=== PATIENT | female | born 1950 | race Caucasian/White ===

== ENCOUNTER 2019-05-21 16:55 | Inpatient (IN) | payer MEDICARE ==
[2019-05-21] MEDS ORDERED: SODIUM CHLORIDE 0.9% 1,000 ML IV STA (17:02)
--- NOTE | 2019-05-21 17:09 | ED ---
Neuro HPI - General Stated Complaint: stroke Time Seen by Provider: 05/21/19 17:02 Source: RN notes reviewed, old records reviewed Limitations: physical limitation - History of Present Illness Is the patient presenting with stroke symptoms?: Yes Last Known Well Date: 05/18/19 -: days(s) (3) Initial Comments: This is a 69-year-old female the ER today. Patient resents today for evaluation of CVA. She does not have significant history of CVA. Patient symptoms nor notice initially on Sunday she started to get better. Patient does have H of A fibrillation at times recently took himself off Eliquis on her own decision making. Patient coming in for facial droop and slurred speech also slurred speech noted by family. Denies arm or leg weakness Location: speech, right face, dysarthria History of same: No Place: home Severity: moderate Quality: weak, numb, constant Improves With: time (The patient mild improvement) Worsens With: none On Anticoagulants: Yes Context: sudden onset Associated Symptoms: denies other symptoms - Related Data Home Medications: Home Medications Medication Instructions Recorded Confirmed ALPRAZolam [Xanax] 0.25 mg PO BID PRN 05/21/19 05/21/19 Diphenox-Atrop 2.5-0.025 mg 1 tab PO Q6H PRN 05/21/19 05/21/19 [Lomotil] Fluticasone/Salmeterol [Advair 1 puff INHALATION RT-BID 05/21/19 05/21/19 500-50 Diskus] Losartan Potassium 50 mg PO DAILY 05/21/19 05/21/19 Montelukast [Singulair] 10 mg PO HS 05/21/19 05/21/19 Potassium Chloride 10 meq PO BID 05/21/19 05/21/19 Torsemide [Demadex] 20 mg PO DAILY 05/21/19 05/21/19 traMADol HCL [Ultram] 100 mg PO TID PRN 05/21/19 05/21/19 Allergies/Adverse Reactions: Allergies Allergy/AdvReac Type Severity Reaction Status Date / Time propoxyphene [From Darvon] Allergy Unknown Verified 05/21/19 17:45 Review of Systems ROS Statement: Those systems with pertinent positive or pertinent negative responses have been documented in the HPI. ROS Other: All systems not noted in ROS Statement are negative. General Exam - General Exam Comments Initial Comments: NIH of 3 General appearance: alert, in no apparent distress Head exam: Present: atraumatic, normocephalic, normal inspection Eye exam: Present: normal appearance, PERRL, EOMI. Absent: scleral icterus, conjunctival injection, periorbital swelling ENT exam: Present: normal exam, mucous membranes moist Neck exam: Present: normal inspection. Absent: tenderness, meningismus, lym phadenopathy Respiratory exam: Present: normal lung sounds bilaterally. Absent: respiratory distress, wheezes, rales, rhonchi, stridor Cardiovascular Exam: Present: regular rate, normal rhythm, normal heart sounds. Absent: systolic murmur, diastolic murmur, rubs, gallop, clicks GI/Abdominal exam: Present: soft, normal bowel sounds. Absent: distended, tenderness, guarding, rebound, rigid Extremities exam: Present: normal inspection, full ROM, normal capillary refill. Absent: tenderness, pedal edema, joint swelling, calf tenderness Back exam: Present: normal inspection Neurological exam: Present: alert, oriented X3, CN II-XII intact Psychiatric exam: Present: normal affect, normal mood Skin exam: Present: warm, dry, intact, normal color. Absent: rash Stroke MDM - Lab Data Result diagrams: 05/21/19 17:45 05/21/19 17:45 - NIH Stroke Scale 1a. Level of Consciousness: (0) alert 1b. LOC Questions: (0) answers correctly 1c. LOC Commands: (0) performs tasks correctly 2. Best Gaze: (0) normal 3. Visual: (0) no visual loss 4. Facial Palsy: (3) complete paralysis (Right side of face) 5a. Motor Arm Left: (0) no drift 5b. Motor Arm Right: (0) no drift 6a. Motor Leg Left: (0) no drift 6b. Motor Leg Right: (0) no drift 7. Limb Ataxia: (0) absent 8. Sensory: (0) normal 9. Best Language: (1) mild/moderate aphasia 10. Dysarthria: (1) mild/moderate dysarthria 11. Extinction/Inattention: (0) no abnormality - Thrombolytic Inclusion/Exclusion Thrombolytic Exclusion Criteria: Symptom Onset > 3 Hours - Medical Decision Making 69 female coming of CVA symptoms. Patient be admitted for neurological evaluation and management - EKG Data -: EKG Interpreted by Me (EKG shows sinus rhythm rate of 86, NM 132, QRS 1:30, QTc 488) Course Vital Signs 05/21/19 05/21/19 05/21/19 17:09 18:30 19:45 Temperature 97.9 F 98.3 F Pulse Rate 87 81 83 Respiratory 18 18 18 Rate Blood Pressure 142/64 127/70 140/42 O2 Sat by Pulse 99 97 100 Oximetry - Reevaluation(s) Reevaluation #1: 05/21/19 17:09 Medical records reviewed Reevaluation #2: 05/21/19 17:09 Is not a TPA candidate secondary to onset of symptoms 3 days Disposition Clinical Impression: CVA (cerebral vascular accident) Disposition: ADMITTED IP TO THIS [facility] Condition: Serious Is patient prescribed a controlled substance at d/c from ED?: No
[2019-05-21] MEDS: ASPIRIN 325 MG TAB PO STA (17:47)
[2019-05-21 17:59] LABS: Basophils % (A) 1 %; Eosinophils # (A) 0.1 k/uL (0-0.7); Eosinophils % (A) 1 %; HCT 33.9 % (34.0-46.0); HGB 10.8 gm/dL (11.4-16.0); Lymphocytes # (A) 0.9 k/uL (1.0-4.8); Lymphocytes % (A) 11 %; MCH 25.7 pg (25.0-35.0); MCHC 31.7 g/dL (31.0-37.0); Monocytes # (A) 0.5 k/uL (0-1.0); Monocytes % (A) 6 %; Neutrophils # (A) 6.2 k/uL (1.3-7.7); Neutrophils % (A) 78 %; Platelet Count 222 k/uL (150-450); RBC 4.18 m/uL (3.80-5.40); RDW 14.5 % (11.5-15.5)
[2019-05-21 18:08] LABS: Albumin 3.7 g/dL (3.5-5.0); Calcium 8.9 mg/dL (8.4-10.2); Potassium 4.4 mmol/L (3.5-5.1); Total Bilirubin 0.8 mg/dL (0.2-1.3); Total Protein 7.9 g/dL (6.3-8.2)
[2019-05-21 18:18] LABS: INR 0.9 (<1.2); Partial Thromboplastin Time 24.3 sec (22.0-30.0); Prothrombin Time 9.9 sec (9.0-12.0)
--- NOTE | 2019-05-21 18:30 | XR ---
EXAMINATION TYPE: XR chest 2V DATE OF EXAM: 05/21/2019 COMPARISON: NONE HISTORY: Weakness. Stroke. TECHNIQUE: Frontal and lateral views of the chest are obtained. FINDINGS: Heart and mediastinum are normal. Lungs are clear of infiltrate. There are chest leads. Co stophrenic angles are clear. There are no hilar masses. Bony thorax is intact. IMPRESSION: Normal chest.
--- NOTE | 2019-05-21 19:48 | CT ---
EXAMINATION TYPE: CT brain wo con for TPA DATE OF EXAM: 05/21/2019 COMPARISON: None HISTORY: Neuro deficits. CT DLP: 1082.4 mGycm Automated exposure control for dose reduction was used. FINDINGS: Ventricles have normal size. There is no mass effect nor midline shift. There is no sign of intracran ial hemorrhage. The calvarium is intact. IMPRESSION: NEGATIVE CT SCAN OF THE BRAIN.
[2019-05-21 20:26] LABS: Glucose,Whole Blood 90 mg/dL (75-99)
[2019-05-22 04:21] VITALS: BMI 59.4
[2019-05-22 06:42] LABS: Cholesterol 126 mg/dL (<200); HDL Cholesterol 30 mg/dL (40-60); LDL Cholesterol,Calculated 80 mg/dL (0-99); Triglycerides 82 mg/dL (<150)
[2019-05-22 08:34] VITALS: BP 139/83; PULSE 75; RESP 12; TEMP 98.5
[2019-05-22] MEDS ORDERED: traMADol 50 MG TAB PO PRN (08:37)
[2019-05-22] MEDS ORDERED: ALPRAZolam 0.25 MG TAB PO PRN (08:41)
[2019-05-22] MEDS ORDERED: ASPIRIN 325 MG TAB PO SCH (09:00)
[2019-05-22] MEDS ORDERED: LOSARTAN 50 MG TAB PO SCH (09:00)
[2019-05-22] MEDS ORDERED: METOPROLOL TARTRATE 25 MG TAB PO SCH (09:30)
[2019-05-22] MEDS ORDERED: APIXABAN 5 MG TAB PO SCH (09:30)
[2019-05-22 09:57] LABS: Appearance,Urine Cloudy (Clear); Bacteria,Urine Moderate /hpf; Bilirubin,Urine Negative (Negative); Blood,Urine Moderate (Negative); Color,Urine Yellow; Glucose,Urine (UA) Negative (Negative); Ketones,Urine Negative (Negative); Leukocyte Esterase,Urine Large (Negative); Mucus,Urine Rare /hpf; Nitrite,Urine Negative (Negative); Protein,Urine Negative (Negative); RBC,Urine 41 /hpf (0-5); Specific Gravity,Urine 1.012 (1.001-1.035); Squamous Epithelial Cell,Urine 5 /hpf (0-4); Urobilinogen,Urine <2.0 mg/dL (<2.0); WBC,Urine 83 /hpf (0-5)
--- NOTE | 2019-05-22 09:59 | CONS ---
CONSULTATION Mrs. Morse is a 69-year-old female who is seen for cardiac evaluation, patient's electronic medical records. Last medications were reviewed. Please refer to the patient's EMR for any further details. Patient came with a complaint that since Sunday she started having some facial droop and slurred speech and some headaches. She initially thought she might be having atrial fibrillation. Patient subsequently came to the emergency room. Initial CT scan was negative and patient is admitted with a diagnosis of CVA. She denies any weakness. She does have a past history of TIA. She has a past history of paroxysmal atrial fibrillation for which patient has been treated for Eliquis. She had been having some bright red bleeding per rectum or vaginal bleeding and she took herself off the Eliquis for last 6 weeks. Patient has a history of hypertension. There is no definite history of myocardial infarction. The patient's physical activities are significantly limited. PAST MEDICAL HISTORY: Includes history of a TIA, a history of paroxysmal atrial fibrillation, cholecystectomy, and orthopedic surgery. PATIENT'S HOME MEDICATIONS: Included Demadex 20 mg daily, potassium chloride, Singulair, losartan 50 mg daily, Lomotil and Xanax. PHYSICAL EXAMINATION: At present reveals a 69-year-old obesely-built female who does not appear to be in any acute distress. Blood pressure is 139/83 mmHg, heart rate is 75 per minute. HEENT: Examination is negative. Neck is supple. There is no increase in jugular venous pressure. Both the carotid pulses are felt, there is no bruit. Chest is symmetrical Heart, the PMI is not felt. First and second heart sounds are heard. Lungs are clinically clear to auscultation and percussion. Abdomen is soft. Liver and spleen are not enlarged. Bowel sounds are heard. Extremities, peripheral pulses are 1+. EKG shows normal sinus rhythm with a Wenckebach type of second-degree AV block. Monitor strips reviewed which shows intermittent short runs of atrial tachycardia. Initial CT scan is normal. FINAL IMPRESSION: This patient is admitted with a history suggestive of a CVA. Initial CT scan is normal. Further evaluation with MRI is suggested. In view of the patient's known history of atrial fibrillation in the past as well as history of a TIA, I highly strongly recommend to resume the patient on Eliquis to prevent any major disabling stroke. I discussed this with the patient's daughter as well as patient. If she has any problem with rectal bleeding, a GI evaluation is suggested. Echo and Doppler study will be done. We will resume the patient's losartan and we will put the patient on Lopressor 25 mg b.i.d. MMLIZY / SUZETTEN: [id number] /
--- NOTE | 2019-05-22 10:00 | US ---
EXAMINATION TYPE: US carotid duplex BILAT DATE OF EXAM: 05/22/2019 COMPARISON: NONE CLINICAL HISTORY: stroke symptoms. Facial drooping and numbness, slurred speech, exam done portable. EXAM MEASUREMENTS: RIGHT: Peak Systolic Velocity (PSV) cm/sec ----- Right CCA: 66.6 ----- Right ICA: 56.9 ----- Right ECA: 74.5 ICA/CCA ratio: 0.9 RIGHT: End Diastole cm/sec ----- Right CCA: 17.1 ----- Right ICA: 14.2 ----- Right ECA: 2.4 LEFT: Peak Systolic Velocity (PSV) cm/sec ----- Left CCA: 90.7 ----- Left ICA: 87.4 ----- Left ECA: 112.4 ICA/CCA ratio: 1.0 LEFT: End Diastole cm/sec ----- Left CCA: 20.9 ----- Left ICA: 34.9 ----- Left ECA: 11.4 VERTEBRALS (direction of flow): Right Vertebral: Antegrade Left Vertebral: Antegrade Rhythm: Arrhythmia Difficult and limited study due to obese patient, heavy breathing and torturous vessels No elevated velocities, no significant stenosis. IMPRESSION: 1. Mild degree of grayscale atheromatous plaquing with no sonographically evident hemodynamically sig nificant stenosis within either visualized carotid arterial system. 2. Incidentally noted cardiac arrhythmia. Correlate with EKG. Criteria for Assigning % of Stenosis / Diameter reduction (Estimation based on the indirect measurements of the internal carotid artery velocities (ICA PSV). 1. Normal (no stenosis)=ICA PSV < 125 cm/s: ratio < 2.0: ICA EDV<40 cm/s. 2. Less than 50% stenosis=ICA PSV < 125 cm/s: ratio < 2.0: ICA EDV<40 cm/s. 3. 50 to 69% stenosis=ICA PSV of 125 to 230 cm/s: ration 2.0 ? 4.0: ICA EDV 40-100 cm/s. 4. Greater than 70% stenosis to near occlusion= ICA PSV > 230 cm/s: ratio > 4.0: ICA EDV > 100 cm/s. 5. Near occlusion= ICA PSV velocities may be low or undetectable: variable ratio and ICA EDV. 6. Total occlusion=unable to detect flow.
--- NOTE | 2019-05-22 10:45 | ECHOF ---
Referral Reason:stroke symptoms MEASUREMENTS -------- HEIGHT: 157.5 cm WEIGHT: 146.1 kg BP: 139/83 IVSd: 1.7 cm (0.6 - 1.1) LVIDd: 3.8 cm (3.9 - 5.3) LVPWd: 1.4 cm (0.6 - 1.1) IVSs: 1.6 cm LVIDs: 2.2 cm LVPWs: 1.6 cm Ao Diam: 3.4 cm (2.0 - 3.7) AV Cusp: 1.8 cm (1.5 - 2.6) LA Diam: 3.6 cm (2.7 - 3.8) MV EXCURSION: 13.666 mm (> 18.000) MV EF SLOPE: 57 mm/s (70 - 150) EPSS: 0.3 cm MV E Leon: 1.23 m/s MV DecT: 278 ms MV A Leon: 0.92 m/s MV E/A Ratio: 1.33 RAP: 5.00 mmHg RVSP: 10.99 mmHg FINDINGS -------- Atrial fibrillation. This was a technically difficult study with suboptimal views. The left ventricular size is normal. There is moderate concentric left ventricular hypertrophy. O verall left ventricular systolic function is low-normal with, an EF between 50 - 55 %. The RV was not well visualized. The left atrial size is normal. The right atrial size is normal. Lumason used The aortic valve is trileaflet and appears structurally normal. The mitral valve is normal. There is trace mitral regurgitation. Trace tricuspid regurgitation present. Right ventricular systolic pressure is normal at < 35 mmHg. The pulmonic valve was not well visualized. The aortic root size is normal. IVC Not well visulized. There is no pericardial effusion. CONCLUSIONS -------- 1. Atrial fibrillation. 2. This was a technically difficult study with suboptimal views. 3. The left ventricular size is normal. 4. There is moderate concentric left ventricular hypertrophy. 5. Overall left ventricular systolic function is low-normal with, an EF between 50 - 55 %. 6. The RV was not well visualized. 7. The left atrial size is normal. 8. The right atrial size is normal. 9. Lumason used 10. The aortic valve is trileaflet and appears structurally normal. 11. The mitral valve is normal. 12. There is trace mitral regurgitation. 13. Trace tricuspid regurgitation present. 14. Right ventricular systolic pressure is normal at < 35 mmHg. 15. The pulmonic valve was not well visualized. 16. The aortic root size is normal. 17. IVC Not well visulized. 18. There is no pericardial effusion. [place] TECHNICIAN: Lluvia Braun RDCS
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
--- NOTE | 2019-05-22 14:33 | P.CNPUL ---
History of Present Illness Consult date: 05/22/19 Chief complaint: Right facial weakness History of present illness: [id number] female patient with known history of atrial fibrillation who has quit taking her Eliquis approximately a month ago due to concerns of GI bleeding/hematuria. We are not sure if the patient had urinary bleeding or vaginal bleeding or GI bleeding. The patient herself is not sure. She decided to discontinue the anticoagulation. The patient has hypertension. The patient has history of bronchial asthma. The daughter found the patient having some right facial weakness. This has been going on for the past 5 days. The patient's right face, angle of the mouth is drooped and the patient also has difficulty raising her eyebrow at the Center she is having some issues with lacrimation in her taste. No weakness in the right upper extremity. No weakness in the lower extremity. No difficulties with speech. No headaches. No neck stiffness. No fever. No chills. No head trauma. Her CAT scan of the brain at time of admission was within normal limits. She has had chronic hearing difficulties and is very chronic problem. No nausea. No vomiting. No abdominal pain. No skin rashes. No reported history of any other complaints. No falls. On today's evaluation, the hemoglobin is stable. I see a transvaginal ultrasound that was done on this patient back in 2014 and it was normal limits and this was done for vaginal bleeding. The patient bronchial asthma and she is maintained on a combination of Advair and finger no patient basis. His chronic anxiety on Xanax. Review of Systems Constitutional: Denies chills, Denies fever Eyes: right irritation (An increased lacrimation from the right eye), denies as per HPI, denies blurred vision, denies bulging eye, denies decreased vision, denies diplopia, denies discharge, denies dry eye, denies itching, denies pain, denies photophobia, denies loss of peripheral vision, denies loss of vision, denies tunnel vision/blind spots Ears: bilateral: decreased hearing, deny: ear discharge, earache, tinnitus Ears, nose, mouth and throat: Reports as per HPI Breasts: absent: as per HPI, change in shape, gynecomastia, masses, nipple discharge, pain, skin changes, swelling Cardiovascular: Denies chest pain, Denies shortness of breath Respiratory: Reports as per HPI Gastrointestinal: Reports as per HPI Genitourinary: Reports as per HPI Menstruation: Reports as per HPI Musculoskeletal: Reports as per HPI Musculoskeletal: absent: ankle pain, ankle stiffness, ankle swelling, as per HPI, elbow pain, elbow stiffness, elbow swelling, foot pain, foot stiffness, foot swelling, hand pain, hand stiffness, hand swelling, hip pain, hip stiffness, hip swelling, knee pain, knee stiffness, knee swelling, shoulder pain, shoulder stiffness, shoulder swelling, wrist pain, wrist stiffness, wrist swelling Integumentary: Denies pruritus, Denies rash Neurological: Reports as per HPI (Facial weakness of the right) Psychiatric: Reports as per HPI Endocrine: Reports as per HPI Hematologic/Lymphatic: Reports as per HPI Allergic/Immunologic: Reports as per HPI Past Medical History Past Medical History: Atrial Fibrillation, Asthma, CVA/TIA, Hypertension History of Any Multi-Drug Resistant Organisms: None Reported Past Surgical History: Cholecystectomy, Orthopedic Surgery Past Psychological History: No Psychological Hx Reported Smoking Status: Never smoker Past Alcohol Use History: None Reported Past Drug Use History: None Reported - Past Family History Father Additional Family Medical History / Comment(s): Heart disease in the family including parents although the type is not clear Medications and Allergies Home Medications Medication Instructions Recorded Confirmed Type ALPRAZolam [Xanax] 0.25 mg PO BID PRN 05/21/19 05/21/19 History Diphenox-Atrop 2.5-0.025 mg 1 tab PO Q6H PRN 05/21/19 05/21/19 History [Lomotil] Fluticasone/Salmeterol [Advair 1 puff INHALATION RT-BID 05/21/19 05/21/19 History 500-50 Diskus] Losartan Potassium 50 mg PO DAILY 05/21/19 05/21/19 History Montelukast [Singulair] 10 mg PO HS 05/21/19 05/21/19 History Potassium Chloride 10 meq PO BID 05/21/19 05/21/19 History Torsemide [Demadex] 20 mg PO DAILY 05/21/19 05/21/19 History traMADol HCL [Ultram] 100 mg PO TID PRN 05/21/19 05/21/19 History Apixaban [Eliquis] 5 mg PO BID #60 tab 05/22/19 Rx Metoprolol Tartrate [Lopressor] 12.5 mg PO BID #60 tab 05/22/19 Rx predniSONE 10 mg PO DAILY 10 Days #45 tab 05/22/19 Rx Allergies Allergy/AdvReac Type Severity Reaction Status Date / Time propoxyphene [From Darvon] Allergy Unknown Verified 05/21/19 17:45 Physical Exam Vitals: Vital Signs Temp Pulse Resp BP Pulse Ox 05/22/19 08:00 98.5 F 75 12 139/83 05/22/19 07:00 96 16 142/70 05/22/19 06:00 81 15 136/58 05/22/19 05:00 76 15 136/65 05/22/19 04:00 98.3 F 75 14 144/71 98 05/22/19 03:00 85 12 97/84 05/22/19 02:00 106 H 18 122/67 99 05/22/19 01:00 72 18 116/56 98 05/22/19 00:00 98.3 F 78 14 149/80 98 05/21/19 23:00 74 14 144/78 05/21/19 22:00 99 18 133/64 05/21/19 21:00 78 16 147/60 98 05/21/19 20:13 98.5 F 74 16 130/84 99 05/21/19 19:45 98.3 F 83 18 140/42 100 05/21/19 18:30 81 18 127/70 97 05/21/19 17:09 97.9 F 87 18 142/64 99 Intake and Output 05/21/19 05/22/19 05/22/19 22:59 06:59 14:59 Output Total 300 Balance -300 Output: Urine 300 Other: # Voids 1 0 # Bowel Movements 1 Weight 147.418 kg 146.4 kg Gen. appearance the patient is calm, likely distress. She is away 3. She is fluent in her speech. No dysarthria. There is obvious right facial weakness was noted on physical examination. Head exam was generally normal. There was no scleral icterus or corneal arcus. Mucous membranes were moist. There is a obvious right facial weakness on the right Neck was supple and without jugular venous distension, thyromegaly, or carotid bruits. Carotids were easily palpable bilaterally. There was no adenopathy. Lungs were clear to auscultation and percussion, and with normal diaphragmatic excursion. No wheezes or rales were noted. Cardiac exam revealed the PMI to be normally situated and sized. The rhythm was regular and no extrasystoles were noted during several minutes of auscultation. The first and second heart sounds were normal and physiologic splitting of the second heart sound was noted. There were no murmurs, rubs, clicks, or gallops. Her rhythm is occasionally irregular consistent with atrial fibrillation. Upon 1 achieving and examining her, she was sinus alternating with atrial fibrillation. Abdominal exam revealed normal bowel sounds. The abdomen was soft, non-tender, and without masses, organomegaly, or appreciable enlargement of the abdominal aorta. Examination of the extremities revealed easily palpable radial, femoral and pedal pulses. There was no cyanosis, clubbing or edema. she has chronic edema lower extremities with +1 pitting Examination of the skin revealed no evidence of significant rashes, suspicious appearing nevi or other concerning lesions. Neurologically the patient awake and alert. No motor weakness in the right side. No motor weakness on the left side. Normal sensory bilaterally. Normal swallow. Positive gag. He was equal and reactive to light. No problems with extraocular muscle activity. No nystagmus. She has difficulty in raising her eyebrows and fully closing her eyes. She also difficulties with right facial weakness. No drooling. Tongue in the midline. No atrophy. The patient has diminished hearing bilaterally more so on the right. Reflexes symmetric in all 4 extremities. No Babinski. No clonus. Please refer to the neurologic evaluation that was done by the neurologist for more details. Results - Laboratory Findings CBC and BMP: 05/21/19 17:45 05/21/19 17:45 PT/INR, D-dimer PT 9.9 sec (9.0-12.0) 05/21/19 17:45 INR 0.9 (<1.2) 05/21/19 17:45 Abnormal lab findings: Abnormal Labs 05/21/19 05/21/19 05/22/19 17:45 17:45 05:17 Hgb 10.8 L Hct 33.9 L Lymphocytes # 0.9 L BUN 21 H Creatinine 1.48 H Glucose 101 H Alkaline Phosphatase 135 H HDL Cholesterol 30 L Urine Appearance Urine Blood Ur Leukocyte Esterase Urine RBC Urine WBC Ur Squamous Epith Cells Urine Bacteria Urine Mucus 09/05/19 09:15 Hgb Hct Lymphocytes # BUN Creatinine Glucose Alkaline Phosphatase HDL Cholesterol Urine Appearance Cloudy H Urine Blood Moderate H Ur Leukocyte Esterase Large H Urine RBC 41 H Urine WBC 83 H Ur Squamous Epith Cells 5 H Urine Bacteria Moderate H Urine Mucus Rare H Assessment and Plan Plan: 1 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 Doubt acute CVA. The CAT scan of the brain is negative. Awaiting a neurologic evaluation. 2 chronic atrial fibrillation currently on no anticoagulation. Rate is controlled 3 chronic kidney disease, stage II to 3 4 chronic bronchial asthma currently inactive in stable 5 hypertension 6 history of diverticulosis 7 obesity with a BMI 59 8 impaired hearing 9 chronic degenerative arthritis/pain Plan Awaiting an evaluation. If Vanegas's palsy is confirmed, the patient would benefit from steroids. Restart Eliquis as the patient has CHADsVasc score of at least 5 however going closely to monitor this patient for many bleeding with evidence vaginal lower GI bleeding. Monitor hemoglobin. Resume outpatient medications. Obtain echocardiogram. Obtain carotid Doppler. We'll continue to follow.
[2019-05-22] MEDS ORDERED: SYMBICORT 160-4.5 MCG INHALER INHALATION SCH (20:00)
[2019-05-22] MEDS ORDERED: MONTELUKAST 10 MG TAB PO SCH (21:00)
[2019-05-23] MEDS ORDERED: ASPIRIN 81 MG PO SCH (09:00)
--- NOTE | 2019-05-24 22:04 | P.HPIM ---
History of Present Illness H&P Date: 05/22/19 Chief Complaint: Facial weakness History of presenting complaint: This is a pleasant 69-year-old patient of Dr. Sin. Chronic stable medical conditions include hypertension, asthma, atrial fibrillation. Patient's most been eliquis and follows with Dr. Hinojosa. Patient's had some vaginal bleeding and she decided to hold off eliquis last few weeks. Patient presented with some right facial weakness. Going on for about for 5 days. No change in vision. No headache. No focal weakness. No fever no chills. Presented to the ER. Computed tomography scan of the brain was unremarkable. Admitted for further neurological workup. Review of systems: GEN.: None EYES: None HEENT: Facial asymmetry NECK: None RESPIRATORY: None CARDIOVASCULAR: None GASTROINTESTINAL: None GENITOURINARY: None MUSCULOSKELETAL: Occasional pain in the joints LYMPHATICS: None HEMATOLOGICAL: None PSYCHIATRY: None NEUROLOGICAL: As above Social history: Does not smoke or drink alcohol. Family history: Heart disease Physical examination: VITAL SIGNS: 97.9, 87, 18, 142/64, 99% room air GENERAL: BMI 59 sitting over the bed comfortable. EYES: Pupils equal. Conjunctiva normal. HEENT: External appearance of nose and ears normal, oral cavity grossly normal. NECK: JVD not raised; masses not palpable. HEART: First and second heart sounds are normal; no edema. LUNGS: Respiratory rate normal; clear to auscultation. ABDOMEN: Soft, nontender, liver spleen not palpable, no masses palpable. PSYCH: Alert and oriented x3; mood and affect normal. NEUROLOGICAL: [Weakness of the muscles on the right side of the face. Mouth is put to the left patient is unable to close eyelids against pressure. No other focal signs. 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 Neurology was consulted to rule out other causes. -Morbid obesity BMI 59 -Paroxysmal atrial fibrillation, patient stopped taking eliquis -) Right bundle branch block -Intermittent asthma -Essential hypertension Plan: Neurology was consulted. Prognosis aspirin. Home medications reviewed. 2-D echo and a carotid Doppler was ordered. Patient was told to resume her eliquis. Cardiology was consulted. Past Medical History Past Medical History: Atrial Fibrillation, Asthma, CVA/TIA, Hypertension History of Any Multi-Drug Resistant Organisms: None Reported Past Surgical History: Cholecystectomy, Orthopedic Surgery Past Psychological History: No Psychological Hx Reported Smoking Status: Never smoker Past Alcohol Use History: None Reported Past Drug Use History: None Reported - Past Family History Father Additional Family Medical History / Comment(s): Heart disease in the family including parents although the type is not clear Medications and Allergies Home Medications Medication Instructions Recorded Confirmed Type ALPRAZolam [Xanax] 0.25 mg PO BID PRN 05/21/19 05/21/19 History Diphenox-Atrop 2.5-0.025 mg 1 tab PO Q6H PRN 05/21/19 05/21/19 History [Lomotil] Fluticasone/Salmeterol [Advair 1 puff INHALATION RT-BID 05/21/19 05/21/19 History 500-50 Diskus] Losartan Potassium 50 mg PO DAILY 05/21/19 05/21/19 History Montelukast [Singulair] 10 mg PO HS 05/21/19 05/21/19 History Potassium Chloride 10 meq PO BID 05/21/19 05/21/19 History Torsemide [Demadex] 20 mg PO DAILY 05/21/19 05/21/19 History traMADol HCL [Ultram] 100 mg PO TID PRN 05/21/19 05/21/19 History Apixaban [Eliquis] 5 mg PO BID #60 tab 05/22/19 Rx Metoprolol Tartrate [Lopressor] 12.5 mg PO BID #60 tab 05/22/19 Rx predniSONE 10 mg PO DAILY 10 Days #45 tab 05/22/19 Rx Allergies Allergy/AdvReac Type Severity Reaction Status Date / Time propoxyphene [From Darvon] Allergy Unknown Verified 05/21/19 17:45 Physical Exam Vitals: Vital Signs Temp Pulse Resp BP Pulse Ox 05/22/19 08:00 98.5 F 75 12 139/83 05/22/19 07:00 96 16 142/70 05/22/19 06:00 81 15 136/58 05/22/19 05:00 76 15 136/65 05/22/19 04:00 98.3 F 75 14 144/71 98 05/22/19 03:00 85 12 97/84 05/22/19 02:00 106 H 18 122/67 99 05/22/19 01:00 72 18 116/56 98 05/22/19 00:00 98.3 F 78 14 149/80 98 05/21/19 23:00 74 14 144/78 05/21/19 22:00 99 18 133/64 05/21/19 21:00 78 16 147/60 98 05/21/19 20:13 98.5 F 74 16 130/84 99 05/21/19 19:45 98.3 F 83 18 140/42 100 05/21/19 18:30 81 18 127/70 97 05/21/19 17:09 97.9 F 87 18 142/64 99 Intake and Output 05/21/19 05/22/19 05/22/19 22:59 06:59 14:59 Other: # Voids 1 0 Weight 147.418 kg 146.4 kg Results CBC & Chem 7: 05/21/19 17:45 05/21/19 17:45 Labs: Abnormal Lab Results - Last 24 Hours (Table) 05/21/19 05/21/19 05/22/19 Range/Units 17:45 17:45 05:17 Hgb 10.8 L (11.4-16.0) gm/dL Hct 33.9 L (34.0-46.0) % Lymphocytes # 0.9 L (1.0-4.8) k/uL BUN 21 H (7-17) mg/dL Creatinine 1.48 H (0.52-1.04) mg/dL Glucose 101 H (74-99) mg/dL Alkaline Phosphatase 135 H (38-126) U/L HDL Cholesterol 30 L (40-60) mg/dL Urine Appearance (Clear) Urine Blood (Negative) Ur Leukocyte Esterase (Negative) Urine RBC (0-5) /hpf Urine WBC (0-5) /hpf Ur Squamous Epith Cells (0-4) /hpf Urine Bacteria (None) /hpf Urine Mucus (None) /hpf 05/22/19 Range/Units 09:15 Hgb (11.4-16.0) gm/dL Hct (34.0-46.0) % Lymphocytes # (1.0-4.8) k/uL BUN (7-17) mg/dL Creatinine (0.52-1.04) mg/dL Glucose (74-99) mg/dL Alkaline Phosphatase (38-126) U/L HDL Cholesterol (40-60) mg/dL Urine Appearance Cloudy H (Clear) Urine Blood Moderate H (Negative) Ur Leukocyte Esterase Large H (Negative) Urine RBC 41 H (0-5) /hpf Urine WBC 83 H (0-5) /hpf Ur Squamous Epith Cells 5 H (0-4) /hpf Urine Bacteria Moderate H (None) /hpf Urine Mucus Rare H (None) /hpf Thrombosis Risk Factor Assmnt - Choose All That Apply Any of the Below Risk Factors Present?: Yes Each Factor Represents 1 point: Obesity (BMI >25), Swollen legs (current) Other Risk Factors: Yes Each Risk Factor Represents 2 Points: Age 61-74 years Thrombosis Risk Factor Assessment Total Risk Factor Score: 4 Thrombosis Risk Factor Assessment Level: Moderate Risk
--- NOTE | 2019-05-24 22:09 | P.DS ---
Providers Date of admission: 05/21/19 17:02 Expected date of discharge: 05/22/19 Attending physician: Jamshid Cabrera Consults: 05/21/19 17:03 Consult Physician Routine Consulting Provider: Erum Taylor Consult Reason/Comments: cva Do you want consulting provider notified?: Yes Primary care physician: Ivan [facility] Course: Hospital course: This is a pleasant 69-year-old patient of Dr. Sin. Chronic stable medical conditions include hypertension, asthma, atrial fibrillation. Patient's most been eliquis and follows with Dr. Hinojosa. Patient's had some vaginal bleeding and she decided to hold off eliquis last few weeks. Patient presented with some right facial weakness. Going on for about for 5 days. No change in vision. No headache. No focal weakness. No fever no chills. Presented to the ER. Computed tomography scan of the brain was unremarkable. Admitted for further neurological workup. Patient TESTING including computed tomography scan of the brain, carotid Doppler, 2-D echo were all negative.. Patient felt of Vanegas's palsy. Symptoms only been present for 5 days. Patient was reinforced to resume her eliquis. Repeat was consulted. Consultation: Dr. VC Wyatt from cardiology Dr. Taylor from neurology Dr. Godfrey from template checker Physical examination: VITAL SIGNS: 97.9, 87, 18, 142/64, 99% room air GENERAL: BMI 59 sitting over the bed comfortable. EYES: Pupils equal. Conjunctiva normal. HEENT: External appearance of nose and ears normal, oral cavity grossly normal. NECK: JVD not raised; masses not palpable. HEART: First and second heart sounds are normal; no edema. LUNGS: Respiratory rate normal; clear to auscultation. ABDOMEN: Soft, nontender, liver spleen not palpable, no masses palpable. PSYCH: Alert and oriented x3; mood and affect normal. NEUROLOGICAL: [Weakness of the muscles on the right side of the face. Mouth is put to the left patient is unable to close eyelids against pressure. No other focal signs. 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 Neurology was consulted to rule out other causes. -Morbid obesity BMI 59 -Paroxysmal atrial fibrillation, patient stopped taking eliquis - Right bundle branch block -Intermittent asthma -Essential hypertension Disposition: Home Patient Condition at Discharge: Stable Plan - Discharge Summary Discharge Rx Participant: No New Discharge Prescriptions: New Apixaban [Eliquis] 5 mg PO BID #60 tab Metoprolol Tartrate [Lopressor] 12.5 mg PO BID #60 tab predniSONE 10 mg PO DAILY 10 Days #45 tab Continue traMADol HCL [Ultram] 100 mg PO TID PRN PRN Reason: Pain Torsemide [Demadex] 20 mg PO DAILY Potassium Chloride 10 meq PO BID Montelukast [Singulair] 10 mg PO HS Losartan Potassium 50 mg PO DAILY Fluticasone/Salmeterol [Advair 500-50 Diskus] 1 puff INHALATION RT-BID Diphenox-Atrop 2.5-0.025 mg [Lomotil] 1 tab PO Q6H PRN PRN Reason: Diarrhea ALPRAZolam [Xanax] 0.25 mg PO BID PRN PRN Reason: Anxiety Discharge Medication List ALPRAZolam [Xanax] 0.25 mg PO BID PRN 05/21/19 [History] Diphenox-Atrop 2.5-0.025 mg [Lomotil] 1 tab PO Q6H PRN 05/21/19 [History] Fluticasone/Salmeterol [Advair 500-50 Diskus] 1 puff INHALATION RT-BID 05/21/19 [History] Losartan Potassium 50 mg PO DAILY 05/21/19 [History] Montelukast [Singulair] 10 mg PO HS 05/21/19 [History] Potassium Chloride 10 meq PO BID 05/21/19 [History] Torsemide [Demadex] 20 mg PO DAILY 05/21/19 [History] traMADol HCL [Ultram] 100 mg PO TID PRN 05/21/19 [History] Apixaban [Eliquis] 5 mg PO BID #60 tab 05/22/19 [Rx] Metoprolol Tartrate [Lopressor] 12.5 mg PO BID #60 tab 05/22/19 [Rx] predniSONE 10 mg PO DAILY 10 Days #45 tab 05/22/19 [Rx] Follow up Appointment(s)/Referral(s): Isa Hinojosa MD [STAFF PHYSICIAN] - 1 Week (05/30/19 3:[address] ) Ivan Sin MD [Primary Care Provider] - 1-2 days (05/23/19 0930) Senia Smith MD [STAFF PHYSICIAN] - 1 Week (05/26/19 1115) Patient Instructions/Handouts: Vanegas Palsy (DC) Discharge Disposition: HOME SELF-CARE
== END 2019-05-22 14:38 | disposition home or self-care (01) | DRG 74 ==
LOC: EC 16:55 → 2SICU 17:02
PROVIDERS: ADMIT Hospitalist; ATTEND Hospitalist
DX: G51.0 Bell's palsy (principal); Z68.43 Body mass index [BMI] 50.0-59.9, adult; E66.01 Morbid (severe) obesity due to excess calories; I48.0 Paroxysmal atrial fibrillation; I45.10 Unspecified right bundle-branch block; I48.2 Chronic atrial fibrillation; I44.1 Atrioventricular block, second degree; I12.9 Hypertensive chronic kidney disease with stage 1 through stage 4 chronic kidney disease, or unspecified chronic kidney disease; N18.2 Chronic kidney disease, stage 2 (mild); J45.20 Mild intermittent asthma, uncomplicated; K57.90 Diverticulosis of intestine, part unspecified, without perforation or abscess without bleeding; F41.9 Anxiety disorder, unspecified; H91.90 Unspecified hearing loss, unspecified ear; M19.90 Unspecified osteoarthritis, unspecified site; Z79.51 Long term (current) use of inhaled steroids; Z79.899 Other long term (current) drug therapy; Z88.5 Allergy status to narcotic agent; Z86.73 Personal history of transient ischemic attack (TIA), and cerebral infarction without residual deficits; Z90.49 Acquired absence of other specified parts of digestive tract; Z82.49 Family history of ischemic heart disease and other diseases of the circulatory system
CPT/HCPCS: 36415; 70450; 71046; 80053; 80061; 81001; 82550; 84484; 85025; 85610; 85730; 93005; 93306; 93880; 96360; 96361; 99285

== ENCOUNTER 2019-06-12 16:17 | Emergency (ER) | payer MEDICARE ==
[2019-06-12] MEDS ORDERED: METOCLOPRAMIDE 5 MG/ML 2 ML VIAL IVP STA (16:58)
[2019-06-12] MEDS ORDERED: SODIUM CHLORIDE 0.9% 1,000 ML IV STA (16:58)
[2019-06-12] MEDS ORDERED: MORPHINE SULFATE 4 MG/ML SYRINGE IV STA (16:58)
[2019-06-12] MEDS ORDERED: PANTOPRAZOLE 40 MG/10 ML VIAL IVP STA (16:58)
[2019-06-12] MEDS ORDERED: diphenhydrAMINE 50 MG/ML 1 ML VIAL IVP STA (16:59)
--- NOTE | 2019-06-12 17:09 | ED ---
Abdominal Pain HPI - General Stated Complaint: colitis flare Time Seen by Provider: 06/12/19 16:47 Source: RN notes reviewed, old records reviewed Limitations: no limitations - History of Present Illness Initial Comments: This is a 69-year-old female the ER for evaluation is patient does say for evaluation of bowel pain persists or abdominal pain with nausea vomiting. No fevers. She does have diarrhea has persistent diarrhea. History of colitis and diverticulitis. Patient feels like she has worsening of both she is here surgeon about a week ago she was started on Sunday medications and he has had no improvement. Denies any fevers. No significant recent gallbladder has been removed Complaint: abdominal pain, other (Diarrhea) -: week(s) Location: diffuse, periumbilical, LLQ Radiation: none Migration to: no migration Severity: moderate Severity scale (1-10): 5 Quality: cramping, stabbing, aching Consistency: constant Improves With: nothing Worsens With: nothing Context: other (History of same) Associated Symptoms: nausea, vomiting, diarrhea, anorexia - Related Data Home Medications Medication Instructions Recorded Confirmed ALPRAZolam [Xanax] 0.25 mg PO BID PRN 05/21/19 06/12/19 Diphenox-Atrop 2.5-0.025 mg 1 tab PO Q6H PRN 05/21/19 06/12/19 [Lomotil] Fluticasone/Salmeterol [Advair 1 puff INHALATION RT-BID 05/21/19 06/12/19 500-50 Diskus] Losartan Potassium 50 mg PO DAILY 05/21/19 06/12/19 Montelukast [Singulair] 10 mg PO HS 05/21/19 06/12/19 Potassium Chloride 10 meq PO DAILY 05/21/19 06/12/19 Torsemide [Demadex] 20 mg PO DAILY 05/21/19 06/12/19 traMADol HCL [Ultram] 100 mg PO TID PRN 05/21/19 06/12/19 Metoprolol Tartrate [Lopressor] 50 mg PO BID 06/12/19 06/12/19 Previous Rx's Medication Instructions Recorded Apixaban [Eliquis] 5 mg PO BID #60 tab 05/22/19 Allergies Allergy/AdvReac Type Severity Reaction Status Date / Time propoxyphene [From Darvon] Allergy Unknown Verified 06/12/19 17:28 Review of Systems ROS Statement: Those systems with pertinent positive or pertinent negative responses have been documented in the HPI. ROS Other: All systems not noted in ROS Statement are negative. Past Medical History Past Medical History: Atrial Fibrillation, Asthma, CVA/TIA, Hypertension History of Any Multi-Drug Resistant Organisms: None Reported Past Surgical History: Cholecystectomy, Orthopedic Surgery Past Psychological History: No Psychological Hx Reported Smoking Status: Never smoker Past Alcohol Use History: None Reported Past Drug Use History: None Reported - Past Family History Father Additional Family Medical History / Comment(s): Heart disease in the family including parents although the type is not clear General Exam General appearance: alert, in no apparent distress, obese Head exam: Present: atraumatic, normocephalic, normal inspection Eye exam: Present: normal appearance, EOMI. Absent: scleral icterus, conjunctival injection, periorbital swelling ENT exam: Present: normal exam, mucous membranes moist Neck exam: Present: normal inspection. Absent: tenderness, meningismus, lymphadenopathy Respiratory exam: Present: normal lung sounds bilaterally. Absent: respiratory distress, wheezes, rales, rhonchi, stridor Cardiovascular Exam: Present: regular rate, normal rhythm, normal heart sounds. Absent: systolic murmur, diastolic murmur, rubs, gallop, clicks GI/Abdominal exam: Present: soft, distended, tenderness, normal bowel sounds. Absent: guarding, rebound, rigid Extremities exam: Present: normal inspection, full ROM, normal capillary refill. Absent: tenderness, pedal edema, joint swelling, calf tenderness Back exam: Present: normal inspection Neurological exam: Present: alert, oriented X3, CN II-XII intact Psychiatric exam: Present: normal affect, normal mood Skin exam: Present: warm, dry, intact, normal color. Absent: rash Course Vital Signs 06/12/19 06/12/19 06/12/19 17:32 17:35 18:00 Temperature 98.6 F Pulse Rate 69 Respiratory 18 Rate Blood Pressure 131/75 131/75 137/74 O2 Sat by Pulse 98 99 Oximetry - Reevaluation(s) Reevaluation #1: 06/12/19 17:09 Medical record is reviewed Reevaluation #2: 06/12/19 20:15 Patient symptoms pain improved Medical Decision Making - Medical Decision Making 69 female the ER for evaluation of bowel pain. History of colitis computed tomography scan is negative labwork is normal patient can be discharged home - Lab Data Result diagrams: 06/12/19 18:25 06/12/19 18:25 Lab Results 06/12/19 06/12/19 06/12/19 Range/Units 18:25 18:25 18:25 WBC 5.1 (3.8-10.6) k/uL RBC 4.42 (3.80-5.40) m/uL Hgb 11.2 L (11.4-16.0) gm/dL Hct 35.3 (34.0-46.0) % MCV 79.9 L (80.0-100.0) fL MCH 25.4 (25.0-35.0) pg MCHC 31.8 (31.0-37.0) g/dL RDW 14.2 (11.5-15.5) % Plt Count 225 (150-450) k/uL Neutrophils % 73 % Lymphocytes % 14 % Monocytes % 8 % Eosinophils % 1 % Basophils % 1 % Neutrophils # 3.7 (1.3-7.7) k/uL Lymphocytes # 0.7 L (1.0-4.8) k/uL Monocytes # 0.4 (0-1.0) k/uL Eosinophils # 0.1 (0-0.7) k/uL Basophils # 0.0 (0-0.2) k/uL Hypochromasia Slight Sodium 134 L (137-145) mmol/L Potassium 4.1 (3.5-5.1) mmol/L Chloride 98 (98-107) mmol/L Carbon Dioxide 23 (22-30) mmol/L Anion Gap 13 mmol/L BUN 16 (7-17) mg/dL Creatinine 1.31 H (0.52-1.04) mg/dL Est GFR (CKD-EPI)AfAm 47 (>60 ml/min/1.73 sqM) Est GFR (CKD-EPI)NonAf 41 (>60 ml/min/1.73 sqM) Glucose 104 H (74-99) mg/dL Plasma Lactic Acid Dieudonne 2.0 (0.7-2.0) mmol/L Calcium 8.5 (8.4-10.2) mg/dL Total Bilirubin 1.3 (0.2-1.3) mg/dL AST 23 (14-36) U/L ALT 19 (9-52) U/L Alkaline Phosphatase 148 H (38-126) U/L Creatine Kinase 35 (30-135) U/L Total Protein 6.9 (6.3-8.2) g/dL Albumin 3.2 L (3.5-5.0) g/dL Amylase 34 (30-110) U/L Lipase 25 (23-300) U/L Urine Color Urine Appearance (Clear) Urine pH (5.0-8.0) Ur Specific [place] (1.001-1.035) Urine Protein (Negative) Urine Glucose (UA) (Negative) Urine Ketones (Negative) Urine Blood (Negative) Urine Nitrite (Negative) Urine Bilirubin (Negative) Urine Urobilinogen (<2.0) mg/dL Ur Leukocyte Esterase (Negative) Urine RBC (0-5) /hpf Urine WBC (0-5) /hpf Urine WBC Clumps (None) /hpf Ur Squamous Epith Cells (0-4) /hpf Urine Bacteria (None) /hpf Hyaline Casts (0-2) /lpf Urine Mucus (None) /hpf 06/12/19 Range/Units 18:25 WBC (3.8-10.6) k/uL RBC (3.80-5.40) m/uL Hgb (11.4-16.0) gm/dL Hct (34.0-46.0) % MCV (80.0-100.0) fL MCH (25.0-35.0) pg MCHC (31.0-37.0) g/dL RDW (11.5-15.5) % Plt Count (150-450) k/uL Neutrophils % % Lymphocytes % % Monocytes % % Eosinophils % % Basophils % % Neutrophils # (1.3-7.7) k/uL Lymphocytes # (1.0-4.8) k/uL Monocytes # (0-1.0) k/uL Eosinophils # (0-0.7) k/uL Basophils # (0-0.2) k/uL Hypochromasia Sodium (137-145) mmol/L Potassium (3.5-5.1) mmol/L Chloride (98-107) mmol/L Carbon Dioxide (22-30) mmol/L Anion Gap mmol/L BUN (7-17) mg/dL Creatinine (0.52-1.04) mg/dL Est GFR (CKD-EPI)AfAm (>60 ml/min/1.73 sqM) Est GFR (CKD-EPI)NonAf (>60 ml/min/1.73 sqM) Glucose (74-99) mg/dL Plasma Lactic Acid Dieudonne (0.7-2.0) mmol/L Calcium (8.4-10.2) mg/dL Total Bilirubin (0.2-1.3) mg/dL AST (14-36) U/L ALT (9-52) U/L Alkaline Phosphatase (38-126) U/L Creatine Kinase (30-135) U/L Total Protein (6.3-8.2) g/dL Albumin (3.5-5.0) g/dL Amylase (30-110) U/L Lipase (23-300) U/L Urine Color Dark Brown Urine Appearance Turbid H (Clear) Urine pH 5.5 (5.0-8.0) Ur Specific [place] 1.023 (1.001-1.035) Urine Protein 2+ H (Negative) Urine Glucose (UA) Negative (Negative) Urine Ketones 1+ H (Negative) Urine Blood Moderate H (Negative) Urine Nitrite Negative (Negative) Urine Bilirubin 1+ H (Negative) Urine Urobilinogen 12.0 (<2.0) mg/dL Ur Leukocyte Esterase Large H (Negative) Urine RBC 162 H (0-5) /hpf Urine WBC >182 H (0-5) /hpf Urine WBC Clumps Many H (None) /hpf Ur Squamous Epith Cells 3 (0-4) /hpf Urine Bacteria Many H (None) /hpf Hyaline Casts 27 H (0-2) /lpf Urine Mucus Few H (None) /hpf - Radiology Data Radiology results: report reviewed (CT scan of the abdomen pelvis is negative for acute disease), image reviewed Disposition Clinical Impression: Abdominal pain Disposition: HOME SELF-CARE Condition: Good Instructions (If sedation given, give patient instructions): Abdominal Pain (ED) Is patient prescribed a controlled substance at d/c from ED?: No Referrals: Ivan Sin MD [Primary Care Provider] - 1-2 days
[2019-06-12 17:36] VITALS: PULSE 103; RESP 18; TEMP 98.6
[2019-06-12 18:38] LABS: Basophils % (A) 1 %; Eosinophils # (A) 0.1 k/uL (0-0.7); Eosinophils % (A) 1 %; HCT 35.3 % (34.0-46.0); HGB 11.2 gm/dL (11.4-16.0); Hypochromasia Slight; Lymphocytes # (A) 0.7 k/uL (1.0-4.8); Lymphocytes % (A) 14 %; MCH 25.4 pg (25.0-35.0); MCHC 31.8 g/dL (31.0-37.0); MCV 79.9 fL (80.0-100.0); Monocytes # (A) 0.4 k/uL (0-1.0); Monocytes % (A) 8 %; Neutrophils # (A) 3.7 k/uL (1.3-7.7); Neutrophils % (A) 73 %; Platelet Count 225 k/uL (150-450); RBC 4.42 m/uL (3.80-5.40); RDW 14.2 % (11.5-15.5); WBC 5.1 k/uL (3.8-10.6)
[2019-06-12 18:45] LABS: Bacteria,Urine Many /hpf; Hyaline Casts,Urine 27 /lpf (0-2); RBC,Urine 162 /hpf (0-5); Squamous Epithelial Cell,Urine 3 /hpf (0-4)
[2019-06-12 18:48] LABS: Albumin 3.2 g/dL (3.5-5.0); Calcium 8.5 mg/dL (8.4-10.2); Potassium 4.1 mmol/L (3.5-5.1); Total Bilirubin 1.3 mg/dL (0.2-1.3); Total Protein 6.9 g/dL (6.3-8.2)
[2019-06-12 18:56] LABS: Appearance,Urine Turbid (Clear); Bilirubin,Urine 1+ (Negative); Blood,Urine Moderate (Negative); Color,Urine Dark Brown; Glucose,Urine (UA) Negative (Negative); Ketones,Urine 1+ (Negative); Leukocyte Esterase,Urine Large (Negative); Mucus,Urine Few /hpf; Nitrite,Urine Negative (Negative); PH, Urine 5.5 (5.0-8.0); Protein,Urine 2+ (Negative); Specific Gravity,Urine 1.023 (1.001-1.035)
--- NOTE | 2019-06-12 19:36 | CT ---
EXAMINATION TYPE: CT abdomen pelvis w con DATE OF EXAM: 06/12/2019 COMPARISON: None HISTORY: Generalized abdominal pain and diarrhea. CT DLP: 2907 mGycm Automated exposure control for dose reduction was used. TECHNIQUE: Helical acquisition of images was performed from the lung bases through the pelvis. CONTRAST: Performed without Oral Contrast and with IV Contrast, patient injected with 80 mL of Isovue 300. FINDINGS: Lung bases are clear of consolidation. There is no pleural effusion. Heart size is normal. There is n o pericardial effusion. Liver spleen stomach pancreas appear normal. Bile ducts are not dilated. Gallbladder is absent. There is no adrenal mass. Kidneys have normal size and contour. There is no hydronephrosis. There is no retroperitoneal adenopathy. Ureters are not dilated. Bladder distends smoothly. There is no inguin al hernia. Uterus is anteverted. There is no free fluid in the pelvis. There is extensive fat stranding around the proximal sigmoid colon with wall thickening. There are mu ltiple sigmoid diverticula. There is no ascites. There is no free air. There is no sign of a bowel obstruction. Appendix is not s een. There is no sign of thickened appendix. Lumbar vertebra have normal alignment. There is some narrowing at L2-3 disc with vacuum disc phenomen on. There is no compression fracture. Bony pelvis is intact. IMPRESSION: THERE IS SIGMOID DIVERTICULOSIS WITH EVIDENCE OF PROXIMAL SIGMOID DIVERTICULITIS. NO DRAINABLE FLUID COLLECTION.
[2019-06-12] MEDS ORDERED: cefTRIAXone IN SWFI 1,000 MG/10 ML SYRINGE IVP STA (19:44)
[2019-06-12 19:48] VITALS: BP 137/74
== END 2019-06-12 20:55 | disposition home or self-care (01) ==
LOC: EC 16:17
DX: R10.84 Generalized abdominal pain (principal); R14.0 Abdominal distension (gaseous); R11.2 Nausea with vomiting, unspecified; R19.7 Diarrhea, unspecified; R63.0 Anorexia; J45.909 Unspecified asthma, uncomplicated; I10 Essential (primary) hypertension; Z88.5 Allergy status to narcotic agent; Z79.51 Long term (current) use of inhaled steroids; Z79.899 Other long term (current) drug therapy; Z86.73 Personal history of transient ischemic attack (TIA), and cerebral infarction without residual deficits; Z87.19 Personal history of other diseases of the digestive system; Z90.49 Acquired absence of other specified parts of digestive tract
CPT/HCPCS: 36415; 80053; 82150; 82550; 83605; 83690; 85025; 81001; 87086; 74177; 99284; 96374; 96375 ×4; 96361; J2270; J1200; J2765; J0696; C9113; Q9967

== ENCOUNTER 2019-10-24 10:48 | Observation (INO) | payer MEDICARE ==
--- NOTE | 2019-10-24 11:29 | ED ---
Fall HPI - General Chief Complaint: Fall Stated Complaint: Fall Time Seen by Provider: 10/24/19 11:03 Source: patient, RN notes reviewed, old records reviewed Mode of arrival: EMS - History of Present Illness Initial Comments: Patient is a 69-year-old female with history of atrial fibrillation, asthma, CVA TIA and hypertension. She presents today for complaints of lower extremity edema, and worsening weakness. Patient reports that she was walking with her walker and her legs gave out on her today. She reports that she fell onto her buttocks on a pile of blankets. Denied any head injury. She reports that she was on the ground for 30 minutes and could not get up. Patient reports that she's been dealing with upper respiratory congestion, minor cough and rhinorrhea. She also complains of a sore throat. She does use an Advair inhaler. Patient reports that she was concerned that she was getting dehydrated so she did not take her Lasix for the past 3 days. - Related Data Home Medications Medication Instructions Recorded Confirmed Montelukast [Singulair] 10 mg PO HS 05/21/19 10/24/19 Potassium Chloride 10 meq PO DAILY 05/21/19 10/24/19 Torsemide [Demadex] 20 mg PO MOTH 05/21/19 10/24/19 traMADol HCL [Ultram] 100 mg PO TID 05/21/19 10/24/19 Metoprolol Tartrate [Lopressor] 50 mg PO BID-W/MEALS 06/12/19 10/24/19 Acetaminophen [Tylenol 8 Hour] 650 mg PO Q6H PRN 10/24/19 10/24/19 Ferrous Sulfate [Feosol] 325 mg PO W/SUPPER 10/24/19 10/24/19 Fluticasone Propion/Salmeterol 1 puff INHALATION RT-DAILY@1800 10/24/19 10/24/19 [Wixela 500-50 Inhub] Lactobacillus Acidophilus 1 tab PO BID-W/MEALS 10/24/19 10/24/19 [Acidophilus] Miconazole Powder 1 applic TOPICAL BID-W/MEALS 10/24/19 10/24/19 Omeprazole [PriLOSEC] 20 mg PO BID-W/MEALS 10/24/19 10/24/19 Previous Rx's Medication Instructions Recorded Apixaban [Eliquis] 5 mg PO BID #60 tab 05/22/19 Allergies Allergy/AdvReac Type Severity Reaction Status Date / Time propoxyphene [From Darvon] Allergy Unknown Verified 10/24/19 14:50 Review of Systems ROS Statement: Those systems with pertinent positive or pertinent negative responses have been documented in the HPI. ROS Other: All systems not noted in ROS Statement are negative. Past Medical History Past Medical History: Atrial Fibrillation, Asthma, CVA/TIA, Hypertension Additional Past Medical History / Comment(s): diverticulitis, cellulitis History of Any Multi-Drug Resistant Organisms: None Reported Past Surgical History: Cholecystectomy, Orthopedic Surgery Past Psychological History: No Psychological Hx Reported Smoking Status: Never smoker Past Alcohol Use History: None Reported Past Drug Use History: None Reported - Past Family History Father Additional Family Medical History / Comment(s): Heart disease in the family including parents although the type is not clear General Exam - General Exam Comments Initial Comments: 69-year-old female. Alert and oriented. No distress. Limitations: no limitations General appearance: alert, in no apparent distress Head exam: Present: atraumatic, normocephalic, normal inspection Eye exam: Present: normal appearance, PERRL, EOMI. Absent: scleral icterus, co njunctival injection, periorbital swelling ENT exam: Present: normal exam, mucous membranes moist. Absent: normal oropharynx (White film over the throat consistent with thrush.) Neck exam: Present: normal inspection. Absent: tenderness, meningismus, lymphadenopathy Respiratory exam: Present: normal lung sounds bilaterally. Absent: respiratory distress, wheezes, rales, rhonchi, stridor Cardiovascular Exam: Present: regular rate, normal rhythm, normal heart sounds. Absent: systolic murmur, diastolic murmur, rubs, gallop, clicks GI/Abdominal exam: Present: soft, normal bowel sounds. Absent: distended, tenderness, guarding, rebound, rigid Extremities exam: Present: normal inspection, full ROM, normal capillary refill, pedal edema (Patient has 4+ bilateral significant bilateral pedal edema. The left leg is weeping.). Absent: tenderness, joint swelling, calf tenderness Back exam: Present: normal inspection Neurological exam: Present: alert, oriented X3 Psychiatric exam: Present: normal affect, normal mood Course Vital Signs 10/24/19 10/24/19 10/24/19 10:49 13:18 13:23 Temperature 98.2 F Pulse Rate 90 82 76 Respiratory 20 20 18 Rate Blood Pressure 102/59 90/58 107/43 O2 Sat by Pulse 100 100 98 Oximetry Medical Decision Making - Medical Decision Making 69-year-old female presents today for lower extremity edema, weakness and fall today. Patient reports that she was in letting her legs gave out on her. She does have 4+ peripheral edema bilaterally. She denies any significant worsening pain in her lower extremity. She does have a bruise over her left tib-fib. X- ray that shows no fracture. [facility] laboratory was reviewed. She does have elevated BNP. She hasn't been taking her Lasix because she was concerned she is dehydrated. Her creatinine is increased at baseline at this time. Patient was given maintenance fluids at this time, we'll also is given for dose of Lasix. I discussed the course of the patient's family. Discussed for concern for weakness, CHF and fall would like to admit the Patient for further evaluation. Discussed the Patient might have to have a consult with nephrology due to declining renal function. - Lab Data Result diagrams: 10/24/19 11:40 10/24/19 11:40 Lab Results 10/24/19 10/24/19 10/24/19 Range/Units 11:40 11:40 11:40 WBC 5.3 (3.8-10.6) k/uL RBC 4.28 (3.80-5.40) m/uL Hgb 11.2 L (11.4-16.0) gm/dL Hct 37.4 (34.0-46.0) % MCV 87.3 (80.0-100.0) fL MCH 26.2 (25.0-35.0) pg MCHC 30.0 L (31.0-37.0) g/dL RDW 16.7 H (11.5-15.5) % Plt Count 158 (150-450) k/uL Neutrophils % 75 % Lymphocytes % 17 % Monocytes % 5 % Eosinophils % 0 % Basophils % 0 % Neutrophils # 3.9 (1.3-7.7) k/uL Lymphocytes # 0.9 L (1.0-4.8) k/uL Monocytes # 0.3 (0-1.0) k/uL Eosinophils # 0.0 (0-0.7) k/uL Basophils # 0.0 (0-0.2) k/uL Hypochromasia Slight Anisocytosis Slight PT (9.0-12.0) sec INR (<1.2) APTT (22.0-30.0) sec Sodium (137-145) mmol/L Potassium (3.5-5.1) mmol/L Chloride (98-107) mmol/L Carbon Dioxide (22-30) mmol/L Anion Gap mmol/L BUN (7-17) mg/dL Creatinine (0.52-1.04) mg/dL Est GFR (CKD-EPI)AfAm (>60 ml/min/1.73 sqM) Est GFR (CKD-EPI)NonAf (>60 ml/min/1.73 sqM) Glucose (74-99) mg/dL Plasma Lactic Acid Dieudonne 1.8 (0.7-2.0) mmol/L Calcium (8.4-10.2) mg/dL Magnesium (1.6-2.3) mg/dL Total Bilirubin (0.2-1.3) mg/dL AST (14-36) U/L ALT (4-34) U/L Alkaline Phosphatase (38-126) U/L Troponin I (0.000-0.034) ng/mL NT-Pro-B Natriuret Pep 5210 pg/mL Total Protein (6.3-8.2) g/dL Albumin (3.5-5.0) g/dL 10/24/19 10/24/19 10/24/19 Range/Units 11:40 11:40 11:40 WBC (3.8-10.6) k/uL RBC (3.80-5.40) m/uL Hgb (11.4-16.0) gm/dL Hct (34.0-46.0) % MCV (80.0-100.0) fL MCH (25.0-35.0) pg MCHC (31.0-37.0) g/dL RDW (11.5-15.5) % Plt Count (150-450) k/uL Neutrophils % % Lymphocytes % % Monocytes % % Eosinophils % % Basophils % % Neutrophils # (1.3-7.7) k/uL Lymphocytes # (1.0-4.8) k/uL Monocytes # (0-1.0) k/uL Eosinophils # (0-0.7) k/uL Basophils # (0-0.2) k/uL Hypochromasia Anisocytosis PT 11.7 (9.0-12.0) sec INR 1.1 (<1.2) APTT 27.5 (22.0-30.0) sec Sodium 133 L (137-145) mmol/L Potassium 4.5 (3.5-5.1) mmol/L Chloride 102 (98-107) mmol/L Carbon Dioxide 24 (22-30) mmol/L Anion Gap 7 mmol/L BUN 37 H (7-17) mg/dL Creatinine 2.25 H (0.52-1.04) mg/dL Est GFR (CKD-EPI)AfAm 25 (>60 ml/min/1.73 sqM) Est GFR (CKD-EPI)NonAf 21 (>60 ml/min/1.73 sqM) Glucose 90 (74-99) mg/dL Plasma Lactic Acid Dieudonne (0.7-2.0) mmol/L Calcium 7.6 L (8.4-10.2) mg/dL Magnesium 1.9 (1.6-2.3) mg/dL Total Bilirubin 0.7 (0.2-1.3) mg/dL AST 34 (14-36) U/L ALT 18 (4-34) U/L Alkaline Phosphatase 422 H (38-126) U/L Troponin I <0.012 (0.000-0.034) ng/mL NT-Pro-B Natriuret Pep pg/mL Total Protein 6.5 (6.3-8.2) g/dL Albumin 2.4 L (3.5-5.0) g/dL 10/24/19 11:55 EKG shows sinus rhythm with premature atrial compresses. Right bundle branch block. Abnormal EKG. Ventricular rate of 96 bpm. Normal intervals 174 ms. QRS duration is 126 no seconds. QT QTc is 422/533 ms. - Radiology Data Radiology results: report reviewed She was admitted for any acute cardiac process. Tib-fib x-rays for acute abnormality. Disposition Clinical Impression: CHF (congestive heart failure), Weakness, Fall, IVETH (acute kidney injury) Disposition: ADMITTED IP TO THIS HOSP Condition: Stable Is patient prescribed a controlled substance at d/c from ED?: No Referrals: Ivan Sin MD [Primary Care Provider] - 1-2 days Time of Disposition: 15:04
[2019-10-24 12:45] LABS: Anisocytosis Slight; Basophils % (A) 0 %; Eosinophils % (A) 0 %; HCT 37.4 % (34.0-46.0); HGB 11.2 gm/dL (11.4-16.0); Hypochromasia Slight; Lymphocytes # (A) 0.9 k/uL (1.0-4.8); Lymphocytes % (A) 17 %; MCH 26.2 pg (25.0-35.0); MCV 87.3 fL (80.0-100.0); Mean Platelet Volume 7.2; Monocytes # (A) 0.3 k/uL (0-1.0); Monocytes % (A) 5 %; Neutrophils # (A) 3.9 k/uL (1.3-7.7); Neutrophils % (A) 75 %; Platelet Count 158 k/uL (150-450); RBC 4.28 m/uL (3.80-5.40); RDW 16.7 % (11.5-15.5); WBC 5.3 k/uL (3.8-10.6)
--- NOTE | 2019-10-24 12:45 | XR ---
EXAMINATION TYPE: XR chest 2V DATE OF EXAM: 10/24/2019 COMPARISON: 05/21/2019 INDICATION: Chest pain short of breath, fall TECHNIQUE: Frontal and lateral views of the chest are obtained. FINDINGS: The heart size is normal. The pulmonary vasculature is normal. The lungs are clear. No pneumothorax is evident. No displaced fractures are evident. IMPRESSION: 1. No acute pulmonary process.
--- NOTE | 2019-10-24 12:47 | XR ---
EXAMINATION TYPE: XR tibia fibula LT DATE OF EXAM: 10/24/2019 COMPARISON: None HISTORY: Fall, pain TECHNIQUE: 2 view tibia and fibula FINDINGS: No acute fractures or dislocations are evident. Ankle joint space appears preserved. Knee j oint space has mild degenerative changes. Some diffuse soft tissue swelling appears to be present. Fo llow-up exams can be performed 7-10 days from acute trauma for continued pain. IMPRESSION: 1. No acute osseous abnormality
[2019-10-24 13:07] LABS: INR 1.1 (<1.2); Partial Thromboplastin Time 27.5 sec (22.0-30.0); Prothrombin Time 11.7 sec (9.0-12.0)
[2019-10-24] MEDS: SODIUM CHLORIDE 0.9% 1,000 ML IV SCH (13:13)
[2019-10-24 13:43] LABS: Albumin 2.4 g/dL (3.5-5.0); Calcium 7.6 mg/dL (8.4-10.2); Magnesium 1.9 mg/dL (1.6-2.3); Potassium 4.5 mmol/L (3.5-5.1); Total Bilirubin 0.7 mg/dL (0.2-1.3); Total Protein 6.5 g/dL (6.3-8.2)
[2019-10-24 15:17] LABS: Appearance,Urine Cloudy (Clear); Bilirubin,Urine Negative (Negative); Blood,Urine Negative (Negative); Color,Urine Dark Yellow; Glucose,Urine (UA) Negative (Negative); Hyaline Casts,Urine 105 /lpf (0-2); Hyphae Yeast, Urine Rare /hpf; Ketones,Urine Trace (Negative); Leukocyte Esterase,Urine Negative (Negative); Mucus,Urine Moderate /hpf; Nitrite,Urine Negative (Negative); PH, Urine 5.5 (5.0-8.0); Protein,Urine 1+ (Negative); RBC,Urine 9 /hpf (0-5); Squamous Epithelial Cell,Urine 3 /hpf (0-4); WBC,Urine 1 /hpf (0-5)
[2019-10-24] MEDS: traMADol 50 MG TAB PO SCH ×2 (16:57→23:12)
[2019-10-24] MEDS: FUROSEMIDE 10 MG/ML 4 ML VIAL IV SCH ×2 (18:11→23:14)
[2019-10-24] MEDS: NITROGLYCERIN OINT 1 INCH/GM PACKET TOPICAL SCH ×2 (23:12→23:18)
[2019-10-25] MEDS ORDERED: ACETAMINOPHEN TAB 325 MG TAB PO PRN (08:50)
[2019-10-25] MEDS ORDERED: DICYCLOMINE 10 MG CAP PO PRN (08:50)
[2019-10-25] MEDS ORDERED: NYSTATIN 100,000 UNIT/GM POWD 15 GM TOPICAL PRN (09:00)
[2019-10-25] MEDS: ASPIRIN 325 MG TAB PO SCH ×2 (10:25→10:46)
[2019-10-25] MEDS: traMADol 50 MG TAB PO SCH ×3 (10:25→22:41)
[2019-10-25] MEDS: SODIUM CHLORIDE 0.9% 1,000 ML IV SCH (10:25)
[2019-10-25] MEDS: FUROSEMIDE 10 MG/ML 4 ML VIAL IV SCH (10:25)
[2019-10-25] MEDS: METOPROLOL TARTRATE 50 MG TAB PO SCH ×2 (10:25→17:34)
[2019-10-25] MEDS: APIXABAN 5 MG TAB PO SCH ×2 (10:26→22:42)
[2019-10-25] MEDS: NITROGLYCERIN OINT 1 INCH/GM PACKET TOPICAL SCH ×3 (10:47→17:34)
[2019-10-25] MEDS ORDERED: ALBUTEROL NEBULIZED 2.5 MG/3 ML INHALATION PRN (13:23)
--- NOTE | 2019-10-25 14:26 | XR ---
EXAMINATION TYPE: XR chest 2V DATE OF EXAM: 10/25/2019 HISTORY: shortness of breath. REFERENCE: Previous study dated 10/24/2019. FINDINGS: The lungs are clear. Pleural spaces are clear. Heart size is upper limits of normal. IMPRESSION: NO ACTIVE INTRATHORACIC DISEASE.
[2019-10-25] MEDS: POTASSIUM CHLORIDE ER 10 MEQ TAB.ER.PRT PO SCH (14:43)
[2019-10-25 15:35] VITALS: BMI 53.9
[2019-10-25] MEDS ORDERED: FERROUS SULFATE 325 MG TAB PO SCH (17:30)
[2019-10-25] MEDS: LACTOBACILLUS ACIDOPH & BULGAR 1 EACH PACKET PO SCH (17:34)
[2019-10-25] MEDS: PANTOPRAZOLE 40 MG TABLET PO SCH (17:34)
[2019-10-25] MEDS: SYMBICORT 160-4.5 MCG INHALER INHALATION SCH (18:13)
--- NOTE | 2019-10-25 21:03 | P.HPIM ---
History of Present Illness H&P Date: 10/25/19 Chief Complaint: Weak in the legs History of presenting complaint: This is a very pleasant [address] Sin. Chronic stable medical conditions include paroxysmal atrial fibrillation, asthma, hypertension, kidney dysfunction. Patient normally uses a walker to get about. Patient's chronic swelling of the lower extremities. Noticed that she's becoming tired. Some chills with cold decreased appetite for a week. Subsequently felt weak in the legs and simply went down. Did not pass out no palpitation no headaches. Patient's daughter and family the bedside. As a burst on the right leg. Some redness above the right ankle. Some breakdown of skin behind the left knee. Also been complaining of intermittent heartburn with more predominant heartburn recently. Also notices that sometimes she "trouble swallowing recently. Food Getting a bit stuck. Review of systems: GEN.: Tired EYES: None HEENT: None NECK: None RESPIRATORY: Some baseline shortness of breath CARDIOVASCULAR: None GASTROINTESTINAL: None GENITOURINARY: None MUSCULOSKELETAL: Joint pains LYMPHATICS: None HEMATOLOGICAL: None PSYCHIATRY: None NEUROLOGICAL: None Past medical history to include: Atrial fibrillation, asthma, hypertension, diverticulitis Social history: Does not smoke or drink alcohol. Lives alone. Uses a walker. Physical examination: VITAL SIGNS: 98.2-90-20-102/59-100% on room air GENERAL: BMI 54, sitting on bed awake. EYES: Pupils equal. Conjunctiva normal. HEENT: External appearance of nose and ears normal, oral cavity grossly normal. NECK: JVD not raised; masses not palpable. HEART: First and second heart sounds are normal; some edema. LUNGS: Respiratory rate increased; clear to auscultation. ABDOMEN: Soft, nontender, liver spleen not palpable, no masses palpable. PSYCH: Alert and oriented x3; mood and affect normal. NEUROLOGICAL: Cranial nerves grossly intact; no facial asymmetry, power and sensation grossly intact. LYMPHATICS: Possible lymphedema of the lower extremity INVESTIGATIONS, reviewed in the clinical context: White count 5.3 hemoglobin 11.2 platelets 158 potassium 4.5 bun 37 creatinine 2.25 EKG tracing personally reviewed by me-normal sinus rhythm, right bundle branch block Chest x-ray film personally reviewed by me-slight underpenetration no obvious venous prominence Assessment: -Bilateral lower extremity weakness likely from bilateral lymphedema with progressive swelling of the legs. -Doubt congestive heart failure -Acute cellulitis of the right lower extremity -Chronic gait dysfunction uses a walker -Morbid obesity BMI 54 -Right bundle-branch block -Essential hypertension -Uncontrolled GERD -New onset dysphagia to solids Plan: I do not believe patient's congestive heart failure was DC'd IV Lasix. Patie nt's urine appearing rather constipated. We will use Silvadene cream for the lower extremity with Kerlix and Aleks wrap. We'll also put the patient on IV Ancef. PTOT be consulted. Patientstarted on Tums and Protonix. We'll consult GI with admitted to EGD. Care was discussed at length with the patient daughter the bedside questions answered. We'll also have case hardener look into discharge planning. Past Medical History Past Medical History: Atrial Fibrillation, Asthma, CVA/TIA, Hypertension Additional Past Medical History / Comment(s): diverticulitis, cellulitis History of Any Multi-Drug Resistant Organisms: None Reported Past Surgical History: Cholecystectomy, Orthopedic Surgery Past Psychological History: No Psychological Hx Reported Smoking Status: Never smoker Past Alcohol Use History: None Reported Past Drug Use History: None Reported - Past Family History Father Additional Family Medical History / Comment(s): Heart disease in the family including parents although the type is not clear Medications and Allergies Home Medications Medication Instructions Recorded Confirmed Type Montelukast [Singulair] 10 mg PO HS 05/21/19 10/24/19 History Potassium Chloride 10 meq PO DAILY 05/21/19 10/24/19 History Torsemide [Demadex] 20 mg PO MOTH 05/21/19 10/24/19 History traMADol HCL [Ultram] 100 mg PO TID 05/21/19 10/24/19 History Apixaban [Eliquis] 5 mg PO BID #60 tab 05/22/19 10/24/19 Rx Metoprolol Tartrate [Lopressor] 50 mg PO BID-W/MEALS 06/12/19 10/24/19 History Acetaminophen [Tylenol 8 Hour] 650 mg PO Q6H PRN 10/24/19 10/24/19 History Dicyclomine [Bentyl] 10 mg PO BID PRN 10/24/19 10/24/19 History Ferrous Sulfate [Feosol] 325 mg PO W/SUPPER 10/24/19 10/24/19 History Fluticasone Propion/Salmeterol 1 puff INHALATION RT-DAILY@1800 10/24/19 10/24/19 History [Wixela 500-50 Inhub] Lactobacillus Acidophilus 1 tab PO BID-W/MEALS 10/24/19 10/24/19 History [Acidophilus] Miconazole Powder 1 applic TOPICAL BID-W/MEALS 10/24/19 10/24/19 History Omeprazole [PriLOSEC] 20 mg PO BID-W/MEALS 10/24/19 10/24/19 History Allergies Allergy/AdvReac Type Severity Reaction Status Date / Time propoxyphene [From Darvon] Allergy Unknown Verified 10/24/19 14:50 Physical Exam Vitals: Vital Signs Temp Pulse Pulse Resp BP Pulse Ox 10/25/19 15:00 98.6 F 102 H 12 103/65 97 10/25/19 13:42 100 10/25/19 13:34 94 10/25/19 10:28 109 H 103/55 10/25/19 08:00 109 H 12 10/25/19 07:00 97.3 F L 99 12 99/62 100 10/25/19 00:53 98.4 F 92 12 93/60 100 10/24/19 22:41 98.0 F Intake and Output 10/25/19 10/25/19 10/25/19 06:59 14:59 22:59 Intake Total 235 80 Output Total 100 100 Balance 235 -20 -100 Intake: Intake, IV Titration 80 Amount Sodium Chloride 0.9% 1, 80 000 ml @ 50 mls/hr IV . Q20H [facility] [place] Rx#:[id number] Oral 235 Output: Urine 100 100 Other: # Voids 1 # Bowel Movements 1 Weight 133.81 kg Results CBC & Chem 7: 10/24/19 11:40 10/24/19 11:40 Labs: Microbiology - Last 24 Hours (Table) 10/24/19 11:40 Blood Culture - Preliminary Blood No Growth after 24 hours 10/24/19 11:54 Throat Culture - Preliminary Throat Thrombosis Risk Factor Assmnt - Choose All That Apply Any of the Below Risk Factors Present?: Yes Each Factor Represents 1 point: Heart failure (<1month), Swollen legs (current) Other Risk Factors: Yes Each Risk Factor Represents 2 Points: Age 61-74 years Other congenital or acquired thrombophilia - If yes, enter type in comment: No Thrombosis Risk Factor Assessment Total Risk Factor Score: 4 Thrombosis Risk Factor Assessment Level: Moderate Risk
[2019-10-25] MEDS: MONTELUKAST 10 MG TAB PO SCH (22:42)
[2019-10-26 08:21] LABS: Calcium 7.4 mg/dL (8.4-10.2); Potassium 4.1 mmol/L (3.5-5.1)
[2019-10-26] MEDS: traMADol 50 MG TAB PO SCH ×3 (09:29→21:23)
[2019-10-26] MEDS: LACTOBACILLUS ACIDOPH & BULGAR 1 EACH PACKET PO SCH ×2 (09:29→15:55)
[2019-10-26] MEDS: APIXABAN 5 MG TAB PO SCH ×2 (09:29→21:23)
[2019-10-26] MEDS: METOPROLOL TARTRATE 50 MG TAB PO SCH ×2 (09:30→15:57)
[2019-10-26] MEDS: PANTOPRAZOLE 40 MG TABLET PO SCH ×2 (09:30→15:57)
[2019-10-26] MEDS: POTASSIUM CHLORIDE ER 10 MEQ TAB.ER.PRT PO SCH (09:31)
--- NOTE | 2019-10-26 11:54 | CONS ---
CONSULTATION DATE OF DICTATION: 10/26/2019 REQUESTING PHYSICIAN: Dr. Ivan Sin. REASON FOR CONSULTATION: Dysphagia and heartburn. HISTORY OF PRESENT ILLNESS: The patient is a 69-year-old pleasant white female who was admitted to the hospital yesterday when she presented with fatigue, lower extremity weakness, not feeling well, some dysphagia and poor appetite for the last 1 week duration. The patient was admitted to the hospital for acute diverticulitis in August of 2019, was treated with antibiotics and discharged home. Two weeks later, she was readmitted to the hospital because of lower extremity swelling and cellulitis, once again treated with antibiotics and sent home. For the last 1 week, she has not been feeling well, she had decreased appetite. She felt congested. She had some nausea. Appetite has been poor. She had severe heartburn. She does have a longstanding history of gastroesophageal reflux disease, has been on Prilosec 20 mg daily. However, about 2 weeks ago, she lost her medication and she thinks the bottle tipped off the table and she could not find it and did not take any Prilosec. Since then she has been having more heartburn, throat discomfort and difficulty swallowing. She was admitted to the hospital yesterday and was started on Protonix 40 mg with each meal and she feels much better. Today, she was able to eat her diet. In fact, solid diet, tolerating well with very minimal heartburn. She denies abdominal pain. No nausea, vomiting. PAST MEDICAL HISTORY: Significant for atrial fibrillation, on Eliquis, history of hypertension, morbid obesity, asthma, degenerative joint disease, CVA in the past, recent episode of diverticulitis and cellulitis requiring hospitalization. PAST SURGICAL HISTORY: Cholecystectomy. MEDICATIONS: At home include: Prilosec, Miconazole, probiotics, iron sulfate, Tylenol, Lopressor, Ultram, Demadex, Singulair and Eliquis. ALLERGIES: DARVON. SOCIAL HISTORY: No smoking. No alcohol use. FAMILY HISTORY: Father had diabetes mellitus. Mother has hypertension. REVIEW OF SYSTEMS: CARDIOPULMONARY: No chest pain, shortness of breath. no dysuria or hematuria. MUSCULOSKELETAL unremarkable. SKIN unremarkable other than cellulitis of the lower extremities. ENDOCRINE unremarkable. PSYCHIATRIC unremarkable. NEUROLOGY unremarkable. GI as mentioned above. Recent episode of acute diverticulitis in August of 2019. CONSTITUTIONAL: No recent weight loss. No fever, chills, night sweats. HEMATOLOGY unremarkable. PSYCHIATRIC unremarkable. PHYSICAL EXAMINATION: She appears comfortable. No apparent distress. Vital signs are stable. Blood pressure is 195/54, pulse 83, temperature 98.2. HEENT examination unremarkable. Conjunctivae pink. Sclerae anicteric. Oral cavity no lesions. NECK: No JVD or lymph node enlargement. CHEST: Clear to auscultation. HEART: Regular rate and rhythm. ABDOMEN: Soft. Bowel sounds are positive. No organomegaly. EXTREMITIES: No pedal edema. SKIN: No rashes. NEUROLOGIC: Alert and oriented x3. No focal deficits. LABS: Done at the time of admission to the hospital showed WBC 5.3, hemoglobin 11.2, platelets normal. Basic metabolic panel is within normal limits. BUN is 37, creatinine 2.25. IMPRESSION: 1. Longstanding history of gastroesophageal reflux disease with intermittent heartburn and dysphagia for the last 1 week duration. The patient was maintained on omeprazole 20 mg daily for several years, but she has not taken the medication for 2 weeks and since then has noted worsening symptoms. Since being in the hospital, she was started on Protonix 40 mg twice daily. Her heartburn has significantly improved and dysphagia also has improved. In fact, she was able to eat her solid meal today without any problems. 2. Atrial fibrillation, on Eliquis. 3. Lower extremity weakness. 4. Recent episode of diverticulitis treated with antibiotics in August 2019, doing well. RECOMMENDATIONS: 1. Continue with Protonix 40 mg twice daily. 2. Continue with regular diet. 3. No plans for any endoscopic intervention or other studies as the symptoms are significantly improved. 4. The patient has an appointment to see me in the office on November 16 when we will follow her closely during hospital stay. Thank you for this consultation. MMODL / IJN: [id number] /
[2019-10-26] MEDS: SYMBICORT 160-4.5 MCG INHALER INHALATION SCH (20:37)
[2019-10-26] MEDS: MONTELUKAST 10 MG TAB PO SCH (21:24)
--- NOTE | 2019-10-26 21:52 | P.PN ---
Progress Note - Text Progress Note Date: 10/26/19 Chief Complaint: Weak in the legs History of presenting complaint: This is a very pleasant [address] Sin. Chronic stable medical conditions include paroxysmal atrial fibrillation, asthma, hypertension, kidney dysfunction. Patient normally uses a walker to get about. Patient's chronic swelling of the lower extremities. Noticed that she's becoming tired. Some chills with cold decreased appetite for a week. Subsequently felt weak in the legs and simply went down. Did not pass out no palpitation no headaches. Patient's daughter and family the bedside. As a burst on the right leg. Some redness above the right ankle. Some breakdown of skin behind the left knee. Also been complaining of intermittent heartburn with more predominant heartburn recently. Also notices that sometimes she "trouble swallowing recently. Food Getting a bit stuck. Admitted with-bilateral lower extremity weakness from bilateral lymphedema with worsening. Also worsening of GERD leading to some dysphagia. Also lower extremity cellulitis. Patient is treated with Silvadene topical cream with Kerlix and Aleks wrap. Started back on PPIs to which she is doing better. Today-. Cheerful. No trouble swallowing after starting on the PPI in terms. Feeling better. Review of systems: Was done for constitutional, cardiovascular, GI, pulmonary. relevant finding as above Active Medications Acetaminophen (Tylenol Tab) 650 mg PO Q6H PRN PRN Reason: MILD Pain Albuterol Sulfate (Ventolin Nebulized) 2.5 mg INHALATION RT-Q4H PRN PRN Reason: Shortness Of Breath Last Admin: 10/25/19 13:30 Dose: 2.5 mg Documented by: Apixaban (Eliquis) 5 mg PO BID [facility] Last Admin: 10/26/19 21:23 Dose: 5 mg Documented by: Budesonide/Formoterol Fumarate (Symbicort 160-4.5 Mcg Inhaler) 2 puff INHALATION RT-DAILY@1800 [facility] Last Admin: 10/26/19 20:37 Dose: 2 puff Documented by: Dicyclomine HCl (Bentyl) 10 mg PO BID PRN PRN Reason: IBS Cefazolin Sodium 1,000 mg/ (Sodium Chloride) 50 mls @ 100 mls/hr IVPB Q8HR [facility] Last Admin: 10/26/19 15:57 Dose: 100 mls/hr Documented by: Lactobacillus Acidoph/Bulgaricus (Lactinex) 1 each PO BID-W/MEALS [facility] Last Admin: 10/26/19 15:55 Dose: Not Given Documented by: Metoprolol Tartrate (Lopressor) 50 mg PO BID-W/MEALS [facility] Last Admin: 10/26/19 15:57 Dose: 50 mg Documented by: Montelukast Sodium (Singulair) 10 mg PO HS [facility] Last Admin: 10/26/19 21:24 Dose: 10 mg Documented by: Nystatin (Mycostatin Powder) 1 applic TOPICAL BID-W/MEALS PRN PRN Reason: IRRITATION Pantoprazole Sodium (Protonix) 40 mg PO BID-W/MEALS [facility] Last Admin: 10/26/19 15:57 Dose: 40 mg Documented by: Potassium Chloride (K-Dur 10) 10 meq PO DAILY [facility] Last Admin: 10/26/19 09:31 Dose: 10 meq Documented by: Silver Sulfadiazine (Silvadene Cream) 1 applic TOPICAL BID [facility] Last Admin: 10/26/19 21:24 Dose: 1 applic Documented by: Tramadol HCl (Ultram) 100 mg PO TID [facility] Last Admin: 10/26/19 21:23 Dose: 100 mg Documented by: Physical examination: VITAL SIGNS: 98.2-97-12-116/73-100% on room air GENERAL: BMI 54, laying in bed awake EYES: Pupils equal. Conjunctiva normal. HEENT: External appearance of nose and ears normal, oral cavity grossly normal. NECK: JVD not raised; masses not palpable. HEART: First and second heart sounds are normal; some edema. LUNGS: Respiratory rate increased; clear to auscultation. ABDOMEN: Soft, nontender, liver spleen not palpable, no masses palpable. PSYCH: Alert and oriented x3; mood and affect normal. LYMPHATICS: Possible lymphedema of the lower extremity Dermatological: Redness especially of the right lower extremity above the ankle, behind the left knee INVESTIGATIONS, reviewed in the clinical context: Potassium 4.1 bun 44 creatinine 2.43 Previous testing White count 5.3 hemoglobin 11.2 platelets 158 potassium 4.5 bun 37 creatinine 2. 25 EKG tracing personally reviewed by me-normal sinus rhythm, right bundle branch block Chest x-ray film personally reviewed by me-slight underpenetration no obvious venous prominence Assessment: -Bilateral lower extremity weakness likely from bilateral lymphedema with progressive swelling of the legs. -Doubt congestive heart failure -Acute cellulitis of the right lower extremity, and behind the left knee -Chronic gait dysfunction uses a walker -Morbid obesity BMI 54 -Right bundle-branch block -Essential hypertension -Uncontrolled GERD, responding to PPI -New onset dysphagia to solids Plan: Care was discussed with the patient. Overall feeling better. Await decision from discharge planning regarding disposition
[2019-10-27 07:21] LABS: Calcium 7.1 mg/dL (8.4-10.2); Potassium 3.9 mmol/L (3.5-5.1)
[2019-10-27] MEDS: LACTOBACILLUS ACIDOPH & BULGAR 1 EACH PACKET PO SCH ×2 (09:24→16:03)
[2019-10-27] MEDS: APIXABAN 5 MG TAB PO SCH ×2 (09:25→21:23)
[2019-10-27] MEDS: PANTOPRAZOLE 40 MG TABLET PO SCH (09:25)
[2019-10-27] MEDS: POTASSIUM CHLORIDE ER 10 MEQ TAB.ER.PRT PO SCH (09:25)
[2019-10-27] MEDS: traMADol 50 MG TAB PO SCH ×3 (09:25→21:23)
[2019-10-27] MEDS: METOPROLOL TARTRATE 50 MG TAB PO SCH ×2 (09:25→17:28)
--- NOTE | 2019-10-27 15:53 | CDI ---
Documentation Clarification Form Date: 10/27/2019 03:28:43 PM From: Chloe Vogel RN, CCDS Admit Date: 10/24/2019 03:17:00 PM Patient Name: Amy Morse Visit Number: [id number] Discharge Date: ATTENTION: The Clinical Documentation Specialists (CDI) and [facility] Coding Staff appreciate your assistance in clarifying documentation. Please respond to the clarification below the line at the bottom and electronically sign. The CDI & [facility] Coding staff will review the response and follow-up if needed. Please note: Queries are made part of the Legal Health Record. If you have any questions, please contact the author of this message via ITS. Dr. Jamshid Cabrera On 10/24/19 ER assessment has documented acute kidney injury. In your H&P on 10/25 chronic stable medical conditions include kidney dysfunction, and further clarification is needed. History/Risk Factors: Hypertension, Chronic kidney dysfunction, Patients baseline BUN/CR/GFR: not noted Clinical Indicators: 69 year-old female who complains of decreased appetite, weakness in the legs on presentation to ER on 10/24/19. 10/24 @ 08:00 BUN 37, Creatinine 2.25 GFR 21 10/24 @ 12:00 UA: Cloudy, Urine protein 1+, Hyaline Casts 105 10/26 @ 07:59 BUN 44, Creatinine 2.43 GFR 19 10/27 @ 07:59 BUN 38 Creatinine 2.06 GFR 24 Treatment: Monitor BUN/CR/GFR, Monitor I/O In order to capture the severity of condition, please clarify if the condition signifies: Acute renal failure, Please specify etiology (if known): Cortical Necrosis Medullary Necrosis Tubular Necrosis Acute kidney injury Acute on chronic renal failure CKD Stage 2 GFR 60-89 CKD Stage 3 GFR 30-59 CKD Stage 4 GFR 15-29 Chronic renal failure/Chronic Kidney disease (CKD) please stage (if known): CKD Stage 2 GFR 60-89 CKD Stage 3 GFR 30-59 CKD Stage 4 GFR 15-29 Other, please specify Unable to determine (Last Revision: December 2017) See my discharge summary-no change in documentation MTDD
--- NOTE | 2019-10-27 18:02 | P.PN ---
Progress Note - Text Progress Note Date: 10/27/19 Chief Complaint: Weak in the legs History of presenting complaint: This is a very pleasant [address] Sin. Chronic stable medical conditions include paroxysmal atrial fibrillation, asthma, hypertension, kidney dysfunction. Patient normally uses a walker to get about. Patient's chronic swelling of the lower extremities. Noticed that she's becoming tired. Some chills with cold decreased appetite for a week. Subsequently felt weak in the legs and simply went down. Did not pass out no palpitation no headaches. Patient's daughter and family the bedside. As a burst on the right leg. Some redness above the right ankle. Some breakdown of skin behind the left knee. Also been complaining of intermittent heartburn with more predominant heartburn recently. Also notices that sometimes she "trouble swallowing recently. Food Getting a bit stuck. Admitted with-bilateral lower extremity weakness from bilateral lymphedema with worsening. Also worsening of GERD leading to some dysphagia. Also lower extremity cellulitis. Patient is treated with Silvadene topical cream with Kerlix and Aleks wrap. Started back on PPIs to which she is doing better. Today-. Feels a bit better. Did work with therapy. Swallowing is okay. Review of systems: Was done for constitutional, cardiovascular, GI, pulmonary. relevant finding as above Active Medications Acetaminophen (Tylenol Tab) 650 mg PO Q6H PRN PRN Reason: MILD Pain Albuterol Sulfate (Ventolin Nebulized) 2.5 mg INHALATION RT-Q4H PRN PRN Reason: Shortness Of Breath Last Admin: 10/25/19 13:30 Dose: 2.5 mg Documented by: Apixaban (Eliquis) 5 mg PO BID [facility] Last Admin: 10/27/19 09:25 Dose: 5 mg Documented by: Budesonide/Formoterol Fumarate (Symbicort 160-4.5 Mcg Inhaler) 2 puff INHALATION RT-DAILY@1800 [facility] Last Admin: 10/26/19 20:37 Dose: 2 puff Documented by: Dicyclomine HCl (Bentyl) 10 mg PO BID PRN PRN Reason: IBS Cefazolin Sodium 1,000 mg/ (Sodium Chloride) 50 mls @ 100 mls/hr IVPB Q8HR [facility] Last Admin: 10/27/19 17:28 Dose: 100 mls/hr Documented by: Lactobacillus Acidoph/Bulgaricus (Lactinex) 1 each PO BID-W/MEALS [facility] Last Admin: 10/27/19 16:03 Dose: Not Given Documented by: Metoprolol Tartrate (Lopressor) 50 mg PO BID-W/MEALS [facility] Last Admin: 10/27/19 17:28 Dose: 50 mg Documented by: Montelukast Sodium (Singulair) 10 mg PO HS [facility] Last Admin: 10/26/19 21:24 Dose: 10 mg Documented by: Nystatin (Mycostatin Powder) 1 applic TOPICAL BID-W/MEALS PRN PRN Reason: IRRITATION Pantoprazole Sodium (Protonix) 40 mg PO AC-BRKFST [facility] Potassium Chloride (K-Dur 10) 10 meq PO DAILY [facility] Last Admin: 10/27/19 09:25 Dose: 10 meq Documented by: Silver Sulfadiazine (Silvadene Cream) 1 applic TOPICAL BID [facility] Last Admin: 10/27/19 09:27 Dose: 1 applic Documented by: Tramadol HCl (Ultram) 100 mg PO TID [facility] Last Admin: 10/27/19 17:27 Dose: 100 mg Documented by: Physical examination: VITAL SIGNS: 97-23-76-126/71-97% room air GENERAL: Sitting on bed, awake EYES: Pupils equal. Conjunctiva normal. HEENT: External appearance of nose and ears normal, oral cavity grossly normal. NECK: JVD not raised; masses not palpable. HEART: First and second heart sounds are normal; some edema. LUNGS: Respiratory rate increased; clear to auscultation. ABDOMEN: Soft, nontender, liver spleen not palpable, no masses palpable. PSYCH: Alert and oriented x3; mood and affect normal. LYMPHATICS: Possible lymphedema of the lower extremity Dermatological: Redness especially of the right lower extremity above the ankle, behind the left knee INVESTIGATIONS, reviewed in the clinical context: Potassium 3.9 bun 38 creatinine 2.06 Previous testing White count 5.3 hemoglobin 11.2 platelets 158 potassium 4.5 bun 37 creatinine 2.25 EKG tracing personally reviewed by me-normal sinus rhythm, right bundle branch block Chest x-ray film personally reviewed by me-slight underpenetration no obvious venous prominence Assessment: -Bilateral lower extremity weakness likely from bilateral lymphedema with progressive swelling of the legs. -Doubt congestive heart failure -Acute cellulitis of the right lower extremity, and behind the left knee -Chronic gait dysfunction uses a walker -Morbid obesity BMI 54 -Right bundle-branch block -Essential hypertension -Uncontrolled GERD, responding to PPI -New onset dysphagia to solids, improved with PPI. Plan: Feeling better. Continue current medication treatment plan. Discussed with the patient. Possibly need inpatient rehab.
--- NOTE | 2019-10-27 19:12 | ECHOF ---
Referral Reason:Assess LV function MEASUREMENTS -------- HEIGHT: 157.5 cm WEIGHT: 133.8 kg BP: 95/65 RVIDd: 2.9 cm (< 3.3) IVSd: 1.4 cm (0.6 - 1.1) LVIDd: 3.6 cm (3.9 - 5.3) LVPWd: 1.4 cm (0.6 - 1.1) IVSs: 1.7 cm LVIDs: 2.7 cm LVPWs: 1.6 cm LA Diam: 4.0 cm (2.7 - 3.8) LAESV Index (A-L): 18.65 ml/m Ao Diam: 3.2 cm (2.0 - 3.7) AV Cusp: 1.8 cm (1.5 - 2.6) MV EXCURSION: 16.144 mm (> 18.000) MV EF SLOPE: 47 mm/s (70 - 150) EPSS: 0.1 cm MV E Leon: 0.93 m/s MV DecT: 313 ms MV A Leon: 0.85 m/s MV E/A Ratio: 1.10 RAP: 5.00 mmHg RVSP: 27.90 mmHg FINDINGS -------- Sinus rhythm. This was a technically difficult study with suboptimal views. The left ventricular size is normal. There is moderate concentric left ventricular hypertrophy. O verall left ventricular systolic function is normal with, an EF between 60 - 65 %. The right ventricle is normal in size. Normal LA size by volume 22+/-6 ml/m2. The right atrium is normal in size. 5.0mg of Lumason was utilized for enhancement of images Interatrial and interventricular septum intact. The aortic valve is trileaflet and appears structurally normal. The mitral valve leaflets are mildly thickened. Moderate mitral annular calcification present. Th ere is trace mitral regurgitation. Mild tricuspid regurgitation present. Right ventricular systolic pressure is normal at < 35 mmHg. The pulmonic valve was not well visualized. The aortic root size is normal. IVC Not well visulized. There is no pericardial effusion. CONCLUSIONS -------- 1. Sinus rhythm. 2. This was a technically difficult study with suboptimal views. 3. The left ventricular size is normal. 4. There is moderate concentric left ventricular hypertrophy. 5. Overall left ventricular systolic function is normal with, an EF between 60 - 65 %. 6. The right ventricle is normal in size. 7. Normal LA size by volume 22+/-6 ml/m2. 8. The right atrium is normal in size. 9. 5.0mg of Lumason was utilized for enhancement of images 10. Interatrial and interventricular septum intact. 11. The aortic valve is trileaflet and appears structurally normal. 12. The mitral valve leaflets are mildly thickened. 13. Moderate mitral annular calcification present. 14. There is trace mitral regurgitation. 15. Mild tricuspid regurgitation present. 16. Right ventricular systolic pressure is normal at < 35 mmHg. 17. The pulmonic valve was not well visualized. 18. The aortic root size is normal. 19. IVC Not well visulized. 20. There is no pericardial effusion. OPTOMETRIC TECHNOLOGIST: SUSAN Hernandez
[2019-10-27] MEDS: SYMBICORT 160-4.5 MCG INHALER INHALATION SCH (19:19)
[2019-10-27] MEDS: MONTELUKAST 10 MG TAB PO SCH (21:23)
[2019-10-28] MEDS ORDERED: PANTOPRAZOLE 40 MG TABLET PO SCH (07:30)
[2019-10-28] MEDS: LACTOBACILLUS ACIDOPH & BULGAR 1 EACH PACKET PO SCH (07:52)
[2019-10-28] MEDS: SYMBICORT 160-4.5 MCG INHALER INHALATION SCH (07:52)
[2019-10-28] MEDS: traMADol 50 MG TAB PO SCH (10:36)
[2019-10-28] MEDS: POTASSIUM CHLORIDE ER 10 MEQ TAB.ER.PRT PO SCH (10:36)
[2019-10-28] MEDS: METOPROLOL TARTRATE 50 MG TAB PO SCH (10:37)
[2019-10-28] MEDS: APIXABAN 5 MG TAB PO SCH (10:37)
[2019-10-28 12:09] VITALS: PULSE 99; RESP 17
[2019-10-28 12:11] VITALS: BP 98/62; TEMP 97.9
--- NOTE | 2019-10-28 12:33 | P.DS ---
Providers Date of admission: 10/24/19 15:17 Expected date of discharge: 10/28/19 Attending physician: Jamshid Cabrera Consults: 10/27/19 18:01 Consult Physician Routine Consulting Provider: Sabiha Singleton Consult Reason/Comments: Lower extremity cellulitis Do you want consulting provider notified?: Yes Primary care physician: Ivan Merrick [facility] Course: Chief Complaint: Weak in the legs Hospital course: This is a very pleasant [address] Sin. Chronic stable medical conditions include paroxysmal atrial fibrillation, asthma, hypertension, kidney dysfunction. Patient normally uses a walker to get about. Patient's chronic swelling of the lower extremities. Noticed that she's becoming tired. Some chills with cold decreased appetite for a week. Subsequently felt weak in the legs and simply went down. Did not pass out no palpitation no headaches. Patient's daughter and family the bedside. Some redness above the right ankle, and a blister. Some breakdown of skin behind the left knee. Also been complaining of intermittent heartburn with more predominant heartburn recently. Also notices that sometimes she "trouble swallowing recently. Food Getting a bit stuck. Admitted with-bilateral lower extremity weakness from bilateral lymphedema with worsening. Also worsening of GERD leading to some dysphagia. Also lower extremity cellulitis. Patient is treated with Silvadene topical cream with Kerlix and Aleks wrap. Also given IV Ancef. Started back on PPIs to which she is doing better. Seen by Dr. Enid Smith. Often intervention. No trouble swallowing anymore. Dose of beta praveen was cut back because of blood pressures running on the lower side. Today-. Feels a bit better. Did work with therapy. Swallowing is okay. Lopressor dose cut in half today. Discussed with patient. Seen by ID today Discussion and discharge planning more than 35 minutes Consultation: Dr. Enid Smith from GI Dr. singleton from ID Physical examination: VITAL SIGNS: 97.9-99-17-98/62-95% room air GENERAL: Laying in bed, comfortable EYES: Pupils equal. Conjunctiva normal. HEENT: External appearance of nose and ears normal, oral cavity grossly normal. NECK: JVD not raised; masses not palpable. HEART: First and second heart sounds are normal; some edema. LUNGS: Respiratory rate increased; clear to auscultation. ABDOMEN: Soft, nontender, liver spleen not palpable, no masses palpable. PSYCH: Alert and oriented x3; mood and affect normal. LYMPHATICS: lymphedema of the bilateral lower extremity Dermatological: Redness especially of the right lower extremity above the ankle, and behind the left knee INVESTIGATIONS, reviewed in the clinical context: Potassium 3.9 bun 38 creatinine 2.06 Previous testing White count 5.3 hemoglobin 11.2 platelets 158 potassium 4.5 bun 37 creatinine 2.25 EKG tracing personally reviewed by me-normal sinus rhythm, right bundle branch block Chest x-ray film personally reviewed by me-slight underpenetration no obvious venous prominence Assessment: -Bilateral lower extremity weakness likely from bilateral lymphedema with progressive swelling of the legs. -Chronic kidney disease stage IV from nephrosclerosis -Acute kidney injury, prerenal from IV diuresis -Doubt congestive heart failure -Acute cellulitis of the right lower extremity, and behind the left knee -Chronic gait dysfunction uses a walker -Morbid obesity BMI 54 -Right bundle-branch block -Essential hypertension -Uncontrolled GERD, responding to PPI -New onset dysphagia to solids, improved with PPI. Disposition: [facility] Patient Condition at Discharge: Stable Plan - Discharge Summary Discharge Rx Participant: Yes New Discharge Prescriptions: No Action RX: traMADol HCL [Ultram] 100 mg PO TID RX: Torsemide [Demadex] 20 mg PO MOTH RX: Potassium Chloride 10 meq PO DAILY RX: Montelukast [Singulair] 10 mg PO HS RX: Apixaban [Eliquis] 5 mg PO BID #60 tab Metoprolol Tartrate [Lopressor] 50 mg PO BID-W/MEALS Acetaminophen [Tylenol 8 Hour] 650 mg PO Q6H PRN PRN Reason: Pain Omeprazole [PriLOSEC] 20 mg PO BID-W/MEALS Lactobacillus Acidophilus [Acidophilus] 1 tab PO BID-W/MEALS Fluticasone Propion/Salmeterol [Wixela 500-50 Inhub] 1 puff INHALATION RT- DAILY@1800 Ferrous Sulfate [Feosol] 325 mg PO W/SUPPER Miconazole Powder 1 applic TOPICAL BID-W/MEALS Dicyclomine [Bentyl] 10 mg PO BID PRN PRN Reason: IBS Discharge Medication List RX: Montelukast [Singulair] 10 mg PO HS 05/21/19 [History] RX: Potassium Chloride 10 meq PO DAILY 05/21/19 [History] RX: Torsemide [Demadex] 20 mg PO MOTH 05/21/19 [History] RX: traMADol HCL [Ultram] 100 mg PO TID 05/21/19 [History] RX: Apixaban [Eliquis] 5 mg PO BID #60 tab 05/22/19 [Rx] Metoprolol Tartrate [Lopressor] 50 mg PO BID-W/MEALS 06/12/19 [History] Acetaminophen [Tylenol 8 Hour] 650 mg PO Q6H PRN 10/24/19 [History] Dicyclomine [Bentyl] 10 mg PO BID PRN 10/24/19 [History] Ferrous Sulfate [Feosol] 325 mg PO W/SUPPER 10/24/19 [History] Fluticasone Propion/Salmeterol [Wixela 500-50 Inhub] 1 puff INHALATION RT- DAILY@1800 10/24/19 [History] Lactobacillus Acidophilus [Acidophilus] 1 tab PO BID-W/MEALS 10/24/19 [History] Miconazole Powder 1 applic TOPICAL BID-W/MEALS 10/24/19 [History] Omeprazole [PriLOSEC] 20 mg PO BID-W/MEALS 10/24/19 [History] Follow up Appointment(s)/Referral(s): Ivan Sin MD [Primary Care Provider] - 1-2 days
[2019-10-28] MEDS ORDERED: METOPROLOL TARTRATE 25 MG TAB PO SCH (21:00)
--- NOTE | 2019-10-30 13:43 | CDI ---
Documentation Clarification Form Date: 10/30/19 From: Yolette Lacy Phone: If you have a question about this query, please contact Mona Owens, Product Development Worker at [phone] between 8am and 5pm. Admit Date: 10/24/19 Discharge Date: 10/28/19 Patient Name: Amy Morse Visit Number: [id number] ATTENTION: The Clinical Documentation Specialists (CDI) and [facility] Coding Staff appreciate your assistance in clarifying documentation. Please respond to the clarification below the line at the bottom and electronically sign. The CDI & [facility] Coding staff will review the response and follow-up if needed. Please note: Queries are made part of the Legal Health Record. If you have any questions, please contact the author of this message via ITS. Dear Dr. Jamshid Cabrera, CHF is documented in the ED Note.Per H&P & DS documented "doubt CHF" History/Risk Factors: HTN w CKD IV, IVETH, PAF, morbid obesity w BMI 54.0, cellulitis of RLE Clinical Indicators: lymphedema, VS/Pulse OX: P-90, R-20, PT=168/59, o2 sAT-100 BNP: 5210 Echocardiogram Results: Left ventricular systolic function w EF between 60-65% Chest X Ray: Heart size is upper limits of normal. Treatment: IV Lasix 40mg IV [id number] 10/25, on DC Demadex 20 mg PO MOTH In your professional opinion, can you please clarify the acuity and type of stable chronic CHF if known? Systolic Heart Failure Diastolic Heart Failure Systolic & Diastolic Heart Failure Unable to Determine Other, please specify No congestive heart failure MTDD
== END 2019-10-28 17:02 ==
LOC: EC 10:48 → 4SSUR 15:17 → UNDOADMIN 15:17 → INTOOBSV 15:17 → 4SSUR 16:51 → UNDODISIN 10-28 17:02
PROVIDERS: ADMIT Hospitalist; ATTEND Hospitalist
DX: I89.0 Lymphedema, not elsewhere classified (principal); L03.115 Cellulitis of right lower limb; N17.9 Acute kidney failure, unspecified; N18.4 Chronic kidney disease, stage 4 (severe); Z68.43 Body mass index [BMI] 50.0-59.9, adult; I12.9 Hypertensive chronic kidney disease with stage 1 through stage 4 chronic kidney disease, or unspecified chronic kidney disease; I48.0 Paroxysmal atrial fibrillation; E86.0 Dehydration; I45.10 Unspecified right bundle-branch block; E66.01 Morbid (severe) obesity due to excess calories; J45.909 Unspecified asthma, uncomplicated; R26.9 Unspecified abnormalities of gait and mobility; K21.9 Gastro-esophageal reflux disease without esophagitis; R13.10 Dysphagia, unspecified; M19.90 Unspecified osteoarthritis, unspecified site; Z79.01 Long term (current) use of anticoagulants; Z79.51 Long term (current) use of inhaled steroids; Z79.891 Long term (current) use of opiate analgesic; Z79.899 Other long term (current) drug therapy; Z71.3 Dietary counseling and surveillance; Z86.73 Personal history of transient ischemic attack (TIA), and cerebral infarction without residual deficits; Z90.49 Acquired absence of other specified parts of digestive tract; Z87.19 Personal history of other diseases of the digestive system; Z88.5 Allergy status to narcotic agent; W19.XXXA Unspecified fall, initial encounter; Z82.49 Family history of ischemic heart disease and other diseases of the circulatory system; Z83.3 Family history of diabetes mellitus
CPT/HCPCS: 96376 ×2; 96365; 96366 ×2; 96375; 99285; 36415; 94640 ×6; 94760; 93005; 97116; 97530; 97162; 97166; 83880; 80053; 80048 ×2; 83605; 83735; 84484; 85025; 85610; 85730; 81001; 87040; 87070; 73590; 71046 ×2; G0378 ×5; C8929; J1940 ×2; J0690 ×4; Q9950; 93306; 96374

== ENCOUNTER 2019-11-05 18:02 | Inpatient (IN) | payer MEDICARE ==
--- NOTE | 2019-11-05 18:48 | ED ---
Abdominal Pain HPI - General Chief Complaint: Abdominal Pain Stated Complaint: abd pain Time Seen by Provider: 11/05/19 18:30 Source: RN/MD, RN notes reviewed, old records reviewed Mode of arrival: EMS Limitations: no limitations - History of Present Illness Initial Comments: This is a 69-year-old female DF for evaluation patient is a for evaluation. T hey've left lower quadrant and suprapubic abdominal pain history of some mild vaginal bleeding. Patient sent to the ER for evaluation patient is a mildly poor story history obtained from EMS as well as patient's chart, outpatient lab values. Patient does admit to pain currently no fevers no nausea vomiting or diarrhea Complaint: abdominal pain -: days(s) (4) Location: LLQ, epigastric Radiation: suprapubic, L flank Migration to: LLQ Severity: moderate Severity scale (1-10): 7 Quality: sharp, dull Improves With: nothing Worsens With: nothing Associated Symptoms: nausea, diarrhea - Related Data Home Medications Medication Instructions Recorded Confirmed Montelukast [Singulair] 10 mg PO HS 05/21/19 10/24/19 Potassium Chloride 10 meq PO DAILY 05/21/19 10/24/19 Torsemide [Demadex] 20 mg PO MOTH 05/21/19 10/24/19 Acetaminophen [Tylenol 8 Hour] 650 mg PO Q6H PRN 10/24/19 10/24/19 Dicyclomine [Bentyl] 10 mg PO BID PRN 10/24/19 10/24/19 Ferrous Sulfate [Iron (65 MG 325 mg PO W/SUPPER 10/24/19 10/24/19 Elemental)] Fluticasone Propion/Salmeterol 1 puff INHALATION RT-DAILY@1800 10/24/19 10/24/19 [Wixela 500-50 Inhub] Lactobacillus Acidophilus 1 tab PO BID-W/MEALS 10/24/19 10/24/19 [Acidophilus] Miconazole Powder 1 applic TOPICAL BID-W/MEALS 10/24/19 10/24/19 Omeprazole [PriLOSEC] 20 mg PO BID-W/MEALS 10/24/19 10/24/19 Previous Rx's Medication Instructions Recorded Apixaban [Eliquis] 5 mg PO BID #60 tab 05/22/19 Cephalexin [Keflex] 500 mg PO Q12HR #14 cap 10/28/19 Metoprolol Tartrate [Lopressor] 12.5 mg PO TID #60 dose 10/28/19 traMADol HCL [Ultram] 100 mg PO TID #9 tab 10/28/19 Allergies Allergy/AdvReac Type Severity Reaction Status Date / Time propoxyphene [From Darvon] Allergy Unknown Verified 10/24/19 14:50 Review of Systems ROS Statement: Those systems with pertinent positive or pertinent negative responses have been documented in the HPI. ROS Other: All systems not noted in ROS Statement are negative. Past Medical History Past Medical History: Atrial Fibrillation, Asthma, CVA/TIA, Hypertension Additional Past Medical History / Comment(s): diverticulitis, cellulitis History of Any Multi-Drug Resistant Organisms: None Reported Past Surgical History: Cholecystectomy, Orthopedic Surgery Past Psychological History: No Psychological Hx Reported Smoking Status: Never smoker Past Alcohol Use History: None Reported Past Drug Use History: None Reported - Past Family History Father Additional Family Medical History / Comment(s): Heart disease in the family including parents although the type is not clear General Exam Limitations: no limitations General appearance: alert, in no apparent distress, obese Head exam: Present: atraumatic, normocephalic, normal inspection Eye exam: Present: normal appearance, PERRL, EOMI. Absent: scleral icterus, conjunctival injection, periorbital swelling ENT exam: Present: normal exam, mucous membranes moist Neck exam: Present: normal inspection. Absent: tenderness, meningismus, lymphadenopathy Respiratory exam: Present: normal lung sounds bilaterally. Absent: respiratory distress, wheezes, rales, rhonchi, stridor Cardiovascular Exam: Present: regular rate, normal rhythm, normal heart sounds. Absent: systolic murmur, diastolic murmur, rubs, gallop, clicks GI/Abdominal exam: Present: soft, normal bowel sounds. Absent: distended, tenderness, guarding, rebound, rigid Extremities exam: Present: normal inspection, full ROM, normal capillary refill. Absent: tenderness, pedal edema, joint swelling, calf tenderness Back exam: Present: normal inspection Neurological exam: Present: alert, oriented X3, CN II-XII intact Psychiatric exam: Present: normal affect, normal mood Skin exam: Present: warm, dry, intact, normal color. Absent: rash Course Vital Signs 11/05/19 11/05/19 18:04 19:35 Temperature 97.8 F Pulse Rate 91 90 Respiratory 18 18 Rate Blood Pressure 115/65 112/68 O2 Sat by Pulse 98 94 L Oximetry - Reevaluation(s) Reevaluation #1: 11/05/19 18:49 Medical records reviewed Reevaluation #2: 11/05/19 21:07 The patient's pain is much improved here in the ER - Consultations Consultation #1: Spoke with Dr. Cabrera was agreeable for admission Medical Decision Making - Medical Decision Making 69 female presents today for evaluation patient closely for evaluation regards to abdominal pain CT positive for diverticulitis. Patient be admitted for antibiotics and by mouth and resuscitation, monitoring of hemoglobin lab values - Lab Data Result diagrams: 11/05/19 19:39 11/05/19 19:39 Lab Results 11/05/19 11/05/19 11/05/19 Range/Units 19:39 19:39 19:39 WBC 4.5 (3.8-10.6) k/uL RBC 3.66 L (3.80-5.40) m/uL Hgb 9.8 L (11.4-16.0) gm/dL Hct 31.0 L (34.0-46.0) % MCV 84.8 (80.0-100.0) fL MCH 26.9 (25.0-35.0) pg MCHC 31.7 (31.0-37.0) g/dL RDW 16.6 H (11.5-15.5) % Plt Count 126 L (150-450) k/uL Neutrophils % 66 % Lymphocytes % 23 % Monocytes % 7 % Eosinophils % 1 % Basophils % 0 % Neutrophils # 2.9 (1.3-7.7) k/uL Lymphocytes # 1.0 (1.0-4.8) k/uL Monocytes # 0.3 (0-1.0) k/uL Eosinophils # 0.1 (0-0.7) k/uL Basophils # 0.0 (0-0.2) k/uL Anisocytosis Slight Sodium 130 L (137-145) mmol/L Potassium 4.6 (3.5-5.1) mmol/L Chloride 105 (98-107) mmol/L Carbon Dioxide 20 L (22-30) mmol/L Anion Gap 5 mmol/L BUN 42 H (7-17) mg/dL Creatinine 1.30 H (0.52-1.04) mg/dL Est GFR (CKD-EPI)AfAm 48 (>60 ml/min/1.73 sqM) Est GFR (CKD-EPI)NonAf 42 (>60 ml/min/1.73 sqM) Glucose 82 (74-99) mg/dL Plasma Lactic Acid Dieudonne 1.4 (0.7-2.0) mmol/L Calcium 7.1 L (8.4-10.2) mg/dL Total Bilirubin 0.8 (0.2-1.3) mg/dL AST 39 H (14-36) U/L ALT 21 (4-34) U/L Alkaline Phosphatase 622 H (38-126) U/L Total Protein 5.7 L (6.3-8.2) g/dL Albumin 1.8 L (3.5-5.0) g/dL Amylase <30 L (30-110) U/L Lipase 19 L (23-300) U/L - Radiology Data Radiology results: report reviewed (CT of the abdomen and pelvis positive for diverticulitis), image reviewed Disposition Clinical Impression: Abdominal pain, Diverticulitis, Anemia Disposition: ADMITTED IP TO THIS [facility] Condition: Good Is patient prescribed a controlled substance at d/c from ED?: No Referrals: Ivan Sin MD [Primary Care Provider] - 1-2 days
[2019-11-05] MEDS ORDERED: ONDANSETRON 4 MG/2 ML VIAL IVP STA (18:49)
[2019-11-05] MEDS ORDERED: SODIUM CHLORIDE 0.9% 1,000 ML IV STA (18:49)
[2019-11-05] MEDS ORDERED: MORPHINE SULFATE 4 MG/ML SYRINGE IV STA (18:49)
[2019-11-05 19:58] LABS: ALT 21 U/L (4-34); AST 39 U/L (14-36); African American GFR (CKD) 48 (>60 ml/min/1.73 sqM); Albumin 1.8 g/dL (3.5-5.0); Alkaline Phosphatase 622 U/L (38-126); Amylase <30 U/L (30-110); Anion Gap 5 mmol/L; Blood Urea Nitrogen 42 mg/dL (7-17); Calcium 7.1 mg/dL (8.4-10.2); Carbon Dioxide 20 mmol/L (22-30); Chloride 105 mmol/L (98-107); Glucose 82 mg/dL (74-99); Non-African American GFR(CKD) 42 (>60 ml/min/1.73 sqM); Potassium 4.6 mmol/L (3.5-5.1); Sodium 130 mmol/L (137-145); Total Bilirubin 0.8 mg/dL (0.2-1.3); Total Protein 5.7 g/dL (6.3-8.2)
[2019-11-05 20:19] LABS: Anisocytosis Slight; Basophils % (A) 0 %; Eosinophils # (A) 0.1 k/uL (0-0.7); Eosinophils % (A) 1 %; HGB 9.8 gm/dL (11.4-16.0); Lymphocytes % (A) 23 %; MCH 26.9 pg (25.0-35.0); MCHC 31.7 g/dL (31.0-37.0); MCV 84.8 fL (80.0-100.0); Mean Platelet Volume 7.3; Monocytes # (A) 0.3 k/uL (0-1.0); Monocytes % (A) 7 %; Neutrophils # (A) 2.9 k/uL (1.3-7.7); Neutrophils % (A) 66 %; Platelet Count 126 k/uL (150-450); RBC 3.66 m/uL (3.80-5.40); RDW 16.6 % (11.5-15.5); WBC 4.5 k/uL (3.8-10.6)
--- NOTE | 2019-11-05 20:45 | CT ---
EXAMINATION TYPE: CT abdomen pelvis w con DATE OF EXAM: 11/05/2019 COMPARISON: 06/12/2019 HISTORY: Abdominal pain CT DLP: mGycm Automated exposure control for dose reduction was used. CONTRAST: Multiple axial sections were obtained from the diaphragm to the floor the pelvis with intravenous con trast Isovue 80 mL. Lung bases are clear of consolidation. There is no pleural effusion. There is minimal atelectasis pos terior lung bases. There is fatty infiltration of the liver. Stomach is intact. Heart size is normal. There is no pericardial effusion. There is small calcified splenic granulomata. Pancreas appears nor mal. The bile ducts are not dilated. Gallbladder is absent. There is no adrenal mass. Kidneys show satisfactory contrast opacification. There is no hydronephrosi s. Ureters are not dilated. There is no retroperitoneal adenopathy. Bladder distends smoothly. There is no inguinal hernia. Uterus is anteverted. There is no free fluid in the pelvis. There is subcutane ous edema around the lateral abdomen. There is fat stranding and wall thickening involving the proximal sigmoid colon. There are a few sigm oid diverticula. There is no evidence of free air. There is no bowel obstruction. There is no ascites . Appendix is not seen. There is no sign of thickened appendix. Lumbar vertebra have fairly normal al ignment. Bony pelvis is intact. There is some deformity of the femoral necks that is more on the righ t side and consistent with old hip dysplasia. IMPRESSION: Inflammatory changes around the proximal sigmoid colon consistent with colitis or diverticulitis that appears slightly worse than old CT scan. No free air. No bowel obstruction. Fatty infiltration of the liver.
[2019-11-05] MEDS ORDERED: MORPHINE SULFATE 4 MG/ML SYRINGE IVP PRN (21:06)
[2019-11-05] MEDS ORDERED: AMPICILLIN-SULBACTAM 3 GM in SODIUM CHLORIDE 0.9% 100 ML IVPB STA (21:06)
[2019-11-05] MEDS ORDERED: SODIUM CHLORIDE 0.9% 1,000 ML IV ONE (21:06)
[2019-11-06] MEDS: AMPICILLIN-SULBACTAM 3 GM in SODIUM CHLORIDE 0.9% 100 ML IVPB SCH ×3 (09:41→22:03)
[2019-11-06] MEDS: PANTOPRAZOLE 40 MG/10 ML VIAL IVP SCH (09:41)
[2019-11-06] MEDS ORDERED: BISACODYL 10 MG SUPP RECTAL PRN (10:07)
[2019-11-06] MEDS ORDERED: NON FORMULARY DRUG (Lactose-Reduced Food [Ensure Plus] 120 ML) PO SCH (12:00)
[2019-11-06] MEDS: HYDROPHILIC CREAM 180 GM TUBE TOPICAL SCH ×2 (12:52→19:55)
[2019-11-06] MEDS: ENOXAPARIN 40 MG/0.4 ML SYRINGE SQ SCH (12:52)
[2019-11-06] MEDS: traMADol 50 MG TAB PO SCH ×2 (14:53→22:04)
[2019-11-06] MEDS: METOPROLOL TARTRATE 12.5 MG TAB PO SCH ×2 (14:54→22:04)
--- NOTE | 2019-11-06 15:12 | P.HPIM ---
History of Present Illness H&P Date: 11/06/19 Chief Complaint: Abdominal pain History of presenting complaint: This is a very pleasant [address] Sin. Chronic stable medical conditions include paroxysmal atrial fibrillation, asthma, hypertension, GERD, chronic kidney disease stage IV, bilateral lower extremity lymphedema. Patient normally uses a walker to get about. Currently at [facility] for rehab. Patient's had abdominal pain on and off for quite some time. On this occasion yesterday the pain became much worse cramping some nausea vomiting. Denies any fever and chills. Had to 3 loose stools yesterday. No blood. Computed tomography scan in the ER did show diverticulitis. Patient is made nothing by mouth. Daughter the bedside. At the [facility] patient was walking at least 20/30 status with a walker. Review of systems: GEN.: Tired EYES: None HEENT: None NECK: None RESPIRATORY: baseline shortness of breath CARDIOVASCULAR: None GASTROINTESTINAL: None GENITOURINARY: None MUSCULOSKELETAL: Joint pains LYMPHATICS: Lower extremity chronic swelling HEMATOLOGICAL: None PSYCHIATRY: None NEUROLOGICAL: None Past medical history to include: Atrial fibrillation, asthma, hypertension, diverticulitis, GERD, chronic kidney disease stage IV, bilateral lower extremity lymphedema Social history: Does not smoke or drink alcohol. At [facility] for rehab Uses a walker. Physical examination: VITAL SIGNS: 97.8, 91, 18, 150/65, 98% on room air GENERAL: BMI 51, laying in bed, tired EYES: Pupils equal. Conjunctiva normal. HEENT: External appearance of nose and ears normal, oral cavity dry mucous membrane. NECK: JVD not raised; masses not palpable. HEART: First and second heart sounds are normal; some edema. LUNGS: Respiratory rate increased; clear to auscultation. ABDOMEN: Soft, lower abdominal tenderness, no guarding rigidity, liver spleen not palpable, no masses palpable. PSYCH: Alert and oriented x3; mood and affect normal. NEUROLOGICAL: Cranial nerves grossly intact; no facial asymmetry, power and sensation grossly intact. LYMPHATICS: lymphedema of the lower extremity INVESTIGATIONS, reviewed in the clinical context: White count 4.5 hemoglobin 9.8 platelets 126 Computed tomography scan of the abdomen-possible colitis versus diverticulitis in the sigmoid area Assessment: -Acute sigmoid diverticulitis -Bilateral lower extremity lymphedema -Acute cellulitis of the right lower extremity -Chronic gait dysfunction uses a walker -Morbid obesity BMI 51 -Right bundle-branch block -Essential hypertension -GERD Plan: Patient started and IV Zosyn. Clear liquid diet. Home medications are reviewed. Care was discussed with the patient daughter the bedside. Questions were answered. Lovenox for DVT prophylaxis. Past Medical History Past Medical History: Atrial Fibrillation, Asthma, CVA/TIA, Hypertension Additional Past Medical History / Comment(s): diverticulitis, cellulitis History of Any Multi-Drug Resistant Organisms: None Reported Past Surgical History: Cholecystectomy, Orthopedic Surgery Past Psychological History: No Psychological Hx Reported Smoking Status: Never smoker Past Alcohol Use History: None Reported Past Drug Use History: None Reported - Past Family History Father Additional Family Medical History / Comment(s): Heart disease in the family including parents although the type is not clear Medications and Allergies Home Medications Medication Instructions Recorded Confirmed Type Montelukast [Singulair] 10 mg PO HS@2100 05/21/19 11/05/19 History Potassium Chloride 10 meq PO DAILY@0800 05/21/19 11/05/19 History Torsemide [Demadex] 20 mg PO MOTH@0800 05/21/19 11/05/19 History Acetaminophen [Tylenol 8 Hour] 650 mg PO Q6H PRN 10/24/19 11/05/19 History Dicyclomine [Bentyl] 10 mg PO BID PRN 10/24/19 11/05/19 History Ferrous Sulfate [Iron (65 MG 325 mg PO DAILY@1700 10/24/19 11/05/19 History Elemental)] Fluticasone Propion/Salmeterol 1 puff INHALATION RT-DAILY@169910/24/19 11/05/19 History [Wixela 500-50 Inhub] Lactobacillus Acidophilus 1 tab PO BID@0800,1700 10/24/19 11/05/19 History [Acidophilus] Omeprazole [PriLOSEC] 20 mg PO BID@0800,1700 10/24/19 11/05/19 History Bisacodyl [Dulcolax] 10 mg RECTAL DAILY PRN 11/05/19 11/05/19 History Heparin Sodium,Porcine [Heparin 5,000 unit SQ Q12H 11/05/19 11/05/19 History Sodium] Hydrophilic Cream [Triad Cream] 1 applic TOPICAL BID 11/05/19 11/05/19 History Lactose-Reduced Food [Ensure Plus] 120 ml PO BID@0800,1200 11/05/19 11/05/19 H istory Liquical 30 ml PO DAILY@1700 11/05/19 11/05/19 History Magnesium Hydroxide [Milk of 7,200 mg PO DAILY PRN 11/05/19 11/05/19 History Magnesia Concentrate] Metoprolol Tartrate [Lopressor] 12.5 mg PO TID@0600,1400,2200 11/05/19 11/05/19 History Miconazole Nitrate [Desenex] 1 applic TOPICAL BID 11/05/19 11/05/19 History Na Phos,M-B/Na Phos,Di-Ba [Fleet 133 ml RECTAL ONCE PRN 11/05/19 11/05/19 History Adult] traMADol HCL [Ultram] 100 mg PO TID@0600,1400,2200 11/05/19 11/05/19 History Allergies Allergy/AdvReac Type Severity Reaction Status Date / Time propoxyphene [From Darvon] Allergy Unknown Verified 11/05/19 21:24 Physical Exam Vitals: Vital Signs Temp Pulse Pulse Resp BP BP Pulse Ox 11/06/19 07:37 18 11/06/19 07:00 97.3 F L 93 18 96/50 95 11/06/19 02:57 97.3 F L 83 18 96/53 100 11/06/19 00:30 81 18 103/57 100 11/05/19 23:00 18 11/05/19 22:30 103 H 20 109/62 100 11/05/19 19:35 90 18 112/68 94 L 11/05/19 18:04 97.8 F 91 18 115/65 98 Intake and Output 11/05/19 11/06/19 11/06/19 22:59 06:59 14:59 Other: Weight 126.552 kg Results CBC & Chem 7: 11/05/19 19:39 11/05/19 19:39 Labs: Abnormal Lab Results - Last 24 Hours (Table) 11/05/19 11/05/19 Range/Units 19:39 19:39 RBC 3.66 L (3.80-5.40) m/uL Hgb 9.8 L (11.4-16.0) gm/dL Hct 31.0 L (34.0-46.0) % RDW 16.6 H (11.5-15.5) % Plt Count 126 L (150-450) k/uL Sodium 130 L (137-145) mmol/L Carbon Dioxide 20 L (22-30) mmol/L BUN 42 H (7-17) mg/dL Creatinine 1.30 H (0.52-1.04) mg/dL Calcium 7.1 L (8.4-10.2) mg/dL AST 39 H (14-36) U/L Alkaline Phosphatase 622 H (38-126) U/L Total Protein 5.7 L (6.3-8.2) g/dL Albumin 1.8 L (3.5-5.0) g/dL Amylase <30 L (30-110) U/L Lipase 19 L (23-300) U/L
[2019-11-06] MEDS ORDERED: PANTOPRAZOLE 40 MG TABLET PO SCH (17:00)
[2019-11-06] MEDS ORDERED: NON FORMULARY DRUG (Liquical 30 ML) PO SCH (17:00)
[2019-11-06] MEDS: FERROUS SULFATE 325 MG TAB PO SCH (19:32)
[2019-11-06] MEDS: SYMBICORT 160-4.5 MCG INHALER INHALATION SCH (19:44)
[2019-11-06] MEDS: ACETAMINOPHEN TAB 325 MG TAB PO PRN (19:54)
[2019-11-06] MEDS: MONTELUKAST 10 MG TAB PO SCH (19:55)
[2019-11-06] MEDS: NYSTATIN 100,000 UNIT/GM POWD 15 GM TOPICAL SCH (23:06)
[2019-11-07] MEDS: AMPICILLIN-SULBACTAM 3 GM in SODIUM CHLORIDE 0.9% 100 ML IVPB SCH ×3 (05:27→21:17)
[2019-11-07] MEDS: METOPROLOL TARTRATE 12.5 MG TAB PO SCH ×3 (05:27→21:15)
[2019-11-07] MEDS: traMADol 50 MG TAB PO SCH ×3 (05:27→21:16)
[2019-11-07] MEDS: SYMBICORT 160-4.5 MCG INHALER INHALATION SCH ×2 (09:04→16:13)
[2019-11-07] MEDS: POTASSIUM CHLORIDE ER 10 MEQ TAB.ER.PRT PO SCH (11:08)
[2019-11-07] MEDS: ACETAMINOPHEN TAB 325 MG TAB PO PRN (11:08)
[2019-11-07] MEDS: PANTOPRAZOLE 40 MG/10 ML VIAL IVP SCH (11:08)
[2019-11-07] MEDS: HYDROPHILIC CREAM 180 GM TUBE TOPICAL SCH ×2 (11:09→21:17)
[2019-11-07] MEDS: ENOXAPARIN 40 MG/0.4 ML SYRINGE SQ SCH (11:09)
[2019-11-07] MEDS: NYSTATIN 100,000 UNIT/GM POWD 15 GM TOPICAL SCH ×2 (11:09→21:17)
--- NOTE | 2019-11-07 12:26 | P.PN ---
Progress Note - Text Progress Note Date: 11/07/19 Chief Complaint: Abdominal pain History of presenting complaint: This is a very pleasant [address] Sin. Chronic stable medical conditions include paroxysmal atrial fibrillation, asthma, hypertension, GERD, chronic kidney disease stage IV, bilateral lower extremity lymphedema. Patient normally uses a walker to get about. Currently at [facility] for rehab. Patient's had abdominal pain on and off for quite some time. On this occasion yesterday the pain became much worse cramping some nausea vomiting. Denies any fever and chills. Had to 3 loose stools yesterday. No blood. Computed tomography scan in the ER did show diverticulitis. Patient is made nothing by mouth. Daughter the bedside. At the [facility] patient was walking at least-20-30 steps with a walker. Admitted with acute sigmoid diverticulitis. Also patient noted to have some vaginal blood clots. Today-less abdominal pain. Did tolerate her clear liquid diet. Had some vaginal blood clots. Overall feeling better. Review of systems: Was done for constitutional, cardiovascular, GI, pulmonary. relevant finding as above Active Medications Acetaminophen (Tylenol Tab) 650 mg PO Q6H PRN PRN Reason: Mild Pain Last Admin: 11/07/19 11:08 Dose: 650 mg Documented by: Bisacodyl (Dulcolax) 10 mg RECTAL DAILY PRN PRN Reason: Constipation Budesonide/Formoterol Fumarate (Symbicort 160-4.5 Mcg Inhaler) 2 puff INHALATION RT-BID [facility] Last Admin: 11/07/19 09:04 Dose: 2 puff Documented by: Dicyclomine HCl (Bentyl) 10 mg PO BID PRN PRN Reason: IBS Enoxaparin Sodium (Lovenox) 40 mg SQ DAILY [facility] Last Admin: 11/07/19 11:09 Dose: 40 mg Documented by: Ferrous Sulfate (Feosol) 325 mg PO DAILY@1700 [facility] Last Admin: 11/06/19 19:32 Dose: 325 mg Documented by: Ampicillin Sodium/Sulbactam (Sodium 3 gm/ Sodium Chloride) 100 mls @ 200 mls/hr IVPB Q8H [facility] Last Admin: 11/07/19 05:27 Dose: 200 mls/hr Documented by: Metoprolol Tartrate (Lopressor) 12.5 mg PO TID@0600,1400,2200 [facility] Last Admin: 11/07/19 05:27 Dose: 12.5 mg Documented by: Montelukast Sodium (Singulair) 10 mg PO HS@2100 [facility] Last Admin: 11/06/19 19:55 Dose: 10 mg Documented by: Multi-Ingred Cream/Lotion/Oil/Oint (Triad Cream) 1 applic TOPICAL BID [facility] Last Admin: 11/07/19 11:09 Dose: 1 applic Documented by: Nystatin (Mycostatin Powder) 1 applic TOPICAL BID [facility] Last Admin: 11/07/19 11:09 Dose: 1 applic Documented by: Pantoprazole Sodium (Protonix) 40 mg IVP DAILY [facility] Last Admin: 11/07/19 11:08 Dose: 40 mg Documented by: Potassium Chloride (K-Dur 10) 10 meq PO DAILY@0800 [facility] Last Admin: 11/07/19 11:08 Dose: 10 meq Documented by: Torsemide (Demadex) 20 mg PO MOTH@0800 [facility] Tramadol HCl (Ultram) 100 mg PO TID@0600,1400,2200 [facility] Last Admin: 11/07/19 05:27 Dose: 100 mg Documented by: Physical examination: VITAL SIGNS: 97.6, 82, 16, 107/54, 96% room air GENERAL: Propped up in bed, awake EYES: Pupils equal. Conjunctiva normal. HEENT: External appearance of nose and ears normal, oral cavity dry mucous membrane. NECK: JVD not raised; masses not palpable. HEART: First and second heart sounds are normal; some edema. LUNGS: Respiratory rate increased; clear to auscultation. ABDOMEN: Soft, decreased abdominal tenderness, no guarding rigidity, liver spleen not palpable, no masses palpable. PSYCH: Alert and oriented x3; mood and affect normal. NEUROLOGICAL: Cranial nerves grossly intact; no facial asymmetry, power and sensation grossly intact. LYMPHATICS: lymphedema of the lower extremity INVESTIGATIONS, reviewed in the clinical context: C. diff-negative Previous testing White count 4.5 hemoglobin 9.8 platelets 126 Computed tomography scan of the abdomen-possible colitis versus diverticulitis in the sigmoid area Assessment: -Acute sigmoid diverticulitis -Intermittent vaginal blood clots -Bilateral lower extremity lymphedema -Acute cellulitis of the right lower extremity -Chronic gait dysfunction uses a walker -Morbid obesity BMI 51 -Right bundle-branch block -Essential hypertension -GERD Plan: Continue with IV Zosyn. That will be advanced to full liquids. Did get a PADDED PRODUCTS INSPECTOR TRIMMER opinion based on menstrual blood clots. Care was discussed with the patient.
--- NOTE | 2019-11-07 12:47 | P.OBCN ---
History of Present Illness Consult date: 11/07/19 Requesting physician: Jamshid Cabrera Reason for consult: other (Postmenopausal bleeding.) Chief complaint: Abdominal pain and incidental vaginal bleeding History of present illness: This patient is a pleasant 69-year-old 3 para 3 female who is admitted yesterday for evaluation of abdominal pain and known diverticulitis. Patient apparently is living at a [facility] and began having worsening cramping with nausea and vomiting. Patient was transferred to [facility] for further evaluation. I am being consult dictated for evaluation of some vaginal spotting. I did review this patient's office records and it indicates that she is a patient of Dr. Kim and saw her in May 2015 for similar complaints, postmenopausal bleeding. Patient at that time had thickening of her endometrium that was abnormal to 1.[address] Kim scheduled her for hysteroscopy D&C but the office mess ages indicate the patient was going to [place] and the bleeding had subsided and therefore this was not rescheduled. In questioning the patient, she states that she does have some vaginal bleeding in her diapers from time to time. It is never excessive. She is not had any further evaluation since 2014. Patient has multiple medical problems that includes but not limited to diverticulitis, coron roger artery disease, hypertension, and morbid obesity. Review of Systems Genitourinary: Reports as per HPI, Reports abnormal vaginal bleeding Menstruation: Reports as per HPI, Reports postmenopausal Past Medical History Past Medical History: Atrial Fibrillation, Asthma, CVA/TIA, Hypertension Additional Past Medical History / Comment(s): diverticulitis, cellulitis History of Any Multi-Drug Resistant Organisms: None Reported Past Surgical History: Cholecystectomy, Orthopedic Surgery Past Anesthesia/Blood Transfusion Reactions: No Reported Reaction Past Psychological History: No Psychological Hx Reported Smoking Status: Never smoker Past Alcohol Use History: None Reported Past Drug Use History: None Reported - Past Family History Father Additional Family Medical History / Comment(s): Heart disease in the family including parents although the type is not clear Medications and Allergies Home Medications Medication Instructions Recorded Confirmed Type Montelukast [Singulair] 10 mg PO HS@2100 05/21/19 11/05/19 History Potassium Chloride 10 meq PO DAILY@0800 05/21/19 11/05/19 History Torsemide [Demadex] 20 mg PO MOTH@0805/21/19 11/05/19 History Acetaminophen [Tylenol 8 Hour] 650 mg PO Q6H PRN 10/24/19 11/05/19 History Dicyclomine [Bentyl] 10 mg PO BID PRN 10/24/19 11/05/19 History Ferrous Sulfate [Iron (65 MG 325 mg PO DAILY@17010/24/19 11/05/19 History Elemental)] Fluticasone Propion/Salmeterol 1 puff INHALATION RT-DAILY@169910/24/19 11/05/19 History [Wixela 500-50 Inhub] Lactobacillus Acidophilus 1 tab PO BID@0800,1700 10/24/19 11/05/19 History [Acidophilus] Omeprazole [PriLOSEC] 20 mg PO BID@0800,1700 10/24/19 11/05/19 History Bisacodyl [Dulcolax] 10 mg RECTAL DAILY PRN 11/05/19 11/05/19 History Heparin Sodium,Porcine [Heparin 5,000 unit SQ Q12H 11/05/19 11/05/19 History Sodium] Hydrophilic Cream [Triad Cream] 1 applic TOPICAL BID 11/05/19 11/05/19 History Lactose-Reduced Food [Ensure Plus] 120 ml PO BID@0800,1200 11/05/19 11/05/19 History Liquical 30 ml PO DAILY@169911/05/19 11/05/19 History Magnesium Hydroxide [Milk of 7,200 mg PO DAILY PRN 11/05/19 11/05/19 History Magnesia Concentrate] Metoprolol Tartrate [Lopressor] 12.5 mg PO TID@0600,1400,219911/05/19 11/05/19 History Miconazole Nitrate [Desenex] 1 applic TOPICAL BID 11/05/19 11/05/19 History Na Phos,M-B/Na Phos,Di-Ba [Fleet 133 ml RECTAL ONCE PRN 11/05/19 11/05/19 History Adult] traMADol HCL [Ultram] 100 mg PO TID@0600,1400,2200 11/05/19 11/05/19 History Allergies Allergy/AdvReac Type Severity Reaction Status Date / Time propoxyphene [From Darvon] Allergy Unknown Verified 11/05/19 21:24 Exam Vital Signs Temp Pulse Resp BP Pulse Ox 02/21/20 11:45 97.6 F 82 16 107/54 96 11/07/19 04:42 97.7 F 78 18 133/62 94 L 11/06/19 23:40 16 11/06/19 21:12 97.9 F 95 16 124/73 95 11/06/19 15:41 97.5 F L 86 17 116/74 99 Intake and Output 11/06/19 11/07/19 11/07/19 22:59 06:59 14:59 Intake Total 980 500 350 Balance 980 500 350 Intake: Intake, IV Titration 500 260 Amount Ampicillin-Sulbactam 3 gm 100 100 In Sodium Chloride 0.9% 100 ml @ 200 mls/hr IVPB Q8H [facility] Rx#:[id number] Sodium Chloride 0.9% 1, 400 160 000 ml @ 100 mls/hr IV . Q10H ONE Rx#:[id number] Oral 480 240 350 Other: Voiding Method Diaper Diaper Diaper # Voids 1 1 # Bowel Movements 1 1 Results Ultrasound in 2014 showed abnormal endometrial thickening to 1.2 cm. Result Diagrams: 11/05/19 19:39 11/05/19 19:39 Microbiology - Last 24 Hours (Table) 11/05/19 21:45 Blood Culture - Preliminary Blood No Growth after 24 hours Assessment and Plan Assessment: pleasant 69-year-old 3 para 3 female with history of postmenopausal bleeding and history of abnormal endometrial thickening on ultrasound. Patient's bleeding is not significant enough to warrant inter vention at this time but most definitely needs further evaluation to rule out hyperplasia and/or carcinoma. I discussed with the patient and recommended that she get a repeat ultrasound was she's here in the hospital and will also schedule her to follow up with Dr. Kim in 1-2 weeks to reschedule her D&C. At this time there is no acute SCADA TECHNICIAN condition requiring intervention other than the above. Thank you very much for this consultation. (1) Postmenopausal bleeding Current Visit: Yes Status: Acute Code(s): N95.0 - POSTMENOPAUSAL BLEEDING SNOMED Code(s): 70066213
--- NOTE | 2019-11-07 16:29 | US ---
EXAMINATION TYPE: US pelvis complete transvag DATE OF EXAM: 11/07/2019 COMPARISON: US 05/19/2015, CT 11/05/2019 CLINICAL HISTORY: Postmenopausal bleeding.. Difficult exam due to patient body habitus. Patient unabl e to fill and hold bladder. TECHNIQUE: . Transabdominal sonographic images of the pelvis were acquired. Transvaginal sonographi c images were medically necessary to better assess the following anatomy: Transvaginal ultrasound att empted at bedside. Patient unable to move her legs or lift her hips off the bed. Unable to visualized uterus or ovaries transvaginally Date of LMP: Age 45 EXAM MEASUREMENTS: Uterus: 8.7 x 4.1 x 5.8 cm Endometrial Stripe: 1.1 cm Right Ovary: Not visualized Left Ovary: 1.8 x 1.3 x 1.7 cm 1. Uterus: Anteverted Heterogeneous 2. Endometrium: Thickened for postmenopausal 3. Right Ovary: Not visualized 4. Left Ovary: wnl as visualized 5. Bilateral Adnexa: wnl 6. Posterior cul-de-sac: wnl IMPRESSION: 1. Thickened endometrial canal at 1.1 cm postmenopausal. 2. Remaining portions of the pelvic ultrasound or unremarkable.
[2019-11-07] MEDS: FERROUS SULFATE 325 MG TAB PO SCH (17:36)
[2019-11-07] MEDS: MONTELUKAST 10 MG TAB PO SCH (21:15)
[2019-11-08] MEDS: traMADol 50 MG TAB PO SCH ×3 (05:32→21:36)
[2019-11-08] MEDS: METOPROLOL TARTRATE 12.5 MG TAB PO SCH ×3 (05:32→21:36)
[2019-11-08] MEDS: AMPICILLIN-SULBACTAM 3 GM in SODIUM CHLORIDE 0.9% 100 ML IVPB SCH (05:33)
[2019-11-08] MEDS: HYDROPHILIC CREAM 180 GM TUBE TOPICAL SCH ×2 (05:34→20:44)
[2019-11-08] MEDS: SYMBICORT 160-4.5 MCG INHALER INHALATION SCH ×2 (07:37→19:57)
[2019-11-08] MEDS: PANTOPRAZOLE 40 MG/10 ML VIAL IVP SCH (09:15)
[2019-11-08] MEDS: POTASSIUM CHLORIDE ER 10 MEQ TAB.ER.PRT PO SCH (09:15)
[2019-11-08] MEDS: ENOXAPARIN 40 MG/0.4 ML SYRINGE SQ SCH (09:15)
[2019-11-08] MEDS: DICYCLOMINE 10 MG CAP PO PRN (09:15)
[2019-11-08] MEDS: NYSTATIN 100,000 UNIT/GM POWD 15 GM TOPICAL SCH ×2 (09:16→20:44)
[2019-11-08 11:29] LABS: Anisocytosis Slight; HCT 30.7 % (34.0-46.0); HGB 9.4 gm/dL (11.4-16.0); Hypochromasia Moderate; MCH 27.1 pg (25.0-35.0); MCHC 30.6 g/dL (31.0-37.0); MCV 88.5 fL (80.0-100.0); Mean Platelet Volume 7.3; Platelet Count 150 k/uL (150-450); RBC 3.47 m/uL (3.80-5.40); RDW 16.3 % (11.5-15.5); WBC 4.5 k/uL (3.8-10.6)
--- NOTE | 2019-11-08 11:53 | P.PN ---
Progress Note - Text Progress Note Date: 11/08/19 Chief Complaint: Abdominal pain History of presenting complaint: This is a very pleasant [address] Sin. Chronic stable medical conditions include paroxysmal atrial fibrillation, asthma, hypertension, GERD, chronic kidney disease stage IV, bilateral lower extremity lymphedema. Patient normally uses a walker to get about. Currently at [facility] for rehab. Patient's had abdominal pain on and off for quite some time. On this occasion yesterday the pain became much worse cramping some nausea vomiting. Denies any fever and chills. Had to 3 loose stools yesterday. No blood. Computed tomography scan in the ER did show diverticulitis. Patient is made nothing by mouth. Daughter the bedside. At the [facility] patient was walking at least-20-30 steps with a walker. Admitted with acute sigmoid diverticulitis. Also patient noted to have some vaginal blood clots. Started on IV Unasyn. Seen by Dr. Binh Abbasi from OBG. For outpatient follow-up. Many need outpatient D&C Today-intermittent lower abdominal cramping still present. Occasional mushy stool. No nausea vomiting. On full liquid diet. Review of systems: Was done for constitutional, cardiovascular, GI, pulmonary. relevant finding as above Active Medications Acetaminophen (Tylenol Tab) 650 mg PO Q6H PRN PRN Reason: Mild Pain Last Admin: 11/07/19 11:08 Dose: 650 mg Documented by: Bisacodyl (Dulcolax) 10 mg RECTAL DAILY PRN PRN Reason: Constipation Budesonide/Formoterol Fumarate (Symbicort 160-4.5 Mcg Inhaler) 2 puff INHALATION RT-BID [facility] Last Admin: 11/08/19 07:37 Dose: 2 puff Documented by: Dicyclomine HCl (Bentyl) 10 mg PO BID PRN PRN Reason: IBS Last Admin: 11/08/19 09:15 Dose: 10 mg Documented by: Enoxaparin Sodium (Lovenox) 40 mg SQ DAILY [facility] Last Admin: 11/08/19 09:15 Dose: 40 mg Documented by: Ferrous Sulfate (Feosol) 325 mg PO DAILY@1700 [facility] Last Admin: 11/07/19 17:36 Dose: 325 mg Documented by: Piperacillin Sod/Tazobactam (Sod 3.375 gm/ Sodium Chloride) 100 mls @ 25 mls/hr IVPB Q8H [facility] Metoprolol Tartrate (Lopressor) 12.5 mg PO TID@0600,1400,2200 [facility] Last Admin: 11/08/19 05:32 Dose: 12.5 mg Documented by: Metronidazole (Flagyl) 500 mg PO QID [facility] Montelukast Sodium (Singulair) 10 mg PO HS@2100 [facility] Last Admin: 11/07/19 21:15 Dose: 10 mg Documented by: Multi-Ingred Cream/Lotion/Oil/Oint (Triad Cream) 1 applic TOPICAL BID [facility] Last Admin: 11/08/19 05:34 Dose: 1 applic Documented by: Nystatin (Mycostatin Powder) 1 applic TOPICAL BID [facility] Last Admin: 11/08/19 09:16 Dose: 1 applic Documented by: Potassium Chloride (K-Dur 10) 10 meq PO DAILY@0800 [facility] Last Admin: 11/08/19 09:15 Dose: 10 meq Documented by: Torsemide (Demadex) 20 mg PO MOTH@0800 [facility] Tramadol HCl (Ultram) 100 mg PO TID@0600,1400,2200 [facility] Last Admin: 11/08/19 05:32 Dose: 100 mg Documented by: Physical examination: VITAL SIGNS: 98, 94, 16, 99/53, GENERAL: Laying in bed, awake EYES: Pupils equal. Conjunctiva normal. HEENT: External appearance of nose and ears normal, oral cavity dry mucous membrane. NECK: JVD not raised; masses not palpable. HEART: First and second heart sounds are normal; some edema. LUNGS: Respiratory rate increased; clear to auscultation. ABDOMEN: Soft, some lower abdominal tenderness, no guarding rigidity, liver spleen not palpable, no masses palpable. PSYCH: Alert and oriented x3; mood and affect normal. LYMPHATICS: lymphedema of the lower extremity INVESTIGATIONS, reviewed in the clinical context: White count 4.5 hemoglobin 9.4 potassium 4 creatinine 1.21 Previous testing White count 4.5 hemoglobin 9.8 platelets 126 Computed tomography scan of the abdomen-possible colitis versus diverticulitis in the sigmoid area C. diff-negative Assessment: -Acute sigmoid diverticulitis-slow to respond -Intermittent vaginal blood clots-with endometrial prominence will need outpatient D&C -Bilateral lower extremity lymphedema -Chronic gait dysfunction uses a walker -Morbid obesity BMI 51 -Right bundle-branch block -Essential hypertension -GERD Plan: Patient was on IV Unasyn. Switched to IV Zosyn. I'll set Flagyl. Also given a GI opinion. Keep the patient on a full liquid diet. Discussed the patient.
[2019-11-08] MEDS: PIPERACILLIN-TAZOBACTAM 3.375 GM in SODIUM CHLORIDE 0.9% 100 ML IVPB SCH ×2 (12:42→20:43)
[2019-11-08] MEDS: metroNIDAZOLE 500 MG TAB PO SCH ×3 (12:43→21:36)
[2019-11-08] MEDS: FERROUS SULFATE 325 MG TAB PO SCH (17:34)
[2019-11-08] MEDS: MONTELUKAST 10 MG TAB PO SCH (21:36)
[2019-11-09] MEDS: PIPERACILLIN-TAZOBACTAM 3.375 GM in SODIUM CHLORIDE 0.9% 100 ML IVPB SCH ×3 (03:58→20:34)
[2019-11-09] MEDS: METOPROLOL TARTRATE 12.5 MG TAB PO SCH ×3 (05:57→20:32)
[2019-11-09] MEDS: traMADol 50 MG TAB PO SCH ×3 (05:57→20:32)
[2019-11-09] MEDS: SYMBICORT 160-4.5 MCG INHALER INHALATION SCH ×2 (07:26→21:13)
[2019-11-09] MEDS: ENOXAPARIN 40 MG/0.4 ML SYRINGE SQ SCH (08:13)
[2019-11-09] MEDS: POTASSIUM CHLORIDE ER 10 MEQ TAB.ER.PRT PO SCH (08:13)
[2019-11-09] MEDS: metroNIDAZOLE 500 MG TAB PO SCH ×4 (08:13→20:32)
[2019-11-09] MEDS: DICYCLOMINE 10 MG CAP PO PRN (08:13)
[2019-11-09] MEDS: NYSTATIN 100,000 UNIT/GM POWD 15 GM TOPICAL SCH ×2 (08:13→20:33)
[2019-11-09] MEDS: HYDROPHILIC CREAM 180 GM TUBE TOPICAL SCH ×2 (08:13→20:33)
--- NOTE | 2019-11-09 12:42 | CONS ---
CONSULTATION DATE OF DICTATION: 11/09/2019 REQUESTING PHYSICIAN: Dr. Cabrera. REASON FOR CONSULTATION: Sigmoid diverticulitis. HISTORY OF PRESENT ILLNESS: The patient is a 69-year-old, pleasant, white female with history of atrial fibrillation, hypertension, hyperlipidemia, chronic kidney disease, and severe lower extremity lymphedema who was admitted to the hospital because of abdominal pain for the last three to four days' duration associated with some nausea and vomiting. She came to the emergency room and had a CT of the abdomen and pelvis done that showed thickening of the sigmoid colon consistent with acute sigmoid diverticulitis versus colitis. She was started on antibiotics with Unasyn and patient stated that she was feeling much better yesterday. However, last night she started having more abdominal pain and this morning she had pain in the right upper quadrant area. She denies any fever, chills, or night sweats. The pain has been progressively getting worse. She has been having about two to three soft bowel movements daily. No blood in the stool. She also had some vaginal bleeding, for which SPACER TYPE BAR [employer] SEGMENT has been consulted. PAST MEDICAL HISTORY: Significant for hypertension, hyperlipidemia, atrial fibrillation, chronic kidney disease, bilateral lower extremity edema. PAST SURGICAL HISTORY: Cholecystectomy. MEDICATIONS PRIOR TO ADMISSION: Singulair, potassium chloride, Demadex, Tylenol, Bentyl, iron sulfate, acidophilus, miconazole powder, Prilosec. ALLERGIES: DARVON. SOCIAL HISTORY: No smoking or alcohol use. FAMILY HISTORY: Father had coronary artery disease. REVIEW OF SYSTEMS: CARDIOPULMONARY: She denies any chest pain or shortness of breath. GENITOURINARY: No dysuria or hematuria, other than vaginal bleeding. NEUROLOGY: Unremarkable. PSYCHIATRIC unremarkable. ENT/VISION: Unremarkable. MUSCULOSKELETAL: Wheelchair bound. Pres[facility] to [facility]. CONSTITUTIONAL: No weight loss. PHYSICAL EXAMINATION: She appears comfortable. No apparent distress. VITAL SIGNS: Stable. Blood pressure is 98/55, pulse rate 89, temperature 97.4. HEENT: Unremarkable. Conjunctivae pink. Sclerae anicteric. Oral cavity no lesions. NECK: No JVD or lymph node enlargement. CHEST: Clear to auscultation. ABDOMEN: Soft. It was obese. Bowel sounds were positive. There was mild tenderness in the right upper quadrant area as well as minimal tenderness in the left lower quadrant area. The rest of the abdomen was very soft, was nontender. No rebound or rigidity. EXTREMITIES: Severe lymphedema bilaterally. NEUROLOGIC: Alert and oriented x3. No focal deficits. LABS: At the time of admission to the hospital, WBC was 4.5, hemoglobin 9.8, platelets 126. Today WBC 4.5, hemoglobin 9.4, and platelets 150,000. Basic metabolic panel showed sodium of 134, BUN and creatinine at 25 and 1.21 respectively. C difficile is negative. IMPRESSION: 1. This is a lady who presents to the hospital with acute onset of lower abdominal pain for the last three to [address] duration [address] scan showed changes consistent with sigmoid diverticulitis versus colitis. Presently on Unasyn, day number 3, and clinically it appears that her symptoms are gradually improving. 2. New onset right upper quadrant abdominal pain. 3. Severe lower extremity lymphedema. 4. Vaginal bleeding, being evaluated by SP[employer]ER [employer] BAR [employer] SEGMENT. RECOMMENDATIONS: 1. Continue with Unasyn. 2. Advance diet as tolerated. 3. If her symptoms continue to get worse, repeat CT scan can be considered. 4. Low fiber diet. 5. We will follow with you closely during her hospital stay. Thank you for this consultation. MMODL / IJN: [id number] /
--- NOTE | 2019-11-09 15:49 | P.PN ---
Progress Note - Text Progress Note Date: 11/09/19 Chief Complaint: Abdominal pain History of presenting complaint: This is a very pleasant [address] Sin. Chronic stable medical conditions include paroxysmal atrial fibrillation, asthma, hypertension, GERD, chronic kidney disease stage IV, bilateral lower extremity lymphedema. Patient normally uses a walker to get about. Currently at [facility] for rehab. Patient's had abdominal pain on and off for quite some time. On this occasion yesterday the pain became much worse cramping some nausea vomiting. Denies any fever and chills. Had to 3 loose stools yesterday. No blood. Computed tomography scan in the ER did show diverticulitis. Patient is made nothing by mouth. Daughter the bedside. At the [facility] patient was walking at least-20-30 steps with a walker. Admitted with acute sigmoid diverticulitis. Also patient noted to have some vaginal blood clots. Seen by Dr. Binh Abbasi-to be followed as an outpatient. Patient's started on IV antibiotics Today-abdominal pain gets worse today. Slight nausea. No fever no chills Review of systems: Was done for constitutional, cardiovascular, GI, pulmonary. relevant finding as above Active Medications Acetaminophen (Tylenol Tab) 650 mg PO Q6H PRN PRN Reason: Mild Pain Last Admin: 11/07/19 11:08 Dose: 650 mg Documented by: Bisacodyl (Dulcolax) 10 mg RECTAL DAILY PRN PRN Reason: Constipation Budesonide/Formoterol Fumarate (Symbicort 160-4.5 Mcg Inhaler) 2 puff INHA LATION RT-BID [facility] Last Admin: 11/09/19 07:26 Dose: 2 puff Documented by: Dicyclomine HCl (Bentyl) 10 mg PO BID PRN PRN Reason: IBS Last Admin: 11/09/19 08:13 Dose: 10 mg Documented by: Enoxaparin Sodium (Lovenox) 40 mg SQ DAILY [facility] Last Admin: 11/09/19 08:13 Dose: 40 mg Documented by: Ferrous Sulfate (Feosol) 325 mg PO DAILY@1700 [facility] Last Admin: 11/08/19 17:34 Dose: 325 mg Documented by: Piperacillin Sod/Tazobactam (Sod 3.375 gm/ Sodium Chloride) 100 mls @ 25 mls/hr IVPB Q8H [facility] Last Admin: 11/09/19 12:02 Dose: 25 mls/hr Documented by: Metoprolol Tartrate (Lopressor) 12.5 mg PO TID@0600,1400,2200 [facility] Last Admin: 11/09/19 14:10 Dose: 12.5 mg Documented by: Metronidazole (Flagyl) 500 mg PO QID [facility] Last Admin: 11/09/19 12:02 Dose: 500 mg Documented by: Montelukast Sodium (Singulair) 10 mg PO HS@2100 [facility] Last Admin: 11/08/19 21:36 Dose: 10 mg Documented by: Multi-Ingred Cream/Lotion/Oil/Oint (Triad Cream) 1 applic TOPICAL BID [facility] Last Admin: 11/09/19 08:13 Dose: 1 applic Documented by: Nystatin (Mycostatin Powder) 1 applic TOPICAL BID [facility] Last Admin: 11/09/19 08:13 Dose: 1 applic Documented by: Potassium Chloride (K-Dur 10) 10 meq PO DAILY@0800 [facility] Last Admin: 11/09/19 08:13 Dose: 10 meq Documented by: Torsemide (Demadex) 20 mg PO MOTH@0800 [facility] Tramadol HCl (Ultram) 100 mg PO TID@0600,1400,2200 [facility] Last Admin: 11/09/19 14:11 Dose: 100 mg Documented by: Physical examination: VITAL SIGNS: 97.8, 116, 16, [id number], 98% on room air GENERAL: Laying in bed, uncomfortable EYES: Pupils equal. Conjunctiva normal. HEENT: External appearance of nose and ears normal, oral cavity dry mucous membrane. NECK: JVD not raised; masses not palpable. HEART: First and second heart sounds are normal; some edema. LUNGS: Respiratory rate increased; clear to auscultation. ABDOMEN: Soft, increased abdominal tenderness, no guarding rigidity, liver spleen not palpable, no masses palpable. PSYCH: Alert and oriented x3; mood and affect anxious LYMPHATICS: lymphedema of the lower extremity INVESTIGATIONS, reviewed in the clinical context: C. diff-negative Previous testing White count 4.5 hemoglobin 9.8 platelets 126 Computed tomography scan of the abdomen-possible colitis versus diverticulitis in the sigmoid area Assessment: -Acute sigmoid diverticulitis, worse today -Intermittent vaginal blood clots-endometrial prominence. outpatient D&C -Bilateral lower extremity lymphedema -Acute cellulitis of the right lower extremity -Chronic gait dysfunction uses a walker -Morbid obesity BMI 51 -Right bundle-branch block -Essential hypertension -GERD Plan: Patient was switched to IV Zosyn and Flagyl yesterday. We'll get a surgical consultation. Scale back to her diet to clear liquid. Patient may need a repeat computed tomography scan. There is no fever no elevation of white count. Repeat labs today.
[2019-11-09] MEDS: ACETAMINOPHEN TAB 325 MG TAB PO PRN (16:18)
[2019-11-09] MEDS: FERROUS SULFATE 325 MG TAB PO SCH (16:18)
[2019-11-09 16:31] LABS: Anisocytosis Slight; HCT 39.1 % (34.0-46.0); HGB 11.4 gm/dL (11.4-16.0); Hypochromasia Marked; MCH 26.5 pg (25.0-35.0); MCHC 29.2 g/dL (31.0-37.0); MCV 90.6 fL (80.0-100.0); Mean Platelet Volume 7.5; Platelet Count 159 k/uL (150-450); RBC 4.31 m/uL (3.80-5.40); RDW 16.7 % (11.5-15.5); WBC 9.2 k/uL (3.8-10.6)
[2019-11-09 16:35] LABS: Calcium 7.4 mg/dL (8.4-10.2); Potassium 4.9 mmol/L (3.5-5.1)
[2019-11-09] MEDS: HYDROmorphone 0.5 MG/0.5 ML SYRINGE IVP PRN (20:31)
[2019-11-09] MEDS: MONTELUKAST 10 MG TAB PO SCH (20:33)
[2019-11-09] MEDS ORDERED: DEXTROSE 10 % IN WATER 250 ML IV ONE (23:37)
[2019-11-09 23:38] LABS: Glucose,Whole Blood 45 mg/dL (75-99)
[2019-11-09 23:46] LABS: Glucose,Whole Blood 111 mg/dL (75-99)
[2019-11-10 00:32] LABS: Glucose,Whole Blood 79 mg/dL (75-99)
--- NOTE | 2019-11-10 00:49 | CT ---
EXAMINATION TYPE: CT abdomen pelvis wo con DATE OF EXAM: 11/10/2019 COMPARISON: November 05, 2019 HISTORY: Patient presents with abdominal pain. CT DLP: 2329.1 mGycm Automated exposure control for dose reduction was used. Multiple axial sections were obtained from the diaphragm to the floor the pelvis without contrast. Th ere are bilateral pleural effusions. There is bilateral basilar atelectasis. There are calcified sple juan r granulomata. Stomach is intact. There is extensive portal venous air in the liver. The bile ducts are not dilated. There is no evidence of pancreatic mass. There is some fatty infiltration of the li debbi. There is no adrenal mass. Kidneys show no hydronephrosis. Kidneys have normal size. There is some wall thickening and fat stranding around the proximal sigmoid colon. There is no evidence of pneumoperitoneum. There is no sign of a bowel obstruction. There is subcutaneous edema around the abdomen. Uterus is anteverted. Bladder is almost empty. There is no inguinal hernia. There is no free fluid in the pelvis. Lumbar spine is intact. There is no comp ression fracture. IMPRESSION: Portal venous extensive air. Pleural effusions and basilar pulmonary infiltrates and atelectasis. Dilated stomach suggestive of gastroparesis. mild inflammatory changes around the sigmoid colon suggestive of colitis or mild diverticulitis. This exam was discussed with the patient's nurse on the floor Jeronimo at 1:00 AM.
[2019-11-10 01:07] LABS: Anisocytosis Slight; HCT 30.5 % (34.0-46.0); Hypochromasia Marked; MCH 26.9 pg (25.0-35.0); MCHC 29.9 g/dL (31.0-37.0); MCV 89.9 fL (80.0-100.0); Mean Platelet Volume 8.3; RDW 16.1 % (11.5-15.5); WBC 5.7 k/uL (3.8-10.6)
[2019-11-10 01:09] LABS: HGB 9.1 gm/dL (11.4-16.0)
[2019-11-10 01:12] LABS: Albumin 1.4 g/dL (3.5-5.0); Calcium 6.7 mg/dL (8.4-10.2); Potassium 4.2 mmol/L (3.5-5.1); Total Bilirubin 1.2 mg/dL (0.2-1.3); Total Protein 4.9 g/dL (6.3-8.2)
[2019-11-10 01:27] LABS: Band Neutrophils % 51 %; Lymphocytes # (M) 0.29 k/uL (1.0-4.8); Metamyelocytes # (M) 0.23 k/uL (0); Metamyelocytes % 4 %; Neutrophils % (M) 40 %; Nucleated Red Blood Cells 0 /100 WBC (0-0); Total Cells Counted 200
[2019-11-10 01:28] LABS: Anisocytosis (M) Present; Platelet Count 69 k/uL (150-450); Toxic Granulation Present; Toxic Vacuolation Present
[2019-11-10] MEDS ORDERED: SODIUM CHLORIDE 0.9% 1,000 ML IV ONE ×6 (01:28→10:24)
[2019-11-10] MEDS ORDERED: NALOXONE 0.4 MG/ML 1 ML VIAL IV PRN (01:33)
[2019-11-10 02:08] LABS: Appearance,Urine Turbid (Clear); Bacteria,Urine Occasional /hpf; Bilirubin,Urine Negative (Negative); Blood,Urine Moderate (Negative); Budding Yeast,Urine Occasional /hpf; Color,Urine Yellow; Glucose,Urine (UA) Negative (Negative); Hyaline Casts,Urine 4 /lpf (0-2); Hyphae Yeast, Urine Rare /hpf; Ketones,Urine Trace (Negative); Leukocyte Esterase,Urine Large (Negative); Mucus,Urine Rare /hpf; Nitrite,Urine Negative (Negative); PH, Urine 5.5 (5.0-8.0); Protein,Urine 1+ (Negative); RBC,Urine 20 /hpf (0-5); Specific Gravity,Urine 1.031 (1.001-1.035); Squamous Epithelial Cell,Urine 5 /hpf (0-4); Urobilinogen,Urine <2.0 mg/dL (<2.0); WBC,Urine 64 /hpf (0-5)
[2019-11-10] MEDS: SODIUM CHLORIDE 0.9% 1,000 ML IV SCH ×2 (02:56→12:10)
--- NOTE | 2019-11-10 03:17 | P.GSCN ---
History of Present Illness Consult date: 11/10/19 Reason for Consult: Diverticulitis History of present illness: 69-year-old female hospitalized several days ago with left lower quadrant abdomi nal pain. Patient with history of diverticulitis involving the proximal sigmoid colon dating back to May. Patient was hospitalized at [facility] in August and nonoperative management of the patient's diverticulitis took place at that time. Patient is currently in [facility] [place]. She is there supposedly because of a recent fall and for rehabilitation purposes. When she presented to the hospital on 11/05 the patient was having suprapubic abdominal pain and some vaginal bleeding. Patient apparently was supposed to have a D&C but this was not performed given her other medical issues. CAT scan was performed and 11/05 showing diverticulitis again involving the proximal sigmoid colon slightly worse when compared to the study from May. Patient had been gradually improving on IV antibiotics. GI was consulted as well because of the report suggested possible colitis versus diverticulitis. Yesterday the patient's pain became more severe. At one point she did describe pain right upper quadrant. Repeat CAT scan was performed just after midnight. Routine consult to myself was placed yesterday afternoon. I was contacted around 1:30 with the CAT scan findings of extensive portal venous gas with persistent diverticulitis. Patient around that time was noted to become more tachycardic and had developed hypotension. She was transferred to the ICU for further evaluation. Repeat labs show significant bandemia now where previously she had a normal white blood cell count and no bands, bands currently 51%. Patient's platelets dropped to 69. Patient's lactic acid elevated at over 7. CO2 12. Patient despite that is alert and able to communicate quite well in the ICU at this time. Clinical scenario reviewed in detail with her and also with her daughter Gill by phone. Patient is currently received 3 L saline with persistent systolic blood pressure in the 60s now. Review of Systems The patient denies any acute changes in vision or hearing, no dysphagia or odynophagia, no chest pain or shortness of breath, no dysuria or hematuria, no headache, no runny nose, no rectal bleeding or melena, no unexplained weight loss Past Medical History Past Medical History: Atrial Fibrillation, Asthma, CVA/TIA, Hypertension Additional Past Medical History / Comment(s): diverticulitis, cellulitis History of Any Multi-Drug Resistant Organisms: None Reported Past Surgical History: Cholecystectomy, Orthopedic Surgery Past Anesthesia/Blood Transfusion Reactions: No Reported Reaction Past Psychological History: No Psychological Hx Reported Smoking Status: Never smoker Past Alcohol Use History: None Reported Past Drug Use History: None Reported - Past Family History Father Additional Family Medical History / Comment(s): Heart disease in the family including parents although the type is not clear Medications and Allergies Home Medications Medication Instructions Recorded Confirmed Type Montelukast [Singulair] 10 mg PO HS@2100 05/21/19 11/05/19 History Potassium Chloride 10 meq PO DAILY@0800 05/21/19 11/05/19 History Torsemide [Demadex] 20 mg PO MOTH@0800 05/21/19 11/05/19 History Acetaminophen [Tylenol 8 Hour] 650 mg PO Q6H PRN 10/24/19 11/05/19 History Dicyclomine [Bentyl] 10 mg PO BID PRN 10/24/19 11/05/19 History Ferrous Sulfate [Iron (65 MG 325 mg PO DAILY@169910/24/19 11/05/19 History Elemental)] Fluticasone Propion/Salmeterol 1 puff INHALATION RT-DAILY@169910/24/19 11/05/19 History [Wixela 500-50 Inhub] Lactobacillus Acidophilus 1 tab PO BID@0800,1700 10/24/19 11/05/19 History [Acidophilus] Omeprazole [PriLOSEC] 20 mg PO BID@0800,1700 10/24/19 11/05/19 History Bisacodyl [Dulcolax] 10 mg RECTAL DAILY PRN 11/05/19 11/05/19 History Heparin Sodium,Porcine [Heparin 5,000 unit SQ Q12H 11/05/19 11/05/19 History Sodium] Hydrophilic Cream [Triad Cream] 1 applic TOPICAL BID 11/05/19 11/05/19 History Lactose-Reduced Food [Ensure Plus] 120 ml PO BID@0800,1200 11/05/19 11/05/19 History Liquical 30 ml PO DAILY@1700 11/05/19 11/05/19 History Magnesium Hydroxide [Milk of 7,200 mg PO DAILY PRN 11/05/19 11/05/19 History Magnesia Concentrate] Metoprolol Tartrate [Lopressor] 12.5 mg PO TID@0600,1400,2200 11/05/19 11/05/19 History Miconazole Nitrate [Desenex] 1 applic TOPICAL BID 11/05/19 11/05/19 History Na Phos,M-B/Na Phos,Di-Ba [Fleet 133 ml RECTAL ONCE PRN 11/05/19 11/05/19 History Adult] traMADol HCL [Ultram] 100 mg PO TID@0600,1400,2200 11/05/19 11/05/19 History Allergies Allergy/AdvReac Type Severity Reaction Status Date / Time propoxyphene [From Darvon] Allergy Unknown Verified 11/05/19 21:24 Surgical - Exam Vital Signs Temp Pulse Resp BP Pulse Ox 97.8 F 91 18 115/65 98 11/05/19 18:04 11/05/19 18:04 11/05/19 18:04 11/05/19 18:04 11/05/19 18:04 Physical exam: General: Elderly obese white female mildly tachypneic, slightly pale HEENT: Normocephalic, sclerae nonicteric Abdomen: Mild distention, mild diffuse tenderness increased left lower quadrant where it is mild to moderate, no rebound or guarding, obese Extremities: Mild edema Neuro: Alert and oriented Results - Labs 11/10/19 00:36 11/10/19 00:36 Abnormal Lab Results - Last 24 Hours (Table) 11/09/19 11/09/19 11/09/19 Range/Units 16:08 16:08 23:35 RBC (3.80-5.40) m/uL Hgb (11.4-16.0) gm/dL Hct (34.0-46.0) % MCHC 29.2 L (31.0-37.0) g/dL RDW 16.7 H (11.5-15.5) % Plt Count (150-450) k/uL Lymphocytes # (Manual) (1.0-4.8) k/uL Metamyelocytes # (Man) (0) k/uL Sodium 134 L (137-145) mmol/L Chloride 108 H (98-107) mmol/L Carbon Dioxide 16 L (22-30) mmol/L BUN 23 H (7-17) mg/dL Creatinine 1.38 H (0.52-1.04) mg/dL Glucose (74-99) mg/dL POC Glucose (mg/dL) 45 L (75-99) mg/dL Plasma Lactic Acid Dieudonne (0.7-2.0) mmol/L Calcium 7.4 L (8.4-10.2) mg/dL AST (14-36) U/L ALT (4-34) U/L Alkaline Phosphatase (38-126) U/L Total Protein (6.3-8.2) g/dL Albumin (3.5-5.0) g/dL Urine Appearance (Clear) Urine Protein (Negative) Urine Ketones (Negative) Urine Blood (Negative) Ur Leukocyte Esterase (Negative) Urine RBC (0-5) /hpf Urine WBC (0-5) /hpf Urine WBC Clumps (None) /hpf Ur Squamous Epith Cells (0-4) /hpf Urine Bacteria (None) /hpf Hyaline Casts (0-2) /lpf Urine Mucus (None) /hpf Urine Yeast (Budding) (None) /hpf 11/09/19 11/10/19 11/10/19 Range/Units 23:44 00:36 00:36 RBC 3.40 L (3.80-5.40) m/uL Hgb 9.1 L D (11.4-16.0) gm/dL Hct 30.5 L (34.0-46.0) % MCHC 29.9 L (31.0-37.0) g/dL RDW 16.1 H (11.5-15.5) % Plt Count 69 L D (150-450) k/uL Lymphocytes # (Manual) 0.29 L (1.0-4.8) k/uL Metamyelocytes # (Man) 0.23 H (0) k/uL Sodium 133 L (137-145) mmol/L Chloride 108 H (98-107) mmol/L Carbon Dioxide 12 L (22-30) mmol/L BUN 23 H (7-17) mg/dL Creatinine 1.81 H (0.52-1.04) mg/dL Glucose 62 L (74-99) mg/dL POC Glucose (mg/dL) 111 H (75-99) mg/dL Plasma Lactic Acid Dieudonne (0.7-2.0) mmol/L Calcium 6.7 L (8.4-10.2) mg/dL AST 99 H (14-36) U/L ALT 40 H (4-34) U/L Alkaline Phosphatase 659 H (38-126) U/L Total Protein 4.9 L (6.3-8.2) g/dL Albumin 1.4 L (3.5-5.0) g/dL Urine Appearance (Clear) Urine Protein (Negative) Urine Ketones (Negative) Urine Blood (Negative) Ur Leukocyte Esterase (Negative) Urine RBC (0-5) /hpf Urine WBC (0-5) /hpf Urine WBC Clumps (None) /hpf Ur Squamous Epith Cells (0-4) /hpf Urine Bacteria (None) /hpf Hyaline Casts (0-2) /lpf Urine Mucus (None) /hpf Urine Yeast (Budding) (None) /hpf 11/10/19 11/10/19 Range/Units 00:36 01:45 RBC (3.80-5.40) m/uL Hgb (11.4-16.0) gm/dL Hct (34.0-46.0) % MCHC (31.0-37.0) g/dL RDW (11.5-15.5) % Plt Count (150-450) k/uL Lymphocytes # (Manual) (1.0-4.8) k/uL Metamyelocytes # (Man) (0) k/uL Sodium (137-145) mmol/L Chloride (98-107) mmol/L Carbon Dioxide (22-30) mmol/L BUN (7-17) mg/dL Creatinine (0.52-1.04) mg/dL Glucose (74-99) mg/dL POC Glucose (mg/dL) (75-99) mg/dL Plasma Lactic Acid Dieudonne 7.3 H* (0.7-2.0) mmol/L Calcium (8.4-10.2) mg/dL AST (14-36) U/L ALT (4-34) U/L Alkaline Phosphatase (38-126) U/L Total Protein (6.3-8.2) g/dL Albumin (3.5-5.0) g/dL Urine Appearance Turbid H (Clear) Urine Protein 1+ H (Negative) Urine Ketones Trace H (Negative) Urine Blood Moderate H (Negative) Ur Leukocyte Esterase Large H (Negative) Urine RBC 20 H (0-5) /hpf Urine WBC 64 H (0-5) /hpf Urine WBC Clumps Many H (None) /hpf Ur Squamous Epith Cells 5 H (0-4) /hpf Urine Bacteria Occasional H (None) /hpf Hyaline Casts 4 H (0-2) /lpf Urine Mucus Rare H (None) /hpf Urine Yeast (Budding) Occasional H (None) /hpf Microbiology - Last 24 Hours (Table) 11/05/19 21:45 Blood Culture - Preliminary Blood No Growth after 96 hours Diabetes panel 11/09/19 11/10/19 Range/Units 16:08 00:36 Sodium 134 L 133 L (137-145) mmol/L Potassium 4.9 4.2 (3.5-5.1) mmol/L Chloride 108 H 108 H (98-107) mmol/L Carbon Dioxide 16 L 12 L (22-30) mmol/L BUN 23 H 23 H (7-17) mg/dL Creatinine 1.38 H 1.81 H (0.52-1.04) mg/dL Glucose 87 62 L (74-99) mg/dL Calcium 7.4 L 6.7 L (8.4-10.2) mg/dL AST 99 H (14-36) U/L ALT 40 H (4-34) U/L Alkaline Phosphatase 659 H (38-126) U/L Total Protein 4.9 L (6.3-8.2) g/dL Albumin 1.4 L (3.5-5.0) g/dL Calcium panel 11/09/19 11/10/19 Range/Units 16:08 00:36 Calcium 7.4 L 6.7 L (8.4-10.2) mg/dL Albumin 1.4 L (3.5-5.0) g/dL Pituitary panel 11/09/19 11/10/19 Range/Units 16:08 00:36 Sodium 134 L 133 L (137-145) mmol/L Potassium 4.9 4.2 (3.5-5.1) mmol/L Chloride 108 H 108 H (98-107) mmol/L Carbon Dioxide 16 L 12 L (22-30) mmol/L BUN 23 H 23 H (7-17) mg/dL Creatinine 1.38 H 1.81 H (0.52-1.04) mg/dL Glucose 87 62 L (74-99) mg/dL Calcium 7.4 L 6.7 L (8.4-10.2) mg/dL Adrenal panel 11/09/19 11/10/19 Range/Units 16:08 00:36 Sodium 134 L 133 L (137-145) mmol/L Potassium 4.9 4.2 (3.5-5.1) mmol/L Chloride 108 H 108 H (98-107) mmol/L Carbon Dioxide 16 L 12 L (22-30) mmol/L BUN 23 H 23 H (7-17) mg/dL Creatinine 1.38 H 1.81 H (0.52-1.04) mg/dL Glucose 87 62 L (74-99) mg/dL Calcium 7.4 L 6.7 L (8.4-10.2) mg/dL Total Bilirubin 1.2 (0.2-1.3) mg/dL AST 99 H (14-36) U/L ALT 40 H (4-34) U/L Alkaline Phosphatase 659 H (38-126) U/L Total Protein 4.9 L (6.3-8.2) g/dL Albumin 1.4 L (3.5-5.0) g/dL Assessment and Plan (1) Diverticulitis Narrative/Plan: 69-year-old female with diverticulitis progressing to sepsis with portal venous gas despite antibiotic therapy. Clinical scenario discussed in detail with the patient and her daughter Gill by phone. Her 2 daughters are both on their way in to the hospital currently. Patient currently is stating that she is not interested in surgical intervention and instead prefers aggressive medical care. Patient is notified that with or without surgery morbidity is quite high but likely higher in a nonoperative setting. Currently we are waiting for the 2 daughters to show up so that we can have a meeting. Current Visit: Yes Status: Acute Code(s): K57.92 - DVTRCLI OF INTEST, PART UNSP, W/O PERF OR ABSCESS W/O BLEED SNOMED Code(s): 049331777
[2019-11-10 03:18] LABS: INR 1.6 (<1.2); Partial Thromboplastin Time 37.8 sec (22.0-30.0); Prothrombin Time 15.7 sec (9.0-12.0)
[2019-11-10] MEDS ORDERED: DEXTROSE 10 % IN WATER 250 ML IV ONE (03:26)
[2019-11-10 03:33] LABS: Glucose,Whole Blood 43 mg/dL (75-99)
[2019-11-10] MEDS: NOREPINEPHRINE 4 MG in SODIUM CHLORIDE 0.9% 250 ML IV SCH ×2 (03:33→10:00)
--- NOTE | 2019-11-10 03:47 | P.PN ---
Progress Note - Text Patient's 2 daughters presents at the bedside. They had an opportunity to speak before my arrival. When I came to discuss the case with them they had already decided that they wanted to proceed with surgery. Risks of surgery were noted to include but not limited to bleeding, infection, ostomy ischemia, wounds, dehiscence, evisceration, progressive sepsis, KS, renal failure, pulmonary failure, intraoperative or postoperative . The patient and her daughters understand and wish to proceed.
[2019-11-10] MEDS: PIPERACILLIN-TAZOBACTAM 3.375 GM in SODIUM CHLORIDE 0.9% 100 ML IVPB SCH ×3 (03:56→20:37)
[2019-11-10 04:03] LABS: Anisocytosis Slight; Basophils % (A) 0 %; Eosinophils % (A) 0 %; HCT 30.1 % (34.0-46.0); Hypochromasia Moderate; Lymphocytes # (A) 0.4 k/uL (1.0-4.8); Lymphocytes % (A) 3 %; MCH 26.8 pg (25.0-35.0); MCV 89.4 fL (80.0-100.0); Mean Platelet Volume 7.8; Monocytes # (A) 0.3 k/uL (0-1.0); Monocytes % (A) 3 %; Neutrophils # (A) 10.1 k/uL (1.3-7.7); Neutrophils % (A) 93 %; RBC 3.37 m/uL (3.80-5.40); RDW 16.7 % (11.5-15.5); WBC 10.8 k/uL (3.8-10.6)
[2019-11-10 04:05] LABS: Glucose,Whole Blood 113 mg/dL (75-99)
[2019-11-10 04:07] LABS: Platelet Count 92 k/uL (150-450)
[2019-11-10 04:09] LABS: Magnesium 1.4 mg/dL (1.6-2.3); Potassium 4.1 mmol/L (3.5-5.1)
[2019-11-10] MEDS ORDERED: PROPOFOL 10 MG/ML 20 ML VIAL IV ONE (05:10)
[2019-11-10] MEDS ORDERED: MIDAZOLAM 2 MG/2 ML VIAL ONE (05:10)
[2019-11-10] MEDS ORDERED: SUCCINYLCHOLINE CHLORIDE 100 MG/5 ML SYR IV ONE (05:10)
[2019-11-10] MEDS ORDERED: PHENYLEPHRINE-0.9% NACL SYG 1 MG/10 ML SYRINGE ONE (05:10)
[2019-11-10] MEDS ORDERED: OXYMETAZOLINE 0.05% NASL SPRAY 1 SPRAY BOTTLE ONE (05:10)
[2019-11-10] MEDS ORDERED: fentaNYL (PF) 50 MCG/ML 2 ML AMP ONE (05:10)
[2019-11-10] MEDS ORDERED: ROCURONIUM BROMIDE 10 MG/ML 5 ML VIAL IV ONE (05:10)
[2019-11-10] MEDS ORDERED: LACTATED RINGERS 1,000 ML IV ONE ×2 (06:00→07:00)
[2019-11-10] MEDS: traMADol 50 MG TAB PO SCH ×3 (07:02→22:17)
[2019-11-10] MEDS: METOPROLOL TARTRATE 12.5 MG TAB PO SCH ×2 (07:03→14:29)
[2019-11-10] MEDS: SYMBICORT 160-4.5 MCG INHALER INHALATION SCH ×2 (07:15→20:04)
[2019-11-10 08:06] LABS: Glucose,Whole Blood 82 mg/dL (75-99)
--- NOTE | 2019-11-10 08:11 | P.OP ---
Date of Procedure: 11/10/19 Procedure(s) Performed: PREOPERATIVE DIAGNOSIS: Diverticulitis POSTOPERATIVE DIAGNOSIS: Same PROCEDURE: Left colectomy with mobilization splenic flexure, partial omentectomy, and the colostomy SURGEON: Lety EBL: 100 mL ANESTHESIA: General COMPLICATIONS: None OPERATIVE PROCEDURE: Patient place in the operative table in the supine position. The patient was placed under general anesthesia. Preoperative IJ catheter placed by anesthesia. Preoperative A-line also placed. Lynch catheter was already in place. The abdomen was prepped and draped in usual sterile fashion. A vertical incision was made extending from the supraumbilical location to the suprapubic location. The fascia was divided as well. The Bookwalter retractor was utilized. The patient's sigmoid colon was markedly thickened without gross perforation. Mobilization took place incising the adhesions to the lateral abdominal wall and pelvic sidewall. As I was retracting medially we did identify a perforation of the colon with a small amount of stool there. This was likely a contained perforation in that area. The bowel was divided distal to that using a green load 75 stapler. The bowel was then further mobilized medially including full mobilization of the splenic flexure. The mesentery of the left colon was divided using LigaSure and 0 silk ties. This dissection of the mesentery took place to the mid to distal transverse colon the bowel was divided at that location using a linear 75 blue load stapler. Further mobilization of the colon took place so that we could reach to this patient's thick abdominal wall. A circular incision was made in the right upper to mid abdomen and the skin was excised there. Dissection through the subcutaneous fat and fascia took place using electrocautery. The transverse colon was able to be brought up through this ostomy site. Later the ostomy was fully matured by excising the distal 2-3 inches of the colon that were present through the ostomy and the mesentery. The bowel was sutured to the surrounding skin using inverted 3-0 Vicryl sutures. Prior to doing so however the abdomen was irrigated with saline. No bleeding was seen. No further purulence was seen. A large portion of the omentum was excised it was appearing ischemic. The midline fascia was then closed using a total of 4 double-stranded #1 PDS sutures. 2 horizontally fashioned #5 Ethibond retention sutures were placed and these were tied down over red rubber catheters. The midline wound was left open. This was packed with Kerlix roll moistened with saline. Sterile dressings and a colostomy appliance were applied. DISPOSITION: Critical to the ICU
[2019-11-10 08:30] LABS: ABG Base Excess -19.1 mmol/L; ABG HCO3 12 mmol/L (21-25); ABG Oxygen Saturation 95.9 % (94-97); ABG PCO2 45 mmHg (35-45); ABG PO2 124 mmHg (83-108); ABG TCO2 13 mmol/L (19-24)
[2019-11-10] MEDS ORDERED: SODIUM BICARB 8.4% 50 ML SYR (1 MEQ/ML) IV STA ×3 (08:36→14:11)
[2019-11-10] MEDS: EPINEPHrine 4 MG in DEXTROSE 5% IN WATER 250 ML IV SCH ×2 (08:38)
--- NOTE | 2019-11-10 08:41 | XR ---
EXAMINATION TYPE: XR chest 1V portable DATE OF EXAM: 11/10/2019 COMPARISON: 10/25/2019 HISTORY: Endotracheal tube placement. TECHNIQUE: Single frontal view of the chest is obtained. FINDINGS: Endotracheal tube terminates approximately 3.7 cm from the kitty, appropriately placed. E nteric tube coils within the expected region of the gastric body and terminates off the end of the fi eld-of-view, also appropriate. Right-sided internal jugular central venous catheter has its distal ti p at the cavoatrial junction, additionally appropriately placed. Scattered areas of linear atelectasi s are seen. No acute osseous pathology. IMPRESSION: Appropriately placed lines and tubes.
[2019-11-10] MEDS: PANTOPRAZOLE 40 MG/10 ML VIAL IV SCH (08:50)
[2019-11-10] MEDS: DEXTROSE 5% IN WATER 1,000 ML with SODIUM BICARB (1 MEQ/ML) 150 ML IV SCH ×2 (08:55→22:20)
[2019-11-10 09:02] LABS: Glucose,Whole Blood 70 mg/dL (75-99)
[2019-11-10] MEDS: POTASSIUM CHLORIDE ER 10 MEQ TAB.ER.PRT PO SCH (09:29)
[2019-11-10 09:54] LABS: Glucose,Whole Blood 74 mg/dL (75-99)
[2019-11-10] MEDS: ENOXAPARIN 40 MG/0.4 ML SYRINGE SQ SCH (09:58)
[2019-11-10] MEDS: PROPOFOL 1,000 MG in EMPTY BAG 1 BAG IV SCH ×2 (10:00→20:33)
[2019-11-10 10:11] LABS: ABG Base Excess -15.9 mmol/L; ABG HCO3 13 mmol/L (21-25); ABG Oxygen Saturation 95.7 % (94-97); ABG PCO2 40 mmHg (35-45); ABG PO2 104 mmHg (83-108); ABG TCO2 15 mmol/L (19-24)
[2019-11-10 10:15] LABS: ABG PH 7.13 (7.35-7.45)
--- NOTE | 2019-11-10 10:19 | CDI ---
Documentation Clarification Form Date: 11/10/2019 10:08:37 AM From: Michelle Blair CCS, CCDS Admit Date: 11/05/2019 09:06:00 PM Patient Name: Amy Morse Visit Number: [id number] Discharge Date: ATTENTION: The Clinical Documentation Specialists (CDI) and [facility] Coding Staff appreciate your assistance in clarifying documentation. Please respond to the clarification below the line at the bottom and electronically sign. The CDI & [facility] Coding staff will review the response and follow-up if needed. Please note: Queries are made part of the Legal Health Record. If you have any questions, please contact the author of this message via ITS. Dr. Jamshid Cabrera: A diagnosis of anemia lacks specificity to accurately reflect your patients severity of condition and clarification is needed. Anemia is documented in the ED note on 11/05 with no further specificity. CARD CLEANER was consulted on 11/07 regarding postmenopausal bleeding: bleeding not significant & no intervention required at this time. Patient had surgery 11/10 for diverticulitis of the sigmoid colon with perforation resulting in colostomy. Received 1 unit PRBCs on 11/10. History/Risk Factors: Paroxysmal atrial fibrillation, CVA, Asthma, Hypertension, Diverticulitis. Previous cholecystectomy. Clinical indicators: Patient presented from a halfway with LLQ abdominal pain, suprapubic abdominal pain & mild vaginal bleeding. Hemoglobin: 11/05: 9.8*, 11/08: 9.48, 11/09 (11/4), 11/10: 9.1*, 11/10 repeat 9.0*. Hematocrit: 11/05 Hct 31.0, 11/08: 30.7*, 11/09: (39.1), 11/10: 30.5*, repeat 11/10: 30.1*. Treatment: H/H. IV fluid bolus 1,000 mls @ 999 11/05, IV Ampicillin, IV Morphine, IV fluid rate 1,000 mls @ 100/hr. 11/10: 1 unit PRBCs, IV fluid boluses x3 1000 mls @ 999 mls/hr. In order to capture the severity of condition, please clarify the type of anemia and etiology if known: Acute blood loss anemia Acute on chronic blood loss anemia Anemia of chronic kidney disease Anemia of other chronic disease Unable to determine Other, please specify (Last Revision: June 2017) Unable to determine MTDD
[2019-11-10] MEDS: metroNIDAZOLE-NS PMX 500 MG in SALINE 1 100ML.BAG IVPB SCH ×3 (10:29→23:50)
[2019-11-10] MEDS ORDERED: Magnesium Replacement Protocol 1 EACH MISC MISCELLANE PRN (10:40)
[2019-11-10 11:00] LABS: Glucose,Whole Blood 78 mg/dL (75-99)
[2019-11-10] MEDS: NYSTATIN 100,000 UNIT/GM POWD 15 GM TOPICAL SCH ×2 (11:20→22:20)
[2019-11-10] MEDS: HYDROPHILIC CREAM 180 GM TUBE TOPICAL SCH ×2 (11:20→22:20)
[2019-11-10] MEDS: MAGNESIUM SULFATE-D5W PMX 1 GM in DEXTROSE/WATER 1 100ML.BAG IVPB SCH ×2 (11:27→12:32)
--- NOTE | 2019-11-10 11:29 | P.CNPUL ---
History of Present Illness Consult date: 11/10/19 Reason for consult: other (Abdominal sepsis and septic shock secondary to diverticulitis and bowel perforation) Chief complaint: Abdominal pain History of present illness: This is a 69-year-old female with history of multiple medical problems including asthma, paroxysmal atrial fibrillation, hypertension, chronic kidney disease stage IV, chronic lymphedema, patient was admitted on 11/05/2019, patient was brought in from [facility] and she was in rehab facility. And she was complaining of a chronic lower abdominal pain for quite some time. Patient has been seen previously in our infusion at least 3 times and she was also seen at [facility] 2 times recently for lower abdominal pain, and she was diagnosed as having diverticulitis, and the decision was to treat the patient conservatively and medically. Patient had a CT of the abdomen and pelvis upon evaluation in the ER on the , and she was found to have sigmoid diverticulitis. Admitted, started on antibiotics, however her pain increased, and the patient was showing more clinical signs of sepsis. Patient was seen by many consultants including g astroenterology, gynecology, and she was seen by Dr. leblanc on 11/10, and he felt that her diverticulitis is progressing to sepsis with portal vein gas despite antibiotic therapy. Patient underwent exploratory laparotomy early this morning, patient ended up with left colectomy with mobilization of splenic flexure partial omentectomy and colostomy. Patient was found to have significantly thickened sigmoid colon, there was evidence of perforation of the colon with a small amount of stool. It was felt that the patient may have had a perforation at that area. Patient was eventually sent back to the intensive care unit, on mechanical ventilation early this morning around 8 AM. And her ventilator settings are assist control rate of 16 tidal volume of 500 FiO2 of 100% and PEEP of 5. Patient was noted to be quite acidotic, lactic acid was elevated, she was on norepinephrine at 0.05 mcg/kg/m, she was also placed on bicarb after few amps of sodium bicarb were given, patient was also placed on propofol. And more fluid boluses were given in the ICU. CVP was noted to be around 10. Family was at bedside, and I discussed her condition with the family at bedside. Repeat ABG showed a pO2 of 104 pCO2 of 40 pH of 7.13, more sodium bicarb was given. Patient is also on antibiotics in the form of Flagyl and Zosyn Review of Systems ROS unobtainable: due to endotracheal tube Past Medical History Past Medical History: Atrial Fibrillation, Asthma, CVA/TIA, Hypertension Additional Past Medical History / Comment(s): diverticulitis, cellulitis History of Any Multi-Drug Resistant Organisms: None Reported Past Surgical History: Cholecystectomy, Orthopedic Surgery Past Anesthesia/Blood Transfusion Reactions: No Reported Reaction Past Psychological History: No Psychological Hx Reported Smoking Status: Never smoker Past Alcohol Use History: None Reported Past Drug Use History: None Reported - Past Family History Father Additional Family Medical History / Comment(s): Heart disease in the family including parents although the type is not clear Medications and Allergies Home Medications Medication Instructions Recorded Confirmed Type Montelukast [Singulair] 10 mg PO HS@2100 05/21/19 11/05/19 History Potassium Chloride 10 meq PO DAILY@0800 05/21/19 11/05/19 History Torsemide [Demadex] 20 mg PO MOTH@0800 05/21/19 11/05/19 History Acetaminophen [Tylenol 8 Hour] 650 mg PO Q6H PRN 10/24/19 11/05/19 History Dicyclomine [Bentyl] 10 mg PO BID PRN 10/24/19 11/05/19 History Ferrous Sulfate [Iron (65 MG 325 mg PO DAILY@169910/24/19 11/05/19 History Elemental)] Fluticasone Propion/Salmeterol 1 puff INHALATION RT-DAILY@169910/24/19 11/05/19 History [Wixela 500-50 Inhub] Lactobacillus Acidophilus 1 tab PO BID@0800,1700 10/24/19 11/05/19 History [Acidophilus] Omeprazole [PriLOSEC] 20 mg PO BID@0800,1700 10/24/19 11/05/19 History Bisacodyl [Dulcolax] 10 mg RECTAL DAILY PRN 11/05/19 11/05/19 History Heparin Sodium,Porcine [Heparin 5,000 unit SQ Q12H 11/05/19 11/05/19 History Sodium] Hydrophilic Cream [Triad Cream] 1 applic TOPICAL BID 11/05/19 11/05/19 History Lactose-Reduced Food [Ensure Plus] 120 ml PO BID@0800,1200 11/05/19 11/05/19 History Liquical 30 ml PO DAILY@1700 11/05/19 11/05/19 History Magnesium Hydroxide [Milk of 7,200 mg PO DAILY PRN 11/05/19 11/05/19 History Magnesia Concentrate] Metoprolol Tartrate [Lopressor] 12.5 mg PO TID@0600,1400,2200 11/05/19 11/05/19 History Miconazole Nitrate [Desenex] 1 applic TOPICAL BID 11/05/19 11/05/19 History Na Phos,M-B/Na Phos,Di-Ba [Fleet 133 ml RECTAL ONCE PRN 11/05/19 11/05/19 Hist ory Adult] traMADol HCL [Ultram] 100 mg PO TID@0600,1400,2200 11/05/19 11/05/19 History Allergies Allergy/AdvReac Type Severity Reaction Status Date / Time propoxyphene [From Darvon] Allergy Unknown Verified 11/05/19 21:24 Physical Exam Vitals: Vital Signs Temp Pulse Pulse Resp BP BP Pulse Ox 11/10/19 10:30 120 H 16 97 11/10/19 10:00 118 H 17 99 11/10/19 09:30 130 H 16 98 11/10/19 09:15 126 H 18 97/38 97 11/10/19 09:00 125 H 16 99/43 11/10/19 08:45 125 H 16 133/62 99 11/10/19 08:30 98.3 F 120 H 12 96 11/10/19 08:15 131 H 12 147/66 96 11/10/19 05:15 114 H 23 58/43 11/10/19 05:00 117 H 26 H 110/72 11/10/19 04:45 123 H 25 H 85/62 97 11/10/19 04:30 115 H 19 117/97 95 11/10/19 04:15 106 H 25 H 126/54 98 11/10/19 04:00 100.2 F H 110 H 124 H 25 H 139/55 98 11/10/19 03:45 111 H 20 80/39 99 11/10/19 03:30 103 H 14 80/39 99 11/10/19 03:15 128 H 31 H 84/40 98 11/10/19 03:00 104 H 27 H 68/30 94 L 11/10/19 02:45 107 H 25 H 82/40 97 11/10/19 02:30 114 H 22 94/69 99 11/10/19 02:15 24 87/43 86 L 11/10/19 02:07 124 H 22 11/10/19 02:00 115 H 22 75/47 100 11/10/19 01:45 113 H 20 75/47 98 11/10/19 01:30 98.4 F 120 H 21 95/33 98 11/10/19 01:15 125 H 24 92/39 98 11/10/19 01:00 122 H 26 H 67/50 96 11/10/19 00:45 122 H 33 H 11/10/19 00:30 124 H 29 H 11/09/19 23:44 124 H 22 82/48 97 11/09/19 23:35 101.1 F H 125 H 22 74/45 96 11/09/19 21:00 98.9 F 81 22 104/66 97 11/09/19 19:10 125 H 11/09/19 13:40 97.8 F 116 H 16 119/75 98 Intake and Output 11/09/19 11/10/19 11/10/19 22:59 06:59 14:59 Intake Total 5369.908 2798.905 Output Total 1 55 135 Balance -1 5314.908 2663.905 Intake: IV 2900 2500 Dextrose 5% in Water 1, 300 000 ml @ 100 mls/hr IV . [id number] AVINASH with Sodium Bicarb (1 Meq/ml) 150 ml Rx#:[id number] Sodium Chloride 0.9% 1, 1200 2000 000 ml @ 999 mls/hr IV . Q1H1M ONE Rx#:[id number] Intake, IV Titration 2157.908 298.905 Amount Norepinephrine 4 mg In 157.908 98.905 Sodium Chloride 0.9% 250 ml @ 0.05 MCG/KG/MIN 24. 108 mls/hr IV .[id number] AVINASH Rx#:[id number] Sodium Chloride 0.9% 1, 100 000 ml @ 0 mls/hr IV .STK -MED ONE Rx#:[id number] Sodium Chloride 0.9% 1, 2000 000 ml @ 100 mls/hr IV . Q10H AVINASH Rx#:[id number] metroNIDAZOLE-NS PMX 500 100 mg In Saline 1 100ml.bag @ 100 mls/hr IVPB Q8HR [facility] Rx#:[id number] Blood Product 312 Ffp 24 Cpd Unit 312 [id number] Output: Urine 53 35 Stool 1 2 Estimated Blood Loss 100 Other: Voiding Method Diaper Indwelling Catheter Incontinent # Voids 1 # Bowel Movements 1 ABP, PAP, CO, CI - Last 8 Hours Arterial Blood Pressure 116/46 Arterial Blood Pressure 102/43 Arterial Blood Pressure 115/43 Arterial Blood Pressure 112/41 Arterial Blood Pressure 105/40 Arterial Blood Pressure 117/45 Arterial Blood Pressure 173/53 Arterial Blood Pressure 204/65 Physical Exam: Revealed a 69-year-old female on mechanical ventilation. Head: Atraumatic, normocephalic. HEENT:[Neck is supple.] [No neck masses.] [No thyromegaly.] [No JVD.] PERRLA, EOMI, no icterus, endotracheal tube and orogastric tube are intact. Chest: [Diminished breath sound bilaterally symmetrical expansion, minimal fine crackles at the bases no rhonchi and no wheezes. Cardiac Exam: [Tachycardic, Normal S1 and S2, no S3 gallop, 2/6 systolic murmur thought the precordium. Abdomen: [Postsurgical, soft, nontender, colostomy is intact. Extremities: [No clubbing, 2+ bipedal lymphedema noted., no cyanosis.] Neurological Exam: Sedated, cannot be assessed. On propofol. Psychiatric: Could not be assessed. Lymphatics: No lymphadenopathy. Results - Laboratory Findings CBC and BMP: 11/10/19 03:44 11/10/19 03:44 ABG ABG pH 7.13 (7.35-7.45) L* 11/10/19 10:07 ABG pCO2 40 mmHg (35-45) 11/10/19 10:07 ABG pO2 104 mmHg (83-108) 11/10/19 10:07 ABG O2 Saturation 95.7 % (94-97) 11/10/19 10:07 PT/INR, D-dimer PT 15.7 sec (9.0-12.0) H 11/10/19 02:07 INR 1.6 (<1.2) H 11/10/19 02:07 Abnormal lab findings: Abnormal Labs 11/05/19 11/05/19 11/08/19 19:39 19:39 10:44 WBC RBC 3.66 L 3.47 L Hgb 9.8 L 9.4 L Hct 31.0 L 30.7 L MCHC 30.6 L RDW 16.6 H 16.3 H Plt Count 126 L Neutrophils # Lymphocytes # Lymphocytes # (Manual) Metamyelocytes # (Man) PT INR APTT ABG pH ABG pO2 ABG HCO3 ABG Total CO2 ABG Lactic Acid Sodium 130 L Chloride Carbon Dioxide 20 L BUN 42 H Creatinine 1.30 H Glucose POC Glucose (mg/dL) Plasma Lactic Acid Dieudonne Calcium 7.1 L Magnesium AST 39 H ALT Alkaline Phosphatase 622 H Total Protein 5.7 L Albumin 1.8 L Amylase <30 L Lipase 19 L Urine Appearance Urine Protein Urine Ketones Urine Blood Ur Leukocyte Esterase Urine RBC Urine WBC Urine WBC Clumps Ur Squamous Epith Cells Urine Bacteria Hyaline Casts Urine Mucus Urine Yeast (Budding) 11/08/19 11/09/19 11/09/19 10:44 16:08 16:08 WBC RBC Hgb Hct MCHC 29.2 L RDW 16.7 H Plt Count Neutrophils # Lymphocytes # Lymphocytes # (Manual) Metamyelocytes # (Man) PT INR APTT ABG pH ABG pO2 ABG HCO3 ABG Total CO2 ABG Lactic Acid Sodium 134 L 134 L Chloride 109 H 108 H Carbon Dioxide 17 L 16 L BUN 25 H 23 H Creatinine 1.21 H 1.38 H Glucose POC Glucose (mg/dL) Plasma Lactic Acid Dieudonne Calcium 7.0 L 7.4 L Magnesium AST ALT Alkaline Phosphatase Total Protein Albumin Amylase Lipase Urine Appearance Urine Protein Urine Ketones Urine Blood Ur Leukocyte Esterase Urine RBC Urine WBC Urine WBC Clumps Ur Squamous Epith Cells Urine Bacteria Hyaline Casts Urine Mucus Urine Yeast (Budding) 11/09/19 11/09/19 11/10/19 23:35 23:44 00:36 WBC RBC 3.40 L Hgb 9.1 L D Hct 30.5 L MCHC 29.9 L RDW 16.1 H Plt Count 69 L D Neutrophils # Lymphocytes # Lymphocytes # (Manual) 0.29 L Metamyelocytes # (Man) 0.23 H PT INR APTT ABG pH ABG pO2 ABG HCO3 ABG Total CO2 ABG Lactic Acid Sodium Chloride Carbon Dioxide BUN Creatinine Glucose POC Glucose (mg/dL) 45 L 111 H Plasma Lactic Acid Dieudonne Calcium Magnesium AST ALT Alkaline Phosphatase Total Protein Albumin Amylase Lipase Urine Appearance Urine Protein Urine Ketones Urine Blood Ur Leukocyte Esterase Urine RBC Urine WBC Urine WBC Clumps Ur Squamous Epith Cells Urine Bacteria Hyaline Casts Urine Mucus Urine Yeast (Budding) 11/10/19 11/10/19 11/10/19 00:36 00:36 01:45 WBC RBC Hgb Hct MCHC RDW Plt Count Neutrophils # Lymphocytes # Lymphocytes # (Manual) Metamyelocytes # (Man) PT INR APTT ABG pH ABG pO2 ABG HCO3 ABG Total CO2 ABG Lactic Acid Sodium 133 L Chloride 108 H Carbon Dioxide 12 L BUN 23 H Creatinine 1.81 H Glucose 62 L POC Glucose (mg/dL) Plasma Lactic Acid Dieudonne 7.3 H* Calcium 6.7 L Magnesium AST 99 H ALT 40 H Alkaline Phosphatase 659 H Total Protein 4.9 L Albumin 1.4 L Amylase Lipase Urine Appearance Turbid H Urine Protein 1+ H Urine Ketones Trace H Urine Blood Moderate H Ur Leukocyte Esterase Large H Urine RBC 20 H Urine WBC 64 H Urine WBC Clumps Many H Ur Squamous Epith Cells 5 H Urine Bacteria Occasional H Hyaline Casts 4 H Urine Mucus Rare H Urine Yeast (Budding) Occasional H 11/10/19 11/10/19 11/10/19 02:07 03:26 03:44 WBC 10.8 H RBC 3.37 L Hgb 9.0 L Hct 30.1 L MCHC 30.0 L RDW 16.7 H Plt Count 92 L Neutrophils # 10.1 H Lymphocytes # 0.4 L Lymphocytes # (Manual) Metamyelocytes # (Man) PT 15.7 H INR 1.6 H APTT 37.8 H ABG pH ABG pO2 ABG HCO3 ABG Total CO2 ABG Lactic Acid Sodium Chloride Carbon Dioxide BUN Creatinine Glucose POC Glucose (mg/dL) 43 L Plasma Lactic Acid Dieudonne Calcium Magnesium AST ALT Alkaline Phosphatase Total Protein Albumin Amylase Lipase Urine Appearance Urine Protein Urine Ketones Urine Blood Ur Leukocyte Esterase Urine RBC Urine WBC Urine WBC Clumps Ur Squamous Epith Cells Urine Bacteria Hyaline Casts Urine Mucus Urine Yeast (Budding) 11/10/19 11/10/19 11/10/19 03:44 03:51 04:03 WBC RBC Hgb Hct MCHC RDW Plt Count Neutrophils # Lymphocytes # Lymphocytes # (Manual) Metamyelocytes # (Man) PT INR APTT ABG pH ABG pO2 ABG HCO3 ABG Total CO2 ABG Lactic Acid Sodium 132 L Chloride 110 H Carbon Dioxide 13 L BUN 21 H Creatinine 1.72 H Glucose 117 H POC Glucose (mg/dL) 113 H Plasma Lactic Acid Dieudonne 6.9 H* Calcium 6.0 L* Magnesium 1.4 L AST ALT Alkaline Phosphatase Total Protein Albumin Amylase Lipase Urine Appearance Urine Protein Urine Ketones Urine Blood Ur Leukocyte Esterase Urine RBC Urine WBC Urine WBC Clumps Ur Squamous Epith Cells Urine Bacteria Hyaline Casts Urine Mucus Urine Yeast (Budding) 11/10/19 11/10/19 11/10/19 08:20 08:59 09:43 WBC RBC Hgb Hct MCHC RDW Plt Count Neutrophils # Lymphocytes # Lymphocytes # (Manual) Metamyelocytes # (Man) PT INR APTT ABG pH 7.02 L* ABG pO2 124 H ABG HCO3 12 L ABG Total CO2 13 L ABG Lactic Acid Sodium Chloride Carbon Dioxide BUN Creatinine Glucose POC Glucose (mg/dL) 70 L 74 L Plasma Lactic Acid Dieudonne Calcium Magnesium AST ALT Alkaline Phosphatase Total Protein Albumin Amylase Lipase Urine Appearance Urine Protein Urine Ketones Urine Blood Ur Leukocyte Esterase Urine RBC Urine WBC Urine WBC Clumps Ur Squamous Epith Cells Urine Bacteria Hyaline Casts Urine Mucus Urine Yeast (Budding) 11/10/19 11/10/19 09:45 10:07 WBC RBC Hgb Hct MCHC RDW Plt Count Neutrophils # Lymphocytes # Lymphocytes # (Manual) Metamyelocytes # (Man) PT INR APTT ABG pH 7.13 L* ABG pO2 ABG HCO3 13 L ABG Total CO2 15 L ABG Lactic Acid 7.3 H* Sodium Chloride Carbon Dioxide BUN Creatinine Glucose POC Glucose (mg/dL) Plasma Lactic Acid Dieudonne Calcium Magnesium AST ALT Alkaline Phosphatase Total Protein Albumin Amylase Lipase Urine Appearance Urine Protein Urine Ketones Urine Blood Ur Leukocyte Esterase Urine RBC Urine WBC Urine WBC Clumps Ur Squamous Epith Cells Urine Bacteria Hyaline Casts Urine Mucus Urine Yeast (Budding) - Diagnostic Findings Chest x-ray: image reviewed (Chest x-ray was reviewed no evidence of significant pulmonary disease, minimal atelectasis is noted, endotracheal tube and other lines are intact.) Additional studies: CT of the abdomen and pelvis was reviewed, and as noted in my HPI Assessment and Plan Assessment: Impression: Acute abdominal sepsis secondary to bowel perforation secondary to diverticulitis. Status post left colectomy, partial omentectomy and colostomy. Postoperative day #0. Septic shock from abdominal sepsis. Chronic sigmoid diverticulitis, multiple previous evaluations and the decision was to treat medically. Benign essential hypertension Paroxysmal atrial fibrillation Questionable history of asthma, severity of which is not clear. Chronic kidney disease stage IV Chronic lower extremities lymphedema. Recommendation: Continue ventilatory support Continue hemodynamic support, presently on norepinephrine. Continue GI and DVT prophylaxis. Address nutritional support, possibly TPN in the next 24 hours. Continue antibiotics, and infectious disease consultation was initiated. Continue IV fluids, and monitor closely lactic acid as well as electrolytes and renal profile. Continue bronchodilators. Discussed her condition with her daughters at bedside, patient is obviously critically ill, and prognosis is guarded. Critical care time is 45 minutes. Time with Patient: Greater than 30
[2019-11-10 13:04] LABS: Glucose,Whole Blood 103 mg/dL (75-99)
[2019-11-10] MEDS: NOREPINEPHRINE 32 MG in SODIUM CHLORIDE 0.9% 218 ML IV SCH ×3 (13:50→22:24)
[2019-11-10 14:01] LABS: ABG Base Excess -14.5 mmol/L; ABG HCO3 14 mmol/L (21-25); ABG Oxygen Saturation 92.4 % (94-97); ABG PCO2 40 mmHg (35-45); ABG PO2 76 mmHg (83-108); ABG TCO2 15 mmol/L (19-24)
[2019-11-10 14:06] LABS: ABG PH 7.16 (7.35-7.45)
[2019-11-10] MEDS: SODIUM CHLORIDE 0.9% 50 ML with VASOPRESSIN 20 UNIT IVPB SCH ×4 (14:45→22:32)
[2019-11-10] MEDS: IPRATROPIUM-ALBUTEROL 3 ML NEB INHALATION SCH ×3 (15:25→23:52)
[2019-11-10 16:47] LABS: Glucose,Whole Blood 120 mg/dL (75-99)
[2019-11-10] MEDS: FERROUS SULFATE 325 MG TAB PO SCH (17:09)
--- NOTE | 2019-11-10 17:21 | P.PN ---
Progress Note - Text Progress Note Date: 11/10/19 Chief Complaint: Abdominal pain History of presenting complaint: This is a very pleasant [address] Sin. Chronic stable medical conditions include paroxysmal atrial fibrillation, asthma, hypertension, GERD, chronic kidney disease stage IV, bilateral lower extremity lymphedema. Patient normally uses a walker to get about. Currently at [facility] for rehab. Patient's had abdominal pain on and off for quite some time. On this occasion yesterday the pain became much worse cramping some nausea vomiting. Denies any fever and chills. Had to 3 loose stools yesterday. No blood. Computed tomography scan in the ER did show diverticulitis. Patient is made nothing by mouth. Daughter the bedside. At the [facility] patient was walking at least-20-30 steps with a walker. Admitted with acute sigmoid diverticulitis. Also patient noted to have some vaginal blood clots. Seen by Dr. Binh Abbasi-to be followed as an outpatient. Patient's started on IV antibiotics Today-yesterday evening patient is having still more abdominal pain. Dropped her blood pressure later in the night. I did order a computed tomography scan of the abdomen and moved the patient is ICU. Patient seen by Dr. Monae. Taken to the operating room. Found to have a contained bowel perforation. Conjunctiva ICU. Intubated. On IV levo fed, IV to prevent. Drips include D5W and bicarbonate. Intubated. FiO2 70% and PEEP of 5. Review of systems: Not done-patient intubated Active Medications Acetaminophen (Tylenol Tab) 650 mg PO Q6H PRN PRN Reason: Mild Pain Last Admin: 11/09/19 16:18 Dose: 650 mg Documented by: Albuterol/Ipratropium (Duoneb 0.5 Mg-3 Mg/3 Ml Soln) 3 ml INHALATION RT-Q4H [facility] Last Admin: 11/10/19 15:25 Dose: 3 ml Documented by: Bisacodyl (Dulcolax) 10 mg RECTAL DAILY PRN PRN Reason: Constipation Budesonide/Formoterol Fumarate (Symbicort 160-4.5 Mcg Inhaler) 2 puff INHALATION RT-BID [facility] Last Admin: 11/10/19 07:15 Dose: Not Given Documented by: Chlorhexidine Gluconate (Peridex) 15 ml MUCOUS MEM BID AVINASH Dicyclomine HCl (Bentyl) 10 mg PO BID PRN PRN Reason: IBS Last Admin: 11/09/19 08:13 Dose: 10 mg Documented by: Enoxaparin Sodium (Lovenox) 30 mg SQ DAILY [facility] Ferrous Sulfate (Feosol) 325 mg PO DAILY@1700 AVINASH Last Admin: 11/10/19 17:09 Dose: Not Given Documented by: Hydromorphone HCl (Dilaudid) 0.5 mg IVP Q4HR PRN PRN Reason: Pain Scale 6 to 10 Last Admin: 11/09/19 20:31 Dose: 0.5 mg Documented by: Piperacillin Sod/Tazobactam (Sod 3.375 gm/ Sodium Chloride) 100 mls @ 25 mls/hr IVPB Q8H [facility] Last Admin: 11/10/19 12:32 Dose: 25 mls/hr Documented by: Norepinephrine Bitartrate 4 mg (/ Sodium Chloride) 254 mls @ 24.108 mls/hr IV .[id number] [facility]; Protocol Last Titration: 11/10/19 12:16 Dose: 0.18 mcg/kg/min, 86.789 mls/hr Documented by: Epinephrine HCl 4 mg/ Dextrose (/Water) 250 mls @ 4.746 mls/hr IV .Q24H [facility]; Protocol Last Admin: 11/10/19 08:38 Dose: Not Given Documented by: Sodium Bicarbonate 150 ml/ (Dextrose/Water) 1,150 mls @ 100 mls/hr IV .[id number] [facility] Last Admin: 11/10/19 08:55 Dose: 100 mls/hr Documented by: Metronidazole 500 mg/ IV (Solution) 100 mls @ 100 mls/hr IVPB Q8HR [facility] Last Admin: 11/10/19 16:41 Dose: 100 mls/hr Documented by: Propofol 1,000 mg/ IV Solution 100 mls @ 0 mls/hr IV .Q0M [facility]; Protocol Last Titration: 11/10/19 11:10 Dose: 20 mcg/kg/min, 15.186 mls/hr Documented by: Norepinephrine Bitartrate 32 (mg/ Sodium Chloride) 250 mls @ 2.966 mls/hr IV .Q24H [facility]; Protocol Last Titration: 11/10/19 15:34 Dose: 0.19 mcg/kg/min, 11.271 mls/hr Documented by: Vasopressin 20 unit/ Sodium (Chloride) 51 mls @ 4.59 mls/hr IVPB .Q11H7M [facility] Last Admin: 11/10/19 14:45 Dose: 4.59 mls/hr Documented by: Miscellaneous Information (Magnesium Per Protocol) 1 each MISCELLANE DAILY PRN; Protocol PRN Reason: Per Protocol Montelukast Sodium (Singulair) 10 mg PO HS@2100 [facility] Last Admin: 11/09/19 20:33 Dose: 10 mg Documented by: Multi-Ingred Cream/Lotion/Oil/Oint (Triad Cream) 1 applic TOPICAL BID [facility] Last Admin: 11/10/19 11:20 Dose: 1 applic Documented by: Naloxone HCl (Narcan) 0.2 mg IV Q2M PRN PRN Reason: Opioid Reversal Nystatin (Mycostatin Powder) 1 applic TOPICAL BID [facility] Last Admin: 11/10/19 11:20 Dose: 1 applic Documented by: Pantoprazole Sodium (Protonix) 40 mg IV DAILY [facility] Last Admin: 11/10/19 08:50 Dose: 40 mg Documented by: Potassium Chloride (K-Dur 10) 10 meq PO DAILY@0800 [facility] Last Admin: 11/10/19 09:29 Dose: Not Given Documented by: Tramadol HCl (Ultram) 100 mg PO TID@0600,1400,2200 [facility] Last Admin: 11/10/19 14:29 Dose: Not Given Documented by: Physical examination: VITAL SIGNS: 97.8, 118, 21, 103/42, 97% on the ventilator GENERAL: Laying in bed, intubated EYES: Pupils equal. Conjunctiva normal. HEENT: External appearance of nose and ears normal, oral cavity dry mucous membrane. Endotracheal tube in place NECK: JVD not raised; masses not palpable. HEART: First and second heart sounds are normal; some edema. LUNGS: Respiratory rate increased; clear to auscultation. ABDOMEN: Soft, dressing over the incision site, no guarding rigidity, liver spleen not palpable, no masses palpable. Colostomy. PSYCH: Sedated LYMPHATICS: lymphedema of the lower extremity INVESTIGATIONS, reviewed in the clinical context: Computed tomography scan abdomen-mild inflammatory changes around the sigmoid colon Previous testing White count 4.5 hemoglobin 9.8 platelets 126 Computed tomography scan of the abdomen-possible colitis versus diverticulitis in the sigmoid area C. diff-negative Assessment: -Acute bowel perforation of the large colon. Leading to left colectomy, partial omentectomy and a colostomy -Acute sigmoid diverticulitis, -Acute hypoxic respiratory failure requiring ventilator support. Intubated -Septic shock requiring pressor support, slow to respond -Intermittent vaginal blood clots-endometrial prominence. outpatient D&C -Bilateral lower extremity lymphedema -Acute cellulitis of the right lower extremity -Chronic gait dysfunction uses a walker -Morbid obesity BMI 51 -Right bundle-branch block -Essential hypertension -GERD Plan: Patient currently on IV levo fed, IV to prevent, IV Zosyn, IV Flagyl. Intubated. Spoke to patient's daughter and son in the waiting room. Follow with general surgery and analytics consultant.
[2019-11-10 19:57] LABS: ABG Base Excess -13.7 mmol/L; ABG HCO3 13 mmol/L (21-25); ABG Oxygen Saturation 95.6 % (94-97); ABG PCO2 29 mmHg (35-45); ABG PH 7.27 (7.35-7.45); ABG PO2 86 mmHg (83-108); ABG TCO2 14 mmol/L (19-24)
[2019-11-10 19:59] LABS: Allen Test Performed? no
[2019-11-10] MEDS: MONTELUKAST 10 MG TAB PO SCH (22:17)
[2019-11-10] MEDS: CHLORHEXIDINE GLUCONATE 15 ML CUP MUCOUS MEM SCH (22:20)
[2019-11-10] MEDS: HYDROmorphone 0.5 MG/0.5 ML SYRINGE IVP PRN (23:51)
[2019-11-11] MEDS: NOREPINEPHRINE 32 MG in SODIUM CHLORIDE 0.9% 218 ML IV SCH ×3 (00:09→07:45)
--- NOTE | 2019-11-11 00:17 | P.CONS ---
History of Present Illness - Reason for Consult Consult date: 11/10/19 Perforated diverticulitis and antibiotic recommendation Requesting physician: Dominick Chang - Chief Complaint Left-sided abdominal pain x days - History of Present Illness Patient is a 69-year-old female with a past medical history significant for recurrent diverticulitis the patient has for a couple of months she was recently treated at [facility] in August 2019 for sigmoid diverticulitis that was treated medically, ration and was undergoing rehabilita tion at [facility] and she was sent to the ER at [facility] on 11/05/2019 for evaluation of generalized weakness patient also complaining of abdominal pain and she did have a CT of abdominal pelvis initially we did shows evidence of sigmoid diverticulitis patient has been treated with IV antibiotics last night the patient did have significant worsening of her abdominal pain the patient also becoming tachycardic and hypertensive repeat CAT scan did shows evidence of portal vein air and worsening diverticulitis patient was emergently taken to the OR by surgery and the patient is status post sigmoid colectomy and diverting colostomy patient has been admitted to the ICU currently intubated on the vent and all of this information has been obtained from review of the chart and talking to the family, infectious disease had been consulted for further management of antibiotic Review of Systems Positive points has been mentioned in HPI complete review could not be obtained because of his underlying mental status Past Medical History Past Medical History: Atrial Fibrillation, Asthma, CVA/TIA, Hypertension Additional Past Medical History / Comment(s): diverticulitis, cellulitis History of Any Multi-Drug Resistant Organisms: None Reported Past Surgical History: Cholecystectomy, Orthopedic Surgery Past Anesthesia/Blood Transfusion Reactions: No Reported Reaction Past Psychological History: No Psychological Hx Reported Smoking Status: Never smoker Past Alcohol Use History: None Reported Past Drug Use History: None Reported - Past Family History Father Additional Family Medical History / Comment(s): Heart disease in the family including parents although the type is not clear Medications and Allergies Home Medications Medication Instructions Recorded Confirmed Type Montelukast [Singulair] 10 mg PO HS@2100 05/21/19 11/05/19 History Potassium Chloride 10 meq PO DAILY@0800 05/21/19 11/05/19 History Torsemide [Demadex] 20 mg PO MOTH@0805/21/19 11/05/19 History Acetaminophen [Tylenol 8 Hour] 650 mg PO Q6H PRN 10/24/19 11/05/19 History Dicyclomine [Bentyl] 10 mg PO BID PRN 10/24/19 11/05/19 History Ferrous Sulfate [Iron (65 MG 325 mg PO DAILY@169910/24/19 11/05/19 History Elemental)] Fluticasone Propion/Salmeterol 1 puff INHALATION RT-DAILY@169910/24/19 11/05/19 History [Wixela 500-50 Inhub] Lactobacillus Acidophilus 1 tab PO BID@0800,0 10/24/19 11/05/19 History [Acidophilus] Omeprazole [PriLOSEC] 20 mg PO BID@0800,0 10/24/19 11/05/19 History Bisacodyl [Dulcolax] 10 mg RECTAL DAILY PRN 11/05/19 11/05/19 History Heparin Sodium,Porcine [Heparin 5,000 unit SQ Q12H 11/05/19 11/05/19 History Sodium] Hydrophilic Cream [Triad Cream] 1 applic TOPICAL BID 11/05/19 11/05/19 History Lactose-Reduced Food [Ensure Plus] 120 ml PO BID@0800,1200 11/05/19 11/05/19 History Liquical 30 ml PO DAILY@169911/05/19 11/05/19 History Magnesium Hydroxide [Milk of 7,200 mg PO DAILY PRN 11/05/19 11/05/19 History Magnesia Concentrate] Metoprolol Tartrate [Lopressor] 12.5 mg PO TID@0600,1400,0 11/05/19 11/05/19 History Miconazole Nitrate [Desenex] 1 applic TOPICAL BID 11/05/19 11/05/19 History Na Phos,M-B/Na Phos,Di-Ba [Fleet 133 ml RECTAL ONCE PRN 11/05/19 11/05/19 History Adult] traMADol HCL [Ultram] 100 mg PO TID@0600,1400,2200 11/05/19 11/05/19 History Allergies Allergy/AdvReac Type Severity Reaction Status Date / Time propoxyphene [From Darvon] Allergy Unknown Verified 11/05/19 21:24 Physical Exam Vitals: Vital Signs Temp Pulse Pulse Resp BP BP Pulse Ox 11/10/19 12:00 97.8 F 118 H 21 97 11/10/19 11:30 117 H 18 98 11/10/19 11:00 116 H 16 98 11/10/19 10:30 120 H 16 97 11/10/19 10:00 118 H 17 99 11/10/19 09:30 130 H 16 98 11/10/19 09:15 126 H 18 97/38 97 11/10/19 09:00 125 H 16 99/43 11/10/19 08:45 125 H 16 133/62 99 11/10/19 08:30 98.3 F 120 H 12 96 11/10/19 08:15 131 H 12 147/66 96 11/10/19 05:15 114 H 23 58/43 11/10/19 05:00 117 H 26 H 110/72 11/10/19 04:45 123 H 25 H 85/62 97 11/10/19 04:30 115 H 19 117/97 95 11/10/19 04:15 106 H 25 H 126/54 98 11/10/19 04:00 100.2 F H 110 H 124 H 25 H 139/55 98 11/10/19 03:45 111 H 20 80/39 99 11/10/19 03:30 103 H 14 80/39 99 11/10/19 03:15 128 H 31 H 84/40 98 11/10/19 03:00 104 H 27 H 68/30 94 L 11/10/19 02:45 107 H 25 H 82/40 97 11/10/19 02:30 114 H 22 94/69 99 11/10/19 02:15 24 87/43 86 L 11/10/19 02:07 124 H 22 11/10/19 02:00 115 H 22 75/47 100 11/10/19 01:45 113 H 20 75/47 98 11/10/19 01:30 98.4 F 120 H 21 95/33 98 11/10/19 01:15 125 H 24 92/39 98 11/10/19 01:00 122 H 26 H 67/50 96 11/10/19 00:45 122 H 33 H 11/10/19 00:30 124 H 29 H 11/09/19 23:44 124 H 22 82/48 97 11/09/19 23:35 101.1 F H 125 H 22 74/45 96 11/09/19 21:00 98.9 F 81 22 104/66 97 11/09/19 19:10 125 H 11/09/19 13:40 97.8 F 116 H 16 119/75 98 Intake and Output 11/09/19 11/10/19 11/10/19 22:59 06:59 14:59 Intake Total 5369.908 3112.232 Output Total 1 55 140 Balance -1 5314.908 2972.232 Intake: IV 2900 2600 Dextrose 5% in Water 1, 400 000 ml @ 100 mls/hr IV . [id number] AVINASH with Sodium Bicarb (1 Meq/ml) 150 ml Rx#:[id number] Sodium Chloride 0.9% 1, 1200 2000 000 ml @ 999 mls/hr IV . Q1H1M ONE Rx#:[id number] Intake, IV Titration 2157.908 512.232 Amount Magnesium Sulfate-D5w Pmx 100 1 gm In Dextrose/Water 1 100ml.bag @ 100 mls/hr IVPB Q1H [facility] Rx#: [id number] Norepinephrine 4 mg In 157.908 203.373 Sodium Chloride 0.9% 250 ml @ 0.05 MCG/KG/MIN 24. 108 mls/hr IV .S42H19M [facility] Rx#:[id number] Propofol 1,000 mg In 8.859 Empty Bag 1 bag @ Titrate IV .Q0M [facility] Rx#: [id number] Sodium Chloride 0.9% 1, 100 000 ml @ 0 mls/hr IV .STK -MED ONE Rx#:[id number] Sodium Chloride 0.9% 1, 2000 000 ml @ 100 mls/hr IV . Q10H [facility] Rx#:[id number] metroNIDAZOLE-NS PMX 500 100 mg In Saline 1 100ml.bag @ 100 mls/hr IVPB Q8HR [facility] Rx#:[id number] Blood Product 312 Ffp 24 Cpd Unit 312 [id number] Output: Urine 53 40 Stool 1 2 Estimated Blood Loss 100 Other: Voiding Method Diaper Indwelling Catheter Incontinent # Voids 1 # Bowel Movements 1 ABP, PAP, CO, CI - Last 8 Hours Arterial Blood Pressure 103/42 Arterial Blood Pressure 106/44 Arterial Blood Pressure 114/46 Arterial Blood Pressure 116/46 Arterial Blood Pressure 102/43 Arterial Blood Pressure 115/43 Arterial Blood Pressure 112/41 Arterial Blood Pressure 105/40 Arterial Blood Pressure 117/45 Arterial Blood Pressure 173/53 Arterial Blood Pressure 204/65 GENERAL DESCRIPTION: Elderly female intubated on the vent No tachypnea or accessory muscle of respiration use. HEENT: Shows Pallor , no scleral icterus. Patient is orally intubated and examination of oral cavity NECK: Trachea central, no thyromegaly. LUNGS: Unlabored breathing. Clear to auscultation anteriorly. No wheeze or crackle. HEART: S1, S2, regular rate and rhythm. No loud murmur ABDOMEN: Soft, no tenderness , guarding or rigidity, no organomegaly EXTREMITIES: No edema of feet. SKIN: No rash, no masses palpable. NEUROLOGICAL: The patient is sedated on vent Results CBC & Chem 7: 11/10/19 03:44 11/10/19 03:44 Labs: Abnormal Lab Results - Last 24 Hours (Table) 11/09/19 11/09/19 11/09/19 Range/Units 16:08 16:08 23:35 WBC (3.8-10.6) k/uL RBC (3.80-5.40) m/uL Hgb (11.4-16.0) gm/dL Hct (34.0-46.0) % MCHC 29.2 L (31.0-37.0) g/dL RDW 16.7 H (11.5-15.5) % Plt Count (150-450) k/uL Neutrophils # (1.3-7.7) k/uL Lymphocytes # (1.0-4.8) k/uL Lymphocytes # (Manual) (1.0-4.8) k/uL Metamyelocytes # (Man) (0) k/uL PT (9.0-12.0) sec INR (<1.2) APTT (22.0-30.0) sec ABG pH (7.35-7.45) ABG pO2 (83-108) mmHg ABG HCO3 (21-25) mmol/L ABG Total CO2 (19-24) mmol/L ABG Lactic Acid (0.5-1.6) mmol/L Sodium 134 L (137-145) mmol/L Chloride 108 H (98-107) mmol/L Carbon Dioxide 16 L (22-30) mmol/L BUN 23 H (7-17) mg/dL Creatinine 1.38 H (0.52-1.04) mg/dL Glucose (74-99) mg/dL POC Glucose (mg/dL) 45 L (75-99) mg/dL Plasma Lactic Acid Dieudonne (0.7-2.0) mmol/L Calcium 7.4 L (8.4-10.2) mg/dL Magnesium (1.6-2.3) mg/dL AST (14-36) U/L ALT (4-34) U/L Alkaline Phosphatase (38-126) U/L Total Protein (6.3-8.2) g/dL Albumin (3.5-5.0) g/dL Urine Appearance (Clear) Urine Protein (Negative) Urine Ketones (Negative) Urine Blood (Negative) Ur Leukocyte Esterase (Negative) Urine RBC (0-5) /hpf Urine WBC (0-5) /hpf Urine WBC Clumps (None) /hpf Ur Squamous Epith Cells (0-4) /hpf Urine Bacteria (None) /hpf Hyaline Casts (0-2) /lpf Urine Mucus (None) /hpf Urine Yeast (Budding) (None) /hpf 11/09/19 11/10/19 11/10/19 Range/Units 23:44 00:36 00:36 WBC (3.8-10.6) k/uL RBC 3.40 L (3.80-5.40) m/uL Hgb 9.1 L D (11.4-16.0) gm/dL Hct 30.5 L (34.0-46.0) % MCHC 29.9 L (31.0-37.0) g/dL RDW 16.1 H (11.5-15.5) % Plt Count 69 L D (150-450) k/uL Neutrophils # (1.3-7.7) k/uL Lymphocytes # (1.0-4.8) k/uL Lymphocytes # (Manual) 0.29 L (1.0-4.8) k/uL Metamyelocytes # (Man) 0.23 H (0) k/uL PT (9.0-12.0) sec INR (<1.2) APTT (22.0-30.0) sec ABG pH (7.35-7.45) ABG pO2 (83-108) mmHg ABG HCO3 (21-25) mmol/L ABG Total CO2 (19-24) mmol/L ABG Lactic Acid (0.5-1.6) mmol/L Sodium 133 L (137-145) mmol/L Chloride 108 H (98-107) mmol/L Carbon Dioxide 12 L (22-30) mmol/L BUN 23 H (7-17) mg/dL Creatinine 1.81 H (0.52-1.04) mg/dL Glucose 62 L (74-99) mg/dL POC Glucose (mg/dL) 111 H (75-99) mg/dL Plasma Lactic Acid Dieudonne (0.7-2.0) mmol/L Calcium 6.7 L (8.4-10.2) mg/dL Magnesium (1.6-2.3) mg/dL AST 99 H (14-36) U/L ALT 40 H (4-34) U/L Alkaline Phosphatase 659 H (38-126) U/L Total Protein 4.9 L (6.3-8.2) g/dL Albumin 1.4 L (3.5-5.0) g/dL Urine Appearance (Clear) Urine Protein (Negative) Urine Ketones (Negative) Urine Blood (Negative) Ur Leukocyte Esterase (Negative) Urine RBC (0-5) /hpf Urine WBC (0-5) /hpf Urine WBC Clumps (None) /hpf Ur Squamous Epith Cells (0-4) /hpf Urine Bacteria (None) /hpf Hyaline Casts (0-2) /lpf Urine Mucus (None) /hpf Urine Yeast (Budding) (None) /hpf 11/10/19 11/10/19 11/10/19 Range/Units 00:36 01:45 02:07 WBC (3.8-10.6) k/uL RBC (3.80-5.40) m/uL Hgb (11.4-16.0) gm/dL Hct (34.0-46.0) % MCHC (31.0-37.0) g/dL RDW (11.5-15.5) % Plt Count (150-450) k/uL Neutrophils # (1.3-7.7) k/uL Lymphocytes # (1.0-4.8) k/uL Lymphocytes # (Manual) (1.0-4.8) k/uL Metamyelocytes # (Man) (0) k/uL PT 15.7 H (9.0-12.0) sec INR 1.6 H (<1.2) APTT 37.8 H (22.0-30.0) sec ABG pH (7.35-7.45) ABG pO2 (83-108) mmHg ABG HCO3 (21-25) mmol/L ABG Total CO2 (19-24) mmol/L ABG Lactic Acid (0.5-1.6) mmol/L Sodium (137-145) mmol/L Chloride (98-107) mmol/L Carbon Dioxide (22-30) mmol/L BUN (7-17) mg/dL Creatinine (0.52-1.04) mg/dL Glucose (74-99) mg/dL POC Glucose (mg/dL) (75-99) mg/dL Plasma Lactic Acid Dieudonne 7.3 H* (0.7-2.0) mmol/L Calcium (8.4-10.2) mg/dL Magnesium (1.6-2.3) mg/dL AST (14-36) U/L ALT (4-34) U/L Alkaline Phosphatase (38-126) U/L Total Protein (6.3-8.2) g/dL Albumin (3.5-5.0) g/dL Urine Appearance Turbid H (Clear) Urine Protein 1+ H (Negative) Urine Ketones Trace H (Negative) Urine Blood Moderate H (Negative) Ur Leukocyte Esterase Large H (Negative) Urine RBC 20 H (0-5) /hpf Urine WBC 64 H (0-5) /hpf Urine WBC Clumps Many H (None) /hpf Ur Squamous Epith Cells 5 H (0-4) /hpf Urine Bacteria Occasional H (None) /hpf Hyaline Casts 4 H (0-2) /lpf Urine Mucus Rare H (None) /hpf Urine Yeast (Budding) Occasional H (None) /hpf 11/10/19 11/10/19 11/10/19 Range/Units 03:26 03:44 03:44 WBC 10.8 H (3.8-10.6) k/uL RBC 3.37 L (3.80-5.40) m/uL Hgb 9.0 L (11.4-16.0) gm/dL Hct 30.1 L (34.0-46.0) % MCHC 30.0 L (31.0-37.0) g/dL RDW 16.7 H (11.5-15.5) % Plt Count 92 L (150-450) k/uL Neutrophils # 10.1 H (1.3-7.7) k/uL Lymphocytes # 0.4 L (1.0-4.8) k/uL Lymphocytes # (Manual) (1.0-4.8) k/uL Metamyelocytes # (Man) (0) k/uL PT (9.0-12.0) sec INR (<1.2) APTT (22.0-30.0) sec ABG pH (7.35-7.45) ABG pO2 (83-108) mmHg ABG HCO3 (21-25) mmol/L ABG Total CO2 (19-24) mmol/L ABG Lactic Acid (0.5-1.6) mmol/L Sodium 132 L (137-145) mmol/L Chloride 110 H (98-107) mmol/L Carbon Dioxide 13 L (22-30) mmol/L BUN 21 H (7-17) mg/dL Creatinine 1.72 H (0.52-1.04) mg/dL Glucose 117 H (74-99) mg/dL POC Glucose (mg/dL) 43 L (75-99) mg/dL Plasma Lactic Acid Dieudonne (0.7-2.0) mmol/L Calcium 6.0 L* (8.4-10.2) mg/dL Magnesium 1.4 L (1.6-2.3) mg/dL AST (14-36) U/L ALT (4-34) U/L Alkaline Phosphatase (38-126) U/L Total Protein (6.3-8.2) g/dL Albumin (3.5-5.0) g/dL Urine Appearance (Clear) Urine Protein (Negative) Urine Ketones (Negative) Urine Blood (Negative) Ur Leukocyte Esterase (Negative) Urine RBC (0-5) /hpf Urine WBC (0-5) /hpf Urine WBC Clumps (None) /hpf Ur Squamous Epith Cells (0-4) /hpf Urine Bacteria (None) /hpf Hyaline Casts (0-2) /lpf Urine Mucus (None) /hpf Urine Yeast (Budding) (None) /hpf 11/10/19 11/10/19 11/10/19 Range/Units 03:51 04:03 08:20 WBC (3.8-10.6) k/uL RBC (3.80-5.40) m/uL Hgb (11.4-16.0) gm/dL Hct (34.0-46.0) % MCHC (31.0-37.0) g/dL RDW (11.5-15.5) % Plt Count (150-450) k/uL Neutrophils # (1.3-7.7) k/uL Lymphocytes # (1.0-4.8) k/uL Lymphocytes # (Manual) (1.0-4.8) k/uL Metamyelocytes # (Man) (0) k/uL PT (9.0-12.0) sec INR (<1.2) APTT (22.0-30.0) sec ABG pH 7.02 L* (7.35-7.45) ABG pO2 124 H (83-108) mmHg ABG HCO3 12 L (21-25) mmol/L ABG Total CO2 13 L (19-24) mmol/L ABG Lactic Acid (0.5-1.6) mmol/L Sodium (137-145) mmol/L Chloride (98-107) mmol/L Carbon Dioxide (22-30) mmol/L BUN (7-17) mg/dL Creatinine (0.52-1.04) mg/dL Glucose (74-99) mg/dL POC Glucose (mg/dL) 113 H (75-99) mg/dL Plasma Lactic Acid Dieudonne 6.9 H* (0.7-2.0) mmol/L Calcium (8.4-10.2) mg/dL Magnesium (1.6-2.3) mg/dL AST (14-36) U/L ALT (4-34) U/L Alkaline Phosphatase (38-126) U/L Total Protein (6.3-8.2) g/dL Albumin (3.5-5.0) g/dL Urine Appearance (Clear) Urine Protein (Negative) Urine Ketones (Negative) Urine Blood (Negative) Ur Leukocyte Esterase (Negative) Urine RBC (0-5) /hpf Urine WBC (0-5) /hpf Urine WBC Clumps (None) /hpf Ur Squamous Epith Cells (0-4) /hpf Urine Bacteria (None) /hpf Hyaline Casts (0-2) /lpf Urine Mucus (None) /hpf Urine Yeast (Budding) (None) /hpf 11/10/19 11/10/19 11/10/19 Range/Units 08:59 09:43 09:45 WBC (3.8-10.6) k/uL RBC (3.80-5.40) m/uL Hgb (11.4-16.0) gm/dL Hct (34.0-46.0) % MCHC (31.0-37.0) g/dL RDW (11.5-15.5) % Plt Count (150-450) k/uL Neutrophils # (1.3-7.7) k/uL Lymphocytes # (1.0-4.8) k/uL Lymphocytes # (Manual) (1.0-4.8) k/uL Metamyelocytes # (Man) (0) k/uL PT (9.0-12.0) sec INR (<1.2) APTT (22.0-30.0) sec ABG pH (7.35-7.45) ABG pO2 (83-108) mmHg ABG HCO3 (21-25) mmol/L ABG Total CO2 (19-24) mmol/L ABG Lactic Acid 7.3 H* (0.5-1.6) mmol/L Sodium (137-145) mmol/L Chloride (98-107) mmol/L Carbon Dioxide (22-30) mmol/L BUN (7-17) mg/dL Creatinine (0.52-1.04) mg/dL Glucose (74-99) mg/dL POC Glucose (mg/dL) 70 L 74 L (75-99) mg/dL Plasma Lactic Acid Dieudonne (0.7-2.0) mmol/L Calcium (8.4-10.2) mg/dL Magnesium (1.6-2.3) mg/dL AST (14-36) U/L ALT (4-34) U/L Alkaline Phosphatase (38-126) U/L Total Protein (6.3-8.2) g/dL Albumin (3.5-5.0) g/dL Urine Appearance (Clear) Urine Protein (Negative) Urine Ketones (Negative) Urine Blood (Negative) Ur Leukocyte Esterase (Negative) Urine RBC (0-5) /hpf Urine WBC (0-5) /hpf Urine WBC Clumps (None) /hpf Ur Squamous Epith Cells (0-4) /hpf Urine Bacteria (None) /hpf Hyaline Casts (0-2) /lpf Urine Mucus (None) /hpf Urine Yeast (Budding) (None) /hpf 11/10/19 Range/Units 10:07 WBC (3.8-10.6) k/uL RBC (3.80-5.40) m/uL Hgb (11.4-16.0) gm/dL Hct (34.0-46.0) % MCHC (31.0-37.0) g/dL RDW (11.5-15.5) % Plt Count (150-450) k/uL Neutrophils # (1.3-7.7) k/uL Lymphocytes # (1.0-4.8) k/uL Lymphocytes # (Manual) (1.0-4.8) k/uL Metamyelocytes # (Man) (0) k/uL PT (9.0-12.0) sec INR (<1.2) APTT (22.0-30.0) sec ABG pH 7.13 L* (7.35-7.45) ABG pO2 (83-108) mmHg ABG HCO3 13 L (21-25) mmol/L ABG Total CO2 15 L (19-24) mmol/L ABG Lactic Acid (0.5-1.6) mmol/L Sodium (137-145) mmol/L Chloride (98-107) mmol/L Carbon Dioxide (22-30) mmol/L BUN (7-17) mg/dL Creatinine (0.52-1.04) mg/dL Glucose (74-99) mg/dL POC Glucose (mg/dL) (75-99) mg/dL Plasma Lactic Acid Dieudonne (0.7-2.0) mmol/L Calcium (8.4-10.2) mg/dL Magnesium (1.6-2.3) mg/dL AST (14-36) U/L ALT (4-34) U/L Alkaline Phosphatase (38-126) U/L Total Protein (6.3-8.2) g/dL Albumin (3.5-5.0) g/dL Urine Appearance (Clear) Urine Protein (Negative) Urine Ketones (Negative) Urine Blood (Negative) Ur Leukocyte Esterase (Negative) Urine RBC (0-5) /hpf Urine WBC (0-5) /hpf Urine WBC Clumps (None) /hpf Ur Squamous Epith Cells (0-4) /hpf Urine Bacteria (None) /hpf Hyaline Casts (0-2) /lpf Urine Mucus (None) /hpf Urine Yeast (Budding) (None) /hpf Microbiology - Last 24 Hours (Table) 11/10/19 01:45 Urine Culture - Preliminary Urine,Voided 11/05/19 21:45 Blood Culture - Preliminary Blood No Growth after 96 hours Assessment and Plan Assessment: 1-patient with secondary peritonitis from perforated sigmoid diverticulitis that has failed medical therapy will need to cover for the enteric gram-negative both aerobic and anaerobes to be likely responsible for this episodes of secondary peritonitis (1) Perforation of sigmoid colon due to diverticulitis Current Visit: Yes Status: Acute Code(s): K57.20 - DVTRCLI OF LG INT W PERFORATION AND ABSCESS W/O BLEEDING SNOMED Code(s): 8536238524798168 Plan: 1-Zosyn 3.375 g every 8 hours 2-gentle IV fluid We will follow on clinical condition and cultures to further adjust medication if needed Thank you for this consultation will follow this patient with you Time with Patient: Greater than 30
[2019-11-11] MEDS: PROPOFOL 1,000 MG in EMPTY BAG 1 BAG IV SCH ×4 (01:27→22:27)
[2019-11-11] MEDS: IPRATROPIUM-ALBUTEROL 3 ML NEB INHALATION SCH ×6 (03:45→23:13)
[2019-11-11] MEDS: HYDROmorphone 0.5 MG/0.5 ML SYRINGE IVP PRN ×2 (04:29→22:35)
[2019-11-11] MEDS: PIPERACILLIN-TAZOBACTAM 3.375 GM in SODIUM CHLORIDE 0.9% 100 ML IVPB SCH ×2 (04:29→22:24)
[2019-11-11 04:37] LABS: Anisocytosis Slight; Basophils % (A) 0 %; Eosinophils # (A) 0.1 k/uL (0-0.7); Eosinophils % (A) 0 %; HCT 29.2 % (34.0-46.0); HGB 9.2 gm/dL (11.4-16.0); Hypochromasia Marked; Lymphocytes # (A) 0.9 k/uL (1.0-4.8); Lymphocytes % (A) 5 %; MCH 28.3 pg (25.0-35.0); MCHC 31.6 g/dL (31.0-37.0); MCV 89.7 fL (80.0-100.0); Mean Platelet Volume 8.2; Monocytes # (A) 0.4 k/uL (0-1.0); Monocytes % (A) 2 %; Neutrophils # (A) 15.8 k/uL (1.3-7.7); Neutrophils % (A) 91 %; Platelet Count 114 k/uL (150-450); RBC 3.25 m/uL (3.80-5.40); RDW 17.4 % (11.5-15.5); WBC 17.4 k/uL (3.8-10.6)
[2019-11-11 04:50] LABS: Magnesium 1.8 mg/dL (1.6-2.3); Potassium 4.3 mmol/L (3.5-5.1)
[2019-11-11 05:04] LABS: Calcium 5.9 mg/dL (8.4-10.2)
[2019-11-11] MEDS ORDERED: CALCIUM GLUCONATE 1 GM in SODIUM CHLORIDE 0.9% 100 ML IVPB ONE (05:26)
[2019-11-11] MEDS ORDERED: DILTIAZEM 125 MG in SODIUM CHLORIDE 0.9% 100 ML IV SCH (05:30)
[2019-11-11] MEDS: traMADol 50 MG TAB PO SCH ×3 (06:09→22:38)
[2019-11-11] MEDS ORDERED: DEXTROSE 5% IN WATER 100 ML with AMIODARONE 150 MG IV ONE (06:30)
[2019-11-11] MEDS: MAGNESIUM SULFATE-D5W PMX 1 GM in DEXTROSE/WATER 1 100ML.BAG IVPB SCH ×2 (06:30→07:37)
[2019-11-11] MEDS ORDERED: AMIODARONE 360 MG in DEXTROSE 5% IN WATER 200 ML IV ONE ×2 (06:45)
--- NOTE | 2019-11-11 06:46 | P.CRDCN ---
History of Present Illness Consult date: 11/11/19 Chief complaint: Abdominal discomfort History of present illness: This is a pleasant 69-year-old female patient with a past medical history signi ficant for paroxysmal atrial fibrillation on oral anticoagulation at home, chronic kidney disease, chronic bilateral lower extremities edema/lymphedema, as well as multiple comorbid conditions, who was a resident at [facility], was brought to the hospital for further evaluation off symptoms of nausea and vomiting and abdominal discomfort for the last few days. The symptoms got worse lately and because of that the patient was brought to the emergency room. She underwent a computed tomography scan in the ER and that revealed diverticulitis. Subsequently the patient underwent exploratory laparotomy and she underwent partial colectomy and colostomy and her incision is open at this point. Currently the patient is septic and she is hemodynamically unstable and requiring two vasopressors. Her lactic acid was elevated. We involved in the care of the patient for further evaluation of atrial fibrillation with RVR. The patient is known to have paroxysmal atrial fibrillation but she was maintaining normal sinus mechanism when she presented to the emergency room. During her hospital stay in the ICU, she has been in and out atrial fibrillation. Currently she is in A. fib/flutter with RVR. Subsequently she was started on Cardizem drip last night. Currently the patient is intubated and she is on mechanical ventilation. I am going to DC the Cardizem and drip and start the patient on amiodarone as well as abdomen, giving her low blood pressure. Continue holding any oral or IV anticoagulation at this point. I am going also to obtain an echocardiogram was Doppler to assess her left ventricular systolic function and also the intracardiac valves. We'll continue following up with the patient. Past Medical History Past Medical History: Atrial Fibrillation, Asthma, CVA/TIA, Hypertension Additional Past Medical History / Comment(s): diverticulitis, cellulitis History of Any Multi-Drug Resistant Organisms: None Reported Past Surgical History: Cholecystectomy, Orthopedic Surgery Past Anesthesia/Blood Transfusion Reactions: No Reported Reaction Past Psychological History: No Psychological Hx Reported Smoking Status: Never smoker Past Alcohol Use History: None Reported Past Drug Use History: None Reported - Past Family History Father Additional Family Medical History / Comment(s): Heart disease in the family including parents although the type is not clear Medications and Allergies Home Medications Medication Instructions Recorded Confirmed Type Montelukast [Singulair] 10 mg PO HS@2100 05/21/19 11/05/19 History Potassium Chloride 10 meq PO DAILY@0800 05/21/19 11/05/19 History Torsemide [Demadex] 20 mg PO MOTH@0800 05/21/19 11/05/19 History Acetaminophen [Tylenol 8 Hour] 650 mg PO Q6H PRN 10/24/19 11/05/19 History Dicyclomine [Bentyl] 10 mg PO BID PRN 10/24/19 11/05/19 History Ferrous Sulfate [Iron (65 MG 325 mg PO DAILY@169910/24/19 11/05/19 History Elemental)] Fluticasone Propion/Salmeterol 1 puff INHALATION RT-DAILY@169910/24/19 11/05/19 History [Wixela 500-50 Inhub] Lactobacillus Acidophilus 1 tab PO BID@0800,1700 10/24/19 11/05/19 History [Acidophilus] Omeprazole [PriLOSEC] 20 mg PO BID@0800,1700 10/24/19 11/05/19 History Bisacodyl [Dulcolax] 10 mg RECTAL DAILY PRN 11/05/19 11/05/19 History Heparin Sodium,Porcine [Heparin 5,000 unit SQ Q12H 11/05/19 11/05/19 History Sodium] Hydrophilic Cream [Triad Cream] 1 applic TOPICAL BID 11/05/19 11/05/19 History Lactose-Reduced Food [Ensure Plus] 120 ml PO BID@0800,1200 11/05/19 11/05/19 History Liquical 30 ml PO DAILY@17011/05/19 11/05/19 History Magnesium Hydroxide [Milk of 7,200 mg PO DAILY PRN 11/05/19 11/05/19 History Magnesia Concentrate] Metoprolol Tartrate [Lopressor] 12.5 mg PO TID@0600,1400,0 11/05/19 11/05/19 History Miconazole Nitrate [Desenex] 1 applic TOPICAL BID 11/05/19 11/05/19 History Na Phos,M-B/Na Phos,Di-Ba [Fleet 133 ml RECTAL ONCE PRN 11/05/19 11/05/19 History Adult] traMADol HCL [Ultram] 100 mg PO TID@0600,1400,0 11/05/19 11/05/19 History Allergies Allergy/AdvReac Type Severity Reaction Status Date / Time propoxyphene [From Darvon] Allergy Unknown Verified 11/05/19 21:24 Physical Exam Vitals: Vital Signs Temp Pulse Resp BP Pulse Ox 11/11/19 05:00 134 H 22 97 11/11/19 04:30 129 H 24 96 11/11/19 04:13 141 H 11/11/19 04:00 98.6 F 137 H 21 98 11/11/19 03:48 134 H 11/11/19 03:30 133 H 23 97 11/11/19 03:00 123 H 23 97 11/11/19 02:30 117 H 23 97 11/11/19 02:00 123 H 24 97 11/11/19 01:30 135 H 24 97 11/11/19 01:00 121 H 23 98 11/11/19 00:30 118 H 25 H 98 11/11/19 00:18 140 H 25 H 99 11/11/19 00:11 138 H 11/11/19 00:00 98.4 F 137 H 22 98 11/10/19 23:57 138 H 11/10/19 23:30 140 H 17 100 11/10/19 23:00 141 H 18 98 11/10/19 22:30 135 H 17 95 11/10/19 22:00 134 H 24 97 11/10/19 21:30 128 H 36 H 98 11/10/19 21:00 118 H 23 100 11/10/19 20:30 130 H 20 99 11/10/19 20:04 129 H 11/10/19 20:00 98.8 F 118 H 33 H 94 L 11/10/19 19:30 112 H 23 97 11/10/19 19:00 109 H 23 97 11/10/19 18:30 115 H 22 99 11/10/19 18:00 93 21 99 11/10/19 17:30 100 24 100 11/10/19 17:00 98.6 F 112 H 22 95/44 98 11/10/19 16:30 95 22 108/50 11/10/19 16:00 99 23 112/48 99 11/10/19 15:40 108 H 11/10/19 15:30 105 H 23 99 11/10/19 15:25 106 H 11/10/19 15:00 121 H 20 96 11/10/19 14:30 105 H 18 97 11/10/19 14:00 114 H 16 96 11/10/19 13:30 112 H 20 96 11/10/19 13:00 112 H 16 97 11/10/19 12:30 115 H 16 97 11/10/19 12:00 97.8 F 118 H 22 97 11/10/19 11:30 117 H 18 98 11/10/19 11:00 116 H 16 98 11/10/19 10:30 120 H 16 97 11/10/19 10:00 118 H 17 99 11/10/19 09:30 130 H 16 98 11/10/19 09:15 126 H 18 97/38 97 11/10/19 09:00 125 H 16 99/43 11/10/19 08:45 125 H 16 133/62 99 11/10/19 08:30 98.3 F 120 H 12 96 11/10/19 08:15 131 H 21 147/66 96 Intake and Output 11/10/19 11/10/19 11/11/19 14:59 22:59 06:59 Intake Total 3483.894 0001.250 1274.735 Output Total 145 15 Balance 3338.894 7323.903 0701.735 Intake: IV 2850 868 942 Dextrose 5% in Water 1, 600 800 700 000 ml @ 100 mls/hr IV . [id number] [facility] with Sodium Bicarb (1 Meq/ml) 150 ml Rx#:[id number] Piperacillin-Tazobactam 3 50 50 100 .375 gm In Sodium Chloride 0.9% 100 ml @ 25 mls/hr IVPB Q8H [facility] Rx#: [id number] Sodium Chloride 0.9% 1, 18 42 000 ml @ 0 mls/hr IV .STK -MED ONE Rx#:[id number] Sodium Chloride 0.9% 1, 2000 000 ml @ 999 mls/hr IV . Q1H1M ONE Rx#:[id number] metroNIDAZOLE-NS PMX 500 100 mg In Saline 1 100ml.bag @ 100 mls/hr IVPB Q8HR [facility] Rx#:[id number] Intake, IV Titration 633.894 435.198 257.735 Amount Magnesium Sulfate-D5w Pmx 200 1 gm In Dextrose/Water 1 100ml.bag @ 100 mls/hr IVPB Q1H [facility] Rx#: [id number] Norepinephrine 32 mg In 16.037 102.963 72.818 Sodium Chloride 0.9% 218 ml @ 0.05 MCG/KG/MIN 2. 966 mls/hr IV .Q24H [facility] Rx#:[id number] Norepinephrine 4 mg In 208.998 141.094 Sodium Chloride 0.9% 250 ml @ 0.05 MCG/KG/MIN 24. 108 mls/hr IV .[id number] [facility] Rx#:[id number] Propofol 1,000 mg In 8.859 91.141 184.917 Empty Bag 1 bag @ Titrate IV .Q0M [facility] Rx#: [id number] Sodium Chloride 0.9% 1, 100 000 ml @ 0 mls/hr IV .STK -MED ONE Rx#:[id number] metroNIDAZOLE-NS PMX 500 100 100 mg In Saline 1 100ml.bag @ 100 mls/hr IVPB Q8HR [facility] Rx#:[id number] Output: Urine 45 15 Estimated Blood Loss 100 Other: Voiding Method Indwelling Catheter Indwelling Catheter Indwelling Catheter Weight 153.3 kg ABP, PAP, CO, CI - Last 8 Hours Arterial Blood Pressure 125/46 Arterial Blood Pressure 148/47 Arterial Blood Pressure 131/48 Arterial Blood Pressure 133/44 Arterial Blood Pressure 124/44 Arterial Blood Pressure 122/42 Arterial Blood Pressure 114/42 Arterial Blood Pressure 110/42 Arterial Blood Pressure 120/41 Arterial Blood Pressure 113/41 Arterial Blood Pressure 106/41 Arterial Blood Pressure 109/42 Arterial Blood Pressure 120/44 Arterial Blood Pressure 122/45 - Constitutional General appearance: no acute distress - Respiratory Respiratory: bilateral: diminished - Cardiovascular Rhythm: regular Heart sounds: normal: S1, S2 Results 11/11/19 04:25 11/11/19 04:25 CBC 11/11/19 Range/Units 04:25 WBC 17.4 H (3.8-10.6) k/uL RBC 3.25 L (3.80-5.40) m/uL Hgb 9.2 L (11.4-16.0) gm/dL Hct 29.2 L (34.0-46.0) % Plt Count 114 L (150-450) k/uL Comprehensive Metabolic Panel 11/11/19 Range/Units 04:25 Sodium 133 L (137-145) mmol/L Potassium 4.3 (3.5-5.1) mmol/L Chloride 107 (98-107) mmol/L Carbon Dioxide 10 L (22-30) mmol/L BUN 22 H (7-17) mg/dL Creatinine 2.40 H (0.52-1.04) mg/dL Glucose 115 H (74-99) mg/dL Calcium 5.9 L* (8.4-10.2) mg/dL Current Medications Generic Name Dose Route Start Last Admin Trade Name Freq PRN Reason Stop Dose Admin Acetaminophen 650 mg 11/06/19 10:07 11/09/19 16:18 Tylenol Tab PO 650 mg Q6H PRN Administration Mild Pain Albuterol/Ipratropium 3 ml 11/10/19 16:00 11/11/19 03:45 Duoneb 0.5 Mg-3 Mg/3 Ml Soln INHALATION 3 ml RT-Q4H [facility] Administration Bisacodyl 10 mg 11/06/19 10:07 Dulcolax RECTAL DAILY PRN Constipation Chlorhexidine Gluconate 15 ml 11/10/19 21:00 11/10/19 22:20 Peridex MUCOUS MEM 15 ml BID [facility] Administration Dicyclomine HCl 10 mg 11/06/19 10:07 11/09/19 08:13 Bentyl PO 10 mg BID PRN Administration IBS Enoxaparin Sodium 30 mg 11/11/19 09:00 Lovenox SQ DAILY [facility] Ferrous Sulfate 325 mg 11/06/19 17:00 11/10/19 17:09 Feosol PO Not Given DAILY@1700 [facility] Hydromorphone HCl 0.5 mg 11/09/19 20:26 11/11/19 04:29 Dilaudid IVP 0.5 mg Q4HR PRN Administration Pain Scale 6 to 10 Piperacillin Sod/Tazobactam 100 mls @ 25 mls/hr 11/08/19 12:00 11/11/19 04:29 Sod 3.375 gm/ Sodium Chloride IVPB 25 mls/hr Q8H [facility] Administration Norepinephrine Bitartrate 4 mg 254 mls @ 24.108 mls/hr 11/10/19 03:30 11/10/19 20:15 / Sodium Chloride IV Infused .[id number] [facility] Titration Protocol 0.05 MCG/KG/MIN Epinephrine HCl 4 mg/ Dextrose 250 mls @ 4.746 mls/hr 11/10/19 04:30 11/10/19 08:38 /Water IV Not Given .Q24H [facility] Protocol 0.01 MCG/KG/MIN Sodium Bicarbonate 150 ml/ 1,150 mls @ 100 mls/hr 11/10/19 08:45 11/10/19 22:20 Dextrose/Water IV 100 mls/hr .[id number] [facility] Administration Metronidazole 500 mg/ IV 100 mls @ 100 mls/hr 11/10/19 08:45 11/10/19 23:50 Solution IVPB 100 mls/hr Q8HR [facility] Administration Propofol 1,000 mg/ IV Solution 100 mls @ 0 mls/hr 11/10/19 09:15 11/11/19 05:50 IV 25 mcg/kg/min .Q0M [facility] 18.983 mls/hr Administration Protocol Titrate Norepinephrine Bitartrate 32 250 mls @ 2.966 mls/hr 11/10/19 12:30 11/11/19 02:33 mg/ Sodium Chloride IV 0.33 mcg/kg/min .Q24H [facility] 19.576 mls/hr Administration Protocol 0.05 MCG/KG/MIN Vasopressin 20 unit/ Sodium 51 mls @ 4.59 mls/hr 11/10/19 14:30 11/10/19 22:32 Chloride IVPB 4.59 mls/hr .Q11H7M [facility] Administration 0.03 UNITS/MIN Diltiazem HCl 125 mg/ Sodium 125 mls @ 0 mls/hr 11/11/19 05:30 Chloride IV .Q0M [facility] Protocol Titrate Magnesium Sulfate/Dextrose 1 100 mls @ 100 mls/hr 11/11/19 05:45 11/11/19 06:30 gm/ IV Solution IVPB 11/11/19 07:44 100 mls/hr Q1H [facility] Administration Amiodarone HCl 360 mg/ 200 mls @ 33.333 mls/hr 11/11/19 06:45 Dextrose/Water IV 11/11/19 12:44 .Q6H ONE Protocol 1 MG/MIN Miscellaneous Information 1 each 11/10/19 10:40 Magnesium Per Protocol MISCELLANE DAILY PRN Per Protocol Protocol Montelukast Sodium 10 mg 11/06/19 21:00 11/10/19 22:17 Singulair PO Not Given HS@2100 [facility] Multi-Ingred Cream/Lotion/Oil/Oint 1 applic 11/06/19 21:00 11/10/19 22:20 Triad Cream TOPICAL 1 applic BID [facility] Administration Naloxone HCl 0.2 mg 11/10/19 01:33 Narcan IV Q2M PRN Opioid Reversal Nystatin 1 applic 11/06/19 21:00 11/10/19 22:20 Mycostatin Powder TOPICAL 1 applic BID [facility] Administration Pantoprazole Sodium 40 mg 11/10/19 09:00 11/10/19 08:50 Protonix IV 40 mg DAILY [facility] Administration Potassium Chloride 10 meq 11/07/19 08:00 11/10/19 09:29 K-Dur 10 PO Not Given DAILY@0800 [facility] Tramadol HCl 100 mg 11/06/19 14:00 11/11/19 06:09 Ultram PO Not Given TID@0600,1400,2200 [facility] Intake and Output 11/10/19 11/10/19 11/11/19 14:59 22:59 06:59 Intake Total 3483.894 3414.915 8251.735 Output Total 145 15 Balance 3338.894 0538.758 1729.735 Intake: IV 2850 868 942 Dextrose 5% in Water 1, 600 800 700 000 ml @ 100 mls/hr IV . [id number] [facility] with Sodium Bicarb (1 Meq/ml) 150 ml Rx#:[id number] Piperacillin-Tazobactam 3 50 50 100 .375 gm In Sodium Chloride 0.9% 100 ml @ 25 mls/hr IVPB Q8H [facility] Rx#: [id number] Sodium Chloride 0.9% 1, 18 42 000 ml @ 0 mls/hr IV .STK -MED ONE Rx#:[id number] Sodium Chloride 0.9% 1, 2000 000 ml @ 999 mls/hr IV . Q1H1M ONE Rx#:[id number] metroNIDAZOLE-NS PMX 500 100 mg In Saline 1 100ml.bag @ 100 mls/hr IVPB Q8HR [facility] Rx#:[id number] Intake, IV Titration 633.894 435.198 257.735 Amount Magnesium Sulfate-D5w Pmx 200 1 gm In Dextrose/Water 1 100ml.bag @ 100 mls/hr IVPB Q1H [facility] Rx#: [id number] Norepinephrine 32 mg In 16.037 102.963 72.818 Sodium Chloride 0.9% 218 ml @ 0.05 MCG/KG/MIN 2. 966 mls/hr IV .Q24H [facility] Rx#:[id number] Norepinephrine 4 mg In 208.998 141.094 Sodium Chloride 0.9% 250 ml @ 0.05 MCG/KG/MIN 24. 108 mls/hr IV .[id number] [facility] Rx#:[id number] Propofol 1,000 mg In 8.859 91.141 184.917 Empty Bag 1 bag @ Titrate IV .Q0M [facility] Rx#: [id number] Sodium Chloride 0.9% 1, 100 000 ml @ 0 mls/hr IV .STK -MED ONE Rx#:[id number] metroNIDAZOLE-NS PMX 500 100 100 mg In Saline 1 100ml.bag @ 100 mls/hr IVPB Q8HR [facility] Rx#:[id number] Output: Urine 45 15 Estimated Blood Loss 100 Other: Voiding Method Indwelling Catheter Indwelling Catheter Indwelling Catheter Weight 153.3 kg Patient Weight 11/11/19 06:59 Weight 153.3 kg 11/11/19 04:25 11/11/19 04:25 Assessment and Plan Assessment: Assessment #1 abdominal discomfort secondary to perforated diverticulosis #2 sepsis secondary to the above #3 atrial fibrillation/flutter with RVR #4 known paroxysmal atrial fibrillation #5 chronic lower extremities lymphedema #6 chronic kidney disease Plan #1 DC Cardizem and start the patient on amiodarone #2 continue holding any oral or IV anticoagulation #3 obtain an echocardiogram was Doppler #4 follow-up with the patient Thank you for allowing us participate in her care we'll continue following up with her
[2019-11-11 07:06] LABS: ABG Base Excess -17.3 mmol/L; ABG HCO3 11 mmol/L (21-25); ABG Oxygen Saturation 94.3 % (94-97); ABG PCO2 29 mmHg (35-45); ABG PO2 83 mmHg (83-108); ABG TCO2 12 mmol/L (19-24)
[2019-11-11 07:09] LABS: ABG PH 7.18 (7.35-7.45)
[2019-11-11 07:14] LABS: ABG PH 7.02 (7.35-7.45)
[2019-11-11] MEDS: EPINEPHrine 4 MG in DEXTROSE 5% IN WATER 250 ML IV SCH ×2 (09:42)
[2019-11-11] MEDS: NOREPINEPHRINE 4 MG in SODIUM CHLORIDE 0.9% 250 ML IV SCH ×3 (09:42→23:58)
[2019-11-11] MEDS: metroNIDAZOLE-NS PMX 500 MG in SALINE 1 100ML.BAG IVPB SCH ×2 (09:43→19:40)
[2019-11-11] MEDS: DEXTROSE 5% IN WATER 1,000 ML with SODIUM BICARB (1 MEQ/ML) 150 ML IV SCH ×2 (09:46→22:21)
[2019-11-11] MEDS: CHLORHEXIDINE GLUCONATE 15 ML CUP MUCOUS MEM SCH ×2 (09:47→22:24)
[2019-11-11] MEDS: PANTOPRAZOLE 40 MG/10 ML VIAL IV SCH (09:47)
[2019-11-11] MEDS: ENOXAPARIN 30 MG/0.3 ML SYRINGE SQ SCH (09:47)
--- NOTE | 2019-11-11 09:56 | XR ---
EXAMINATION TYPE: XR chest 1V portable DATE OF EXAM: 11/11/2019 COMPARISON: 11/10/2019 HISTORY: Ventilatory dependent respiratory failure TECHNIQUE: Single frontal view of the chest is obtained. FINDINGS: Endotracheal tube terminates proximally 4 cm from the kitty. Stable placement of the ente moe tube. Right-sided central venous catheter has been advanced in the interim now terminating in the atrium. This could be retracted 4.5 cm for optimal placement. New left basilar consolidation is seen . Haziness along the right lower lung also is stable. IMPRESSION: 1. Right internal jugular approach central venous catheter has been advanced in the interim and could be retracted proximally 4.5 cm for optimal placement. 2. New developing left basilar consolidation that could relate to atelectasis or pneumonia. New right lower lung haziness likely represents atelectasis.
[2019-11-11] MEDS ORDERED: SODIUM BICARB 8.4% 50 ML SYR (1 MEQ/ML) IV STA (09:57)
--- NOTE | 2019-11-11 11:04 | P.PN ---
<Gissell Sarmiento Michell - Last Filed: 11/11/19 10:57> Subjective Progress Note Date: 11/11/19 CHIEF COMPLAINT: Diverticulitis HISTORY OF PRESENT ILLNESS: Patient is status post left colectomy with mobilization of splenic flexure, partial omentectomy, and colostomy creation. POD #1. Patient remains on mechanical ventilation in the ICU. She is sedated. Family is at the bedside. She remains critically ill. Patient remains on vasopressor support. WBC 17.4. Hemoglobin 9.2. Lactic acid 11.5. Creatinine 2.40. PHYSICAL EXAM: VITAL SIGNS: Reviewed. GENERAL: Well-developed in no acute distress-sedated on mechanical ventilation. HEENT: ET tube noted. OG to LIS with bilious drainage. No sclera icterus. Extraocular movements grossly intact. Moist buccal mucosa. Head is atraumatic, normocephalic. ABDOMEN: Soft. Nondistended. Nontender. Abdominal wound with kerlix packing noted. Serosanguineous drainage. Colostomy noted without stool output. NEUROLOGIC: Sedated on mechanical ventilation ASSESSMENT: 1. Diverticulitis with suspected contained perforation PLAN: -Continue ICU/ventilator management per Dr. Escalante -Wean vasopressors as tolerated -TPN ordered per executive asst -Continue daily dressing changes with Kerlix packing Nurse practitioner note has been reviewed by physician. Signing provider agrees with the documented findings, assessment, and plan of care. Objective - Vital Signs Vital signs: Vital Signs Temp 98.6 F 11/11/19 04:00 Pulse 115 H 11/11/19 10:30 Resp 21 11/11/19 10:30 BP 93/58 11/11/19 09:15 Pulse Ox 98 11/11/19 10:30 Intake & Output 11/10/19 11/11/19 11/11/19 18:59 06:59 18:59 Intake Total 4173.847 2118.980 863.184 Output Total 155 5 110 Balance 4018.847 2113.980 753.184 Weight 153.3 kg 153.3 kg Intake: IV 3300 1666 659 Calcium Gluconate 1 gm In 100 Sodium Chloride 0.9% 100 ml @ 100 mls/hr IVPB ONCE ONE Rx#:[id number] Dextrose 5% in Water 1, 1000 1200 400 000 ml @ 125 mls/hr IV . Q9H12M [facility] with Sodium Bicarb (1 Meq/ml) 150 ml Rx#:[id number] Magnesium Sulfate-D5w Pmx 100 100 1 gm In Dextrose/Water 1 100ml.bag @ 100 mls/hr IVPB Q1H [facility] Rx#: [id number] Piperacillin-Tazobactam 3 100 100 .375 gm In Sodium Chloride 0.9% 100 ml @ 25 mls/hr IVPB Q8H [facility] Rx#: [id number] Pressure Bags 18 Sodium Chloride 0.9% 1, 66 141 000 ml @ 0 mls/hr IV .STK -MED ONE Rx#:[id number] Sodium Chloride 0.9% 1, 2000 000 ml @ 999 mls/hr IV . Q1H1M [facility] Rx#:[id number] metroNIDAZOLE-NS PMX 500 100 mg In Saline 1 100ml.bag @ 100 mls/hr IVPB Q8HR [facility] Rx#:[id number] Intake, IV Titration 873.847 452.980 204.184 Amount Magnesium Sulfate-D5w Pmx 200 1 gm In Dextrose/Water 1 100ml.bag @ 100 mls/hr IVPB Q1H [facility] Rx#: [id number] Norepinephrine 32 mg In 64.849 126.969 123.823 Sodium Chloride 0.9% 218 ml @ 0.05 MCG/KG/MIN 2. 966 mls/hr IV .Q24H [facility] Rx#:[id number] Norepinephrine 4 mg In 208.998 141.094 Sodium Chloride 0.9% 250 ml @ 0.05 MCG/KG/MIN 24. 108 mls/hr IV .[id number] [facility] Rx#:[id number] Propofol 1,000 mg In 100.000 184.917 80.361 Empty Bag 1 bag @ Titrate IV .Q0M [facility] Rx#: [id number] Sodium Chloride 0.9% 1, 100 000 ml @ 0 mls/hr IV .STK -MED ONE Rx#:[id number] metroNIDAZOLE-NS PMX 500 200 mg In Saline 1 100ml.bag @ 100 mls/hr IVPB Q8HR [facility] Rx#:[id number] Output: Gastric Drainage 100 Urine 55 5 10 Estimated Blood Loss 100 Other: Voiding Method Indwelling Catheter Indwelling Catheter ABP, PAP, CO, CI - Last Documented Arterial Blood Pressure 116/38 - Labs CBC & Chem 7: 11/11/19 04:25 11/11/19 04:25 Labs: Abnormal Lab Results - Last 24 Hours (Table) 11/10/19 11/10/19 11/10/19 Range/Units 08:20 13:02 13:57 WBC (3.8-10.6) k/uL RBC (3.80-5.40) m/uL Hgb (11.4-16.0) gm/dL Hct (34.0-46.0) % RDW (11.5-15.5) % Plt Count (150-450) k/uL Neutrophils # (1.3-7.7) k/uL Lymphocytes # (1.0-4.8) k/uL ABG pH 7.02 L* 7.16 L* (7.35-7.45) ABG pCO2 (35-45) mmHg ABG pO2 76 L (83-108) mmHg ABG HCO3 14 L (21-25) mmol/L ABG Total CO2 15 L (19-24) mmol/L ABG O2 Saturation 92.4 L (94-97) % Sodium (137-145) mmol/L Carbon Dioxide (22-30) mmol/L BUN (7-17) mg/dL Creatinine (0.52-1.04) mg/dL Glucose (74-99) mg/dL POC Glucose (mg/dL) 103 H (75-99) mg/dL Plasma Lactic Acid Dieudonne (0.7-2.0) mmol/L Calcium (8.4-10.2) mg/dL 11/10/19 11/10/19 11/10/19 Range/Units 16:45 16:45 19:52 WBC (3.8-10.6) k/uL RBC (3.80-5.40) m/uL Hgb (11.4-16.0) gm/dL Hct (34.0-46.0) % RDW (11.5-15.5) % Plt Count (150-450) k/uL Neutrophils # (1.3-7.7) k/uL Lymphocytes # (1.0-4.8) k/uL ABG pH 7.27 L (7.35-7.45) ABG pCO2 29 L (35-45) mmHg ABG pO2 (83-108) mmHg ABG HCO3 13 L (21-25) mmol/L ABG Total CO2 14 L (19-24) mmol/L ABG O2 Saturation (94-97) % Sodium (137-145) mmol/L Carbon Dioxide (22-30) mmol/L BUN (7-17) mg/dL Creatinine (0.52-1.04) mg/dL Glucose (74-99) mg/dL POC Glucose (mg/dL) 120 H (75-99) mg/dL Plasma Lactic Acid Dieudonne 7.5 H* (0.7-2.0) mmol/L Calcium (8.4-10.2) mg/dL 11/10/19 11/11/19 11/11/19 Range/Units 20:30 04:25 04:25 WBC 17.4 H (3.8-10.6) k/uL RBC 3.25 L (3.80-5.40) m/uL Hgb 9.2 L (11.4-16.0) gm/dL Hct 29.2 L (34.0-46.0) % RDW 17.4 H (11.5-15.5) % Plt Count 114 L (150-450) k/uL Neutrophils # 15.8 H (1.3-7.7) k/uL Lymphocytes # 0.9 L (1.0-4.8) k/uL ABG pH (7.35-7.45) ABG pCO2 (35-45) mmHg ABG pO2 (83-108) mmHg ABG HCO3 (21-25) mmol/L ABG Total CO2 (19-24) mmol/L ABG O2 Saturation (94-97) % Sodium 133 L (137-145) mmol/L Carbon Dioxide 10 L (22-30) mmol/L BUN 22 H (7-17) mg/dL Creatinine 2.40 H (0.52-1.04) mg/dL Glucose 115 H (74-99) mg/dL POC Glucose (mg/dL) (75-99) mg/dL Plasma Lactic Acid Dieudonne 9.0 H* (0.7-2.0) mmol/L Calcium 5.9 L* (8.4-10.2) mg/dL 11/11/19 11/11/19 Range/Units 04:25 07:00 WBC (3.8-10.6) k/uL RBC (3.80-5.40) m/uL Hgb (11.4-16.0) gm/dL Hct (34.0-46.0) % RDW (11.5-15.5) % Plt Count (150-450) k/uL Neutrophils # (1.3-7.7) k/uL Lymphocytes # (1.0-4.8) k/uL ABG pH 7.18 L* (7.35-7.45) ABG pCO2 29 L (35-45) mmHg ABG pO2 (83-108) mmHg ABG HCO3 11 L (21-25) mmol/L ABG Total CO2 12 L (19-24) mmol/L ABG O2 Saturation (94-97) % Sodium (137-145) mmol/L Carbon Dioxide (22-30) mmol/L BUN (7-17) mg/dL Creatinine (0.52-1.04) mg/dL Glucose (74-99) mg/dL POC Glucose (mg/dL) (75-99) mg/dL Plasma Lactic Acid Dieudonne 11.5 H* (0.7-2.0) mmol/L Calcium (8.4-10.2) mg/dL Microbiology - Last 24 Hours (Table) 11/10/19 02:27 Blood Culture Gram Stain - Preliminary Blood Blood Culture - Preliminary Pseudomonas aeruginosa 11/10/19 02:07 Blood Culture Gram Stain - Preliminary Blood Blood Culture - Preliminary Coagulase Negative Staph 11/05/19 21:45 Blood Culture - Preliminary Blood No Growth after 120 hours 11/10/19 02:07 Blood Culture - Final Blood 11/10/19 02:27 Blood Culture - Final Blood 11/10/19 01:45 Urine Culture - Preliminary Urine,Voided <Demetri Davidson - Last Filed: 11/11/19 17:17> Subjective As above. Patient remains critically ill. Lactic acid actually higher. Just started hemodialysis this afternoon. Remains on pressors although improved. Ostomy thankfully pain. Continue supportive care. Continue antibiotics. Will follow. Objective - Vital Signs Vital signs: Vital Signs Temp 98.5 F 11/11/19 12:00 Pulse 92 11/11/19 15:55 Resp 26 H 11/11/19 14:15 BP 93/58 11/11/19 09:15 Pulse Ox 98 11/11/19 14:15 Intake & Output 11/10/19 11/11/19 11/11/19 18:59 06:59 18:59 Intake Total 4173.847 2118.980 1547.285 Output Total 155 5 110 Balance 4018.847 2113.980 1437.285 Weight 153.3 kg 153.3 kg Intake: IV 3300 1666 1202 Calcium Gluconate 1 gm In 100 Sodium Chloride 0.9% 100 ml @ 100 mls/hr IVPB ONCE ONE Rx#:[id number] Dextrose 5% in Water 1, 1000 1200 850 000 ml @ 150 mls/hr IV . Q7H40M [facility] with Sodium Bicarb (1 Meq/ml) 150 ml Rx#:[id number] Magnesium Sulfate-D5w Pmx 100 100 1 gm In Dextrose/Water 1 100ml.bag @ 100 mls/hr IVPB Q1H [facility] Rx#: [id number] Piperacillin-Tazobactam 3 100 100 .375 gm In Sodium Chloride 0.9% 100 ml @ 25 mls/hr IVPB Q8H [facility] Rx#: [id number] Pressure Bags 36 Sodium Chloride 0.9% 1, 66 216 000 ml @ 0 mls/hr IV .STK -MED ONE Rx#:[id number] Sodium Chloride 0.9% 1, 2000 000 ml @ 999 mls/hr IV . Q1H1M [facility] Rx#:[id number] metroNIDAZOLE-NS PMX 500 100 mg In Saline 1 100ml.bag @ 100 mls/hr IVPB Q8HR [facility] Rx#:[id number] Intake, IV Titration 873.847 452.980 345.285 Amount Magnesium Sulfate-D5w Pmx 200 1 gm In Dextrose/Water 1 100ml.bag @ 100 mls/hr IVPB Q1H [facility] Rx#: [id number] Norepinephrine 32 mg In 64.849 126.969 185.191 Sodium Chloride 0.9% 218 ml @ 0.05 MCG/KG/MIN 2. 966 mls/hr IV .Q24H [facility] Rx#:[id number] Norepinephrine 4 mg In 208.998 141.094 Sodium Chloride 0.9% 250 ml @ 0.05 MCG/KG/MIN 24. 108 mls/hr IV .[id number] [facility] Rx#:[id number] Propofol 1,000 mg In 100.000 184.917 160.094 Empty Bag 1 bag @ Titrate IV .Q0M [facility] Rx#: [id number] Sodium Chloride 0.9% 1, 100 000 ml @ 0 mls/hr IV .STK -MED ONE Rx#:[id number] metroNIDAZOLE-NS PMX 500 200 mg In Saline 1 100ml.bag @ 100 mls/hr IVPB Q8HR [facility] Rx#:[id number] Output: Gastric Drainage 100 Urine 55 5 10 Estimated Blood Loss 100 Other: Voiding Method Indwelling Catheter Indwelling Catheter ABP, PAP, CO, CI - Last Documented Arterial Blood Pressure 111/39 - Labs CBC & Chem 7: 11/11/19 04:25 11/11/19 04:25 Labs: Abnormal Lab Results - Last 24 Hours (Table) 11/10/19 11/10/19 11/10/19 Range/Units 08:20 16:45 19:52 WBC (3.8-10.6) k/uL RBC (3.80-5.40) m/uL Hgb (11.4-16.0) gm/dL Hct (34.0-46.0) % RDW (11.5-15.5) % Plt Count (150-450) k/uL Neutrophils # (1.3-7.7) k/uL Lymphocytes # (1.0-4.8) k/uL PT (9.0-12.0) sec INR (<1.2) ABG pH 7.02 L* 7.27 L (7.35-7.45) ABG pCO2 29 L (35-45) mmHg ABG HCO3 13 L (21-25) mmol/L ABG Total CO2 14 L (19-24) mmol/L Sodium (137-145) mmol/L Carbon Dioxide (22-30) mmol/L BUN (7-17) mg/dL Creatinine (0.52-1.04) mg/dL Glucose (74-99) mg/dL POC Glucose (mg/dL) (75-99) mg/dL Plasma Lactic Acid Dieudonne 7.5 H* (0.7-2.0) mmol/L Calcium (8.4-10.2) mg/dL Ionized Calcium Erin (4.5-5.3) mg/dL Phosphorus (2.5-4.5) mg/dL Albumin (3.5-5.0) g/dL 11/10/19 11/11/19 11/11/19 Range/Units 20:30 04:25 04:25 WBC 17.4 H (3.8-10.6) k/uL RBC 3.25 L (3.80-5.40) m/uL Hgb 9.2 L (11.4-16.0) gm/dL Hct 29.2 L (34.0-46.0) % RDW 17.4 H (11.5-15.5) % Plt Count 114 L (150-450) k/uL Neutrophils # 15.8 H (1.3-7.7) k/uL Lymphocytes # 0.9 L (1.0-4.8) k/uL PT (9.0-12.0) sec INR (<1.2) ABG pH (7.35-7.45) ABG pCO2 (35-45) mmHg ABG HCO3 (21-25) mmol/L ABG Total CO2 (19-24) mmol/L Sodium 133 L (137-145) mmol/L Carbon Dioxide 10 L (22-30) mmol/L BUN 22 H (7-17) mg/dL Creatinine 2.40 H (0.52-1.04) mg/dL Glucose 115 H (74-99) mg/dL POC Glucose (mg/dL) (75-99) mg/dL Plasma Lactic Acid Dieudonne 9.0 H* (0.7-2.0) mmol/L Calcium 5.9 L* (8.4-10.2) mg/dL Ionized Calcium Erin (4.5-5.3) mg/dL Phosphorus (2.5-4.5) mg/dL Albumin (3.5-5.0) g/dL 11/11/19 11/11/19 11/11/19 Range/Units 04:25 07:00 11:15 WBC (3.8-10.6) k/uL RBC (3.80-5.40) m/uL Hgb (11.4-16.0) gm/dL Hct (34.0-46.0) % RDW (11.5-15.5) % Plt Count (150-450) k/uL Neutrophils # (1.3-7.7) k/uL Lymphocytes # (1.0-4.8) k/uL PT 14.7 H (9.0-12.0) sec INR 1.5 H (<1.2) ABG pH 7.18 L* (7.35-7.45) ABG pCO2 29 L (35-45) mmHg ABG HCO3 11 L (21-25) mmol/L ABG Total CO2 12 L (19-24) mmol/L Sodium (137-145) mmol/L Carbon Dioxide (22-30) mmol/L BUN (7-17) mg/dL Creatinine (0.52-1.04) mg/dL Glucose (74-99) mg/dL POC Glucose (mg/dL) (75-99) mg/dL Plasma Lactic Acid Dieudonne 11.5 H* (0.7-2.0) mmol/L Calcium (8.4-10.2) mg/dL Ionized Calcium Erin (4.5-5.3) mg/dL Phosphorus (2.5-4.5) mg/dL Albumin (3.5-5.0) g/dL 11/11/19 11/11/19 Range/Units 11:19 11:58 WBC (3.8-10.6) k/uL RBC (3.80-5.40) m/uL Hgb (11.4-16.0) gm/dL Hct (34.0-46.0) % RDW (11.5-15.5) % Plt Count (150-450) k/uL Neutrophils # (1.3-7.7) k/uL Lymphocytes # (1.0-4.8) k/uL PT (9.0-12.0) sec INR (<1.2) ABG pH (7.35-7.45) ABG pCO2 (35-45) mmHg ABG HCO3 (21-25) mmol/L ABG Total CO2 (19-24) mmol/L Sodium (137-145) mmol/L Carbon Dioxide (22-30) mmol/L BUN (7-17) mg/dL Creatinine (0.52-1.04) mg/dL Glucose (74-99) mg/dL POC Glucose (mg/dL) 148 H (75-99) mg/dL Plasma Lactic Acid Dieudonne (0.7-2.0) mmol/L Calcium (8.4-10.2) mg/dL Ionized Calcium Erin 3.7 L (4.5-5.3) mg/dL Phosphorus 5.3 H (2.5-4.5) mg/dL Albumin 1.3 L (3.5-5.0) g/dL Microbiology - Last 24 Hours (Table) 11/10/19 01:45 Urine Culture - Final Urine,Voided Arleen albicans 11/10/19 02:27 Blood Culture Gram Stain - Preliminary Blood Blood Culture - Preliminary Pseudomonas aeruginosa 11/10/19 02:07 Blood Culture Gram Stain - Preliminary Blood Blood Culture - Preliminary Coagulase Negative Staph 11/05/19 21:45 Blood Culture - Preliminary Blood No Growth after 120 hours 11/10/19 02:07 Blood Culture - Final Blood 11/10/19 02:27 Blood Culture - Final Blood Assessment and Plan (1) Diverticulitis Current Visit: Yes Status: Acute Code(s): K57.92 - DVTRCLI OF INTEST, PART UNSP, W/O PERF OR ABSCESS W/O BLEED SNOMED Code(s): 203245662
[2019-11-11 11:21] LABS: Glucose,Whole Blood 148 mg/dL (75-99)
[2019-11-11] MEDS: POTASSIUM CHLORIDE ER 10 MEQ TAB.ER.PRT PO SCH (11:23)
[2019-11-11] MEDS: NYSTATIN 100,000 UNIT/GM POWD 15 GM TOPICAL SCH ×2 (11:24→22:24)
[2019-11-11] MEDS: HYDROPHILIC CREAM 180 GM TUBE TOPICAL SCH ×2 (11:24→22:24)
--- NOTE | 2019-11-11 11:28 | P.PN ---
Subjective Progress Note Date: 11/11/19 Principal diagnosis: Abdominal sepsis, septic shock, acute hypoxic respiratory failure This is a 69-year-old female with history of multiple medical problems including asthma, paroxysmal atrial fibrillation, hypertension, chronic kidney disease stage IV, chronic lymphedema, patient was admitted on 11/05/2019, patient was brought in from [facility] and she was in rehab facility. And she was complaining of a chronic lower abdominal pain for quite some time. Patient has been seen previously in our infusion at least 3 times and she was also seen at [facility] 2 times recently for lower abdominal pain, and she was diagnosed as having diverticulitis, and the decision was to treat the patient conservatively and medically. Patient had a CT of the abdomen and pelvis upon evaluation in the ER on the , and she was found to have sigmoid diverticulitis. Admitted, started on antibiotics, however her pain increased, and the patient was showing more clinical signs of sepsis. Patient was seen by many consultants including gastroenterology, gynecology, and she was seen by Dr. leblanc on 11/10, and he felt that her diverticulitis is progressing to sepsis with portal vein gas despite antibiotic therapy. Patient underwent exploratory laparotomy early this morning, patient ended up with left colectomy with mobilization of splenic flexure partial omentectomy and colostomy. Patient was found to have significantly thickened sigmoid colon, there was evidence of perforation of the colon with a small amount of stool. It was felt that the patient may have had a perforation at that area. Patient was eventually sent back to the intensive care unit, on mechanical ventilation early this morning around 8 AM. And her ventilator settings are assist control rate of 16 tidal volume of 500 FiO2 of 100% and PEEP of 5. Patient was noted to be quite acidotic, lactic acid was elevated, she was on norepinephrine at 0.05 mcg/kg/m, she was also placed on bicarb after few amps of sodium bicarb were given, patient was also placed on propofol. And more fluid boluses were given in the ICU. CVP was noted to be around 10. Family was at bedside, and I discussed her condition with the family at bedside. Repeat ABG showed a pO2 of 104 pCO2 of 40 pH of 7.13, more sodium bicarb was given. Patient is also on antibiotics in the form of Flagyl and Zosyn Patient was reevaluated today on 11/11/19, patient remains in the ICU, remains intubated and mechanically ventilated. Her ventilator settings were adjusted today, she is now on tidal volume of 450 assist-control rate of 24 FiO2 is 50% and PEEP has been increased to 10. Earlier ABG this morning showed pH of 7.18 pO2 of 83 pCO2 of 29. Patient did receive more bicarb this morning, and her bicarb drip was increased to 1 25 mL per hour. Patient remains oliguric, and her renal functioning is getting worse. Nephrology is to evaluate the patient, and most likely the patient will need to be on hemodialysis. Her CBC showed WBC count of 17.4 hemoglobin is 9.2. Electrolytes are normal. Bicarb is low at 10. BUN is 22 creatinine 2.40. Lactic acid remains high between 9 and 11.5 in the last 24 hours. Patient received significant amount of fluids about 8 L in the last 24 hours at least. Chest x-ray is showing bilateral interstitial edema consistent with noncardiogenic or cardiogenic pulmonary edema. Patient dev eloped atrial fibrillation with RVR, and she had to be placed on amiodarone as per cardiology. Hemodynamics anderson remains hypotensive requiring norepinephrine at 0.27 mcg/kg/m, she is on vasopressin 0.03 units, propofol at 25 mcg/kg/m, she is also on sodium bicarb drip. Today I will start TPN on this patient. Objective - Vital Signs Vital signs: Vital Signs Temp 98.6 F 11/11/19 04:00 Pulse 115 H 11/11/19 10:30 Resp 21 11/11/19 10:30 BP 93/58 11/11/19 09:15 Pulse Ox 98 11/11/19 10:30 Intake & Output 11/10/19 11/11/19 11/11/19 18:59 06:59 18:59 Intake Total 4173.847 2118.980 863.184 Output Total 155 5 110 Balance 4018.847 2113.980 753.184 Weight 153.3 kg 153.3 kg Intake: IV 3300 1666 659 Calcium Gluconate 1 gm In 100 Sodium Chloride 0.9% 100 ml @ 100 mls/hr IVPB ONCE ONE Rx#:[id number] Dextrose 5% in Water 1, 1000 1200 400 000 ml @ 125 mls/hr IV . Q9H12M [facility] with Sodium Bicarb (1 Meq/ml) 150 ml Rx#:[id number] Magnesium Sulfate-D5w Pmx 100 100 1 gm In Dextrose/Water 1 100ml.bag @ 100 mls/hr IVPB Q1H [facility] Rx#: [id number] Piperacillin-Tazobactam 3 100 100 .375 gm In Sodium Chloride 0.9% 100 ml @ 25 mls/hr IVPB Q8H [facility] Rx#: [id number] Pressure Bags 18 Sodium Chloride 0.9% 1, 66 141 000 ml @ 0 mls/hr IV .STK -MED ONE Rx#:[id number] Sodium Chloride 0.9% 1, 2000 000 ml @ 999 mls/hr IV . Q1H1M [facility] Rx#:[id number] metroNIDAZOLE-NS PMX 500 100 mg In Saline 1 100ml.bag @ 100 mls/hr IVPB Q8HR [facility] Rx#:[id number] Intake, IV Titration 873.847 452.980 204.184 Amount Magnesium Sulfate-D5w Pmx 200 1 gm In Dextrose/Water 1 100ml.bag @ 100 mls/hr IVPB Q1H [facility] Rx#: [id number] Norepinephrine 32 mg In 64.849 126.969 123.823 Sodium Chloride 0.9% 218 ml @ 0.05 MCG/KG/MIN 2. 966 mls/hr IV .Q24H [facility] Rx#:[id number] Norepinephrine 4 mg In 208.998 141.094 Sodium Chloride 0.9% 250 ml @ 0.05 MCG/KG/MIN 24. 108 mls/hr IV .[id number] [facility] Rx#:[id number] Propofol 1,000 mg In 100.000 184.917 80.361 Empty Bag 1 bag @ Titrate IV .Q0M [facility] Rx#: [id number] Sodium Chloride 0.9% 1, 100 000 ml @ 0 mls/hr IV .STK -MED ONE Rx#:[id number] metroNIDAZOLE-NS PMX 500 200 mg In Saline 1 100ml.bag @ 100 mls/hr IVPB Q8HR [facility] Rx#:[id number] Output: Gastric Drainage 100 Urine 55 5 10 Estimated Blood Loss 100 Other: Voiding Method Indwelling Catheter Indwelling Catheter ABP, PAP, CO, CI - Last Documented Arterial Blood Pressure 116/38 - Exam Physical Exam: Revealed a 69-year-old female on mechanical ventilation. Head: Atraumatic, normocephalic. HEENT:[Neck is supple.] [No neck masses.] [No thyromegaly.] [No JVD.] PERRLA, EOMI, no icterus, endotracheal tube and orogastric tube are intact. Right IJ central line is intact. Chest: [Diminished breath sound bilaterally symmetrical expansion, minimal fine crackles at the bases no rhonchi and no wheezes. Cardiac Exam: [Irregular irregular, Tachycardic, Normal S1 and S2, no S3 gallop, 2/6 systolic murmur thought the precordium. Abdomen: [Postsurgical, soft, nontender, colostomy is intact. Not functionally yet. Extremities: [No clubbing, 3+ bipedal lymphedema noted., no cyanosis.] Neurological Exam: Sedated, opens eyes, to painful stimuli. but no adequate r esponses, presently on propofol. Psychiatric: Could not be assessed. Lymphatics: No lymphadenopathy. - Labs CBC & Chem 7: 11/11/19 04:25 11/11/19 04:25 Labs: Abnormal Lab Results - Last 24 Hours (Table) 11/10/19 11/10/19 11/10/19 Range/Units 08:20 13:02 13:57 WBC (3.8-10.6) k/uL RBC (3.80-5.40) m/uL Hgb (11.4-16.0) gm/dL Hct (34.0-46.0) % RDW (11.5-15.5) % Plt Count (150-450) k/uL Neutrophils # (1.3-7.7) k/uL Lymphocytes # (1.0-4.8) k/uL ABG pH 7.02 L* 7.16 L* (7.35-7.45) ABG pCO2 (35-45) mmHg ABG pO2 76 L (83-108) mmHg ABG HCO3 14 L (21-25) mmol/L ABG Total CO2 15 L (19-24) mmol/L ABG O2 Saturation 92.4 L (94-97) % Sodium (137-145) mmol/L Carbon Dioxide (22-30) mmol/L BUN (7-17) mg/dL Creatinine (0.52-1.04) mg/dL Glucose (74-99) mg/dL POC Glucose (mg/dL) 103 H (75-99) mg/dL Plasma Lactic Acid Dieudonne (0.7-2.0) mmol/L Calcium (8.4-10.2) mg/dL 11/10/19 11/10/19 11/10/19 Range/Units 16:45 16:45 19:52 WBC (3.8-10.6) k/uL RBC (3.80-5.40) m/uL Hgb (11.4-16.0) gm/dL Hct (34.0-46.0) % RDW (11.5-15.5) % Plt Count (150-450) k/uL Neutrophils # (1.3-7.7) k/uL Lymphocytes # (1.0-4.8) k/uL ABG pH 7.27 L (7.35-7.45) ABG pCO2 29 L (35-45) mmHg ABG pO2 (83-108) mmHg ABG HCO3 13 L (21-25) mmol/L ABG Total CO2 14 L (19-24) mmol/L ABG O2 Saturation (94-97) % Sodium (137-145) mmol/L Carbon Dioxide (22-30) mmol/L BUN (7-17) mg/dL Creatinine (0.52-1.04) mg/dL Glucose (74-99) mg/dL POC Glucose (mg/dL) 120 H (75-99) mg/dL Plasma Lactic Acid Dieudonne 7.5 H* (0.7-2.0) mmol/L Calcium (8.4-10.2) mg/dL 11/10/19 11/11/19 11/11/19 Range/Units 20:30 04:25 04:25 WBC 17.4 H (3.8-10.6) k/uL RBC 3.25 L (3.80-5.40) m/uL Hgb 9.2 L (11.4-16.0) gm/dL Hct 29.2 L (34.0-46.0) % RDW 17.4 H (11.5-15.5) % Plt Count 114 L (150-450) k/uL Neutrophils # 15.8 H (1.3-7.7) k/uL Lymphocytes # 0.9 L (1.0-4.8) k/uL ABG pH (7.35-7.45) ABG pCO2 (35-45) mmHg ABG pO2 (83-108) mmHg ABG HCO3 (21-25) mmol/L ABG Total CO2 (19-24) mmol/L ABG O2 Saturation (94-97) % Sodium 133 L (137-145) mmol/L Carbon Dioxide 10 L (22-30) mmol/L BUN 22 H (7-17) mg/dL Creatinine 2.40 H (0.52-1.04) mg/dL Glucose 115 H (74-99) mg/dL POC Glucose (mg/dL) (75-99) mg/dL Plasma Lactic Acid Dieudonne 9.0 H* (0.7-2.0) mmol/L Calcium 5.9 L* (8.4-10.2) mg/dL 11/11/19 11/11/19 Range/Units 04:25 07:00 WBC (3.8-10.6) k/uL RBC (3.80-5.40) m/uL Hgb (11.4-16.0) gm/dL Hct (34.0-46.0) % RDW (11.5-15.5) % Plt Count (150-450) k/uL Neutrophils # (1.3-7.7) k/uL Lymphocytes # (1.0-4.8) k/uL ABG pH 7.18 L* (7.35-7.45) ABG pCO2 29 L (35-45) mmHg ABG pO2 (83-108) mmHg ABG HCO3 11 L (21-25) mmol/L ABG Total CO2 12 L (19-24) mmol/L ABG O2 Saturation (94-97) % Sodium (137-145) mmol/L Carbon Dioxide (22-30) mmol/L BUN (7-17) mg/dL Creatinine (0.52-1.04) mg/dL Glucose (74-99) mg/dL POC Glucose (mg/dL) (75-99) mg/dL Plasma Lactic Acid Dieudonne 11.5 H* (0.7-2.0) mmol/L Calcium (8.4-10.2) mg/dL Microbiology - Last 24 Hours (Table) 11/10/19 02:27 Blood Culture Gram Stain - Preliminary Blood Blood Culture - Preliminary Pseudomonas aeruginosa 11/10/19 02:07 Blood Culture Gram Stain - Preliminary Blood Blood Culture - Preliminary Coagulase Negative Staph 11/05/19 21:45 Blood Culture - Preliminary Blood No Growth after 120 hours 11/10/19 02:07 Blood Culture - Final Blood 11/10/19 02:27 Blood Culture - Final Blood 11/10/19 01:45 Urine Culture - Preliminary Urine,Voided Assessment and Plan Assessment: Impression: Acute abdominal sepsis secondary to bowel perforation secondary to diverticulitis. Status post left colectomy, partial omentectomy and colostomy. Postoperative day #1 Septic shock from abdominal sepsis. Chronic sigmoid diverticulitis, multiple previous evaluations and the decision was to treat medically. Benign essential hypertension Paroxysmal atrial fibrillation, presently in atrial fibrillation with RVR. On amiodarone drip Questionable history of asthma, severity of which is not clear. Acute on chronic kidney injury most likely secondary to acute tubular necrosis Chronic lower extremities lymphedema. Severe metabolic acidosis secondary to sepsis. Recommendation: Continue ventilatory support Continue hemodynamic support, presently on norepinephrine. Vasopressin Start TPN/nutritional support. Continue amiodarone for atrial fibrillation with RVR Continue GI and DVT prophylaxis. Continue antibiotics, and infectious disease consultation was initiated. Continue IV fluids, and monitor closely lactic acid as well as electrolytes and renal profile. Continue bronchodilators. Discussed her condition with her daughters at bedside, they were updated on her condition. Made aware that she is critically ill. Nephrology to evaluate, patient will likely need to be started on hemodialysis since she remains extremely oliguric. Prognosis is extremely poor and guarded. Critical care time is 35 minutes Time with Patient: Greater than 30
[2019-11-11] MEDS: SODIUM CHLORIDE 0.9% 50 ML with VASOPRESSIN 20 UNIT IVPB SCH ×4 (11:54→22:34)
[2019-11-11 11:59] LABS: INR 1.5 (<1.2); Prothrombin Time 14.7 sec (9.0-12.0)
--- NOTE | 2019-11-11 12:26 | CONS ---
CONSULTATION REASON FOR CONSULT: Renal failure. HISTORY OF PRESENT ILLNESS: Patient is a 69-year-old female who was initially admitted to the hospital on 11/05/2019 with complaints of abdominal pain. Patient was found to have acute sigmoid diverticulitis. CAT scan done initially on admission showed evidence of diverticulitis. However, patient's abdominal pain had worsened and therefore a repeat CAT scan was done which showed portal venous air. Patient was also hypotensive and tachycardic with evidence of severe acidosis. She was taken to the OR on 11/10/2019 which was yesterday and patient had a left colectomy with mobilization of splenic flexure, partial omentectomy and colostomy. Since the OR, patient has been quite hypotensive, requiring large doses of Levophed and paulino. She remains on the vent. She has no significant urine output. FiO2 is at 60% and her chest x-ray was worsening this morning. Patient also had an increase increasing PEEP. She remains acidotic, currently on bicarb drip at 125 mL an hour. There is no output from the ostomy. Patient is also maintained on amiodarone drip for atrial fibrillation/flutter. She is maintained on empiric antibiotics as well. PAST MEDICAL HISTORY: Atrial fibrillation, asthma, CVA, TIA, hypertension, previous history of diverticulitis. PAST SURGICAL HISTORY: Cholecystectomy, orthopedic surgery details not available. SOCIAL HISTORY: Negative for smoking, drug abuse or alcohol abuse. MEDICATIONS: At home prior to admission included Demadex, potassium, Singulair, Tylenol, Bentyl, iron, Prilosec, Dulcolax, , Lopressor, Desenex, milk of magnesia, tramadol. ALLERGIES: Include DARVON. REVIEW OF SYSTEMS: As per HPI. Other systems negative. PHYSICAL EXAMINATION: On examination, patient is currently sedated, she is on the vent. Blood pressure was 116/38, heart rate 115 per minute. She is afebrile. Examination of the heart S1, S2. Examination of the lungs, bilateral breath sounds are heard. Abdomen is distended, soft, currently dressed. Examination of the lower extremities shows chronic lymphedema, chronic skin changes. Lower extremities, significant edema, upper extremities as well. HIGH MAN exam cannot be performed. LABS: Show sodium 130, potassium 4.3, chloride 107, CO2 is 10, BUN 22, creatinine 2.4, hemoglobin of 9.2 g/dL. ASSESSMENT: 1. Acute kidney injury, ATN currently oliguric with volume overload and persistent acidosis. We will start renal replacement therapy. Patient is quite hypotensive. Therefore, she may not tolerate the procedure. However, will try with the SLED procedure today. 2. Severe lactic acidosis secondary to sepsis, hypotension, GI fluid loss. 3. Severe metabolic acidosis and anion gap secondary to lactic acidosis and GI fluid loss, maintained on bicarb drip, not improving. 4. Sepsis, abdominal source from diverticulitis, left colectomy and colostomy. 5. Fluid overload, currently on the vent requiring high PEEP to maintain oxygenation. 6. Atrial fibrillation/flutter with RVR, maintained on amiodarone drip. PLAN: 1. Increase bicarb drip to 150 mL an hour. Proceed with Vascular Surgery consult for dialysis catheter placement. We will plan for dialysis today as a SLED procedure. If the patient tolerates the procedure, we will plan again tomorrow. Overall prognosis is guarded, given the significant hypotension. 2. Continue with empiric antibiotics. Thank you for this consultation. Will continue to follow the patient with you during her hospitalization. MMODL / IJN: [id number] /
[2019-11-11 12:28] LABS: Ionized Calcium 3.7 mg/dL (4.5-5.3)
[2019-11-11 12:35] LABS: Albumin 1.3 g/dL (3.5-5.0); Phosphorus 5.3 mg/dL (2.5-4.5)
[2019-11-11] MEDS ORDERED: HEPARIN SODIUM 1,000 UN/ML (10ML VL) ONE (12:35)
[2019-11-11] MEDS: AMIODARONE 300 MG in DEXTROSE 5% IN WATER 250 ML IV SCH ×4 (13:10→22:33)
[2019-11-11] MEDS: MVI, ADULT NO.4 WITH VIT K 10 ML, TRACE (CONC-1ML/DOSE) 1 ML, SODIUM ACETATE 30 MEQ, CA... IV SCH ×10 (14:03→22:20)
--- NOTE | 2019-11-11 15:13 | PN ---
PROGRESS NOTE DATE OF SERVICE: 11/11/2019 REASON FOR FOLLOWUP: Ruptured diverticulitis with Pseudomonas bacteremia. INTERVAL HISTORY: The patient blood cultures have been followed, the last culture with gram-positive as gram-negative. has been noted. The patient is currently intubated on the vent, he is undergoing hemodialysis, sedated. No family at the bedside. No other changes in his clinical condition. PHYSICAL EXAMINATION: Blood pressure 116/38 with a pulse of 115, temperature of 98.6. She is 98% on 50% . General description is an elderly female, lying in bed in no distress. RESPIRATORY SYSTEM: Unlabored breathing. Decreased breath sounds in the bases, no wheeze. HEART: S1, S2. Regular rate and rhythm. ABDOMEN: Soft, no tenderness. LABS: White count 17,000, creatinine 2.40. Blood cultures with Pseudomonas aeruginosa and . IMPRESSION/PLAN: 1. Patient with acute abdominal pain. Did have a significant diverticulitis status post diverting colostomy. Also evidence of Pseudomonas bacteremia, source likely abdominal. Patient is covered with Zosyn. [QAMARKER]. 2. Repeat blood culture has been ordered. Those will be followed. MMODL / IJN: [id number] /
--- NOTE | 2019-11-11 16:00 | ECHOF ---
Referral Reason:heart function MEASUREMENTS -------- HEIGHT: 157.5 cm WEIGHT: 152.9 kg BP: FINDINGS -------- Sinus rhythm. Echo done 10/27/19: Limited study for lv function. The left ventricular size is normal. Overall left ventricular systolic function is low-normal with, an EF between 50 - 55 %. Inferior basal Hypokinesis CONCLUSIONS -------- 1. Sinus rhythm. 2. Echo done 10/27/19: Limited study for lv function. 3. The left ventricular size is normal. 4. Overall left ventricular systolic function is low-normal with, an EF between 50 - 55 %. 5. Inferior basal Hypokinesis CABLE TECHNICIAN: Mojgan Bernardo RDCS
[2019-11-11 19:40] LABS: Hepatitis B Surface AB- Quant 3.5 mIU/mL; Hepatitis B Surface Antibody Non-Reactive (Non-Reactive); Hepatitis B Surface Antigen Non-Reactive (Non-Reactive)
[2019-11-11] MEDS: FERROUS SULFATE 325 MG TAB PO SCH (19:41)
--- NOTE | 2019-11-11 19:54 | P.PN ---
Progress Note - Text Progress Note Date: 11/11/19 Chief Complaint: Abdominal pain History of presenting complaint: This is a very pleasant [address] Sin. Chronic stable medical conditions include paroxysmal atrial fibrillation, asthma, hypertension, GERD, chronic kidney disease stage IV, bilateral lower extremity lymphedema. Patient normally uses a walker to get about. Currently at [facility] for rehab. Patient's had abdominal pain on and off for quite some time. On this occasion yesterday the pain became much worse cramping some nausea vomiting. Denies any fever and chills. Had to 3 loose stools yesterday. No blood. Computed tomography scan in the ER did show diverticulitis. Patient is made nothing by mouth. Daughter the bedside. At the [facility] patient was walking at least-20-30 steps with a walker. Admitted with acute sigmoid diverticulitis. Also patient noted to have some vaginal blood clots. Seen by Dr. Binh Abbasi-to be followed as an outpatient. Patient's started on IV antibiotics. Repeat Computed tomography scan-Found to have a contained bowel perforation. Leading up to left hemicolectomy. [id number]. FiO2 60% and PEEP of 10. Getting hemodialyzed today 1 L being removed. IV drips include propofol and bicarbonate and levo fed. NG tube present. Also been now in A. fib with rapid ventricular rate. Review of systems: Not done-patient intubated Active Medications Albuterol/Ipratropium (Duoneb 0.5 Mg-3 Mg/3 Ml Soln) 3 ml INHALATION RT-Q4H [facility] Last Admin: 11/11/19 15:44 Dose: 3 ml Documented by: Bisacodyl (Dulcolax) 10 mg RECTAL DAILY PRN PRN Reason: Constipation Chlorhexidine Gluconate (Peridex) 15 ml MUCOUS MEM BID [facility] Last Admin: 11/11/19 09:47 Dose: 15 ml Documented by: Enoxaparin Sodium (Lovenox) 30 mg SQ DAILY [facility] Last Admin: 11/11/19 09:47 Dose: 30 mg Documented by: Hydromorphone HCl (Dilaudid) 0.5 mg IVP Q4HR PRN PRN Reason: Pain Scale 6 to 10 Last Admin: 11/11/19 04:29 Dose: 0.5 mg Documented by: Norepinephrine Bitartrate 4 mg (/ Sodium Chloride) 254 mls @ 24.108 mls/hr IV .[id number] [facility]; Protocol Last Admin: 11/11/19 11:40 Dose: Not Given Documented by: Epinephrine HCl 4 mg/ Dextrose (/Water) 250 mls @ 4.746 mls/hr IV .Q24H [facility]; Protocol Last Admin: 11/11/19 09:42 Dose: Not Given Documented by: Sodium Bicarbonate 150 ml/ (Dextrose/Water) 1,150 mls @ 150 mls/hr IV .Q7H40M [facility] Last Admin: 11/11/19 09:46 Dose: 100 mls/hr Documented by: Metronidazole 500 mg/ IV (Solution) 100 mls @ 100 mls/hr IVPB Q8HR [facility] Last Admin: 11/11/19 19:40 Dose: 100 mls/hr Documented by: Propofol 1,000 mg/ IV Solution 100 mls @ 0 mls/hr IV .Q0M [facility]; Protocol Last Titration: 11/11/19 14:38 Dose: 60 mcg/kg/min, 55.188 mls/hr Documented by: Norepinephrine Bitartrate 32 (mg/ Sodium Chloride) 250 mls @ 2.966 mls/hr IV .Q24H [facility]; Protocol Last Titration: 11/11/19 14:02 Dose: 0.3 mcg/kg/min, 17.796 mls/hr Documented by: Vasopressin 20 unit/ Sodium (Chloride) 51 mls @ 4.59 mls/hr IVPB .Q11H7M [facility] Last Admin: 11/11/19 11:54 Dose: 4.59 mls/hr Documented by: Piperacillin Sod/Tazobactam (Sod 3.375 gm/ Sodium Chloride) 100 mls @ 25 mls/hr IVPB Q12HR [facility] Amiodarone HCl 300 mg/ (Dextrose/Water) 250 mls @ 25 mls/hr IV .Q10H [facility]; Protocol Stop: 11/12/19 06:59 Last Admin: 11/11/19 13:10 Dose: 0.5 mg/min, 25 mls/hr Documented by: Parenteral Vitamin Supplement 10 ml/ Chromium/Copper/Manganese/Seleni/Zn 1 ml/Sodium Acetate 30 meq/ Calcium Gluconate 1 gm/ Amino Acids/Dextrose 1,036 mls @ 50 mls/hr IV .[id number] [facility] Stop: 11/12/19 04:59 Last Admin: 11/11/19 14:03 Dose: 50 mls/hr Documented by: Sodium Acetate 30 meq/ Calcium Gluconate 1 gm/ Amino Acids/Dextrose 1,025 mls @ 90 mls/hr IV .BY DURATION [facility] Sodium Acetate 30 meq/ Calcium Gluconate 1 gm/ Parenteral Vitamin Supplement 10 ml/Chromium/Copper/Manganese/Seleni/Zn 1 ml/ Amino Acids/Dextrose 1,036 mls @ 90 mls/hr IV .BY DURATION [facility] Miscellaneous Information (Magnesium Per Protocol) 1 each MISCELLANE DAILY PRN; Protocol PRN Reason: Per Protocol Montelukast Sodium (Singulair) 10 mg PO HS@2100 [facility] Last Admin: 11/10/19 22:17 Dose: Not Given Documented by: Multi-Ingred Cream/Lotion/Oil/Oint (Triad Cream) 1 applic TOPICAL BID [facility] Last Admin: 11/11/19 11:24 Dose: 1 applic Documented by: Naloxone HCl (Narcan) 0.2 mg IV Q2M PRN PRN Reason: Opioid Reversal Nystatin (Mycostatin Powder) 1 applic TOPICAL BID [facility] Last Admin: 11/11/19 11:24 Dose: 1 applic Documented by: Pantoprazole Sodium (Protonix) 40 mg IV DAILY [facility] Last Admin: 11/11/19 09:47 Dose: 40 mg Documented by: Tramadol HCl (Ultram) 100 mg PO TID@0600,1400,2200 [facility] Last Admin: 11/11/19 14:19 Dose: Not Given Documented by: Physical examination: VITAL SIGNS: 98.5, 105, 24, 11 4/41, 98% on ventilator GENERAL: Laying in bed, intubated EYES: Pupils equal. Conjunctiva normal. HEENT: External appearance of nose and ears normal, oral cavity dry mucous membrane. Endotracheal tube in place. NG tube NECK: JVD not raised; masses not palpable. HEART: First and second heart sounds are normal; some edema. LUNGS: Respiratory rate increased; clear to auscultation. ABDOMEN: Soft, dressing over the incision site, no guarding rigidity, liver spleen not palpable, no masses palpable. Colostomy-no output. PSYCH: Sedated LYMPHATICS: lymphedema of the lower extremity INVESTIGATIONS, reviewed in the clinical context: White count 7.4 hemoglobin 9.2 platelets 114 Potassium 4.3 bun 22 creatinine 2.40 Previous testing White count 4.5 hemoglobin 9.8 platelets 126 Creatinine 1.3 Computed tomography scan of the abdomen-possible colitis versus diverticulitis in the sigmoid area C. diff-negative Assessment: -Acute bowel perforation of the large colon. Leading to left colectomy, partial omentectomy and a colostomy -Acute sigmoid diverticulitis, -Acute hypoxic respiratory failure requiring ventilator support. Intubated -Septic shock requiring pressor support, slow to respond -Intermittent vaginal blood clots-endometrial prominence. outpatient D&C -Acute kidney injury likely ATN from cardiorenal syndrome. -Bilateral lower extremity lymphedema -Persistent atrial fibrillation, with rapid ventricular rate -Acute cellulitis of the right lower extremity -Chronic gait dysfunction uses a walker -Morbid obesity BMI 51 -Right bundle-branch block -Essential hypertension -GERD Plan: Patient continues to remain critical. Intubated. IV medications include IV levo fed, propofol, IV Flagyl, IV Zosyn. TPN and lipids to be started. Consultation is made to nephrology. Patient had been put on IV Cardizem drip.- was discontinued. Patient put on IV amiodarone.
[2019-11-11 20:22] LABS: Glucose,Whole Blood 181 mg/dL (75-99)
[2019-11-11] MEDS: INSULIN ASPART (NovoLOG) 100 UNIT/ML VIAL SQ SCH (20:23)
--- NOTE | 2019-11-11 23:32 | OP ---
OPERATIVE REPORT PREOPERATIVE DIAGNOSIS: Acute on chronic renal failure. PROCEDURE: Ultrasound-guided dialysis catheter placement, right femoral approach. This patient was seen in the intensive care unit. The patient was intubated and patient had exploratory lap with colostomy. Right groin was prepped and drapes were applied in a sterile manner. Lidocaine 1% was infiltrated in the right groin area. Ultrasound-guided micropuncture was introduced into the right common femoral vein. Micropuncture guidewire was passed and 4-Slovak dilator advanced on top of the guidewire. After that, we passed a regular guidewire without any resistance. Then we advanced the dilator and then we passed a dialysis catheter on the top of the guidewire. Free flow was noted. Flushed with heparin saline and hep-locked. Incision was closed with 3-0 nylon. Dressing applied. Patient tolerated the procedure well. MMLIZY / SUZETTEN: [id number] /
[2019-11-12 00:07] LABS: Glucose,Whole Blood 195 mg/dL (75-99)
[2019-11-12] MEDS: NOREPINEPHRINE 32 MG in SODIUM CHLORIDE 0.9% 218 ML IV SCH ×2 (00:14→09:07)
[2019-11-12] MEDS: INSULIN ASPART (NovoLOG) 100 UNIT/ML VIAL SQ SCH ×7 (00:19→23:34)
[2019-11-12] MEDS: metroNIDAZOLE-NS PMX 500 MG in SALINE 1 100ML.BAG IVPB SCH ×4 (00:21→23:35)
[2019-11-12] MEDS: PROPOFOL 1,000 MG in EMPTY BAG 1 BAG IV SCH ×5 (00:21→22:42)
[2019-11-12] MEDS: DEXTROSE 5% IN WATER 1,000 ML with SODIUM BICARB (1 MEQ/ML) 150 ML IV SCH ×2 (01:25→05:27)
[2019-11-12] MEDS: IPRATROPIUM-ALBUTEROL 3 ML NEB INHALATION SCH ×6 (03:19→23:12)
[2019-11-12 04:19] LABS: Glucose,Whole Blood 213 mg/dL (75-99)
[2019-11-12] MEDS: HYDROmorphone 0.5 MG/0.5 ML SYRINGE IVP PRN (04:38)
[2019-11-12 04:56] LABS: African American GFR (CKD) 32 (>60 ml/min/1.73 sqM); Anion Gap 11 mmol/L; Blood Urea Nitrogen 19 mg/dL (7-17); Carbon Dioxide 19 mmol/L (22-30); Chloride 97 mmol/L (98-107); Glucose 178 mg/dL (74-99); Magnesium 1.7 mg/dL (1.6-2.3); Non-African American GFR(CKD) 28 (>60 ml/min/1.73 sqM); Phosphorus 3.1 mg/dL (2.5-4.5); Potassium 3.4 mmol/L (3.5-5.1); Sodium 127 mmol/L (137-145)
[2019-11-12 05:03] LABS: Anisocytosis Slight; Basophils % (A) 0 %; Eosinophils # (A) 0.1 k/uL (0-0.7); Eosinophils % (A) 1 %; HCT 21.7 % (34.0-46.0); Hypochromasia Slight; Lymphocytes # (A) 0.9 k/uL (1.0-4.8); Lymphocytes % (A) 6 %; Mean Platelet Volume 7.9; Monocytes # (A) 0.2 k/uL (0-1.0); Monocytes % (A) 2 %; Neutrophils # (A) 12.6 k/uL (1.3-7.7); Neutrophils % (A) 90 %; RBC 2.53 m/uL (3.80-5.40); RDW 17.5 % (11.5-15.5)
[2019-11-12 05:06] LABS: MCH 27.2 pg (25.0-35.0)
[2019-11-12 05:08] LABS: Calcium 5.6 mg/dL (8.4-10.2)
[2019-11-12 05:20] LABS: Platelet Count 86 k/uL (150-450)
[2019-11-12] MEDS ORDERED: Magnesium Replacement Protocol 1 EACH MISC MISCELLANE PRN (05:36)
[2019-11-12] MEDS ORDERED: Potassium Replacement Protocol 1 EACH MISC MISCELLANE PRN (05:36)
[2019-11-12] MEDS: MAGNESIUM SULFATE-D5W PMX 1 GM in DEXTROSE/WATER 1 100ML.BAG IVPB SCH ×2 (05:42→07:01)
[2019-11-12] MEDS: POTASSIUM CHLORIDE 20 MEQ in WATER FOR INJECTION 1 100ML.BAG IVPB SCH ×2 (05:44→08:51)
[2019-11-12] MEDS: CALCIUM GLUCONATE 1 GM in SODIUM CHLORIDE 0.9% 100 ML IVPB ONE ×2 (06:35→06:43)
[2019-11-12] MEDS: traMADol 50 MG TAB PO SCH (06:42)
[2019-11-12 06:56] LABS: ABG Base Excess -2.3 mmol/L; ABG HCO3 23 mmol/L (21-25); ABG Oxygen Saturation 87.5 % (94-97); ABG PCO2 40 mmHg (35-45); ABG PH 7.37 (7.35-7.45); ABG TCO2 24 mmol/L (19-24); Allen Test Performed? Yes
[2019-11-12 06:58] LABS: ABG PO2 57 mmHg (83-108)
--- NOTE | 2019-11-12 07:10 | P.PN ---
Subjective Progress Note Date: 11/12/19 Principal diagnosis: Atrial fibrillation with RVR This is a pleasant 69-year-old female patient with a past medical history significant for paroxysmal atrial fibrillation on oral anticoagulation at home, chronic kidney disease, chronic bilateral lower extremities edema/lymphedema, as well as multiple comorbid conditions, who was a resident at [facility], was brought to the hospital for further evaluation off symptoms of nausea and vomiting and abdominal discomfort for the last few days. The symptoms got worse lately and because of that the patient was brought to the emergency room. She underwent a computed tomography scan in the ER and that revealed diverticulitis. Subsequently the patient underwent exploratory laparotomy and she underwent partial colectomy and colostomy and her incision is open at this point. Currently the patient is septic and she is hemodynamically unstable and requiring two vasopressors. Her lactic acid was elevated. We involved in the care of the patient for further evaluation of atrial fibrillation with RVR. The patient is known to have paroxysmal atrial fibrillation but she was maintaining normal sinus mechanism when she presented to the emergency room. During her hospital stay in the ICU, she has been in and out atrial fibrillation. Currently she is in A. fib/flutter with RVR. Subsequently she was started on Cardizem drip last night. Currently the patient is intubated and she is on mechanical ventilation. I am going to DC the Cardizem and drip and start the patient on amiodarone as well as abdomen, giving her low blood pressure. Continue holding any oral or IV anticoagulation at this point. I am going also to obtain an echocardiogram was Doppler to assess her left ventricular systolic function and also the intracardiac valves. We'll continue following up with the patient. The patient was seen today, 11/12/2019. Overall she is not doing well. She continues to be on mechanical ventilation. Hemodynamically she continues to be unstable and required vasopressors. The heart rate has improved on the amiodarone drip which I am going to continue and she continues to be in atrial fibrillation. Limited echocardiogram was performed and revealed normal left ventricular systolic function Objective - Vital Signs Vital signs: Vital Signs Temp 98.3 F 11/12/19 04:00 Pulse 105 H 11/12/19 05:00 Resp 26 H 11/12/19 05:00 BP 108/37 11/11/19 17:50 Pulse Ox 93 L 11/12/19 05:00 Intake & Output 11/11/19 11/12/19 11/12/19 18:59 06:59 18:59 Intake Total 2461.191 3719.647 Output Total 1111 Balance 3244.960 2966.647 Weight 153.3 kg 159 kg Intake: IV 2076 2566 Dextrose 5% in Water 1, 1450 1650 000 ml @ 150 mls/hr IV . Q7H40M AVINASH with Sodium Bicarb (1 Meq/ml) 150 ml Rx#:[id number] Magnesium Sulfate-D5w Pmx 100 1 gm In Dextrose/Water 1 100ml.bag @ 100 mls/hr IVPB Q1H [facility] Rx#: [id number] Mvi, Adult No.4 with Vit 50 K 10 ml Trace (Conc-1Ml/ Dose) 1 ml Sodium Acetate 30 meq Calcium Gluconate 1 gm In Amino Acid 4.25% -D10w 1,000 ml @ 50 mls/ hr IV .[id number] [facility] Rx#: [id number] Piperacillin-Tazobactam 3 100 .375 gm In Sodium Chloride 0.9% 100 ml @ 25 mls/hr IVPB Q8H [facility] Rx#: [id number] Pressure Bags 60 66 Sodium Acetate 30 meq 150 500 Calcium Gluconate 1 gm Mvi, Adult No.4 with Vit K 10 ml Trace (Conc-1Ml/ Dose) 1 ml In Amino Acid 4.25%-D10w 1,000 ml @ 90 mls/hr IV .BY DURATION [facility] Rx#:[id number] Sodium Chloride 0.9% 1, 316 000 ml @ 0 mls/hr IV .STK -MED ONE Rx#:[id number] metroNIDAZOLE-NS PMX 500 200 mg In Saline 1 100ml.bag @ 100 mls/hr IVPB Q8HR [facility] Rx#:[id number] Intake, IV Titration 162.213 3664.647 Amount Amiodarone 300 mg In 234.583 Dextrose 5% in Water 250 ml @ 0.5 MG/MIN 25 mls/hr IV .Q10H [facility] Rx#: [id number] Mvi, Adult No.4 with Vit 414.167 K 10 ml Trace (Conc-1Ml/ Dose) 1 ml Sodium Acetate 30 meq Calcium Gluconate 1 gm In Amino Acid 4.25% -D10w 1,000 ml @ 50 mls/ hr IV .[id number] [facility]INASH Rx#: [id number] Norepinephrine 32 mg In 185.191 204.897 Sodium Chloride 0.9% 218 ml @ 0.05 MCG/KG/MIN 2. 966 mls/hr IV .Q24H [facility]INASH Rx#:[id number] Propofol 1,000 mg In 200.000 300 Empty Bag 1 bag @ Titrate IV .Q0M AIVNASH Rx#: [id number] Output: Gastric Drainage 100 Urine 10 Stool 1 Hemodialysis 1000 Other: Voiding Method Indwelling Catheter Indwelling Catheter # Voids 1 ABP, PAP, CO, CI - Last Documented Arterial Blood Pressure 161/49 - Constitutional General appearance: Present: no acute distress - Respiratory Respiratory: bilateral: diminished - Cardiovascular Rhythm: irregularly irregular Heart sounds: normal: S1, S2 - Labs CBC & Chem 7: 11/12/19 04:55 11/12/19 04:15 Labs: Abnormal Lab Results - Last 24 Hours (Table) 11/10/19 11/11/19 11/11/19 Range/Units 08:20 07:00 11:15 WBC (3.8-10.6) k/uL RBC (3.80-5.40) m/uL Hgb (11.4-16.0) gm/dL Hct (34.0-46.0) % RDW (11.5-15.5) % Plt Count (150-450) k/uL Neutrophils # (1.3-7.7) k/uL Lymphocytes # (1.0-4.8) k/uL PT 14.7 H (9.0-12.0) sec INR 1.5 H (<1.2) ABG pH 7.02 L* 7.18 L* (7.35-7.45) ABG pCO2 29 L (35-45) mmHg ABG pO2 (83-108) mmHg ABG HCO3 11 L (21-25) mmol/L ABG Total CO2 12 L (19-24) mmol/L ABG O2 Saturation (94-97) % ABG Lactic Acid (0.5-1.6) mmol/L Sodium (137-145) mmol/L Potassium (3.5-5.1) mmol/L Chloride (98-107) mmol/L Carbon Dioxide (22-30) mmol/L BUN (7-17) mg/dL Creatinine (0.52-1.04) mg/dL Glucose (74-99) mg/dL POC Glucose (mg/dL) (75-99) mg/dL Calcium (8.4-10.2) mg/dL Ionized Calcium Erin (4.5-5.3) mg/dL Phosphorus (2.5-4.5) mg/dL Albumin (3.5-5.0) g/dL 11/11/19 11/11/19 11/11/19 Range/Units 11:19 11:58 20:20 WBC (3.8-10.6) k/uL RBC (3.80-5.40) m/uL Hgb (11.4-16.0) gm/dL Hct (34.0-46.0) % RDW (11.5-15.5) % Plt Count (150-450) k/uL Neutrophils # (1.3-7.7) k/uL Lymphocytes # (1.0-4.8) k/uL PT (9.0-12.0) sec INR (<1.2) ABG pH (7.35-7.45) ABG pCO2 (35-45) mmHg ABG pO2 (83-108) mmHg ABG HCO3 (21-25) mmol/L ABG Total CO2 (19-24) mmol/L ABG O2 Saturation (94-97) % ABG Lactic Acid (0.5-1.6) mmol/L Sodium (137-145) mmol/L Potassium (3.5-5.1) mmol/L Chloride (98-107) mmol/L Carbon Dioxide (22-30) mmol/L BUN (7-17) mg/dL Creatinine (0.52-1.04) mg/dL Glucose (74-99) mg/dL POC Glucose (mg/dL) 148 H 181 H (75-99) mg/dL Calcium (8.4-10.2) mg/dL Ionized Calcium Erin 3.7 L (4.5-5.3) mg/dL Phosphorus 5.3 H (2.5-4.5) mg/dL Albumin 1.3 L (3.5-5.0) g/dL 11/12/19 11/12/19 11/12/19 Range/Units 00:04 04:15 04:15 WBC (3.8-10.6) k/uL RBC (3.80-5.40) m/uL Hgb (11.4-16.0) gm/dL Hct (34.0-46.0) % RDW (11.5-15.5) % Plt Count (150-450) k/uL Neutrophils # (1.3-7.7) k/uL Lymphocytes # (1.0-4.8) k/uL PT (9.0-12.0) sec INR (<1.2) ABG pH (7.35-7.45) ABG pCO2 (35-45) mmHg ABG pO2 (83-108) mmHg ABG HCO3 (21-25) mmol/L ABG Total CO2 (19-24) mmol/L ABG O2 Saturation (94-97) % ABG Lactic Acid 8.4 H* (0.5-1.6) mmol/L Sodium 127 L (137-145) mmol/L Potassium 3.4 L (3.5-5.1) mmol/L Chloride 97 L (98-107) mmol/L Carbon Dioxide 19 L (22-30) mmol/L BUN 19 H (7-17) mg/dL Creatinine 1.82 H (0.52-1.04) mg/dL Glucose 178 H (74-99) mg/dL POC Glucose (mg/dL) 195 H (75-99) mg/dL Calcium 5.6 L* (8.4-10.2) mg/dL Ionized Calcium Erin (4.5-5.3) mg/dL Phosphorus (2.5-4.5) mg/dL Albumin (3.5-5.0) g/dL 11/12/19 11/12/19 11/12/19 Range/Units 04:17 04:55 06:52 WBC 14.0 H (3.8-10.6) k/uL RBC 2.53 L (3.80-5.40) m/uL Hgb 7.0 L D (11.4-16.0) gm/dL Hct 21.7 L (34.0-46.0) % RDW 17.5 H (11.5-15.5) % Plt Count 86 L (150-450) k/uL Neutrophils # 12.6 H (1.3-7.7) k/uL Lymphocytes # 0.9 L (1.0-4.8) k/uL PT (9.0-12.0) sec INR (<1.2) ABG pH (7.35-7.45) ABG pCO2 (35-45) mmHg ABG pO2 57 L* (83-108) mmHg ABG HCO3 (21-25) mmol/L ABG Total CO2 (19-24) mmol/L ABG O2 Saturation 87.5 L (94-97) % ABG Lactic Acid (0.5-1.6) mmol/L Sodium (137-145) mmol/L Potassium (3.5-5.1) mmol/L Chloride (98-107) mmol/L Carbon Dioxide (22-30) mmol/L BUN (7-17) mg/dL Creatinine (0.52-1.04) mg/dL Glucose (74-99) mg/dL POC Glucose (mg/dL) 213 H (75-99) mg/dL Calcium (8.4-10.2) mg/dL Ionized Calcium Erin (4.5-5.3) mg/dL Phosphorus (2.5-4.5) mg/dL Albumin (3.5-5.0) g/dL Microbiology - Last 24 Hours (Table) 11/05/19 21:45 Blood Culture - Final Blood No Growth after 144 hours 11/10/19 01:45 Urine Culture - Final Urine,Voided Arleen albicans 11/10/19 02:27 Blood Culture Gram Stain - Preliminary Blood Blood Culture - Preliminary Pseudomonas aeruginosa 11/10/19 02:07 Blood Culture Gram Stain - Preliminary Blood Blood Culture - Preliminary Coagulase Negative Staph Assessment and Plan Assessment: Assessment #1 abdominal discomfort secondary to perforated diverticulosis #2 sepsis secondary to the above #3 atrial fibrillation/flutter with RVR #4 known paroxysmal atrial fibrillation #5 chronic lower extremities lymphedema #6 chronic kidney disease Plan #1 continue the current medical regimen #2 continue amiodarone IV #3 hemodynamic support #4 reviewing the echo showed normal LV function
--- NOTE | 2019-11-12 07:20 | XR ---
EXAMINATION TYPE: XR chest 1V portable DATE OF EXAM: 11/12/2019 COMPARISON: 11/11/2019 HISTORY: SOB, Follow Up FINDINGS: Indwelling tubes and catheters are unchanged. Diffuse infiltrates pulmonary venous congestion unchanged. Stable appearance of the cardio-mediastinal structures at this time. Pleural effusion unchanged. IMPRESSION: 1. Stable portable chest. Clinical correlation and follow up until resolution is recommended.
[2019-11-12] MEDS: EPINEPHrine 4 MG in DEXTROSE 5% IN WATER 250 ML IV SCH ×2 (08:44)
[2019-11-12] MEDS: PANTOPRAZOLE 40 MG/10 ML VIAL IV SCH (08:45)
[2019-11-12] MEDS: ENOXAPARIN 30 MG/0.3 ML SYRINGE SQ SCH (08:45)
[2019-11-12] MEDS: CHLORHEXIDINE GLUCONATE 15 ML CUP MUCOUS MEM SCH ×2 (08:45→20:13)
[2019-11-12] MEDS: PIPERACILLIN-TAZOBACTAM 3.375 GM in SODIUM CHLORIDE 0.9% 100 ML IVPB SCH ×3 (08:47→23:35)
[2019-11-12] MEDS: AMIODARONE 300 MG in DEXTROSE 5% IN WATER 250 ML IV SCH ×4 (08:53→18:32)
[2019-11-12] MEDS: NYSTATIN 100,000 UNIT/GM POWD 15 GM TOPICAL SCH ×2 (08:57→20:13)
[2019-11-12] MEDS: HYDROPHILIC CREAM 180 GM TUBE TOPICAL SCH ×2 (08:57→20:13)
[2019-11-12 09:37] LABS: Glucose,Whole Blood 174 mg/dL (75-99)
--- NOTE | 2019-11-12 10:01 | CONS ---
DATE OF CONSULTATION: 11/12/2019 This is a 69-year-old white female. She was seen on consultation in the intensive care unit for placement of urgent dialysis catheter. Patient has been intubated. Patient had an exploratory laparotomy with ruptured diverticulitis from the sigmoid colon and the patient had a colostomy. The patient has morbid obesity. MEDICAL HISTORY: History of hypertension, atrial fibrillation, CVA in the past. PHYSICAL EXAMINATION: On examination, patient was seen in her room. Patient has been intubated it. Neck is supple. Chest has crackles, bilateral. The patient has exploratory laparotomy and recently abdominal incision wound which has not closed. Femorals are 1+ bilateral. Patient has marked swelling of the extremity with of the both lower extremity. PLAN: Ultrasound-guided placement of dialysis catheter. Risks and complications, bleeding, infection, thrombosis has been discussed. [id number] / IJN: [id number] / MTDD
--- NOTE | 2019-11-12 10:15 | P.PN ---
Subjective Progress Note Date: 11/12/19 Principal diagnosis: Abdominal sepsis, septic shock, acute hypoxic respiratory failure This is a 69-year-old female with history of multiple medical problems including asthma, paroxysmal atrial fibrillation, hypertension, chronic kidney disease stage IV, chronic lymphedema, patient was admitted on 11/05/2019, patient was brought in from formerly [facility] and she was in rehab facility. And she was complaining of a chronic lower abdominal pain for quite some time. Patient has been seen previously in our infusion at least 3 times and she was also seen at [facility] 2 times recently for lower abdominal pain, and she was diagnosed as having diverticulitis, and the decision was to treat the patient conservatively and medically. Patient had a CT of the abdomen and pelvis upon evaluation in the ER on the , and she was found to have sigmoid diverticulitis. Admitted, started on antibiotics, however her pain increased, and the patient was showing more clinical signs of sepsis. Patient was seen by many consultants including gastroenterology, gynecology, and she was seen by Dr. leblanc on 11/10, and he felt that her diverticulitis is progressing to sepsis with portal vein gas despite antibiotic therapy. Patient underwent exploratory laparotomy early this morning, patient ended up with left colectomy with mobilization of splenic flexure partial omentectomy and colostomy. Patient was found to have significantly thickened sigmoid colon, there was evidence of perforation of the colon with a small amount of stool. It was felt that the patient may have had a perforation at that area. Patient was eventually sent back to the intensive care unit, on mechanical ventilation early this morning around 8 AM. And her ventilator settings are assist control rate of 16 tidal volume of 500 FiO2 of 100% and PEEP of 5. Patient was noted to be quite acidotic, lactic acid was elevated, she was on norepinephrine at 0.05 mcg/kg/m, she was also placed on bicarb after few amps of sodium bicarb were given, patient was also placed on propofol. And more fluid boluses were given in the ICU. CVP was noted to be around 10. Family was at bedside, and I discussed her condition with the family at bedside. Repeat ABG showed a pO2 of 104 pCO2 of 40 pH of 7.13, more sodium bicarb was given. Patient is also on antibiotics in the form of Flagyl and Zosyn Patient was reevaluated today on 11/11/19, patient remains in the ICU, remains intubated and mechanically ventilated. Her ventilator settings were adjusted today, she is now on tidal volume of 450 assist-control rate of 24 FiO2 is 50% and PEEP has been increased to 10. Earlier ABG this morning showed pH of 7.18 pO2 of 83 pCO2 of 29. Patient did receive more bicarb this morning, and her bicarb drip was increased to 1 25 mL per hour. Patient remains oliguric, and her renal functioning is getting worse. Nephrology is to evaluate the patient, and most likely the patient will need to be on hemodialysis. Her CBC showed WBC count of 17.4 hemoglobin is 9.2. Electrolytes are normal. Bicarb is low at 10. BUN is 22 creatinine 2.40. Lactic acid remains high between 9 and 11.5 in the last 24 hours. Patient received significant amount of fluids about 8 L in the last 24 hours at least. Chest x-ray is showing bilateral interstitial edema consistent with noncardiogenic or cardiogenic pulmonary edema. Patient dev eloped atrial fibrillation with RVR, and she had to be placed on amiodarone as per cardiology. Hemodynamics anderson remains hypotensive requiring norepinephrine at 0.27 mcg/kg/m, she is on vasopressin 0.03 units, propofol at 25 mcg/kg/m, she is also on sodium bicarb drip. Today I will start TPN on this patient. Patient was seen today on 11/12/19, patient remains in the ICU, intubated and mechanically ventilated. Her ventilator settings are assist control rate of 24 tidal volume of 450 FiO2 of 100% and PEEP was just increased to 14 from 8. Patient remains on TPN, norepinephrine at 0.18 mcg/kg/m, vasopressin at 0.03 units, amiodarone 0.5 mg per hour, propofol at 60 mcg/kg/m. Sodium bicarb drip was just discontinued this morning ABG showed a pO2 of 57 a CO2 of 40 pH of 7.37. Hence the PEEP was increased to 14. Her hemoglobin is 7 and the patient will be given a unit of packed RBCs today. Lactic acid is down to 8.4. Electrolytes showed low sodium and low potassium and low calcium and these are being corrected accordingly. Patient remains on TPN. She remains on daily hemodialysis, patient is having hemodialysis this morning, and I plan to decrease the FiO2 as more fluid is removed from the patient. Chest x-ray shows evidence of pulmonary edema this is mostly fluid overload related to all the fluids were given for her initial presentation of abdominal sepsis and septic shock. Not to mention the patient is basically anuric. Family is at bedside and updated on her condition. Objective - Vital Signs Vital signs: Vital Signs Temp 98.3 F 11/12/19 04:00 Pulse 118 H 11/12/19 09:30 Resp 24 11/12/19 09:30 BP 79/43 11/12/19 09:30 Pulse Ox 99 11/12/19 09:30 Intake & Output 11/11/19 11/12/19 11/12/19 18:59 06:59 18:59 Intake Total 2461.191 3925.647 578.112 Output Total 1111 125 Balance 4044.064 0979.647 453.112 Weight 153.3 kg 159 kg Intake: IV 2076 2772 418 Dextrose 5% in Water 1, 1450 1800 150 000 ml @ 150 mls/hr IV . Q7H40M [facility] with Sodium Bicarb (1 Meq/ml) 150 ml Rx#:[id number] Magnesium Sulfate-D5w Pmx 100 1 gm In Dextrose/Water 1 100ml.bag @ 100 mls/hr IVPB Q1H [facility] Rx#: [id number] Magnesium Sulfate-D5w Pmx 100 1 gm In Dextrose/Water 1 100ml.bag @ 100 mls/hr IVPB Q1H [facility] Rx#: [id number] Mvi, Adult No.4 with Vit 100 50 K 10 ml Trace (Conc-1Ml/ Dose) 1 ml Sodium Acetate 30 meq Calcium Gluconate 1 gm In Amino Acid 4.25% -D10w 1,000 ml @ 50 mls/ hr IV .[id number] [facility] Rx#: [id number] Piperacillin-Tazobactam 3 100 100 .375 gm In Sodium Chloride 0.9% 100 ml @ 25 mls/hr IVPB Q8H [facility] Rx#: [id number] Pressure Bags 60 72 18 Sodium Acetate 30 meq 150 500 Calcium Gluconate 1 gm Mvi, Adult No.4 with Vit K 10 ml Trace (Conc-1Ml/ Dose) 1 ml In Amino Acid 4.25%-D10w 1,000 ml @ 90 mls/hr IV .BY DURATION [facility] Rx#:[id number] Sodium Chloride 0.9% 1, 316 000 ml @ 0 mls/hr IV .STK -MED ONE Rx#:[id number] metroNIDAZOLE-NS PMX 500 200 mg In Saline 1 100ml.bag @ 100 mls/hr IVPB Q8HR [facility] Rx#:[id number] Intake, IV Titration 091.785 8047.647 160.112 Amount Amiodarone 300 mg In 234.583 Dextrose 5% in Water 250 ml @ 0.5 MG/MIN 25 mls/hr IV .Q10H [facility] Rx#: [id number] Mvi, Adult No.4 with Vit 414.167 K 10 ml Trace (Conc-1Ml/ Dose) 1 ml Sodium Acetate 30 meq Calcium Gluconate 1 gm In Amino Acid 4.25% -D10w 1,000 ml @ 50 mls/ hr IV .[id number] [facility] Rx#: [id number] Norepinephrine 32 mg In 185.191 204.897 60.112 Sodium Chloride 0.9% 218 ml @ 0.05 MCG/KG/MIN 2. 966 mls/hr IV .Q24H [facility] Rx#:[id number] Potassium Chloride 20 meq 100 In Water For Injection 1 100ml.bag @ 50 mls/hr IVPB Q2H [facility] Rx#: [id number] Propofol 1,000 mg In 200.000 300 Empty Bag 1 bag @ Titrate IV .Q0M [facility] Rx#: [id number] Output: Gastric Drainage 100 100 Urine 10 25 Stool 1 Hemodialysis 1000 Other: Voiding Method Indwelling Catheter Indwelling Catheter # Voids 1 ABP, PAP, CO, CI - Last Documented Arterial Blood Pressure 106/38 - Exam Physical Exam: Revealed a 69-year-old female on mechanical ventilation. Head: Atraumatic, normocephalic. HEENT:[Neck is supple.] [No neck masses.] [No thyromegaly.] [No JVD.] PERRLA, EOMI, positive icterus, endotracheal tube and orogastric tube are intact. Right IJ central line is intact. Chest: [Diminished breath that the bases, no rhonchi and no wheezes. Cardiac Exam: [Irregular irregular, Tachycardic, Normal S1 and S2, no S3 gallop, 2/6 systolic murmur thought the precordium. Abdomen: [Postsurgical, soft, nontender, colostomy is intact. Not functionally yet. Extremities: [No clubbing, 3+ bipedal lymphedema noted., no cyanosis.] Neurological Exam: Sedated, on propofol, could not be assessed. Psychiatric: Could not be assessed. Lymphatics: No lymphadenopathy. - Labs CBC & Chem 7: 11/12/19 04:55 11/12/19 04:15 Labs: Abnormal Lab Results - Last 24 Hours (Table) 11/10/19 11/11/19 11/11/19 Range/Units 03:44 11:15 11:19 WBC (3.8-10.6) k/uL RBC (3.80-5.40) m/uL Hgb (11.4-16.0) gm/dL Hct (34.0-46.0) % RDW (11.5-15.5) % Plt Count (150-450) k/uL Neutrophils # (1.3-7.7) k/uL Lymphocytes # (1.0-4.8) k/uL PT 14.7 H (9.0-12.0) sec INR 1.5 H (<1.2) ABG pO2 (83-108) mmHg ABG O2 Saturation (94-97) % ABG Lactic Acid (0.5-1.6) mmol/L Sodium (137-145) mmol/L Potassium (3.5-5.1) mmol/L Chloride (98-107) mmol/L Carbon Dioxide (22-30) mmol/L BUN (7-17) mg/dL Creatinine (0.52-1.04) mg/dL Glucose (74-99) mg/dL POC Glucose (mg/dL) 148 H (75-99) mg/dL Calcium (8.4-10.2) mg/dL Ionized Calcium Erin (4.5-5.3) mg/dL Phosphorus (2.5-4.5) mg/dL Albumin (3.5-5.0) g/dL Crossmatch See Detail 11/11/19 11/11/19 11/12/19 Range/Units 11:58 20:20 00:04 WBC (3.8-10.6) k/uL RBC (3.80-5.40) m/uL Hgb (11.4-16.0) gm/dL Hct (34.0-46.0) % RDW (11.5-15.5) % Plt Count (150-450) k/uL Neutrophils # (1.3-7.7) k/uL Lymphocytes # (1.0-4.8) k/uL PT (9.0-12.0) sec INR (<1.2) ABG pO2 (83-108) mmHg ABG O2 Saturation (94-97) % ABG Lactic Acid (0.5-1.6) mmol/L Sodium (137-145) mmol/L Potassium (3.5-5.1) mmol/L Chloride (98-107) mmol/L Carbon Dioxide (22-30) mmol/L BUN (7-17) mg/dL Creatinine (0.52-1.04) mg/dL Glucose (74-99) mg/dL POC Glucose (mg/dL) 181 H 195 H (75-99) mg/dL Calcium (8.4-10.2) mg/dL Ionized Calcium Erin 3.7 L (4.5-5.3) mg/dL Phosphorus 5.3 H (2.5-4.5) mg/dL Albumin 1.3 L (3.5-5.0) g/dL Crossmatch 11/12/19 11/12/19 11/12/19 Range/Units 04:15 04:15 04:17 WBC (3.8-10.6) k/uL RBC (3.80-5.40) m/uL Hgb (11.4-16.0) gm/dL Hct (34.0-46.0) % RDW (11.5-15.5) % Plt Count (150-450) k/uL Neutrophils # (1.3-7.7) k/uL Lymphocytes # (1.0-4.8) k/uL PT (9.0-12.0) sec INR (<1.2) ABG pO2 (83-108) mmHg ABG O2 Saturation (94-97) % ABG Lactic Acid 8.4 H* (0.5-1.6) mmol/L Sodium 127 L (137-145) mmol/L Potassium 3.4 L (3.5-5.1) mmol/L Chloride 97 L (98-107) mmol/L Carbon Dioxide 19 L (22-30) mmol/L BUN 19 H (7-17) mg/dL Creatinine 1.82 H (0.52-1.04) mg/dL Glucose 178 H (74-99) mg/dL POC Glucose (mg/dL) 213 H (75-99) mg/dL Calcium 5.6 L* (8.4-10.2) mg/dL Ionized Calcium Erin (4.5-5.3) mg/dL Phosphorus (2.5-4.5) mg/dL Albumin (3.5-5.0) g/dL Crossmatch 11/12/19 11/12/19 11/12/19 Range/Units 04:55 06:52 09:35 WBC 14.0 H (3.8-10.6) k/uL RBC 2.53 L (3.80-5.40) m/uL Hgb 7.0 L D (11.4-16.0) gm/dL Hct 21.7 L (34.0-46.0) % RDW 17.5 H (11.5-15.5) % Plt Count 86 L (150-450) k/uL Neutrophils # 12.6 H (1.3-7.7) k/uL Lymphocytes # 0.9 L (1.0-4.8) k/uL PT (9.0-12.0) sec INR (<1.2) ABG pO2 57 L* (83-108) mmHg ABG O2 Saturation 87.5 L (94-97) % ABG Lactic Acid (0.5-1.6) mmol/L Sodium (137-145) mmol/L Potassium (3.5-5.1) mmol/L Chloride (98-107) mmol/L Carbon Dioxide (22-30) mmol/L BUN (7-17) mg/dL Creatinine (0.52-1.04) mg/dL Glucose (74-99) mg/dL POC Glucose (mg/dL) 174 H (75-99) mg/dL Calcium (8.4-10.2) mg/dL Ionized Calcium Erin (4.5-5.3) mg/dL Phosphorus (2.5-4.5) mg/dL Albumin (3.5-5.0) g/dL Crossmatch Microbiology - Last 24 Hours (Table) 11/05/19 21:45 Blood Culture - Final Blood No Growth after 144 hours 11/10/19 01:45 Urine Culture - Final Urine,Voided Arleen albicans 11/10/19 02:27 Blood Culture Gram Stain - Preliminary Blood Blood Culture - Preliminary Pseudomonas aeruginosa Assessment and Plan Assessment: Impression: Acute abdominal sepsis secondary to bowel perforation secondary to diver ticulitis. Pseudomonas aeruginosa bacteremia. Status post left colectomy, partial omentectomy and colostomy. Postoperative day #2 Septic shock from abdominal sepsis. Chronic sigmoid diverticulitis, multiple previous evaluations and the decision was to treat medically. Benign essential hypertension Paroxysmal atrial fibrillation, presently in atrial fibrillation with RVR. On amiodarone drip Questionable history of asthma, severity of which is not clear. Acute on chronic kidney injury most likely secondary to acute tubular necrosis, presently on hemodialysis and ultrafiltration. Chronic lower extremities lymphedema. Severe metabolic acidosis secondary to sepsis. Improved. Recommendation: Continue ventilatory support, adjusted the ventilator settings now she is on a PEEP of 14 and FiO2 was increased to 100% but this will be titrated down to 50% gradually Continue hemodynamic support, presently on norepinephrine. Vasopressin, if blood pressure remains stable, will titrate vasopressin and possibly discontinue vasopressin as tolerated. Start TPN/nutritional support. Continue amiodarone for atrial fibrillation with RVR Continue GI and DVT prophylaxis. Continue antibiotics, and infectious disease consultation was initiated. Infectious disease is aware of the pseudomonas bacteremia. Continue IV fluids, and monitor closely lactic acid as well as electrolytes and renal profile. Discontinue sodium bicarb today based on her ABG and based on her electrolytes. Continue bronchodilators. Updated her daughter on her condition today. Nephrology is following, patient is on hemodialysis yesterday and today. Prognosis is extremely poor and guarded. Critical care time is 33 minutes We'll continue to follow Time with Patient: Greater than 30
--- NOTE | 2019-11-12 10:30 | P.PN ---
<Gissell Sarmiento Michell - Last Filed: 11/12/19 10:27> Subjective Progress Note Date: 11/12/19 CHIEF COMPLAINT: Diverticulitis HISTORY OF PRESENT ILLNESS: Patient is status post left colectomy with mobilization of splenic flexure, partial omentectomy, and colostomy creation. POD #2. She remains critically ill. Patient remains on mechanical ventilation in the ICU. FiO2 100% with a PEEP of 10. PH 7.37. CO2 40. pO2 57. HCO3 23. She is sedated. No family present at the bedside during examination. Patient remains on vasopressor support. On 50mcg of levophed and also vasopressin. She is currently receiving dialysis. Hemoglobin 7.0. Patient is scheduled to receive 1 unit packed RBCs today. WBC 14.0. PHYSICAL EXAM: VITAL SIGNS: Reviewed. GENERAL: Well-developed in no acute distress-sedated on mechanical ventilation. HEENT: ET tube noted. OG to LIS with bilious drainage. No sclera icterus. Extraocular movements grossly intact. Moist buccal mucosa. Head is atraumatic, normocephalic. ABDOMEN: Soft. Nondistended. Nontender. Abdominal wound with kerlix packing noted. Serosanguineous drainage. Colostomy noted without stool output. Ostomy pink without signs of cyanosis. NEUROLOGIC: Sedated on mechanical ventilation ASSESSMENT: 1. Diverticulitis with suspected contained perforation PLAN: -Continue ICU/ventilator management per Dr. Escalante -Wean vasopressors as tolerated -Continue TPN -Continue daily dressing changes with Kerlix packing Nurse practitioner note has been reviewed by physician. Signing provider agrees with the documented findings, assessment, and plan of care. Objective - Vital Signs Vital signs: Vital Signs Temp 78.8 F L 11/12/19 10:14 Pulse 109 H 11/12/19 10:14 Resp 19 11/12/19 10:14 BP 133/45 11/12/19 10:14 Pulse Ox 99 11/12/19 10:14 Intake & Output 11/11/19 11/12/19 11/12/19 18:59 06:59 18:59 Intake Total 2461.191 3925.647 578.112 Output Total 1111 125 Balance 4881.774 9167.647 453.112 Weight 153.3 kg 159 kg Intake: IV 2076 7332 418 Dextrose 5% in Water 1, 1450 1800 150 000 ml @ 150 mls/hr IV . Q7H40M [facility] with Sodium Bicarb (1 Meq/ml) 150 ml Rx#:[id number] Magnesium Sulfate-D5w Pmx 100 1 gm In Dextrose/Water 1 100ml.bag @ 100 mls/hr IVPB Q1H [facility] Rx#: [id number] Magnesium Sulfate-D5w Pmx 100 1 gm In Dextrose/Water 1 100ml.bag @ 100 mls/hr IVPB Q1H [facility] Rx#: [id number] Mvi, Adult No.4 with Vit 100 50 K 10 ml Trace (Conc-1Ml/ Dose) 1 ml Sodium Acetate 30 meq Calcium Gluconate 1 gm In Amino Acid 4.25% -D10w 1,000 ml @ 50 mls/ hr IV .[id number] [facility] Rx#: [id number] Piperacillin-Tazobactam 3 100 100 .375 gm In Sodium Chloride 0.9% 100 ml @ 25 mls/hr IVPB Q8H [facility] Rx#: [id number] Pressure Bags 60 72 18 Sodium Acetate 30 meq 150 500 Calcium Gluconate 1 gm Mvi, Adult No.4 with Vit K 10 ml Trace (Conc-1Ml/ Dose) 1 ml In Amino Acid 4.25%-D10w 1,000 ml @ 90 mls/hr IV .BY DURATION [facility] Rx#:[id number] Sodium Chloride 0.9% 1, 316 000 ml @ 0 mls/hr IV .STK -MED ONE Rx#:[id number] metroNIDAZOLE-NS PMX 500 200 mg In Saline 1 100ml.bag @ 100 mls/hr IVPB Q8HR [facility] Rx#:[id number] Intake, IV Titration 070.285 8267.647 160.112 Amount Amiodarone 300 mg In 234.583 Dextrose 5% in Water 250 ml @ 0.5 MG/MIN 25 mls/hr IV .Q10H [facility] Rx#: [id number] Mvi, Adult No.4 with Vit 414.167 K 10 ml Trace (Conc-1Ml/ Dose) 1 ml Sodium Acetate 30 meq Calcium Gluconate 1 gm In Amino Acid 4.25% -D10w 1,000 ml @ 50 mls/ hr IV .[id number] [facility] Rx#: [id number] Norepinephrine 32 mg In 185.191 204.897 60.112 Sodium Chloride 0.9% 218 ml @ 0.05 MCG/KG/MIN 2. 966 mls/hr IV .Q24H [facility] Rx#:[id number] Potassium Chloride 20 meq 100 In Water For Injection 1 100ml.bag @ 50 mls/hr IVPB Q2H [facility] Rx#: [id number] Propofol 1,000 mg In 200.000 300 Empty Bag 1 bag @ Titrate IV .Q0M [facility] Rx#: [id number] Blood Product 0 Rc As-1 Unit 0 [id number] Output: Gastric Drainage 100 100 Urine 10 25 Stool 1 Hemodialysis 1000 Other: Voiding Method Indwelling Catheter Indwelling Catheter # Voids 1 ABP, PAP, CO, CI - Last Documented Arterial Blood Pressure 106/38 - Labs CBC & Chem 7: 11/12/19 04:55 11/12/19 09:25 Labs: Abnormal Lab Results - Last 24 Hours (Table) 11/10/19 11/11/19 11/11/19 Range/Units 03:44 11:15 11:19 WBC (3.8-10.6) k/uL RBC (3.80-5.40) m/uL Hgb (11.4-16.0) gm/dL Hct (34.0-46.0) % RDW (11.5-15.5) % Plt Count (150-450) k/uL Neutrophils # (1.3-7.7) k/uL Lymphocytes # (1.0-4.8) k/uL PT 14.7 H (9.0-12.0) sec INR 1.5 H (<1.2) ABG pO2 (83-108) mmHg ABG O2 Saturation (94-97) % ABG Lactic Acid (0.5-1.6) mmol/L Sodium (137-145) mmol/L Potassium (3.5-5.1) mmol/L Chloride (98-107) mmol/L Carbon Dioxide (22-30) mmol/L BUN (7-17) mg/dL Creatinine (0.52-1.04) mg/dL Glucose (74-99) mg/dL POC Glucose (mg/dL) 148 H (75-99) mg/dL Calcium (8.4-10.2) mg/dL Ionized Calcium Erin (4.5-5.3) mg/dL Phosphorus (2.5-4.5) mg/dL Albumin (3.5-5.0) g/dL Crossmatch See Detail 11/11/19 11/11/19 11/12/19 Range/Units 11:58 20:20 00:04 WBC (3.8-10.6) k/uL RBC (3.80-5.40) m/uL Hgb (11.4-16.0) gm/dL Hct (34.0-46.0) % RDW (11.5-15.5) % Plt Count (150-450) k/uL Neutrophils # (1.3-7.7) k/uL Lymphocytes # (1.0-4.8) k/uL PT (9.0-12.0) sec INR (<1.2) ABG pO2 (83-108) mmHg ABG O2 Saturation (94-97) % ABG Lactic Acid (0.5-1.6) mmol/L Sodium (137-145) mmol/L Potassium (3.5-5.1) mmol/L Chloride (98-107) mmol/L Carbon Dioxide (22-30) mmol/L BUN (7-17) mg/dL Creatinine (0.52-1.04) mg/dL Glucose (74-99) mg/dL POC Glucose (mg/dL) 181 H 195 H (75-99) mg/dL Calcium (8.4-10.2) mg/dL Ionized Calcium Erin 3.7 L (4.5-5.3) mg/dL Phosphorus 5.3 H (2.5-4.5) mg/dL Albumin 1.3 L (3.5-5.0) g/dL Crossmatch 11/12/19 11/12/19 11/12/19 Range/Units 04:15 04:15 04:17 WBC (3.8-10.6) k/uL RBC (3.80-5.40) m/uL Hgb (11.4-16.0) gm/dL Hct (34.0-46.0) % RDW (11.5-15.5) % Plt Count (150-450) k/uL Neutrophils # (1.3-7.7) k/uL Lymphocytes # (1.0-4.8) k/uL PT (9.0-12.0) sec INR (<1.2) ABG pO2 (83-108) mmHg ABG O2 Saturation (94-97) % ABG Lactic Acid 8.4 H* (0.5-1.6) mmol/L Sodium 127 L (137-145) mmol/L Potassium 3.4 L (3.5-5.1) mmol/L Chloride 97 L (98-107) mmol/L Carbon Dioxide 19 L (22-30) mmol/L BUN 19 H (7-17) mg/dL Creatinine 1.82 H (0.52-1.04) mg/dL Glucose 178 H (74-99) mg/dL POC Glucose (mg/dL) 213 H (75-99) mg/dL Calcium 5.6 L* (8.4-10.2) mg/dL Ionized Calcium Erin (4.5-5.3) mg/dL Phosphorus (2.5-4.5) mg/dL Albumin (3.5-5.0) g/dL Crossmatch 11/12/19 11/12/19 11/12/19 Range/Units 04:55 06:52 09:25 WBC 14.0 H (3.8-10.6) k/uL RBC 2.53 L (3.80-5.40) m/uL Hgb 7.0 L D (11.4-16.0) gm/dL Hct 21.7 L (34.0-46.0) % RDW 17.5 H (11.5-15.5) % Plt Count 86 L (150-450) k/uL Neutrophils # 12.6 H (1.3-7.7) k/uL Lymphocytes # 0.9 L (1.0-4.8) k/uL PT (9.0-12.0) sec INR (<1.2) ABG pO2 57 L* (83-108) mmHg ABG O2 Saturation 87.5 L (94-97) % ABG Lactic Acid (0.5-1.6) mmol/L Sodium 129 L (137-145) mmol/L Potassium (3.5-5.1) mmol/L Chloride (98-107) mmol/L Carbon Dioxide (22-30) mmol/L BUN (7-17) mg/dL Creatinine (0.52-1.04) mg/dL Glucose (74-99) mg/dL POC Glucose (mg/dL) (75-99) mg/dL Calcium (8.4-10.2) mg/dL Ionized Calcium Erin (4.5-5.3) mg/dL Phosphorus (2.5-4.5) mg/dL Albumin (3.5-5.0) g/dL Crossmatch 11/12/19 Range/Units 09:35 WBC (3.8-10.6) k/uL RBC (3.80-5.40) m/uL Hgb (11.4-16.0) gm/dL Hct (34.0-46.0) % RDW (11.5-15.5) % Plt Count (150-450) k/uL Neutrophils # (1.3-7.7) k/uL Lymphocytes # (1.0-4.8) k/uL PT (9.0-12.0) sec INR (<1.2) ABG pO2 (83-108) mmHg ABG O2 Saturation (94-97) % ABG Lactic Acid (0.5-1.6) mmol/L Sodium (137-145) mmol/L Potassium (3.5-5.1) mmol/L Chloride (98-107) mmol/L Carbon Dioxide (22-30) mmol/L BUN (7-17) mg/dL Creatinine (0.52-1.04) mg/dL Glucose (74-99) mg/dL POC Glucose (mg/dL) 174 H (75-99) mg/dL Calcium (8.4-10.2) mg/dL Ionized Calcium Erin (4.5-5.3) mg/dL Phosphorus (2.5-4.5) mg/dL Albumin (3.5-5.0) g/dL Crossmatch Microbiology - Last 24 Hours (Table) 11/05/19 21:45 Blood Culture - Final Blood No Growth after 144 hours 11/10/19 01:45 Urine Culture - Final Urine,Voided Arleen albicans 11/10/19 02:27 Blood Culture Gram Stain - Preliminary Blood Blood Culture - Preliminary Pseudomonas aeruginosa <Demetri Davidson - Last Filed: 11/12/19 12:30> Subjective As above. Patient remains sedated on the ventilator. High-dose pressors still required. Dialysis occurring at this time. Continue aggressive supportive care. Continue broad-spectrum antibiotics. Keep nothing by mouth for now. Objective - Vital Signs Vital signs: Vital Signs Temp 97.8 F 11/12/19 12:00 Pulse 118 H 11/12/19 12:00 Resp 24 11/12/19 12:00 BP 130/43 11/12/19 10:44 Pulse Ox 98 11/12/19 12:00 Intake & Output 11/11/19 11/12/19 11/12/19 18:59 06:59 18:59 Intake Total 2461.191 3925.647 1281.490 Output Total 1111 125 Balance 6841.868 8389.647 1156.490 Weight 153.3 kg 159 kg Intake: IV 2076 2772 806 Dextrose 5% in Water 1, 1450 1800 150 000 ml @ 150 mls/hr IV . Q7H40M [facility] with Sodium Bicarb (1 Meq/ml) 150 ml Rx#:[id number] Magnesium Sulfate-D5w Pmx 100 1 gm In Dextrose/Water 1 100ml.bag @ 100 mls/hr IVPB Q1H [facility] Rx#: [id number] Magnesium Sulfate-D5w Pmx 100 1 gm In Dextrose/Water 1 100ml.bag @ 100 mls/hr IVPB Q1H [facility] Rx#: [id number] Mvi, Adult No.4 with Vit 100 420 K 10 ml Trace (Conc-1Ml/ Dose) 1 ml Sodium Acetate 30 meq Calcium Gluconate 1 gm In Amino Acid 4.25% -D10w 1,000 ml @ 50 mls/ hr IV .[id number] [facility] Rx#: [id number] Piperacillin-Tazobactam 3 100 100 .375 gm In Sodium Chloride 0.9% 100 ml @ 25 mls/hr IVPB Q8H [facility] Rx#: [id number] Pressure Bags 60 72 36 Sodium Acetate 30 meq 150 500 Calcium Gluconate 1 gm Mvi, Adult No.4 with Vit K 10 ml Trace (Conc-1Ml/ Dose) 1 ml In Amino Acid 4.25%-D10w 1,000 ml @ 90 mls/hr IV .BY DURATION [facility] Rx#:[id number] Sodium Chloride 0.9% 1, 316 000 ml @ 0 mls/hr IV .STK -MED ONE Rx#:[id number] metroNIDAZOLE-NS PMX 500 200 mg In Saline 1 100ml.bag @ 100 mls/hr IVPB Q8HR [facility] Rx#:[id number] Intake, IV Titration 011.705 7579.647 165.490 Amount Amiodarone 300 mg In 234.583 Dextrose 5% in Water 250 ml @ 0.5 MG/MIN 25 mls/hr IV .Q10H [facility] Rx#: [id number] Mvi, Adult No.4 with Vit 414.167 K 10 ml Trace (Conc-1Ml/ Dose) 1 ml Sodium Acetate 30 meq Calcium Gluconate 1 gm In Amino Acid 4.25% -D10w 1,000 ml @ 50 mls/ hr IV .[id number] [facility] Rx#: [id number] Norepinephrine 32 mg In 185.191 204.897 65.490 Sodium Chloride 0.9% 218 ml @ 0.05 MCG/KG/MIN 2. 966 mls/hr IV .Q24H [facility] Rx#:[id number] Potassium Chloride 20 meq 100 In Water For Injection 1 100ml.bag @ 50 mls/hr IVPB Q2H [facility] Rx#: [id number] Propofol 1,000 mg In 200.000 300 Empty Bag 1 bag @ Titrate IV .Q0M [facility] Rx#: [id number] Blood Product 310 Rc As-1 Unit 310 [id number] Output: Gastric Drainage 100 100 Urine 10 25 Stool 1 Hemodialysis 1000 Other: Voiding Method Indwelling Catheter Indwelling Catheter Indwelling Catheter # Voids 1 ABP, PAP, CO, CI - Last Documented Arterial Blood Pressure 89/42 - Labs CBC & Chem 7: 11/12/19 04:55 11/12/19 09:25 Labs: Abnormal Lab Results - Last 24 Hours (Table) 11/10/19 11/11/19 11/11/19 Range/Units 03:44 11:58 20:20 WBC (3.8-10.6) k/uL RBC (3.80-5.40) m/uL Hgb (11.4-16.0) gm/dL Hct (34.0-46.0) % RDW (11.5-15.5) % Plt Count (150-450) k/uL Neutrophils # (1.3-7.7) k/uL Lymphocytes # (1.0-4.8) k/uL ABG pO2 (83-108) mmHg ABG O2 Saturation (94-97) % ABG Lactic Acid (0.5-1.6) mmol/L Sodium (137-145) mmol/L Potassium (3.5-5.1) mmol/L Chloride (98-107) mmol/L Carbon Dioxide (22-30) mmol/L BUN (7-17) mg/dL Creatinine (0.52-1.04) mg/dL Glucose (74-99) mg/dL POC Glucose (mg/dL) 181 H (75-99) mg/dL Calcium (8.4-10.2) mg/dL Ionized Calcium Erin 3.7 L (4.5-5.3) mg/dL Phosphorus 5.3 H (2.5-4.5) mg/dL Total Bilirubin (0.2-1.3) mg/dL AST (14-36) U/L ALT (4-34) U/L Alkaline Phosphatase (38-126) U/L Total Protein (6.3-8.2) g/dL Albumin 1.3 L (3.5-5.0) g/dL Crossmatch See Detail 11/12/19 11/12/19 11/12/19 Range/Units 00:04 04:15 04:15 WBC (3.8-10.6) k/uL RBC (3.80-5.40) m/uL Hgb (11.4-16.0) gm/dL Hct (34.0-46.0) % RDW (11.5-15.5) % Plt Count (150-450) k/uL Neutrophils # (1.3-7.7) k/uL Lymphocytes # (1.0-4.8) k/uL ABG pO2 (83-108) mmHg ABG O2 Saturation (94-97) % ABG Lactic Acid 8.4 H* (0.5-1.6) mmol/L Sodium 127 L (137-145) mmol/L Potassium 3.4 L (3.5-5.1) mmol/L Chloride 97 L (98-107) mmol/L Carbon Dioxide 19 L (22-30) mmol/L BUN 19 H (7-17) mg/dL Creatinine 1.82 H (0.52-1.04) mg/dL Glucose 178 H (74-99) mg/dL POC Glucose (mg/dL) 195 H (75-99) mg/dL Calcium 5.6 L* (8.4-10.2) mg/dL Ionized Calcium Erin (4.5-5.3) mg/dL Phosphorus (2.5-4.5) mg/dL Total Bilirubin (0.2-1.3) mg/dL AST (14-36) U/L ALT (4-34) U/L Alkaline Phosphatase (38-126) U/L Total Protein (6.3-8.2) g/dL Albumin (3.5-5.0) g/dL Crossmatch 11/12/19 11/12/19 11/12/19 Range/Units 04:17 04:55 06:52 WBC 14.0 H (3.8-10.6) k/uL RBC 2.53 L (3.80-5.40) m/uL Hgb 7.0 L D (11.4-16.0) gm/dL Hct 21.7 L (34.0-46.0) % RDW 17.5 H (11.5-15.5) % Plt Count 86 L (150-450) k/uL Neutrophils # 12.6 H (1.3-7.7) k/uL Lymphocytes # 0.9 L (1.0-4.8) k/uL ABG pO2 57 L* (83-108) mmHg ABG O2 Saturation 87.5 L (94-97) % ABG Lactic Acid (0.5-1.6) mmol/L Sodium (137-145) mmol/L Potassium (3.5-5.1) mmol/L Chloride (98-107) mmol/L Carbon Dioxide (22-30) mmol/L BUN (7-17) mg/dL Creatinine (0.52-1.04) mg/dL Glucose (74-99) mg/dL POC Glucose (mg/dL) 213 H (75-99) mg/dL Calcium (8.4-10.2) mg/dL Ionized Calcium Erin (4.5-5.3) mg/dL Phosphorus (2.5-4.5) mg/dL Total Bilirubin (0.2-1.3) mg/dL AST (14-36) U/L ALT (4-34) U/L Alkaline Phosphatase (38-126) U/L Total Protein (6.3-8.2) g/dL Albumin (3.5-5.0) g/dL Crossmatch 11/12/19 11/12/19 11/12/19 Range/Units 09:25 09:35 11:54 WBC (3.8-10.6) k/uL RBC (3.80-5.40) m/uL Hgb (11.4-16.0) gm/dL Hct (34.0-46.0) % RDW (11.5-15.5) % Plt Count (150-450) k/uL Neutrophils # (1.3-7.7) k/uL Lymphocytes # (1.0-4.8) k/uL ABG pO2 (83-108) mmHg ABG O2 Saturation (94-97) % ABG Lactic Acid (0.5-1.6) mmol/L Sodium 129 L (137-145) mmol/L Potassium (3.5-5.1) mmol/L Chloride (98-107) mmol/L Carbon Dioxide 20 L (22-30) mmol/L BUN (7-17) mg/dL Creatinine 1.57 H (0.52-1.04) mg/dL Glucose 159 H (74-99) mg/dL POC Glucose (mg/dL) 174 H 173 H (75-99) mg/dL Calcium 6.1 L* (8.4-10.2) mg/dL Ionized Calcium Erin (4.5-5.3) mg/dL Phosphorus (2.5-4.5) mg/dL Total Bilirubin 3.0 H (0.2-1.3) mg/dL AST 262 H (14-36) U/L ALT 112 H (4-34) U/L Alkaline Phosphatase 701 H (38-126) U/L Total Protein 4.7 L (6.3-8.2) g/dL Albumin 1.5 L (3.5-5.0) g/dL Crossmatch Microbiology - Last 24 Hours (Table) 11/05/19 21:45 Blood Culture - Final Blood No Growth after 144 hours 11/10/19 01:45 Urine Culture - Final Urine,Voided Arleen albicans 11/10/19 02:27 Blood Culture Gram Stain - Preliminary Blood Blood Culture - Preliminary Pseudomonas aeruginosa Assessment and Plan (1) Diverticulitis Current Visit: Yes Status: Acute Code(s): K57.92 - DVTRCLI OF INTEST, PART UNSP, W/O PERF OR ABSCESS W/O BLEED SNOMED Code(s): 370575631
[2019-11-12] MEDS: [UNRECOGNIZED DRUG - OTHER] IV SCH ×10 (10:35→21:55)
[2019-11-12] MEDS: CALCIUM GLUCONATE 1 GM IV SCH ×10 (10:35→21:55)
[2019-11-12] MEDS: DEXTROSE IV SCH ×10 (10:35→21:55)
[2019-11-12] MEDS: SODIUM ACETATE 30 MEQ IV SCH ×10 (10:35→21:55)
[2019-11-12 11:04] LABS: Calcium 6.1 mg/dL (8.4-10.2)
[2019-11-12 11:06] LABS: Albumin 1.5 g/dL (3.5-5.0); Total Protein 4.7 g/dL (6.3-8.2)
[2019-11-12 11:08] LABS: Potassium 3.9 mmol/L (3.5-5.1)
--- NOTE | 2019-11-12 11:25 | PN ---
PROGRESS NOTE Patient is seen for followup for acute kidney injury. We did dialyze her yesterday for about 5 hours. Patient tolerated her treatment fairly okay. We were able to get about a liter of fluid off. Her acidosis has improved and patient continues to have no significant urine output. She remains on the vent. FiO2 has increased from 60% to 80% today. Hemoglobin was noted to be low today at 7.0 g/dL. No active bleeding noted at this time. PHYSICAL EXAMINATION: On examination today, patient remains on the vent. Blood pressure was 93/58, heart rate about 100 per minute. Patient is afebrile. EXAMINATION OF THE HEART: S1, S2. EXAMINATION OF THE LUNGS: Shows bilateral breath sounds are heard. ABDOMEN: Soft. Abdominal wound is dressed. Colostomy is noted. Examination of lower extremities shows edema 3+ bilaterally. [employer] exam cannot be performed. LABS: Labs show hemoglobin 7.0, white cell count 14.0, sodium 127, potassium 3.4, chloride 97, CO2 is 19, BUN 19, creatinine 1.8. ASSESSMENT: 1. Acute kidney injury, acute tubular necrosis, currently oliguric. Patient was dialyzed yesterday for about 5 hours. She tolerated her SLED procedure. We will try it again today and increase UF to about 2 L as tolerated. This morning when the dialysis nurse increased the ultrafiltration, her blood pressure decreased significantly and Levophed was increased to 50 mcg. We will try to back off on the UF to see if the patient can tolerate her treatment. 2. Severe volume overload. Increase UF as tolerated today. 3. Hypokalemia, will replace with dialysis, currently getting replacement as well IV. 4. Lactic acidosis secondary to hypotension hypoperfusion. 5. Anemia, rule out gastrointestinal bleed. No active bleeding noted. PLAN: Increase UF as tolerated today with dialysis. We will adjust for the potassium and the sodium. Overall prognosis remains guarded. MMODL / IJN: [id number] /
[2019-11-12] MEDS: SODIUM CHLORIDE 0.9% 50 ML with VASOPRESSIN 20 UNIT IVPB SCH ×4 (11:31→22:42)
[2019-11-12 11:55] LABS: Glucose,Whole Blood 173 mg/dL (75-99)
[2019-11-12] MEDS: NOREPINEPHRINE 4 MG in SODIUM CHLORIDE 0.9% 250 ML IV SCH ×2 (13:34→22:43)
--- NOTE | 2019-11-12 14:37 | PN ---
PROGRESS NOTE DATE OF [id number]/12/2019: REASON FOR FOLLOWUP: perforated sigmoid diverticulitis with Pseudomonas bacteremia. INTERVAL HISTORY: The patient is currently afebrile. The patient is undergoing dialysis. She has been on pressor support. FiO2 is stable at 2.7. No other changes, . On examination, blood pressure is 130/79 with a pulse 140, temperature 98.2, she is on 0% FiO2. General description is an elderly female, lying in bed in no distress. RESPIRATORY SYSTEM: Unlabored breathing, decreased breath sounds at the base, no wheeze. Heart: S1, S2. Regular rate and rhythm. ABDOMEN: Soft, no tenderness. LABS: White count is down to 14,000, creatinine is 1.57. Liver is DIAGNOSTIC IMPRESSION AND PLAN: Patient with acute sigmoid diverticulitis with perforation, status post diverting colostomy. No OR cultures. Blood culture with pathogen is pending. Patient is covered with Zosyn, to continue. showed abdominal pain consistent with culture report. Continue supportive care. MMODL / IJN: [id number] /
[2019-11-12 16:16] LABS: Glucose,Whole Blood 157 mg/dL (75-99)
[2019-11-12 19:40] LABS: Anisocytosis Slight; Mean Platelet Volume 8.3; WBC 17.6 k/uL (3.8-10.6)
[2019-11-12 20:03] LABS: Glucose,Whole Blood 195 mg/dL (75-99)
[2019-11-12 21:14] LABS: Platelet Count 68 k/uL (150-450)
[2019-11-12 21:17] LABS: HGB 10.8 gm/dL (11.4-16.0)
[2019-11-12] MEDS: SODIUM ACETATE IV SCH ×10 (21:54→22:43)
[2019-11-12] MEDS: [UNRECOGNIZED DRUG - OTHER] IV SCH ×10 (21:54→22:43)
[2019-11-12] MEDS: CALCIUM GLUCONATE IV SCH ×10 (21:54→22:43)
--- NOTE | 2019-11-12 22:49 | P.PN ---
Progress Note - Text Progress Note Date: 11/12/19 Chief Complaint: Abdominal pain History of presenting complaint: This is a very pleasant [address] Sin. Chronic stable medical conditions include paroxysmal atrial fibrillation, asthma, hypertension, GERD, chronic kidney disease stage IV, bilateral lower extremity lymphedema. Patient normally uses a walker to get about. [facility]. Patient's had abdominal pain on and off for quite some time. On this occasion yesterday the pain became much worse cramping some nausea vomiting. Denies any fever and chills. Had to 3 loose stools yesterday. No blood. Computed tomography scan in the ER did show diverticulitis. Patient is made nothing by mouth. Daughter the bedside. At the [facility] patient was walking at least-20-30 steps with a walker. Admitted with acute sigmoid diverticulitis. Also patient noted to have some vaginal blood clots. Seen by Dr. Binh Abbasi-to be followed as an outpatient. Patient's started on IV antibiotics. Repeat Computed tomography scan-Found to have a contained bowel perforation. Leading up to left hemicolectomy. Sedlo-GON-[id number]. on the ventilator. FiO2 60%...- 14. IV fluids include propofol, bicarbonate, epidural, amiodarone. Remains in A. fib. Getting ultrafiltration today 2 L being removed. Also receiving 2 units of packed red blood cell. Review of systems: Not done-patient intubated Active Medications Albuterol/Ipratropium (Duoneb 0.5 Mg-3 Mg/3 Ml Soln) 3 ml INHALATION RT-Q4H [facility] Last Admin: 11/12/19 19:25 Dose: 3 ml Documented by: Bisacodyl (Dulcolax) 10 mg RECTAL DAILY PRN PRN Reason: Constipation Chlorhexidine Gluconate (Peridex) 15 ml MUCOUS MEM BID [facility] Last Admin: 11/12/19 20:13 Dose: 15 ml Documented by: Enoxaparin Sodium (Lovenox) 30 mg SQ DAILY [facility] Last Admin: 11/12/19 08:45 Dose: 30 mg Documented by: Hydromorphone HCl (Dilaudid) 0.5 mg IVP Q4HR PRN PRN Reason: Pain Scale 6 to 10 Last Admin: 11/12/19 04:38 Dose: 0.5 mg Documented by: Norepinephrine Bitartrate 4 mg (/ Sodium Chloride) 254 mls @ 24.108 mls/hr IV .[id number] [facility]; Protocol Last Admin: 11/12/19 22:43 Dose: Not Given Documented by: Epinephrine HCl 4 mg/ Dextrose (/Water) 250 mls @ 4.746 mls/hr IV .Q24H [facility]; Protocol Last Admin: 11/12/19 08:44 Dose: Not Given Documented by: Metronidazole 500 mg/ IV (Solution) 100 mls @ 100 mls/hr IVPB Q8HR [facility] Last Admin: 11/12/19 16:34 Dose: 100 mls/hr Documented by: Propofol 1,000 mg/ IV Solution 100 mls @ 0 mls/hr IV .Q0M [facility]; Protocol Last Admin: 11/12/19 22:42 Dose: 60 mcg/kg/min, 55.188 mls/hr Documented by: Norepinephrine Bitartrate 32 (mg/ Sodium Chloride) 250 mls @ 2.966 mls/hr IV .Q24H [facility]; Protocol Last Titration: 11/12/19 15:00 Dose: 0.25 mcg/kg/min, 14.83 mls/hr Documented by: Vasopressin 20 unit/ Sodium (Chloride) 51 mls @ 4.59 mls/hr IVPB .Q11H7M [facility] Last Admin: 11/12/19 22:42 Dose: 4.59 mls/hr Documented by: Amiodarone HCl 300 mg/ (Dextrose/Water) 250 mls @ 25 mls/hr IV .Q10H [facility]; Protocol Stop: 11/13/19 01:59 Last Admin: 11/12/19 18:32 Dose: 0.5 mg/min, 25 mls/hr Documented by: Sodium Acetate 30 meq/ Calcium Gluconate 1 gm/ Amino Ac/Electrol/Dextrose/Calcium 1,025 mls @ 90 mls/hr IV .BY DURATION [facility] Last Admin: 11/12/19 21:54 Dose: 90 mls/hr Documented by: Sodium Acetate 30 meq/ Calcium Gluconate 1 gm/ Parenteral Vitamin Supplement 10 ml/Chromium/Copper/Manganese/Seleni/Zn 1 ml/ Amino Ac/Electrol/Dextrose/Calcium 1,036 mls @ 90 mls/hr IV .BY DURATION [facility] Last Admin: 11/12/19 22:43 Dose: Not Given Documented by: Piperacillin Sod/Tazobactam (Sod 3.375 gm/ Sodium Chloride) 100 mls @ 25 mls/hr IVPB Q8HR [facility] Last Admin: 11/12/19 16:34 Dose: 25 mls/hr Documented by: Insulin Aspart (Novolog) 0 unit SQ Q4HR [facility]; Protocol Last Admin: 11/12/19 20:12 Dose: 2 unit Documented by: Miscellaneous Information (Potassium Per Protocol) 1 each MISCELLANE DAILY PRN; Protocol PRN Reason: Per Protocol Miscellaneous Information (Magnesium Per Protocol) 1 each MISCELLANE DAILY PRN; Protocol PRN Reason: Per Protocol Multi-Ingred Cream/Lotion/Oil/Oint (Triad Cream) 1 applic TOPICAL BID [facility] Last Admin: 11/12/19 20:13 Dose: 1 applic Documented by: Naloxone HCl (Narcan) 0.2 mg IV Q2M PRN PRN Reason: Opioid Reversal Nystatin (Mycostatin Powder) 1 applic TOPICAL BID [facility] Last Admin: 11/12/19 20:13 Dose: 1 applic Documented by: Pantoprazole Sodium (Protonix) 40 mg IV DAILY [facility] Last Admin: 11/12/19 08:45 Dose: 40 mg Documented by: Physical examination: VITAL SIGNS: 97.5, 112, 31, 140-43, 99% on the ventilator GENERAL: Laying in bed, intubated EYES: Pupils equal. Conjunctiva normal. HEENT: External appearance of nose and ears normal, oral cavity dry mucous membrane. Endotracheal tube in place. NG tube NECK: JVD not raised; masses not palpable. HEART: irregular heart sounds; some edema. LUNGS: Respiratory rate increased; clear to auscultation. ABDOMEN: Soft, dressing over the incision site, no guarding rigidity, liver spleen not palpable, no masses palpable. Colostomy-no output. PSYCH: Sedated LYMPHATICS: lymphedema of the lower extremity INVESTIGATIONS, reviewed in the clinical context: white count 14 hemoglobin 7potassium 3.9 creatinine 1.57 potassium 6.1albumin 1.5 Previous testing White count 4.5 hemoglobin 9.8 platelets 126 Creatinine 1.3 Computed tomography scan of the abdomen-possible colitis versus diverticulitis in the sigmoid area C. diff-negative Assessment: -Acute perforation of the large colon. Leading to left colectomy, partial omentectomy and a colostomy -Acute sigmoid diverticulitis, -Acute hypoxic respiratory failure requiring ventilator support. Intubated, slo w to respond -Septic shock requiring pressor support, slow to respond -Intermittent vaginal blood clots-endometrial prominence. outpatient D&C -Acute kidney injury likely ATN , oliguricfrom cardiorenal syndrome. -Bilateral lower extremity lymphedema -Persistent atrial fibrillation, with rapid ventricular rate, uncontrolled -Acute cellulitis of the right lower extremity -Chronic gait dysfunction uses a walker -Morbid obesity BMI 51 -Right bundle-branch block -Essential hypertension -GERD -Acute postprocedure blood loss anemia as expected from surgery-getting 2 units of blood Plan: drips include IV propofol, bicarbonate, Levothroid, amiodarone. A. fib remains uncontrolled. Getting 2 units of blood. Ultrafiltration 2 years. Prognosis guarded.
[2019-11-12 23:32] LABS: Glucose,Whole Blood 205 mg/dL (75-99)
[2019-11-13] MEDS: PROPOFOL 1,000 MG in EMPTY BAG 1 BAG IV SCH ×12 (00:31→22:52)
[2019-11-13] MEDS: HYDROmorphone 0.5 MG/0.5 ML SYRINGE IVP PRN (01:08)
[2019-11-13] MEDS: IPRATROPIUM-ALBUTEROL 3 ML NEB INHALATION SCH ×6 (02:43→23:53)
[2019-11-13] MEDS: EPINEPHrine 4 MG in DEXTROSE 5% IN WATER 250 ML IV SCH ×2 (02:54)
[2019-11-13] MEDS: NOREPINEPHRINE 32 MG in SODIUM CHLORIDE 0.9% 218 ML IV SCH ×2 (02:59→12:07)
[2019-11-13] MEDS: INSULIN ASPART (NovoLOG) 100 UNIT/ML VIAL SQ SCH ×6 (04:45→23:45)
[2019-11-13 05:13] LABS: Glucose,Whole Blood 207 mg/dL (75-99)
[2019-11-13 05:40] LABS: Anisocytosis Slight; Basophils % (A) 0 %; Eosinophils # (A) 0.1 k/uL (0-0.7); Eosinophils % (A) 0 %; HCT 27.1 % (34.0-46.0); HGB 10.3 gm/dL (11.4-16.0); Lymphocytes # (A) 0.8 k/uL (1.0-4.8); Lymphocytes % (A) 5 %; MCH 33.5 pg (25.0-35.0); MCV 88.1 fL (80.0-100.0); Mean Platelet Volume 8.5; Monocytes # (A) 0.4 k/uL (0-1.0); Monocytes % (A) 2 %; Neutrophils # (A) 15.4 k/uL (1.3-7.7); Neutrophils % (A) 92 %; Poikilocytosis Slight; RBC 3.08 m/uL (3.80-5.40); RDW 16.7 % (11.5-15.5); WBC 16.8 k/uL (3.8-10.6)
[2019-11-13 06:10] LABS: Platelet Count 50 k/uL (150-450)
[2019-11-13 06:36] LABS: Calcium 6.6 mg/dL (8.4-10.2); Magnesium 1.8 mg/dL (1.6-2.3); Phosphorus 2.6 mg/dL (2.5-4.5)
[2019-11-13 06:42] LABS: Potassium 3.5 mmol/L (3.5-5.1)
[2019-11-13] MEDS ORDERED: POTASSIUM CHLORIDE 20 MEQ in WATER FOR INJECTION 1 100ML.BAG IVPB SCH (07:00)
[2019-11-13 07:09] LABS: ABG Base Excess -4.2 mmol/L; ABG HCO3 22 mmol/L (21-25); ABG Oxygen Saturation 97.6 % (94-97); ABG PCO2 41 mmHg (35-45); ABG PH 7.33 (7.35-7.45); ABG PO2 108 mmHg (83-108); ABG TCO2 23 mmol/L (19-24); Allen Test Performed? Yes
[2019-11-13] MEDS: MAGNESIUM SULFATE-D5W PMX 1 GM in DEXTROSE/WATER 1 100ML.BAG IVPB SCH ×2 (07:15→09:32)
--- NOTE | 2019-11-13 07:34 | P.PN ---
Subjective Progress Note Date: 11/13/19 Principal diagnosis: Atrial fibrillation with RVR This is a pleasant 69-year-old female patient with a past medical history significant for paroxysmal atrial fibrillation on oral anticoagulation at home, chronic kidney disease, chronic bilateral lower extremities edema/lymphedema, as well as multiple comorbid conditions, who was a resident at [facility], was brought to the hospital for further evaluation off symptoms of nausea and vomiting and abdominal discomfort for the last few days. The symptoms got worse lately and because of that the patient was brought to the emergency room. She underwent a computed tomography scan in the ER and that revealed diverticulitis. Subsequently the patient underwent exploratory laparotomy and she underwent partial colectomy and colostomy and her incision is open at this point. Currently the patient is septic and she is hemodynamically unstable and requiring two vasopressors. Her lactic acid was elevated. We involved in the care of the patient for further evaluation of atrial fibrillation with RVR. The patient is known to have paroxysmal atrial fibrillation but she was maintaining normal sinus mechanism when she presented to the emergency room. During her hospital stay in the ICU, she has been in and out atrial fibrillation. Currently she is in A. fib/flutter with RVR. Subsequently she was started on Cardizem drip last night. Currently the patient is intubated and she is on mechanical ventilation. I am going to DC the Cardizem and drip and start the patient on amiodarone as well as abdomen, giving her low blood pressure. Continue holding any oral or IV anticoagulation at this point. I am going also to obtain an echocardiogram was Doppler to assess her left ventricular systolic function and also the intracardiac valves. We'll continue following up with the patient. The patient was seen today, November [id number]. She continues to be intubated on mechanical ventilation. She continues to be unstable hemodynamically and requires to vasopressors. She is on amiodarone by mouth. Her average heart rate is 110 220 bpm with atrial fibrillation. I am going to add a small dose of Cardizem at 2.5 mg per hour without bolus to see if we can't controlled heart rate and hopefully improve her blood pressure. Will DC the medication if her pressure dropped down. Objective - Vital Signs Vital signs: Vital Signs Temp 97.5 F L 11/13/19 04:00 Pulse 125 H 11/13/19 07:21 Resp 25 H 11/13/19 07:00 BP 94/53 11/13/19 02:45 Pulse Ox 98 11/13/19 07:00 Intake & Output 11/12/19 11/13/19 11/13/19 18:59 06:59 18:59 Intake Total 2465.408 1738.557 35.682 Output Total 1735 461 0 Balance 785.645 7402.557 35.682 Weight 150.2 kg Intake: IV 1532 1122 21 Dextrose 5% in Water 1, 150 000 ml @ 150 mls/hr IV . Q7H40M [facility] with Sodium Bicarb (1 Meq/ml) 150 ml Rx#:[id number] Magnesium Sulfate-D5w Pmx 100 1 gm In Dextrose/Water 1 100ml.bag @ 100 mls/hr IVPB Q1H [facility] Rx#: [id number] Mvi, Adult No.4 with Vit 960 270 K 10 ml Trace (Conc-1Ml/ Dose) 1 ml Sodium Acetate 30 meq Calcium Gluconate 1 gm In Amino Acid 4.25% -D10w 1,000 ml @ 50 mls/ hr IV .[id number] [facility] Rx#: [id number] Piperacillin-Tazobactam 3 25 215 .375 gm In Sodium Chloride 0.9% 100 ml @ 25 mls/hr IVPB Q12HR [facility] Rx #:[id number] Piperacillin-Tazobactam 3 100 .375 gm In Sodium Chloride 0.9% 100 ml @ 25 mls/hr IVPB Q8H [facility] Rx#: [id number] Pressure Bags 72 72 6 Sodium Acetate 30 meq 450 Calcium Gluconate 1 gm Mvi, Adult No.4 with Vit K 10 ml Trace (Conc-1Ml/ Dose) 1 ml In Amino Acid 4.25%-D10w 1,000 ml @ 90 mls/hr IV .BY DURATION [facility] Rx#:[id number] Sodium Chloride 0.9% 1, 25 115 15 000 ml @ 0 mls/hr IV .STK -MED ONE Rx#:[id number] metroNIDAZOLE-NS PMX 500 100 mg In Saline 1 100ml.bag @ 100 mls/hr IVPB Q8HR [facility] Rx#:[id number] Intake, IV Titration 623.408 616.557 14.682 Amount Amiodarone 300 mg In 241.25 Dextrose 5% in Water 250 ml @ 0.5 MG/MIN 25 mls/hr IV .Q10H [facility] Rx#: [id number] Norepinephrine 32 mg In 182.158 166.779 14.682 Sodium Chloride 0.9% 218 ml @ 0.05 MCG/KG/MIN 2. 966 mls/hr IV .Q24H [facility] Rx#:[id number] Potassium Chloride 20 meq 100 In Water For Injection 1 100ml.bag @ 50 mls/hr IVPB Q2H [facility] Rx#: [id number] Propofol 1,000 mg In 100 449.778 Empty Bag 1 bag @ Titrate IV .Q0M [facility] Rx#: [id number] Blood Product 310 Rc As-1 Unit 310 [id number] Rc As-3 Unit 0 [id number] Output: Gastric Drainage 300 Urine 35 11 0 Stool 450 Hemodialysis 1400 Other: Voiding Method Indwelling Catheter Indwelling Catheter ABP, PAP, CO, CI - Last Documented Arterial Blood Pressure 122/42 - Constitutional General appearance: Present: no acute distress - Respiratory Respiratory: bilateral: diminished - Cardiovascular Rhythm: irregularly irregular Heart sounds: normal: S1, S2 - Labs CBC & Chem 7: 11/13/19 05:15 11/13/19 05:15 Labs: Abnormal Lab Results - Last 24 Hours (Table) 11/10/19 11/12/19 11/12/19 Range/Units 03:44 04:15 09:25 WBC (3.8-10.6) k/uL RBC (3.80-5.40) m/uL Hgb (11.4-16.0) gm/dL Hct (34.0-46.0) % MCHC (31.0-37.0) g/dL RDW (11.5-15.5) % Plt Count (150-450) k/uL Neutrophils # (1.3-7.7) k/uL Lymphocytes # (1.0-4.8) k/uL ABG pH (7.35-7.45) ABG O2 Saturation (94-97) % Sodium 127 L 129 L (137-145) mmol/L Potassium 3.4 L (3.5-5.1) mmol/L Chloride 97 L (98-107) mmol/L Carbon Dioxide 19 L 20 L (22-30) mmol/L BUN 19 H (7-17) mg/dL Creatinine 1.82 H 1.57 H (0.52-1.04) mg/dL Glucose 178 H 159 H (74-99) mg/dL POC Glucose (mg/dL) (75-99) mg/dL Calcium 5.6 L* 6.1 L* (8.4-10.2) mg/dL Total Bilirubin 3.0 H (0.2-1.3) mg/dL AST 262 H (14-36) U/L ALT 112 H (4-34) U/L Alkaline Phosphatase 701 H (38-126) U/L Total Protein 4.7 L (6.3-8.2) g/dL Albumin 1.5 L (3.5-5.0) g/dL Crossmatch See Detail 11/12/19 11/12/19 11/12/19 Range/Units 09:35 11:54 16:14 WBC (3.8-10.6) k/uL RBC (3.80-5.40) m/uL Hgb (11.4-16.0) gm/dL Hct (34.0-46.0) % MCHC (31.0-37.0) g/dL RDW (11.5-15.5) % Plt Count (150-450) k/uL Neutrophils # (1.3-7.7) k/uL Lymphocytes # (1.0-4.8) k/uL ABG pH (7.35-7.45) ABG O2 Saturation (94-97) % Sodium (137-145) mmol/L Potassium (3.5-5.1) mmol/L Chloride (98-107) mmol/L Carbon Dioxide (22-30) mmol/L BUN (7-17) mg/dL Creatinine (0.52-1.04) mg/dL Glucose (74-99) mg/dL POC Glucose (mg/dL) 174 H 173 H 157 H (75-99) mg/dL Calcium (8.4-10.2) mg/dL Total Bilirubin (0.2-1.3) mg/dL AST (14-36) U/L ALT (4-34) U/L Alkaline Phosphatase (38-126) U/L Total Protein (6.3-8.2) g/dL Albumin (3.5-5.0) g/dL Crossmatch 11/12/19 11/12/19 11/12/19 Range/Units 19:29 20:01 23:31 WBC 17.6 H (3.8-10.6) k/uL RBC (3.80-5.40) m/uL Hgb 10.8 L D (11.4-16.0) gm/dL Hct (34.0-46.0) % MCHC (31.0-37.0) g/dL RDW (11.5-15.5) % Plt Count 68 L (150-450) k/uL Neutrophils # (1.3-7.7) k/uL Lymphocytes # (1.0-4.8) k/uL ABG pH (7.35-7.45) ABG O2 Saturation (94-97) % Sodium (137-145) mmol/L Potassium (3.5-5.1) mmol/L Chloride (98-107) mmol/L Carbon Dioxide (22-30) mmol/L BUN (7-17) mg/dL Creatinine (0.52-1.04) mg/dL Glucose (74-99) mg/dL POC Glucose (mg/dL) 195 H 205 H (75-99) mg/dL Calcium (8.4-10.2) mg/dL Total Bilirubin (0.2-1.3) mg/dL AST (14-36) U/L ALT (4-34) U/L Alkaline Phosphatase (38-126) U/L Total Protein (6.3-8.2) g/dL Albumin (3.5-5.0) g/dL Crossmatch 11/13/19 11/13/19 11/13/19 Range/Units 03:52 05:15 05:15 WBC 16.8 H (3.8-10.6) k/uL RBC 3.08 L (3.80-5.40) m/uL Hgb 10.3 L (11.4-16.0) gm/dL Hct 27.1 L (34.0-46.0) % MCHC 38.0 H (31.0-37.0) g/dL RDW 16.7 H (11.5-15.5) % Plt Count 50 L (150-450) k/uL Neutrophils # 15.4 H (1.3-7.7) k/uL Lymphocytes # 0.8 L (1.0-4.8) k/uL ABG pH (7.35-7.45) ABG O2 Saturation (94-97) % Sodium 127 L (137-145) mmol/L Potassium (3.5-5.1) mmol/L Chloride (98-107) mmol/L Carbon Dioxide 18 L (22-30) mmol/L BUN (7-17) mg/dL Creatinine 1.79 H (0.52-1.04) mg/dL Glucose 180 H (74-99) mg/dL POC Glucose (mg/dL) 207 H (75-99) mg/dL Calcium 6.6 L (8.4-10.2) mg/dL Total Bilirubin (0.2-1.3) mg/dL AST (14-36) U/L ALT (4-34) U/L Alkaline Phosphatase (38-126) U/L Total Protein (6.3-8.2) g/dL Albumin (3.5-5.0) g/dL Crossmatch 11/13/19 Range/Units 07:04 WBC (3.8-10.6) k/uL RBC (3.80-5.40) m/uL Hgb (11.4-16.0) gm/dL Hct (34.0-46.0) % MCHC (31.0-37.0) g/dL RDW (11.5-15.5) % Plt Count (150-450) k/uL Neutrophils # (1.3-7.7) k/uL Lymphocytes # (1.0-4.8) k/uL ABG pH 7.33 L (7.35-7.45) ABG O2 Saturation 97.6 H (94-97) % Sodium (137-145) mmol/L Potassium (3.5-5.1) mmol/L Chloride (98-107) mmol/L Carbon Dioxide (22-30) mmol/L BUN (7-17) mg/dL Creatinine (0.52-1.04) mg/dL Glucose (74-99) mg/dL POC Glucose (mg/dL) (75-99) mg/dL Calcium (8.4-10.2) mg/dL Total Bilirubin (0.2-1.3) mg/dL AST (14-36) U/L ALT (4-34) U/L Alkaline Phosphatase (38-126) U/L Total Protein (6.3-8.2) g/dL Albumin (3.5-5.0) g/dL Crossmatch Assessment and Plan Assessment: Assessment #1 abdominal discomfort secondary to perforated diverticulosis #2 sepsis secondary to the above #3 atrial fibrillation/flutter with RVR #4 known paroxysmal atrial fibrillation #5 chronic lower extremities lymphedema #6 chronic kidney disease Plan #1 continue the current medical regimen #2 continue amiodarone IV #3 start the patient on small dose of Cardizem IV #4 reviewing the echo showed normal LV function
[2019-11-13] MEDS ORDERED: TORSEMIDE 20 MG TAB PO SCH (08:00)
--- NOTE | 2019-11-13 08:17 | XR ---
EXAMINATION TYPE: XR chest 1V portable DATE OF EXAM: 11/13/2019 COMPARISON: 11/12/2019 INDICATION: Tube placement TECHNIQUE: Single frontal view of the chest is obtained. FINDINGS: The heart size is normal. The pulmonary vasculature is normal. Mild diffuse increased lung markings are present through the left lung and at the right lung base. Fi ndings may be worsening from comparison. Endotracheal tube tip is above the kitty. Nasogastric tube transverses the thorax. Right central adi ous catheter is tip within the right atrium. No pneumothorax is evident. IMPRESSION: 1. Worsening infiltrates greater on the left. Continued follow-up is recommended.
[2019-11-13 08:25] LABS: Glucose,Whole Blood 225 mg/dL (75-99)
[2019-11-13] MEDS: PIPERACILLIN-TAZOBACTAM 3.375 GM in SODIUM CHLORIDE 0.9% 100 ML IVPB SCH ×3 (08:29→23:42)
[2019-11-13] MEDS: metroNIDAZOLE-NS PMX 500 MG in SALINE 1 100ML.BAG IVPB SCH ×3 (08:29→23:46)
[2019-11-13] MEDS: ENOXAPARIN 30 MG/0.3 ML SYRINGE SQ SCH (08:30)
[2019-11-13] MEDS: PANTOPRAZOLE 40 MG/10 ML VIAL IV SCH (08:30)
[2019-11-13] MEDS: CHLORHEXIDINE GLUCONATE 15 ML CUP MUCOUS MEM SCH ×2 (08:32→21:27)
[2019-11-13] MEDS: HYDROPHILIC CREAM 180 GM TUBE TOPICAL SCH ×2 (08:32→21:12)
[2019-11-13] MEDS: DILTIAZEM 125 MG in SODIUM CHLORIDE 0.9% 100 ML IV SCH (08:33)
[2019-11-13] MEDS: NYSTATIN 100,000 UNIT/GM POWD 15 GM TOPICAL SCH ×2 (08:37→21:12)
[2019-11-13] MEDS: SODIUM CHLORIDE 0.9% 50 ML with VASOPRESSIN 20 UNIT IVPB SCH ×2 (09:21)
[2019-11-13] MEDS: SODIUM ACETATE IV SCH ×10 (10:46→22:16)
[2019-11-13] MEDS: [UNRECOGNIZED DRUG - OTHER] IV SCH ×10 (10:46→22:16)
[2019-11-13] MEDS: CALCIUM GLUCONATE IV SCH ×10 (10:46→22:16)
--- NOTE | 2019-11-13 11:16 | P.PN ---
<SarmientoGissell Michell - Last Filed: 11/13/19 11:16> Subjective Progress Note Date: 11/13/19 CHIEF COMPLAINT: Diverticulitis HISTORY OF PRESENT ILLNESS: Patient is status post left colectomy with mobilization of splenic flexure, partial omentectomy, and colostomy creation. POD #3. She remains critically ill. Patient remains on mechanical ventilation in the ICU. FiO2 60% with a PEEP of 14. Patient remains on vasopressor support. She is currently receiving dialysis. TPN infusing. WBC 16.8. Hemoglobin 10.3. Nursing reports copious amounts of serosanguineous drainage from abdominal wound that is requiring dressing changes approximately every 2 hours. PHYSICAL EXAM: VITAL SIGNS: Reviewed. GENERAL: Well-developed in no acute distress-sedated on mechanical ventilation. HEENT: ET tube noted. OG to LIS with bilious drainage. No sclera icterus. Extraocular movements grossly intact. Moist buccal mucosa. Head is atraumatic, normocephalic. ABDOMEN: Soft. Nondistended. Nontender. Abdominal wound with kerlix packing noted. Serosanguineous drainage. Colostomy noted without stool output. Ostomy pink without signs of cyanosis. NEUROLOGIC: Sedated on mechanical ventilation ASSESSMENT: 1. Diverticulitis with suspected contained perforation PLAN: -Continue ICU/ventilator management per Dr. Escalante -Wean vasopressors as tolerated -Continue TPN. Await bowel function from ostomy before transitioning to tube feeds -Apply wound vac to abdominal wound Nurse practitioner note has been reviewed by physician. Signing provider agrees with the documented findings, assessment, and plan of care. Objective - Vital Signs Vital signs: Vital Signs Temp 97.5 F L 11/13/19 04:00 Pulse 122 H 11/13/19 07:40 Resp 25 H 11/13/19 07:00 BP 94/53 11/13/19 02:45 Pulse Ox 98 11/13/19 07:00 Intake & Output 11/12/19 11/13/19 11/13/19 18:59 06:59 18:59 Intake Total 2465.408 1173.700 7498.682 Output Total 1735 461 0 Balance 084.902 0838.557 1160.682 Weight 150.2 kg Intake: IV 1532 1122 21 Dextrose 5% in Water 1, 150 000 ml @ 150 mls/hr IV . Q7H40M [facility] with Sodium Bicarb (1 Meq/ml) 150 ml Rx#:[id number] Magnesium Sulfate-D5w Pmx 100 1 gm In Dextrose/Water 1 100ml.bag @ 100 mls/hr IVPB Q1H [facility] Rx#: [id number] Mvi, Adult No.4 with Vit 960 270 K 10 ml Trace (Conc-1Ml/ Dose) 1 ml Sodium Acetate 30 meq Calcium Gluconate 1 gm In Amino Acid 4.25% -D10w 1,000 ml @ 50 mls/ hr IV .[id number] [facility] Rx#: [id number] Piperacillin-Tazobactam 3 25 215 .375 gm In Sodium Chloride 0.9% 100 ml @ 25 mls/hr IVPB Q12HR [facility] Rx #:[id number] Piperacillin-Tazobactam 3 100 .375 gm In Sodium Chloride 0.9% 100 ml @ 25 mls/hr IVPB Q8H [facility] Rx#: [id number] Pressure Bags 72 72 6 Sodium Acetate 30 meq 450 Calcium Gluconate 1 gm Mvi, Adult No.4 with Vit K 10 ml Trace (Conc-1Ml/ Dose) 1 ml In Amino Acid 4.25%-D10w 1,000 ml @ 90 mls/hr IV .BY DURATION [facility] Rx#:[id number] Sodium Chloride 0.9% 1, 25 115 15 000 ml @ 0 mls/hr IV .STK -MED ONE Rx#:[id number] metroNIDAZOLE-NS PMX 500 100 mg In Saline 1 100ml.bag @ 100 mls/hr IVPB Q8HR [facility] Rx#:[id number] Intake, IV Titration 623.408 402.180 8430.682 Amount Amiodarone 300 mg In 241.25 Dextrose 5% in Water 250 ml @ 0.5 MG/MIN 25 mls/hr IV .Q10H [facility] Rx#: [id number] Norepinephrine 32 mg In 182.158 166.779 14.682 Sodium Chloride 0.9% 218 ml @ 0.05 MCG/KG/MIN 2. 966 mls/hr IV .Q24H [facility] Rx#:[id number] Potassium Chloride 20 meq 100 In Water For Injection 1 100ml.bag @ 50 mls/hr IVPB Q2H [facility] Rx#: [id number] Propofol 1,000 mg In 100 449.778 100 Empty Bag 1 bag @ Titrate IV .Q0M [facility] Rx#: [id number] Sodium Acetate 30 meq 1025 Calcium Gluconate 1 gm In Amino Acid 4.25%-D10w+ Lytes*E* 1,000 ml @ 90 mls/hr IV .BY DURATION [facility] Rx#:[id number] Blood Product 310 Rc As-1 Unit 310 [id number] Rc As-3 Unit 0 [id number] Output: Gastric Drainage 300 Urine 35 11 0 Stool 450 Hemodialysis 1400 Other: Voiding Method Indwelling Catheter Indwelling Catheter ABP, PAP, CO, CI - Last Documented Arterial Blood Pressure 122/42 - Labs CBC & Chem 7: 11/13/19 05:15 11/13/19 05:15 Labs: Abnormal Lab Results - Last 24 Hours (Table) 11/10/19 11/12/19 11/12/19 Range/Units 03:44 09:25 11:54 WBC (3.8-10.6) k/uL RBC (3.80-5.40) m/uL Hgb (11.4-16.0) gm/dL Hct (34.0-46.0) % MCHC (31.0-37.0) g/dL RDW (11.5-15.5) % Plt Count (150-450) k/uL Neutrophils # (1.3-7.7) k/uL Lymphocytes # (1.0-4.8) k/uL ABG pH (7.35-7.45) ABG O2 Saturation (94-97) % Sodium (137-145) mmol/L Carbon Dioxide 20 L (22-30) mmol/L Creatinine 1.57 H (0.52-1.04) mg/dL Glucose 159 H (74-99) mg/dL POC Glucose (mg/dL) 173 H (75-99) mg/dL Calcium 6.1 L* (8.4-10.2) mg/dL Total Bilirubin 3.0 H (0.2-1.3) mg/dL AST 262 H (14-36) U/L ALT 112 H (4-34) U/L Alkaline Phosphatase 701 H (38-126) U/L Total Protein 4.7 L (6.3-8.2) g/dL Albumin 1.5 L (3.5-5.0) g/dL Crossmatch See Detail 11/12/19 11/12/19 11/12/19 Range/Units 16:14 19:29 20:01 WBC 17.6 H (3.8-10.6) k/uL RBC (3.80-5.40) m/uL Hgb 10.8 L D (11.4-16.0) gm/dL Hct (34.0-46.0) % MCHC (31.0-37.0) g/dL RDW (11.5-15.5) % Plt Count 68 L (150-450) k/uL Neutrophils # (1.3-7.7) k/uL Lymphocytes # (1.0-4.8) k/uL ABG pH (7.35-7.45) ABG O2 Saturation (94-97) % Sodium (137-145) mmol/L Carbon Dioxide (22-30) mmol/L Creatinine (0.52-1.04) mg/dL Glucose (74-99) mg/dL POC Glucose (mg/dL) 157 H 195 H (75-99) mg/dL Calcium (8.4-10.2) mg/dL Total Bilirubin (0.2-1.3) mg/dL AST (14-36) U/L ALT (4-34) U/L Alkaline Phosphatase (38-126) U/L Total Protein (6.3-8.2) g/dL Albumin (3.5-5.0) g/dL Crossmatch 11/12/19 11/13/19 11/13/19 Range/Units 23:31 03:52 05:15 WBC (3.8-10.6) k/uL RBC (3.80-5.40) m/uL Hgb (11.4-16.0) gm/dL Hct (34.0-46.0) % MCHC (31.0-37.0) g/dL RDW (11.5-15.5) % Plt Count (150-450) k/uL Neutrophils # (1.3-7.7) k/uL Lymphocytes # (1.0-4.8) k/uL ABG pH (7.35-7.45) ABG O2 Saturation (94-97) % Sodium 127 L (137-145) mmol/L Carbon Dioxide 18 L (22-30) mmol/L Creatinine 1.79 H (0.52-1.04) mg/dL Glucose 180 H (74-99) mg/dL POC Glucose (mg/dL) 205 H 207 H (75-99) mg/dL Calcium 6.6 L (8.4-10.2) mg/dL Total Bilirubin (0.2-1.3) mg/dL AST (14-36) U/L ALT (4-34) U/L Alkaline Phosphatase (38-126) U/L Total Protein (6.3-8.2) g/dL Albumin (3.5-5.0) g/dL Crossmatch 11/13/19 11/13/19 11/13/19 Range/Units 05:15 07:04 08:23 WBC 16.8 H (3.8-10.6) k/uL RBC 3.08 L (3.80-5.40) m/uL Hgb 10.3 L (11.4-16.0) gm/dL Hct 27.1 L (34.0-46.0) % MCHC 38.0 H (31.0-37.0) g/dL RDW 16.7 H (11.5-15.5) % Plt Count 50 L (150-450) k/uL Neutrophils # 15.4 H (1.3-7.7) k/uL Lymphocytes # 0.8 L (1.0-4.8) k/uL ABG pH 7.33 L (7.35-7.45) ABG O2 Saturation 97.6 H (94-97) % Sodium (137-145) mmol/L Carbon Dioxide (22-30) mmol/L Creatinine (0.52-1.04) mg/dL Glucose (74-99) mg/dL POC Glucose (mg/dL) 225 H (75-99) mg/dL Calcium (8.4-10.2) mg/dL Total Bilirubin (0.2-1.3) mg/dL AST (14-36) U/L ALT (4-34) U/L Alkaline Phosphatase (38-126) U/L Total Protein (6.3-8.2) g/dL Albumin (3.5-5.0) g/dL Crossmatch Microbiology - Last 24 Hours (Table) 11/10/19 02:07 Blood Culture Gram Stain - Final Blood Blood Culture - Final Coagulase Negative Staph <Chirag Davidsonony - Last Filed: 11/13/19 15:19> Subjective As above. Patient has shown very little improvement over the last 24-48 hours. Was unable to tolerate dialysis today because of hypotension. Blood cultures noted showing Pseudomonas. Ostomy slightly ischemic appearing at this time. Discussed with family present at the bedside. Suggested they have a family meeting with mixing machine tender to discuss extent of care options. Comfort care measures may be reasonable given this patient's somewhat poor quality life preoperatively. In the meanwhile continue aggressive medical support. We'll follow. Objective - Vital Signs Vital signs: Vital Signs Temp 98 F 11/13/19 12:00 Pulse 112 H 11/13/19 13:30 Resp 25 H 11/13/19 13:30 BP 94/53 11/13/19 02:45 Pulse Ox 96 11/13/19 13:30 Intake & Output 11/12/19 11/13/19 11/13/19 18:59 06:59 18:59 Intake Total 2465.408 9505.173 7353.296 Output Total 1735 461 10 Balance 933.321 2439.557 2401.296 Weight 150.2 kg Intake: IV 1532 1122 959.5 Amiodarone 300 mg In 150 Dextrose 5% in Water 250 ml @ 0.5 MG/MIN 25 mls/hr IV .Q10H [facility] Rx#: [id number] Dextrose 5% in Water 1, 150 000 ml @ 150 mls/hr IV . Q7H40M [facility] with Sodium Bicarb (1 Meq/ml) 150 ml Rx#:[id number] Diltiazem 125 mg In 12.5 Sodium Chloride 0.9% 100 ml @ 2.5 MG/HR 2.5 mls/hr IV .Q24H [facility] Rx#: [id number] Magnesium Sulfate-D5w Pmx 100 1 gm In Dextrose/Water 1 100ml.bag @ 100 mls/hr IVPB Q1H [facility] Rx#: [id number] Mvi, Adult No.4 with Vit 960 270 K 10 ml Trace (Conc-1Ml/ Dose) 1 ml Sodium Acetate 30 meq Calcium Gluconate 1 gm In Amino Acid 4.25% -D10w 1,000 ml @ 50 mls/ hr IV .[id number] [facility] Rx#: [id number] Piperacillin-Tazobactam 3 25 215 .375 gm In Sodium Chloride 0.9% 100 ml @ 25 mls/hr IVPB Q12HR [facility] Rx #:[id number] Piperacillin-Tazobactam 3 100 .375 gm In Sodium Chloride 0.9% 100 ml @ 25 mls/hr IVPB Q8H [facility] Rx#: [id number] Piperacillin-Tazobactam 3 100 .375 gm In Sodium Chloride 0.9% 100 ml @ 25 mls/hr IVPB Q8HR [facility] Rx# :[id number] Pressure Bags 72 72 42 Sodium Acetate 30 meq 450 540 Calcium Gluconate 1 gm Mvi, Adult No.4 with Vit K 10 ml Trace (Conc-1Ml/ Dose) 1 ml In Amino Acid 4.25%-D10w 1,000 ml @ 90 mls/hr IV .BY DURATION [facility] Rx#:[id number] Sodium Chloride 0.9% 1, 25 115 15 000 ml @ 0 mls/hr IV .STK [facility] Rx#:[id number] metroNIDAZOLE-NS PMX 500 100 100 mg In Saline 1 100ml.bag @ 100 mls/hr IVPB Q8HR [facility] Rx#:[id number] Intake, IV Titration 623.408 566.432 2762.796 Amount Amiodarone 300 mg In 241.25 Dextrose 5% in Water 250 ml @ 0.5 MG/MIN 25 mls/hr IV .Q10H [facility] Rx#: [id number] Norepinephrine 32 mg In 182.158 166.779 126.796 Sodium Chloride 0.9% 218 ml @ 0.05 MCG/KG/MIN 2. 966 mls/hr IV .Q24H [facility] Rx#:[id number] Potassium Chloride 20 meq 100 In Water For Injection 1 100ml.bag @ 50 mls/hr IVPB Q2H [facility] Rx#: [id number] Propofol 1,000 mg In 100 449.778 300 Empty Bag 1 bag @ Titrate IV .Q0M [facility] Rx#: [id number] Sodium Acetate 30 meq 1025 Calcium Gluconate 1 gm In Amino Acid 4.25%-D10w+ Lytes*E* 1,000 ml @ 90 mls/hr IV .BY DURATION [facility] Rx#:[id number] Blood Product 310 As-1 Unit 310 [id number] As-3 Unit 0 [id number] Output: Gastric Drainage 300 Urine 35 11 10 Stool 450 Hemodialysis 1400 Other: Voiding Method Indwelling Catheter Indwelling Catheter Indwelling Catheter ABP, PAP, CO, CI - Last Documented Arterial Blood Pressure 125/46 - Labs CBC & Chem 7: 11/13/19 05:15 11/13/19 05:15 Labs: Abnormal Lab Results - Last 24 Hours (Table) 11/12/19 11/12/19 11/12/19 Range/Units 16:14 19:29 20:01 WBC 17.6 H (3.8-10.6) k/uL RBC (3.80-5.40) m/uL Hgb 10.8 L D (11.4-16.0) gm/dL Hct (34.0-46.0) % MCHC (31.0-37.0) g/dL RDW (11.5-15.5) % Plt Count 68 L (150-450) k/uL Neutrophils # (1.3-7.7) k/uL Lymphocytes # (1.0-4.8) k/uL ABG pH (7.35-7.45) ABG O2 Saturation (94-97) % Sodium (137-145) mmol/L Carbon Dioxide (22-30) mmol/L Creatinine (0.52-1.04) mg/dL Glucose (74-99) mg/dL POC Glucose (mg/dL) 157 H 195 H (75-99) mg/dL Calcium (8.4-10.2) mg/dL 11/12/19 11/13/19 11/13/19 Range/Units 23:31 03:52 05:15 WBC (3.8-10.6) k/uL RBC (3.80-5.40) m/uL Hgb (11.4-16.0) gm/dL Hct (34.0-46.0) % MCHC (31.0-37.0) g/dL RDW (11.5-15.5) % Plt Count (150-450) k/uL Neutrophils # (1.3-7.7) k/uL Lymphocytes # (1.0-4.8) k/uL ABG pH (7.35-7.45) ABG O2 Saturation (94-97) % Sodium 127 L (137-145) mmol/L Carbon Dioxide 18 L (22-30) mmol/L Creatinine 1.79 H (0.52-1.04) mg/dL Glucose 180 H (74-99) mg/dL POC Glucose (mg/dL) 205 H 207 H (75-99) mg/dL Calcium 6.6 L (8.4-10.2) mg/dL 11/13/19 11/13/19 11/13/19 Range/Units 05:15 07:04 08:23 WBC 16.8 H (3.8-10.6) k/uL RBC 3.08 L (3.80-5.40) m/uL Hgb 10.3 L (11.4-16.0) gm/dL Hct 27.1 L (34.0-46.0) % MCHC 38.0 H (31.0-37.0) g/dL RDW 16.7 H (11.5-15.5) % Plt Count 50 L (150-450) k/uL Neutrophils # 15.4 H (1.3-7.7) k/uL Lymphocytes # 0.8 L (1.0-4.8) k/uL ABG pH 7.33 L (7.35-7.45) ABG O2 Saturation 97.6 H (94-97) % Sodium (137-145) mmol/L Carbon Dioxide (22-30) mmol/L Creatinine (0.52-1.04) mg/dL Glucose (74-99) mg/dL POC Glucose (mg/dL) 225 H (75-99) mg/dL Calcium (8.4-10.2) mg/dL 11/13/19 Range/Units 11:44 WBC (3.8-10.6) k/uL RBC (3.80-5.40) m/uL Hgb (11.4-16.0) gm/dL Hct (34.0-46.0) % MCHC (31.0-37.0) g/dL RDW (11.5-15.5) % Plt Count (150-450) k/uL Neutrophils # (1.3-7.7) k/uL Lymphocytes # (1.0-4.8) k/uL ABG pH (7.35-7.45) ABG O2 Saturation (94-97) % Sodium (137-145) mmol/L Carbon Dioxide (22-30) mmol/L Creatinine (0.52-1.04) mg/dL Glucose (74-99) mg/dL POC Glucose (mg/dL) 188 H (75-99) mg/dL Calcium (8.4-10.2) mg/dL Microbiology - Last 24 Hours (Table) 11/10/19 02:07 Blood Culture Gram Stain - Final Blood Blood Culture - Final Coagulase Negative Staph Assessment and Plan (1) Diverticulitis Current Visit: Yes Status: Acute Code(s): K57.92 - DVTRCLI OF INTEST, PART UNSP, W/O PERF OR ABSCESS W/O BLEED SNOMED Code(s): 878750119
--- NOTE | 2019-11-13 11:30 | P.PN ---
Subjective Progress Note Date: 11/13/19 Principal diagnosis: Abdominal sepsis, septic shock, acute hypoxic respiratory failure This is a 69-year-old female with history of multiple medical problems including asthma, paroxysmal atrial fibrillation, hypertension, chronic kidney disease stage IV, chronic lymphedema, patient was admitted on 11/05/2019, patient was brought in from [facility] and she was in rehab facility. And she was complaining of a chronic lower abdominal pain for quite some time. Patient has been seen previously in our infusion at least 3 times and she was also seen at [facility] 2 times recently for lower abdominal pain, and she was diagnosed as having diverticulitis, and the decision was to treat the patient conservatively and medically. Patient had a CT of the abdomen and pelvis upon evaluation in the ER on the , and she was found to have sigmoid diverticulitis. Admitted, started on antibiotics, however her pain increased, and the patient was showing more clinical signs of sepsis. Patient was seen by many consultants including gastroenterology, gynecology, and she was seen by Dr. leblanc on 11/10, and he felt that her diverticulitis is progressing to sepsis with portal vein gas despite antibiotic therapy. Patient underwent exploratory laparotomy early this morning, patient ended up with left colectomy with mobilization of splenic flexure partial omentectomy and colostomy. Patient was found to have significantly thickened sigmoid colon, there was evidence of perforation of the colon with a small amount of stool. It was felt that the patient may have had a perforation at that area. Patient was eventually sent back to the intensive care unit, on mechanical ventilation early this morning around 8 AM. And her ventilator settings are assist control rate of 16 tidal volume of 500 FiO2 of 100% and PEEP of 5. Patient was noted to be quite acidotic, lactic acid was elevated, she was on norepinephrine at 0.05 mcg/kg/m, she was also placed on bicarb after few amps of sodium bicarb were given, patient was also placed on propofol. And more fluid boluses were given in the ICU. CVP was noted to be around 10. Family was at bedside, and I discussed her condition with the family at bedside. Repeat ABG showed a pO2 of 104 pCO2 of 40 pH of 7.13, more sodium bicarb was given. Patient is also on antibiotics in the form of Flagyl and Zosyn Patient was reevaluated today on 11/11/19, patient remains in the ICU, remains intubated and mechanically ventilated. Her ventilator settings were adjusted today, she is now on tidal volume of 450 assist-control rate of 24 FiO2 is 50% and PEEP has been increased to 10. Earlier ABG this morning showed pH of 7.18 pO2 of 83 pCO2 of 29. Patient did receive more bicarb this morning, and her bicarb drip was increased to 1 25 mL per hour. Patient remains oliguric, and her renal functioning is getting worse. Nephrology is to evaluate the patient, and most likely the patient will need to be on hemodialysis. Her CBC showed WBC count of 17.4 hemoglobin is 9.2. Electrolytes are normal. Bicarb is low at 10. BUN is 22 creatinine 2.40. Lactic acid remains high between 9 and 11.5 in the last 24 hours. Patient received significant amount of fluids about 8 L in the last 24 hours at least. Chest x-ray is showing bilateral interstitial edema consistent with noncardiogenic or cardiogenic pulmonary edema. Patient dev eloped atrial fibrillation with RVR, and she had to be placed on amiodarone as per cardiology. Hemodynamics anderson remains hypotensive requiring norepinephrine at 0.27 mcg/kg/m, she is on vasopressin 0.03 units, propofol at 25 mcg/kg/m, she is also on sodium bicarb drip. Today I will start TPN on this patient. Patient was seen today on 11/12/19, patient remains in the ICU, intubated and mechanically ventilated. Her ventilator settings are assist control rate of 24 tidal volume of 450 FiO2 of 100% and PEEP was just increased to 14 from 8. Patient remains on TPN, norepinephrine at 0.18 mcg/kg/m, vasopressin at 0.03 units, amiodarone 0.5 mg per hour, propofol at 60 mcg/kg/m. Sodium bicarb drip was just discontinued this morning ABG showed a pO2 of 57 a CO2 of 40 pH of 7.37. Hence the PEEP was increased to 14. Her hemoglobin is 7 and the patient will be given a unit of packed RBCs today. Lactic acid is down to 8.4. Electrolytes showed low sodium and low potassium and low calcium and these are being corrected accordingly. Patient remains on TPN. She remains on daily hemodialysis, patient is having hemodialysis this morning, and I plan to decrease the FiO2 as more fluid is removed from the patient. Chest x-ray shows evidence of pulmonary edema this is mostly fluid overload related to all the fluids were given for her initial presentation of abdominal sepsis and septic shock. Not to mention the patient is basically anuric. Family is at bedside and updated on her condition. Reevaluated today on 11/13/19, remains intubated and mechanically ventilated. Ventilator settings are the same except her FiO2 is down to 60%. PEEP remains at 14. ABG showed a pO2 of 108 pCO2 41 pH of 7.33 patient had a temp of dialysis ultrafiltration, however she developed intermittent episodes of hypotension, and not much fluid could be removed. Her chest x-ray is showing evidence of cardiogenic and noncardiogenic pulmonary edema. Bilateral interstitial edema is noted. Patient remains on norepinephrine at 0.31 mcg/kg/m, vasopressin at 0.03 units per minutes amiodarone at 0.5 mg/m Cardizem was added. TPN remains the same. Off sodium bicarb. CBC showed WBC of 16.8 hemoglobin is 10.3. Sodium 127 BUN is 17 creatinine 1.79. Bicarb is 18. Patient remains on propofol at 60 mcg/kg/m. Sedated, and she is not in any condition to consider weaning, still on relatively high FiO2 and high PEEP Objective - Vital Signs Vital signs: Vital Signs Temp 97.5 F L 11/13/19 04:00 Pulse 122 H 11/13/19 07:40 Resp 25 H 11/13/19 07:00 BP 94/53 11/13/19 02:45 Pulse Ox 98 11/13/19 07:00 Intake & Output 11/12/19 11/13/19 11/13/19 18:59 06:59 18:59 Intake Total 2465.408 6707.615 3388.682 Output Total 1735 461 0 Balance 208.189 3782.557 1260.682 Weight 150.2 kg Intake: IV 1532 1122 21 Dextrose 5% in Water 1, 150 000 ml @ 150 mls/hr IV . Q7H40M [facility] with Sodium Bicarb (1 Meq/ml) 150 ml Rx#:[id number] Magnesium Sulfate-D5w Pmx 100 1 gm In Dextrose/Water 1 100ml.bag @ 100 mls/hr IVPB Q1H [facility] Rx#: [id number] Mvi, Adult No.4 with Vit 960 270 K 10 ml Trace (Conc-1Ml/ Dose) 1 ml Sodium Acetate 30 meq Calcium Gluconate 1 gm In Amino Acid 4.25% -D10w 1,000 ml @ 50 mls/ hr IV .[id number] [facility] Rx#: [id number] Piperacillin-Tazobactam 3 25 215 .375 gm In Sodium Chloride 0.9% 100 ml @ 25 mls/hr IVPB Q12HR [facility] Rx #:[id number] Piperacillin-Tazobactam 3 100 .375 gm In Sodium Chloride 0.9% 100 ml @ 25 mls/hr IVPB Q8H [facility] Rx#: [id number] Pressure Bags 72 72 6 Sodium Acetate 30 meq 450 Calcium Gluconate 1 gm Mvi, Adult No.4 with Vit K 10 ml Trace (Conc-1Ml/ Dose) 1 ml In Amino Acid 4.25%-D10w 1,000 ml @ 90 mls/hr IV .BY DURATION [facility] Rx#:[id number] Sodium Chloride 0.9% 1, 25 115 15 000 ml @ 0 mls/hr IV .STK -MED ONE Rx#:[id number] metroNIDAZOLE-NS PMX 500 100 mg In Saline 1 100ml.bag @ 100 mls/hr IVPB Q8HR [facility] Rx#:[id number] Intake, IV Titration 623.408 272.691 7521.682 Amount Amiodarone 300 mg In 241.25 Dextrose 5% in Water 250 ml @ 0.5 MG/MIN 25 mls/hr IV .Q10H [facility] Rx#: [id number] Norepinephrine 32 mg In 182.158 166.779 14.682 Sodium Chloride 0.9% 218 ml @ 0.05 MCG/KG/MIN 2. 966 mls/hr IV .Q24H [facility] Rx#:[id number] Potassium Chloride 20 meq 100 In Water For Injection 1 100ml.bag @ 50 mls/hr IVPB Q2H [facility] Rx#: [id number] Propofol 1,000 mg In 100 449.778 200 Empty Bag 1 bag @ Titrate IV .Q0M [facility] Rx#: [id number] Sodium Acetate 30 meq 1025 Calcium Gluconate 1 gm In Amino Acid 4.25%-D10w+ Lytes*E* 1,000 ml @ 90 mls/hr IV .BY DURATION [facility] Rx#:[id number] Blood Product 310 As-1 Unit 310 [id number] Rc As-3 Unit 0 [id number] Output: Gastric Drainage 300 Urine 35 11 0 Stool 450 Hemodialysis 1400 Other: Voiding Method Indwelling Catheter Indwelling Catheter ABP, PAP, CO, CI - Last Documented Arterial Blood Pressure 122/42 - Exam Physical Exam: Revealed a 69-year-old female on mechanical ventilation. Sedated, on propofol. Head: Atraumatic, normocephalic. HEENT:[Neck is supple.] [No neck masses.] [No thyromegaly.] [No JVD.] PERRLA, EOMI, positive icterus, endotracheal tube and orogastric tube are intact. Right IJ central line is intact. Chest: [Symmetrical chest expansion, crackles and rhonchi noted bilaterally. Cardiac Exam: [Irregular irregular, Tachycardic, Normal S1 and S2, no S3 gallop, 2/6 systolic murmur thought the precordium. Abdomen: [Postsurgical, soft, nontender, colostomy is intact. Not functionally yet. Extremities: [No clubbing, 3+ bipedal lymphedema noted., no cyanosis.] Evidence of superficial cellulitis and sloughing of the skin noted on the medial aspect of distal thigh. Neurological Exam: Sedated, on propofol, could not be assessed. Psychiatric: Could not be assessed. Lymphatics: No lymphadenopathy. - Labs CBC & Chem 7: 11/13/19 05:15 11/13/19 05:15 Labs: Abnormal Lab Results - Last 24 Hours (Table) 11/10/19 11/12/19 11/12/19 Range/Units 03:44 11:54 16:14 WBC (3.8-10.6) k/uL RBC (3.80-5.40) m/uL Hgb (11.4-16.0) gm/dL Hct (34.0-46.0) % MCHC (31.0-37.0) g/dL RDW (11.5-15.5) % Plt Count (150-450) k/uL Neutrophils # (1.3-7.7) k/uL Lymphocytes # (1.0-4.8) k/uL ABG pH (7.35-7.45) ABG O2 Saturation (94-97) % Sodium (137-145) mmol/L Carbon Dioxide (22-30) mmol/L Creatinine (0.52-1.04) mg/dL Glucose (74-99) mg/dL POC Glucose (mg/dL) 173 H 157 H (75-99) mg/dL Calcium (8.4-10.2) mg/dL Crossmatch See Detail 11/12/19 11/12/19 11/12/19 Range/Units 19:29 20:01 23:31 WBC 17.6 H (3.8-10.6) k/uL RBC (3.80-5.40) m/uL Hgb 10.8 L D (11.4-16.0) gm/dL Hct (34.0-46.0) % MCHC (31.0-37.0) g/dL RDW (11.5-15.5) % Plt Count 68 L (150-450) k/uL Neutrophils # (1.3-7.7) k/uL Lymphocytes # (1.0-4.8) k/uL ABG pH (7.35-7.45) ABG O2 Saturation (94-97) % Sodium (137-145) mmol/L Carbon Dioxide (22-30) mmol/L Creatinine (0.52-1.04) mg/dL Glucose (74-99) mg/dL POC Glucose (mg/dL) 195 H 205 H (75-99) mg/dL Calcium (8.4-10.2) mg/dL Crossmatch 11/13/19 11/13/19 11/13/19 Range/Units 03:52 05:15 05:15 WBC 16.8 H (3.8-10.6) k/uL RBC 3.08 L (3.80-5.40) m/uL Hgb 10.3 L (11.4-16.0) gm/dL Hct 27.1 L (34.0-46.0) % MCHC 38.0 H (31.0-37.0) g/dL RDW 16.7 H (11.5-15.5) % Plt Count 50 L (150-450) k/uL Neutrophils # 15.4 H (1.3-7.7) k/uL Lymphocytes # 0.8 L (1.0-4.8) k/uL ABG pH (7.35-7.45) ABG O2 Saturation (94-97) % Sodium 127 L (137-145) mmol/L Carbon Dioxide 18 L (22-30) mmol/L Creatinine 1.79 H (0.52-1.04) mg/dL Glucose 180 H (74-99) mg/dL POC Glucose (mg/dL) 207 H (75-99) mg/dL Calcium 6.6 L (8.4-10.2) mg/dL Crossmatch 11/13/19 11/13/19 Range/Units 07:04 08:23 WBC (3.8-10.6) k/uL RBC (3.80-5.40) m/uL Hgb (11.4-16.0) gm/dL Hct (34.0-46.0) % MCHC (31.0-37.0) g/dL RDW (11.5-15.5) % Plt Count (150-450) k/uL Neutrophils # (1.3-7.7) k/uL Lymphocytes # (1.0-4.8) k/uL ABG pH 7.33 L (7.35-7.45) ABG O2 Saturation 97.6 H (94-97) % Sodium (137-145) mmol/L Carbon Dioxide (22-30) mmol/L Creatinine (0.52-1.04) mg/dL Glucose (74-99) mg/dL POC Glucose (mg/dL) 225 H (75-99) mg/dL Calcium (8.4-10.2) mg/dL Crossmatch Microbiology - Last 24 Hours (Table) 11/10/19 02:07 Blood Culture Gram Stain - Final Blood Blood Culture - Final Coagulase Negative Staph Assessment and Plan Assessment: Impression: Acute abdominal sepsis secondary to bowel perforation secondary to diverticulitis. Pseudomonas aeruginosa bacteremia. Status post left colectomy, partial omentectomy and colostomy. Postoperative day #3 Septic shock from abdominal sepsis. Chronic sigmoid diverticulitis, Benign essential hypertension Paroxysmal atrial fibrillation, presently in atrial fibrillation with RVR. On amiodarone drip, and Cardizem was added earlier today by cardiology. Questionable history of asthma, severity of which is not clear. Acute on chronic kidney injury most likely secondary to acute tubular necrosis, presently on hemodialysis and ultrafiltration. Was not well-tolerated today. Chronic lower extremities lymphedema. Severe metabolic acidosis secondary to sepsis. Acute right lower extremity cellulitis. Recommendation: Continue ventilatory support, Continue hemodynamic support, presently on norepinephrine. Vasopressin, Start TPN/nutritional support. Continue amiodarone for atrial fibrillation with RVR, Cardizem was added at a low dose. Continue GI and DVT prophylaxis. Continue antibiotics, and infectious disease consultation was initiated. Infectious disease is aware of the pseudomonas bacteremia. Continue IV fluids, Continue bronchodilators. Family updated on the condition again today. Nephrology is following, patient is on hemodialysis, not much ultrafiltration could be done today. Prognosis is extremely poor and guarded. Critical care time is 34 minutes We'll continue to follow Time with Patient: Greater than 30
[2019-11-13 11:45] LABS: Glucose,Whole Blood 188 mg/dL (75-99)
[2019-11-13] MEDS: HYDROCORTISONE SUCCINATE 100 MG/2 ML VIAL IV SCH ×3 (11:48→23:41)
--- NOTE | 2019-11-13 12:51 | PN ---
PROGRESS NOTE DATE OF SERVICE: 11/13/2019 REASON FOR FOLLOWUP: Acute ruptured diverticulitis and Pseudomonas bacteremia. INTERVAL HISTORY: The patient is currently afebrile. The patient is undergoing dialysis. Blood pressure has been marginal requiring pressor support. FiO2 is currently at 80%. Did have significant swelling in the legs with a ruptured blister to the right medial thigh. There is fluid draining. No other change in clinical condition reported by the nursing staff. PHYSICAL EXAMINATION: Blood pressure 122/42 with a pulse of 110, temperature of 97.5. She is 98% on 80% FiO2. General description is an elderly female lying in bed in no distress. RESPIRATORY SYSTEM: Unlabored breathing. Decreased breath sounds at the bases. HEART: S1, S2. Regular rate and rhythm. ABDOMEN: Soft. Mildly distended. No guarding. Right mid thigh with wound from the blister with no drainage. LABS: Hemoglobin is 10.3, white count 16.8. BUN of 17, creatinine 1.79. DIAGNOSTIC IMPRESSION AND PLAN: Patient with acute sigmoid diverticulitis with perforation, status post diverting colostomy. This patient did have evidence of Pseudomonas bacteremia. Unfortunately, sensitivity has not been finalized with Pseudomonas. Blood cultures will be repeated. Patient is covered with Zosyn, adjusting it further based on the clinical response and culture. Continue supportive care. MMODL / IJN: [id number] /
[2019-11-13] MEDS: AMIODARONE 300 MG in DEXTROSE 5% IN WATER 250 ML IV SCH ×4 (13:19→22:17)
[2019-11-13 17:14] LABS: Glucose,Whole Blood 188 mg/dL (75-99)
[2019-11-13 20:23] LABS: Glucose,Whole Blood 200 mg/dL (75-99)
--- NOTE | 2019-11-13 21:06 | P.PN ---
Progress Note - Text Progress Note Date: 11/13/19 Chief Complaint: Abdominal pain History of presenting complaint: This is a very pleasant [address] Sin. Chronic stable medical conditions include paroxysmal atrial fibrillation, asthma, hypertension, GERD, chronic kidney disease stage IV, bilateral lower extremity lymphedema. Patient normally uses a walker to get about. Currently at [facility] for rehab. Patient's had abdominal pain on and off for quite some time. On this occasion yesterday the pain became much worse cramping some nausea vomiting. Denies any fever and chills. Had to 3 loose stools yesterday. No blood. Computed tomography scan in the ER did show diverticulitis. Patient is made nothing by mouth. Daughter the bedside. At the [facility] patient was walking at least-20-30 steps with a walker. Admitted with acute sigmoid diverticulitis. Also patient noted to have some vaginal blood clots. Seen by Dr. Binh Abbasi-to be followed as an outpatient. Patient's started on IV antibiotics. Repeat Computed tomography scan-Found to have a contained bowel perforation. Leading up to left hemicolectomy. Ubmay-[id number]-[id number]. FiO2 60%. A 14. Drips include IV levo fed, vasopressin, amiodarone, Cardizem,. TPN. Also in IV to prevent. NG tube. 2 suction. A. fib uncontrolled. Hemodialysis not done because of low blood pressure. No urine output. Patient's 2 daughters at the bedside. No output from the colostomy bag. Review of systems: Not done-patient intubated Active Medications Albuterol/Ipratropium (Duoneb 0.5 Mg-3 Mg/3 Ml Soln) 3 ml INHALATION RT-Q4H [facility] Last Admin: 11/13/19 19:20 Dose: 3 ml Documented by: Bisacodyl (Dulcolax) 10 mg RECTAL DAILY PRN PRN Reason: Constipation Chlorhexidine Gluconate (Peridex) 15 ml MUCOUS MEM BID [facility] Last Admin: 11/13/19 08:32 Dose: 15 ml Documented by: Enoxaparin Sodium (Lovenox) 30 mg SQ DAILY [facility] Last Admin: 11/13/19 08:30 Dose: 30 mg Documented by: Hydrocortisone Sodium Succinate (Solu-Cortef) 100 mg IV Q8HR [facility] Last Admin: 02/27/20 17:13 Dose: 100 mg Documented by: Hydromorphone HCl (Dilaudid) 0.5 mg IVP Q4HR PRN PRN Reason: Pain Scale 6 to 10 Last Admin: 11/13/19 01:08 Dose: 0.5 mg Documented by: Epinephrine HCl 4 mg/ Dextrose (/Water) 250 mls @ 4.746 mls/hr IV .Q24H [facility]; Protocol Last Admin: 11/13/19 02:54 Dose: Not Given Documented by: Metronidazole 500 mg/ IV (Solution) 100 mls @ 100 mls/hr IVPB Q8HR [facility] Last Admin: 11/13/19 17:14 Dose: 100 mls/hr Documented by: Propofol 1,000 mg/ IV Solution 100 mls @ 0 mls/hr IV .Q0M [facility]; Protocol Last Admin: 11/13/19 20:20 Dose: 60 mcg/kg/min, 54.072 mls/hr Documented by: Norepinephrine Bitartrate 32 (mg/ Sodium Chloride) 250 mls @ 2.966 mls/hr IV .Q24H [facility]; Protocol Last Titration: 11/13/19 13:21 Dose: 0.28 mcg/kg/min, 16.61 mls/hr Documented by: Vasopressin 20 unit/ Sodium (Chloride) 51 mls @ 4.59 mls/hr IVPB .Q11H7M [facility] Last Admin: 11/13/19 09:21 Dose: 4.59 mls/hr Documented by: Sodium Acetate 30 meq/ Calcium Gluconate 1 gm/ Amino Ac/Electrol/Dextrose/Calcium 1,025 mls @ 90 mls/hr IV .BY DURATION [facility] Last Admin: 11/13/19 10:46 Dose: 90 mls/hr Documented by: Sodium Acetate 30 meq/ Calcium Gluconate 1 gm/ Parenteral Vitamin Supplement 10 ml/Chromium/Copper/Manganese/Seleni/Zn 1 ml/ Amino Ac/Electrol/Dextrose/Calcium 1,036 mls @ 90 mls/hr IV .BY DURATION [facility] Last Admin: 11/12/19 22:43 Dose: Not Given Documented by: Piperacillin Sod/Tazobactam (Sod 3.375 gm/ Sodium Chloride) 100 mls @ 25 mls/hr IVPB Q8HR [facility] Last Admin: 11/13/19 17:14 Dose: 25 mls/hr Documented by: Diltiazem HCl 125 mg/ Sodium (Chloride) 125 mls @ 2.5 mls/hr IV .Q24H [facility] Last Admin: 11/13/19 08:33 Dose: 2.5 mg/hr, 2.5 mls/hr Documented by: Amiodarone HCl 300 mg/ (Dextrose/Water) 250 mls @ 25 mls/hr IV .Q10H [facility]; Protocol Stop: 11/14/19 06:14 Last Admin: 11/13/19 13:19 Dose: 0.5 mg/min, 25 mls/hr Documented by: Insulin Aspart (Novolog) 0 unit SQ Q4HR [facility]; Protocol Last Admin: 11/13/19 17:13 Dose: 2 unit Documented by: Miscellaneous Information (Potassium Per Protocol) 1 each MISCELLANE DAILY PRN; Protocol PRN Reason: Per Protocol Miscellaneous Information (Magnesium Per Protocol) 1 each MISCELLANE DAILY PRN; Protocol PRN Reason: Per Protocol Multi-Ingred Cream/Lotion/Oil/Oint (Triad Cream) 1 applic TOPICAL BID [facility] Last Admin: 11/13/19 08:32 Dose: 1 applic Documented by: Naloxone HCl (Narcan) 0.2 mg IV Q2M PRN PRN Reason: Opioid Reversal Nystatin (Mycostatin Powder) 1 applic TOPICAL BID [facility] Last Admin: 11/13/19 08:37 Dose: 1 applic Documented by: Pantoprazole Sodium (Protonix) 40 mg IV DAILY [facility] Last Admin: 11/13/19 08:30 Dose: 40 mg Documented by: Physical examination: VITAL SIGNS: Afebrile, 131, 26, 110/71, 95% on ventilator GENERAL: Laying in bed, intubated EYES: Pupils equal. Conjunctiva normal. HEENT: External appearance of nose and ears normal, oral cavity dry mucous membrane. Endotracheal tube in place. NG tube NECK: JVD not raised; masses not palpable. HEART: irregular heart sounds; some edema. LUNGS: Respiratory rate increased; decreased breath sounds ABDOMEN: Soft, dressing over the incision site, no guarding rigidity, liver spleen not palpable, no masses palpable. Colostomy-no output. PSYCH: Sedated LYMPHATICS: lymphedema of the lower extremity INVESTIGATIONS, reviewed in the clinical context: White count 16.8 hemoglobin 10.3 potassium 3.5 creatinine 1.79 Checks x-ray film personally reviewed by me shows possible pulmonary edema Previous testing White count 4.5 hemoglobin 9.8 platelets 126 Creatinine 1.3 Computed tomography scan of the abdomen-possible colitis versus diverticulitis in the sigmoid area C. diff-negative Assessment: -Acute perforation of the large colon. Leading to left colectomy, partial omentectomy and a colostomy -Acute sigmoid diverticulitis, -Acute hypoxic respiratory failure requiring ventilator support. Intubated, slow to respond -Septic shock requiring pressor support, worsening -Intermittent vaginal blood clots-endometrial prominence. outpatient D&C -Acute kidney injury likely ATN , oliguric from cardiorenal syndrome. Worsened requiring renal replacement therapy -Bilateral lower extremity lymphedema -Persistent atrial fibrillation, with rapid ventricular rate, uncontrolled -Acute cellulitis of the right lower extremity -Chronic gait dysfunction uses a walker -Morbid obesity BMI 51 -Right bundle-branch block -Essential hypertension -GERD -Acute postprocedure blood loss anemia as expected from surgery-getting 2 units of blood Plan: Patient remains to be critically ill. Current drips include Levophed, vasopressin, amiodarone, Cardizem, TPN, Diprivan Not making any urine. No hemodialysis done today. Prognosis guarded. Advanced care planning: Care was discussed at the bedside with [address]. Patient is condition was discussed in details including the fact that patient was on ventilator support with the lungs cardiac blood pressure support with vasopressin levo fed, also renal replacement therapy and poor urine output. Bowels also not functioning. They do seem to have a good understanding of systems guarded prognosis. Both the daughter is hoping patient went to drop. Also discussed that she continues to go down. Balance treatment versus any suffering. They will see how the patient is in next 24-48 hours. They'll take a further decision based on the clinical course and next 24-48 hours. Depending how she does. Total time spent this was about 20-25 minutes
--- NOTE | 2019-11-13 21:53 | PN ---
PROGRESS NOTE Patient is seen for followup for acute kidney injury. This morning patient was started on dialysis and her blood pressure dropped significantly in the 60s. She did not tolerate treatment at all. We had shut down the UF to zero. The blood pressure still remained low and therefore patient was taken off of dialysis. I discussed with the family that we will try again tomorrow, and if she remains hemodynamically unstable, patient should be considered for hospice care. On examination, blood pressure this morning was 103/56, heart rate of 130 per minute. Patient is afebrile. EXAMINATION OF THE HEART: S1 and S2. EXAMINATION OF LUNGS: Bilateral breath sounds are heard. Patient remains on the vent, sedated. Examination of lower extremities shows edema 3+ bilaterally. ABDOMEN: Soft. The abdominal wound is dressed. Open wound is present. Labs from today show sodium of 127, potassium 3.5, chloride 99. CO2 is 18, BUN 17, creatinine 1.79. ASSESSMENT: 1. Acute kidney injury, oliguric, secondary to ischemic acute tubular necrosis, started on dialysis. Patient was dialyzed for 2 days consecutively. She tolerated about close to a liter yesterday. Patient did not tolerate treatment today. We will try again tomorrow. However, overall prognosis is guarded, and I have advised the patient's family that if she remains hemodynamically unstable, we will not be able to continue renal replacement therapy and hospice care should be considered. 2. Metabolic acidosis secondary to gastrointestinal fluid loss, sepsis, lactic acidosis. 3. Hypoxic respiratory failure. 4. Fluid overload. 5. Hypervolemic hyponatremia. 6. Pseudomonas bacteremia, maintained on antibiotics. 7. Septic shock. PLAN: Try hemodialysis again in a.m. MMODL / SUZETTEN: [id number] /
[2019-11-13 23:38] LABS: Glucose,Whole Blood 213 mg/dL (75-99)
[2019-11-14] MEDS: PROPOFOL 1,000 MG in EMPTY BAG 1 BAG IV SCH ×11 (00:42→22:43)
[2019-11-14] MEDS: NOREPINEPHRINE 32 MG in SODIUM CHLORIDE 0.9% 218 ML IV SCH ×2 (01:25→18:36)
[2019-11-14] MEDS: SODIUM CHLORIDE 0.9% 50 ML with VASOPRESSIN 20 UNIT IVPB SCH ×4 (02:58→09:18)
[2019-11-14] MEDS: IPRATROPIUM-ALBUTEROL 3 ML NEB INHALATION SCH ×5 (04:05→19:57)
[2019-11-14] MEDS: EPINEPHrine 4 MG in DEXTROSE 5% IN WATER 250 ML IV SCH ×2 (04:08)
[2019-11-14 05:27] LABS: Glucose,Whole Blood 217 mg/dL (75-99)
[2019-11-14] MEDS: INSULIN ASPART (NovoLOG) 100 UNIT/ML VIAL SQ SCH ×6 (05:37→23:52)
[2019-11-14 05:39] LABS: Ionized Calcium 4.6 mg/dL (4.5-5.3)
[2019-11-14 05:45] LABS: Calcium 7.1 mg/dL (8.4-10.2); Magnesium 1.9 mg/dL (1.6-2.3); Phosphorus 2.9 mg/dL (2.5-4.5)
--- NOTE | 2019-11-14 06:39 | P.PN ---
Subjective Progress Note Date: 11/14/19 Principal diagnosis: Atrial fibrillation with RVR This is a pleasant 69-year-old female patient with a past medical history significant for paroxysmal atrial fibrillation on oral anticoagulation at home, chronic kidney disease, chronic bilateral lower extremities edema/lymphedema, as well as multiple comorbid conditions, who was a [facility], was brought to the hospital for further evaluation off symptoms of nausea and vomiting and abdominal discomfort for the last few days. The symptoms got worse lately and because of that the patient was brought to the emergency room. She underwent a computed tomography scan in the ER and that revealed diverticulitis. Subsequently the patient underwent exploratory laparotomy and she underwent partial colectomy and colostomy and her incision is open at this point. Currently the patient is septic and she is hemodynamically unstable and requiring two vasopressors. Her lactic acid was elevated. We involved in the care of the patient for further evaluation of atrial fibrillation with RVR. The patient is known to have paroxysmal atrial fibrillation but she was maintaining normal sinus mechanism when she presented to the emergency room. During her hospital stay in the ICU, she has been in and out atrial fibrillation. Currently she is in A. fib/flutter with RVR. Subsequently she was started on Cardizem drip last night. Currently the patient is intubated and she is on mechanical ventilation. I am going to DC the Cardizem and drip and start the patient on amiodarone as well as abdomen, giving her low blood pressure. Continue holding any oral or IV anticoagulation at this point. I am going also to obtain an echocardiogram was Doppler to assess her left ventricular systolic function and also the intracardiac valves. We'll continue following up with the patient. The patient was seen today, November 142019. She continues to be intubated on mechanical ventilation and she continues to be hemodynamically unstable and requires 2 vasopressors was no epinephrine as well as vasopressin. She is on amiodarone IV for the A. fib and also she is on Cardizem IV at small dose of 2.5 mg an hour. Her heart rate overall has been between 100-110 beats per minutes. She continues to be in atrial fibrillation. The chest x-ray was reviewed today and continues to show finding consistent with fluid overload. Overall the patient is a mattress on examination was lower extremities edema. Her urine output is significantly low. Yesterday dialysis was tried but she did not tolerate that. Overall the prognosis is very poor. Objective - Vital Signs Vital signs: Vital Signs Temp 98.5 F 11/14/19 00:00 Pulse 105 H 11/14/19 06:15 Resp 28 H 11/14/19 06:15 BP 118/45 11/14/19 06:15 Pulse Ox 97 11/14/19 06:15 Intake & Output 11/13/19 11/13/19 11/14/19 06:59 18:59 06:59 Intake Total 7591.177 5511.886 2458.205 Output Total 461 815 205 Balance 6796.817 0384.886 2253.205 Weight 150.2 kg 159.2 kg Intake: IV 1122 1415.5 1431.0 Amiodarone 300 mg In 300 150 Dextrose 5% in Water 250 ml @ 0.5 MG/MIN 25 mls/hr IV .Q10H [facility] Rx#: [id number] Diltiazem 125 mg In 27.5 25.0 Sodium Chloride 0.9% 100 ml @ 2.5 MG/HR 2.5 mls/hr IV .Q24H [facility] Rx#: [id number] Mvi, Adult No.4 with Vit 270 K 10 ml Trace (Conc-1Ml/ Dose) 1 ml Sodium Acetate 30 meq Calcium Gluconate 1 gm In Amino Acid 4.25% -D10w 1,000 ml @ 50 mls/ hr IV .[id number] [facility] Rx#: [id number] Piperacillin-Tazobactam 3 215 .375 gm In Sodium Chloride 0.9% 100 ml @ 25 mls/hr IVPB Q12HR [facility] Rx #:[id number] Piperacillin-Tazobactam 3 175 100 .375 gm In Sodium Chloride 0.9% 100 ml @ 25 mls/hr IVPB Q8HR [facility] Rx# :[id number] Pressure Bags 72 78 66 Sodium Acetate 30 meq 990 Calcium Gluconate 1 gm In Amino Acid 4.25%-D10w+ Lytes*E* 1,000 ml @ 90 mls/hr IV .BY DURATION [facility] Rx#:[id number] Sodium Acetate 30 meq 450 720 Calcium Gluconate 1 gm Mvi, Adult No.4 with Vit K 10 ml Trace (Conc-1Ml/ Dose) 1 ml In Amino Acid 4.25%-D10w 1,000 ml @ 90 mls/hr IV .BY DURATION [facility] Rx#:[id number] Sodium Chloride 0.9% 1, 115 15 000 ml @ 0 mls/hr IV .ST -[facility] Rx#:[id number] metroNIDAZOLE-NS PMX 500 100 100 mg In Saline 1 100ml.bag @ 100 mls/hr IVPB Q8HR [facility] Rx#:[id number] Intake, IV Titration 923.335 4636.386 1027.205 Amount Amiodarone 300 mg In 224.167 Dextrose 5% in Water 250 ml @ 0.5 MG/MIN 25 mls/hr IV .Q10H [facility] Rx#: [id number] Diltiazem 125 mg In 54.5 Sodium Chloride 0.9% 100 ml @ 2.5 MG/HR 2.5 mls/hr IV .Q24H [facility] Rx#: [id number] Norepinephrine 32 mg In 166.779 126.796 249.406 Sodium Chloride 0.9% 218 ml @ 0.05 MCG/KG/MIN 2. 966 mls/hr IV .Q24H [facility] Rx#:[id number] Propofol 1,000 mg In 449.778 567.59 499.132 Empty Bag 1 bag @ Titrate IV .Q0M [facility] Rx#: [id number] Sodium Acetate 30 meq 1025 Calcium Gluconate 1 gm In Amino Acid 4.25%-D10w+ Lytes*E* 1,000 ml @ 90 mls/hr IV .BY DURATION [facility] Rx#:[id number] Hemodialysis 300 Output: Drainage 650 200 Colostomy 650 150 Medial Abdomen 50 Urine 11 15 5 Stool 450 Hemodialysis 150 Other: Voiding Method Indwelling Catheter Indwelling Catheter Indwelling Catheter ABP, PAP, CO, CI - Last Documented Arterial Blood Pressure 96/69 - Constitutional General appearance: Present: no acute distress - Respiratory Respiratory: bilateral: diminished - Cardiovascular Rhythm: irregularly irregular Heart sounds: normal: S1, S2 - Labs CBC & Chem 7: 11/13/19 05:15 11/14/19 05:24 Labs: Abnormal Lab Results - Last 24 Hours (Table) 11/13/19 11/13/19 11/13/19 Range/Units 05:15 07:04 08:23 ABG pH 7.33 L (7.35-7.45) ABG O2 Saturation 97.6 H (94-97) % Sodium 127 L (137-145) mmol/L Chloride (98-107) mmol/L Carbon Dioxide (22-30) mmol/L BUN (7-17) mg/dL Creatinine (0.52-1.04) mg/dL Glucose (74-99) mg/dL POC Glucose (mg/dL) 225 H (75-99) mg/dL Calcium (8.4-10.2) mg/dL 11/13/19 11/13/19 11/13/19 Range/Units 11:44 17:13 20:20 ABG pH (7.35-7.45) ABG O2 Saturation (94-97) % Sodium (137-145) mmol/L Chloride (98-107) mmol/L Carbon Dioxide (22-30) mmol/L BUN (7-17) mg/dL Creatinine (0.52-1.04) mg/dL Glucose (74-99) mg/dL POC Glucose (mg/dL) 188 H 188 H 200 H (75-99) mg/dL Calcium (8.4-10.2) mg/dL 11/13/19 11/14/19 11/14/19 Range/Units 23:36 05:19 05:24 ABG pH (7.35-7.45) ABG O2 Saturation (94-97) % Sodium 125 L (137-145) mmol/L Chloride 97 L (98-107) mmol/L Carbon Dioxide 18 L (22-30) mmol/L BUN 20 H (7-17) mg/dL Creatinine 2.06 H (0.52-1.04) mg/dL Glucose 180 H (74-99) mg/dL POC Glucose (mg/dL) 213 H 217 H (75-99) mg/dL Calcium 7.1 L (8.4-10.2) mg/dL Microbiology - Last 24 Hours (Table) 11/10/19 02:07 Blood Culture Gram Stain - Final Blood Blood Culture - Final Coagulase Negative Staph Assessment and Plan Assessment: Assessment #1 abdominal discomfort secondary to perforated diverticulosis #2 sepsis secondary to the above #3 atrial fibrillation/flutter with RVR #4 known paroxysmal atrial fibrillation #5 chronic lower extremities lymphedema #6 chronic kidney disease Plan #1 continue the current medical regimen including amiodarone IV and Cardizem IV #2 hold any oral anticoagulation at this point #3 continue hemodynamic support #4 follow-up with the patient
[2019-11-14 07:20] LABS: ABG Base Excess -3.4 mmol/L; ABG HCO3 22 mmol/L (21-25); ABG Oxygen Saturation 96.7 % (94-97); ABG PCO2 40 mmHg (35-45); ABG PH 7.35 (7.35-7.45); ABG PO2 88 mmHg (83-108); ABG TCO2 23 mmol/L (19-24)
[2019-11-14 07:22] LABS: Allen Test Performed? no
[2019-11-14 07:42] LABS: Anisocytosis Slight; Basophils % (A) 0 %; Eosinophils % (A) 0 %; HCT 25.9 % (34.0-46.0); Lymphocytes # (A) 0.7 k/uL (1.0-4.8); Lymphocytes % (A) 6 %; MCV 87.6 fL (80.0-100.0); Mean Platelet Volume 9.9; Monocytes # (A) 0.4 k/uL (0-1.0); Monocytes % (A) 4 %; Neutrophils # (A) 10.8 k/uL (1.3-7.7); Neutrophils % (A) 89 %; Poikilocytosis Slight; RBC 2.96 m/uL (3.80-5.40); RDW 17.1 % (11.5-15.5); WBC 12.2 k/uL (3.8-10.6)
[2019-11-14 07:44] LABS: HGB 8.5 gm/dL (11.4-16.0); MCH 28.4 pg (25.0-35.0); MCHC 32.7 g/dL (31.0-37.0)
[2019-11-14 07:45] LABS: Platelet Count 40 k/uL (150-450)
--- NOTE | 2019-11-14 08:00 | XR ---
EXAMINATION TYPE: XR chest 1V portable DATE OF EXAM: 11/14/2019 COMPARISON: 11/13/2019 HISTORY: Ventilatory dependent respiratory failure TECHNIQUE: Single frontal view of the chest is obtained. FINDINGS: Bibasilar opacities are similar to the prior. Mild pulmonary vascular congestion throughou t. Enlarged cardiac mediastinal silhouette stable from the prior. Similar lines and tubes. No acute o sseous pathology. IMPRESSION: Stable bibasilar airspace disease and mild pulmonary vascular congestion. Stable lines a nd tubes.
[2019-11-14] MEDS: HYDROCORTISONE SUCCINATE 100 MG/2 ML VIAL IV SCH ×3 (09:12→23:52)
[2019-11-14] MEDS: metroNIDAZOLE-NS PMX 500 MG in SALINE 1 100ML.BAG IVPB SCH ×3 (09:14→23:53)
[2019-11-14] MEDS: CHLORHEXIDINE GLUCONATE 15 ML CUP MUCOUS MEM SCH ×2 (09:15→21:35)
[2019-11-14] MEDS: AMIODARONE 300 MG in DEXTROSE 5% IN WATER 250 ML IV SCH ×4 (09:16→18:46)
[2019-11-14] MEDS: ENOXAPARIN 30 MG/0.3 ML SYRINGE SQ SCH (09:16)
[2019-11-14] MEDS: PANTOPRAZOLE 40 MG/10 ML VIAL IV SCH (09:16)
[2019-11-14] MEDS: PIPERACILLIN-TAZOBACTAM 3.375 GM in SODIUM CHLORIDE 0.9% 100 ML IVPB SCH (09:17)
[2019-11-14 09:18] LABS: Glucose,Whole Blood 184 mg/dL (75-99)
[2019-11-14] MEDS: HYDROPHILIC CREAM 180 GM TUBE TOPICAL SCH ×2 (09:23→21:34)
[2019-11-14] MEDS: NYSTATIN 100,000 UNIT/GM POWD 15 GM TOPICAL SCH ×2 (09:23→21:34)
[2019-11-14] MEDS: DILTIAZEM 125 MG in SODIUM CHLORIDE 0.9% 100 ML IV SCH ×2 (09:23→13:52)
--- NOTE | 2019-11-14 11:23 | P.PN ---
Subjective Progress Note Date: 11/14/19 Principal diagnosis: Abdominal sepsis, septic shock, acute hypoxic respiratory failure This is a 69-year-old female with history of multiple medical problems including asthma, paroxysmal atrial fibrillation, hypertension, chronic kidney disease stage IV, chronic lymphedema, patient was admitted on 11/05/2019, patient was brought in from [facility] and she was in rehab facility. And she was complaining of a chronic lower abdominal pain for quite some time. Patient has been seen previously in our infusion at least 3 times and she was also seen at [facility] 2 times recently for lower abdominal pain, and she was diagnosed as having diverticulitis, and the decision was to treat the patient conservatively and medically. Patient had a CT of the abdomen and pelvis upon evaluation in the ER on the , and she was found to have sigmoid diverticulitis. Admitted, started on antibiotics, however her pain increased, and the patient was showing more clinical signs of sepsis. Patient was seen by many consultants including gastroenterology, gynecology, and she was seen by Dr. leblanc on 11/10, and he felt that her diverticulitis is progressing to sepsis with portal vein gas despite antibiotic therapy. Patient underwent exploratory laparotomy early this morning, patient ended up with left colectomy with mobilization of splenic flexure partial omentectomy and colostomy. Patient was found to have significantly thickened sigmoid colon, there was evidence of perforation of the colon with a small amount of stool. It was felt that the patient may have had a perforation at that area. Patient was eventually sent back to the intensive care unit, on mechanical ventilation early this morning around 8 AM. And her ventilator settings are assist control rate of 16 tidal volume of 500 FiO2 of 100% and PEEP of 5. Patient was noted to be quite acidotic, lactic acid was elevated, she was on norepinephrine at 0.05 mcg/kg/m, she was also placed on bicarb after few amps of sodium bicarb were given, patient was also placed on propofol. And more fluid boluses were given in the ICU. CVP was noted to be around 10. Family was at bedside, and I discussed her condition with the family at bedside. Repeat ABG showed a pO2 of 104 pCO2 of 40 pH of 7.13, more sodium bicarb was given. Patient is also on antibiotics in the form of Flagyl and Zosyn Patient was reevaluated today on 11/11/19, patient remains in the ICU, remains intubated and mechanically ventilated. Her ventilator settings were adjusted today, she is now on tidal volume of 450 assist-control rate of 24 FiO2 is 50% and PEEP has been increased to 10. Earlier ABG this morning showed pH of 7.18 pO2 of 83 pCO2 of 29. Patient did receive more bicarb this morning, and her bicarb drip was increased to 1 25 mL per hour. Patient remains oliguric, and her renal functioning is getting worse. Nephrology is to evaluate the patient, and most likely the patient will need to be on hemodialysis. Her CBC showed WBC count of 17.4 hemoglobin is 9.2. Electrolytes are normal. Bicarb is low at 10. BUN is 22 creatinine 2.40. Lactic acid remains high between 9 and 11.5 in the last 24 hours. Patient received significant amount of fluids about 8 L in the last 24 hours at least. Chest x-ray is showing bilateral interstitial edema consistent with noncardiogenic or cardiogenic pulmonary edema. Patient dev eloped atrial fibrillation with RVR, and she had to be placed on amiodarone as per cardiology. Hemodynamics anderson remains hypotensive requiring norepinephrine at 0.27 mcg/kg/m, she is on vasopressin 0.03 units, propofol at 25 mcg/kg/m, she is also on sodium bicarb drip. Today I will start TPN on this patient. Patient was seen today on 11/12/19, patient remains in the ICU, intubated and mechanically ventilated. Her ventilator settings are assist control rate of 24 tidal volume of 450 FiO2 of 100% and PEEP was just increased to 14 from 8. Patient remains on TPN, norepinephrine at 0.18 mcg/kg/m, vasopressin at 0.03 units, amiodarone 0.5 mg per hour, propofol at 60 mcg/kg/m. Sodium bicarb drip was just discontinued this morning ABG showed a pO2 of 57 a CO2 of 40 pH of 7.37. Hence the PEEP was increased to 14. Her hemoglobin is 7 and the patient will be given a unit of packed RBCs today. Lactic acid is down to 8.4. Electrolytes showed low sodium and low potassium and low calcium and these are being corrected accordingly. Patient remains on TPN. She remains on daily hemodialysis, patient is having hemodialysis this morning, and I plan to decrease the FiO2 as more fluid is removed from the patient. Chest x-ray shows evidence of pulmonary edema this is mostly fluid overload related to all the fluids were given for her initial presentation of abdominal sepsis and septic shock. Not to mention the patient is basically anuric. Family is at bedside and updated on her condition. Reevaluated today on 11/13/19, remains intubated and mechanically ventilated. Ventilator settings are the same except her FiO2 is down to 60%. PEEP remains at 14. ABG showed a pO2 of 108 pCO2 41 pH of 7.33 patient had a temp of dialysis ultrafiltration, however she developed intermittent episodes of hypotension, and not much fluid could be removed. Her chest x-ray is showing evidence of cardiogenic and noncardiogenic pulmonary edema. Bilateral interstitial edema is noted. Patient remains on norepinephrine at 0.31 mcg/kg/m, vasopressin at 0.03 units per minutes amiodarone at 0.5 mg/m Cardizem was added. TPN remains the same. Off sodium bicarb. CBC showed WBC of 16.8 hemoglobin is 10.3. Sodium 127 BUN is 17 creatinine 1.79. Bicarb is 18. Patient remains on propofol at 60 mcg/kg/m. Sedated, and she is not in any condition to consider weaning, still on relatively high FiO2 and high PEEP Reevaluated today on 11/14/19, patient remains in the ICU, on mechanical ventilation. Her ventilator settings are basically the same, FiO2 is 60% PEEP is 14 tidal volume is 450 and assist control rate of 24. ABG this morning showed a pO2 of 88 pCO2 of 40 pH of 7.35. Chest x-ray is showing improvement, mild pulmonary vascular congestion persists. But definitely improved compared t o yesterday's chest x-ray. Patient remains on norepinephrine at 0.3 mcg/kg/m, vasopressin at 0.03 units per minute, amiodarone 0.5 mg per hour Cardizem 5 mg per hour propofol at 60 mcg/kg/m. Patient is having dialysis again today, so far seems to be working. And the goal is to remove 2 L of fluids hopefully today. WBC count is 12.2 hemoglobin is 8.5 sodium is 125 and it will be addressed by the hemodialysis nurse. BUN is 20 creatinine is 2.06. Bicarb is 18. Objective - Vital Signs Vital signs: Vital Signs Temp 98.5 F 11/14/19 00:00 Pulse 103 H 11/14/19 09:00 Resp 27 H 11/14/19 07:00 BP 119/52 11/14/19 07:00 Pulse Ox 95 11/14/19 07:00 Intake & Output 11/13/19 11/14/19 11/14/19 18:59 06:59 18:59 Intake Total 3434.886 2473.441 242.249 Output Total 815 205 0 Balance 2619.886 2268.441 242.249 Weight 159.2 kg Intake: IV 1415.5 1431.0 98.5 Amiodarone 300 mg In 300 150 Dextrose 5% in Water 250 ml @ 0.5 MG/MIN 25 mls/hr IV .Q10H [facility] Rx#: [id number] Diltiazem 125 mg In 27.5 25.0 2.5 Sodium Chloride 0.9% 100 ml @ 2.5 MG/HR 2.5 mls/hr IV .Q24H [facility] Rx#: [id number] Piperacillin-Tazobactam 3 175 100 .375 gm In Sodium Chloride 0.9% 100 ml @ 25 mls/hr IVPB Q8HR [facility] Rx# :[id number] Pressure Bags 78 66 6 Sodium Acetate 30 meq 990 90 Calcium Gluconate 1 gm In Amino Acid 4.25%-D10w+ Lytes*E* 1,000 ml @ 90 mls/hr IV .BY DURATION [facility] Rx#:[id number] Sodium Acetate 30 meq 720 Calcium Gluconate 1 gm Mvi, Adult No.4 with Vit K 10 ml Trace (Conc-1Ml/ Dose) 1 ml In Amino Acid 4.25%-D10w 1,000 ml @ 90 mls/hr IV .BY DURATION [facility] Rx#:[id number] Sodium Chloride 0.9% 1, 15 000 ml @ 0 mls/hr IV .STK -[facility] Rx#:[id number] metroNIDAZOLE-NS PMX 500 100 100 mg In Saline 1 100ml.bag @ 100 mls/hr IVPB Q8HR [facility] Rx#:[id number] Intake, IV Titration 9427.781 8677.441 143.749 Amount Amiodarone 300 mg In 224.167 Dextrose 5% in Water 250 ml @ 0.5 MG/MIN 25 mls/hr IV .Q10H [facility] Rx#: [id number] Diltiazem 125 mg In 54.5 Sodium Chloride 0.9% 100 ml @ 2.5 MG/HR 2.5 mls/hr IV .Q24H [facility] Rx#: [id number] Norepinephrine 32 mg In 126.796 264.642 43.749 Sodium Chloride 0.9% 218 ml @ 0.05 MCG/KG/MIN 2. 966 mls/hr IV .Q24H [facility] Rx#:[id number] Propofol 1,000 mg In 567.59 499.132 100 Empty Bag 1 bag @ Titrate IV .Q0M [facility] Rx#: [id number] Sodium Acetate 30 meq 1025 Calcium Gluconate 1 gm In Amino Acid 4.25%-D10w+ Lytes*E* 1,000 ml @ 90 mls/hr IV .BY DURATION [facility] Rx#:[id number] Hemodialysis 300 Output: Drainage 650 200 Colostomy 650 150 Medial Abdomen 50 Urine 15 5 0 Hemodialysis 150 Other: Voiding Method Indwelling Catheter Indwelling Catheter ABP, PAP, CO, CI - Last Documented Arterial Blood Pressure 95/71 - Exam Physical Exam: Revealed a 69-year-old female on mechanical ventilation. Head: Atraumatic, normocephalic. HEENT:[Neck is supple.] [No neck masses.] [No thyromegaly.] [No JVD.] PERRLA, EOMI, positive icterus, endotracheal tube and orogastric tube are intact. Right IJ central line is intact. Chest: [Symmetrical chest expansion, crackles and rhonchi noted bilaterally. Cardiac Exam: [Irregular irregular, Tachycardic, Normal S1 and S2, no S3 gallop, 2/6 systolic murmur thought the precordium. Abdomen: [Postsurgical, soft, nontender, colostomy is intact. Not functionally yet. Extremities: [No clubbing, 3+ bipedal lymphedema noted., no cyanosis.] Evidence of superficial cellulitis and sloughing of the skin noted on the medial aspect of distal thigh. Right groin dialysis catheter is noted. Neurological Exam: Sedated, on propofol, could not be assessed. Psychiatric: Could not be assessed. Lymphatics: No lymphadenopathy. - Labs CBC & Chem 7: 11/14/19 05:24 11/14/19 05:24 Labs: Abnormal Lab Results - Last 24 Hours (Table) 11/13/19 11/13/19 11/13/19 Range/Units 11:44 17:13 20:20 WBC (3.8-10.6) k/uL RBC (3.80-5.40) m/uL Hgb (11.4-16.0) gm/dL Hct (34.0-46.0) % RDW (11.5-15.5) % Plt Count (150-450) k/uL Neutrophils # (1.3-7.7) k/uL Lymphocytes # (1.0-4.8) k/uL Sodium (137-145) mmol/L Chloride (98-107) mmol/L Carbon Dioxide (22-30) mmol/L BUN (7-17) mg/dL Creatinine (0.52-1.04) mg/dL Glucose (74-99) mg/dL POC Glucose (mg/dL) 188 H 188 H 200 H (75-99) mg/dL Calcium (8.4-10.2) mg/dL 11/13/19 11/14/19 11/14/19 Range/Units 23:36 05:19 05:24 WBC (3.8-10.6) k/uL RBC (3.80-5.40) m/uL Hgb (11.4-16.0) gm/dL Hct (34.0-46.0) % RDW (11.5-15.5) % Plt Count (150-450) k/uL Neutrophils # (1.3-7.7) k/uL Lymphocytes # (1.0-4.8) k/uL Sodium 125 L (137-145) mmol/L Chloride 97 L (98-107) mmol/L Carbon Dioxide 18 L (22-30) mmol/L BUN 20 H (7-17) mg/dL Creatinine 2.06 H (0.52-1.04) mg/dL Glucose 180 H (74-99) mg/dL POC Glucose (mg/dL) 213 H 217 H (75-99) mg/dL Calcium 7.1 L (8.4-10.2) mg/dL 11/14/19 11/14/19 Range/Units 05:24 09:16 WBC 12.2 H (3.8-10.6) k/uL RBC 2.96 L (3.80-5.40) m/uL Hgb 8.5 L D (11.4-16.0) gm/dL Hct 25.9 L (34.0-46.0) % RDW 17.1 H (11.5-15.5) % Plt Count 40 L (150-450) k/uL Neutrophils # 10.8 H (1.3-7.7) k/uL Lymphocytes # 0.7 L (1.0-4.8) k/uL Sodium (137-145) mmol/L Chloride (98-107) mmol/L Carbon Dioxide (22-30) mmol/L BUN (7-17) mg/dL Creatinine (0.52-1.04) mg/dL Glucose (74-99) mg/dL POC Glucose (mg/dL) 184 H (75-99) mg/dL Calcium (8.4-10.2) mg/dL Microbiology - Last 24 Hours (Table) 11/13/19 23:50 Sputum Culture - Preliminary Sputum 11/10/19 02:07 Blood Culture Gram Stain - Final Blood Blood Culture - Final Coagulase Negative Staph Assessment and Plan Assessment: Impression: Acute abdominal sepsis secondary to bowel perforation secondary to diverticulitis. Pseudomonas aeruginosa bacteremia. Status post left colectomy, partial omentectomy and colostomy. Postoperative day #4 Septic shock from abdominal sepsis. Chronic sigmoid diverticulitis, Benign essential hypertension Paroxysmal atrial fibrillation, presently in atrial fibrillation with RVR. On amiodarone drip, and Cardizem drip Questionable history of asthma, severity of which is not clear. Acute on chronic kidney injury most likely secondary to acute tubular necrosis, on hemodialysis and ultrafiltration today again. Chronic lower extremities lymphedema. Severe metabolic acidosis secondary to sepsis. Acute right lower extremity cellulitis. Recommendation: Continue ventilatory support, Continue hemodynamic support, presently on norepinephrine. Vasopressin, Start TPN/nutritional support. Continue amiodarone for atrial fibrillation with RVR, continue Cardizem. Continue GI and DVT prophylaxis. Continue antibiotics, as per Infectious disease on the case., Continue bronchodilators. Family updated on the condition again today. Agreeable to DO NOT RESUSCITATE CODE STATUS. Prognosis remains extremely poor, patient is critically ill. Critical care time is 32 minutes. We'll continue to follow Time with Patient: Greater than 30
--- NOTE | 2019-11-14 11:55 | P.PN ---
Subjective Progress Note Date: 11/14/19 CHIEF COMPLAINT: Diverticulitis HISTORY OF PRESENT ILLNESS: Patient is status post left colectomy with mobilization of splenic flexure, partial omentectomy, and colostomy creation. POD #4. She remains critically ill. Patient remains on mechanical ventilation in the ICU. Patient remains on vasopressor support. She is currently receiving dialysis. TPN infusing. WBC 12.2. Hemoglobin 8.5. PHYSICAL EXAM: VITAL SIGNS: Reviewed. GENERAL: Well-developed in no acute distress-sedated on mechanical ventilation. HEENT: ET tube noted. OG to LIS with bilious drainage. No sclera icterus. Extraocular movements grossly intact. Moist buccal mucosa. Head is atraumatic, normocephalic. ABDOMEN: Soft. Nondistended. Wound vac to abdomen noted. Ostomy pink. NEUROLOGIC: Sedated on mechanical ventilation ASSESSMENT: 1. Diverticulitis with suspected contained perforation PLAN: -Continue ICU/ventilator management per Dr. Escalante -Wean vasopressors as tolerated -Continue TPN. Await bowel function from ostomy before transitioning to tube feeds -Continue wound vac to abdominal wound. Change wound vac on Sunday. Nurse practitioner note has been reviewed by physician. Signing provider agrees with the documented findings, assessment, and plan of care. Objective - Vital Signs Vital signs: Vital Signs Temp 98.5 F 11/14/19 00:00 Pulse 103 H 11/14/19 09:00 Resp 27 H 11/14/19 07:00 BP 119/52 11/14/19 07:00 Pulse Ox 95 11/14/19 07:00 Intake & Output 11/13/19 11/14/19 11/14/19 18:59 06:59 18:59 Intake Total 3434.886 2473.441 242.249 Output Total 815 205 0 Balance 2619.886 2268.441 242.249 Weight 159.2 kg 159.2 kg Intake: IV 1415.5 1431.0 98.5 Amiodarone 300 mg In 300 150 Dextrose 5% in Water 250 ml @ 0.5 MG/MIN 25 mls/hr IV .Q10H [facility] Rx#: [id number] Diltiazem 125 mg In 27.5 25.0 2.5 Sodium Chloride 0.9% 100 ml @ 2.5 MG/HR 2.5 mls/hr IV .Q24H [facility] Rx#: [id number] Piperacillin-Tazobactam 3 175 100 .375 gm In Sodium Chloride 0.9% 100 ml @ 25 mls/hr IVPB Q8HR [facility] Rx# :[id number] Pressure Bags 78 66 6 Sodium Acetate 30 meq 990 90 Calcium Gluconate 1 gm In Amino Acid 4.25%-D10w+ Lytes*E* 1,000 ml @ 90 mls/hr IV .BY DURATION [facility] Rx#:[id number] Sodium Acetate 30 meq 720 Calcium Gluconate 1 gm Mvi, Adult No.4 with Vit K 10 ml Trace (Conc-1Ml/ Dose) 1 ml In Amino Acid 4.25%-D10w 1,000 ml @ 90 mls/hr IV .BY DURATION [facility] Rx#:[id number] Sodium Chloride 0.9% 1, 15 000 ml @ 0 mls/hr IV .STK -MED ONE Rx#:[id number] metroNIDAZOLE-NS PMX 500 100 100 mg In Saline 1 100ml.bag @ 100 mls/hr IVPB Q8HR [facility] Rx#:[id number] Intake, IV Titration 9907.070 5991.441 143.749 Amount Amiodarone 300 mg In 224.167 Dextrose 5% in Water 250 ml @ 0.5 MG/MIN 25 mls/hr IV .Q10H [facility] Rx#: [id number] Diltiazem 125 mg In 54.5 Sodium Chloride 0.9% 100 ml @ 2.5 MG/HR 2.5 mls/hr IV .Q24H [facility] Rx#: [id number] Norepinephrine 32 mg In 126.796 264.642 43.749 Sodium Chloride 0.9% 218 ml @ 0.05 MCG/KG/MIN 2. 966 mls/hr IV .Q24H [facility] Rx#:[id number] Propofol 1,000 mg In 567.59 499.132 100 Empty Bag 1 bag @ Titrate IV .Q0M [facility] Rx#: [id number] Sodium Acetate 30 meq 1025 Calcium Gluconate 1 gm In Amino Acid 4.25%-D10w+ Lytes*E* 1,000 ml @ 90 mls/hr IV .BY DURATION [facility] Rx#:[id number] Hemodialysis 300 Output: Drainage 650 200 Colostomy 650 150 Medial Abdomen 50 Urine 15 5 0 Hemodialysis 150 Other: Voiding Method Indwelling Catheter Indwelling Catheter ABP, PAP, CO, CI - Last Documented Arterial Blood Pressure 95/71 - Labs CBC & Chem 7: 11/14/19 05:24 11/14/19 05:24 Labs: Abnormal Lab Results - Last 24 Hours (Table) 11/13/19 11/13/19 11/13/19 Range/Units 17:13 20:20 23:36 WBC (3.8-10.6) k/uL RBC (3.80-5.40) m/uL Hgb (11.4-16.0) gm/dL Hct (34.0-46.0) % RDW (11.5-15.5) % Plt Count (150-450) k/uL Neutrophils # (1.3-7.7) k/uL Lymphocytes # (1.0-4.8) k/uL Sodium (137-145) mmol/L Chloride (98-107) mmol/L Carbon Dioxide (22-30) mmol/L BUN (7-17) mg/dL Creatinine (0.52-1.04) mg/dL Glucose (74-99) mg/dL POC Glucose (mg/dL) 188 H 200 H 213 H (75-99) mg/dL Calcium (8.4-10.2) mg/dL 11/14/19 11/14/19 11/14/19 Range/Units 05:19 05:24 05:24 WBC 12.2 H (3.8-10.6) k/uL RBC 2.96 L (3.80-5.40) m/uL Hgb 8.5 L D (11.4-16.0) gm/dL Hct 25.9 L (34.0-46.0) % RDW 17.1 H (11.5-15.5) % Plt Count 40 L (150-450) k/uL Neutrophils # 10.8 H (1.3-7.7) k/uL Lymphocytes # 0.7 L (1.0-4.8) k/uL Sodium 125 L (137-145) mmol/L Chloride 97 L (98-107) mmol/L Carbon Dioxide 18 L (22-30) mmol/L BUN 20 H (7-17) mg/dL Creatinine 2.06 H (0.52-1.04) mg/dL Glucose 180 H (74-99) mg/dL POC Glucose (mg/dL) 217 H (75-99) mg/dL Calcium 7.1 L (8.4-10.2) mg/dL 11/14/19 Range/Units 09:16 WBC (3.8-10.6) k/uL RBC (3.80-5.40) m/uL Hgb (11.4-16.0) gm/dL Hct (34.0-46.0) % RDW (11.5-15.5) % Plt Count (150-450) k/uL Neutrophils # (1.3-7.7) k/uL Lymphocytes # (1.0-4.8) k/uL Sodium (137-145) mmol/L Chloride (98-107) mmol/L Carbon Dioxide (22-30) mmol/L BUN (7-17) mg/dL Creatinine (0.52-1.04) mg/dL Glucose (74-99) mg/dL POC Glucose (mg/dL) 184 H (75-99) mg/dL Calcium (8.4-10.2) mg/dL Microbiology - Last 24 Hours (Table) 11/13/19 23:50 Sputum Culture - Preliminary Sputum 11/10/19 02:07 Blood Culture Gram Stain - Final Blood Blood Culture - Final Coagulase Negative Staph
[2019-11-14 12:43] LABS: Glucose,Whole Blood 123 mg/dL (75-99)
[2019-11-14] MEDS: CALCIUM GLUCONATE IV SCH ×5 (13:55)
[2019-11-14] MEDS: [UNRECOGNIZED DRUG - OTHER] IV SCH ×5 (13:55)
[2019-11-14] MEDS: SODIUM ACETATE IV SCH ×5 (13:55)
--- NOTE | 2019-11-14 14:09 | PN ---
PROGRESS NOTE Patient is seen for followup for acute kidney injury. She remains anuric, Levophed is slightly lower than yesterday; however, FiO2 remains at 60% with 14 of PEEP. Patient is sedated. She is also maintained on Cardizem. She is maintained on Cardizem drip as well as amiodarone. Cardizem drip was increased today. Patient is seen currently on hemodialysis. She did not tolerate her treatment yesterday. This morning she has tolerated about an hour's treatment so far, but we were not able to remove much fluid. PHYSICAL EXAMINATION: On examination, patient remains sedated, she is on the vent. Blood pressure 81/53, about 120 mmHg, mostly in the earlier morning. She is afebrile. Examination of the heart S1, S2. Examination of the lungs, bilateral breath sounds are heard. Abdomen is soft, nontender, open wound is noted. Examination of the lower extremities shows edema. MEAT HANGER exam cannot be performed. LABS: Show sodium 125, potassium 4.0, chloride 97, CO2 is 18, BUN 20, creatinine 2.06, hemoglobin 8.5 g/dL. ASSESSMENT: 1. Acute kidney injury, ischemic acute tubular necrosis, oliguric, maintained on SLED procedure, which patient did not tolerate well. We have her on dialysis again today. So far, she has had about 1 hour's treatment. If patient does not tolerate it in terms of her blood pressure or if the heart rate goes up and family has been talked to regarding the guarded prognosis and the will likely be considering hospice care. 2. Hypoxic respiratory failure, currently on the vent. 3. Severe lactic acidosis, now improved. 4. Severe metabolic acidosis secondary to lactic acidosis and GI fluid loss. 5. Sepsis from diverticulitis/abdominal source, status post left colectomy and colostomy. 6. Atrial fibrillation with RVR, maintained on amiodarone and Cardizem drip. PLAN: Try SLED procedure again today. If the patient is not able to tolerate treatment, she will be taken off and family has been talked to regarding possibility of hospice care if we are not able to remove much fluid. They are in agreement. MMODL / IJN: [id number] /
--- NOTE | 2019-11-14 14:18 | PN ---
PROGRESS NOTE DATE OF SERVICE: 11/14/2019 REASON FOR FOLLOWUP: Ruptured sigmoid diverticulitis and Pseudomonas bacteremia. INTERVAL HISTORY: The patient is currently afebrile. The patient remains to be intubated on the vent. The patient is currently maxed out on the pressor support, . No diarrhea has been reported. EXAM: Afebrile. Blood pressure is 82/46, pulse of 122, temperature of 98.4, 94% on 60% FiO2. General description is an elderly female, lying in bed in no distress. RESPIRATORY SYSTEM: Unlabored breathing, decreased breath sounds at the base, no wheeze. HEART: S1, S2. Regular rate and rhythm. ABDOMEN: Soft, no guarding, no rigidity. LABS: Hemoglobin is 8.5, white count of 12.2 with a BUN of 20, creatinine 2.06. We have again to get the sensitivity Pseudomonas and Morganella; both pathogen are sensitive to Zosyn. DIAGNOSTIC IMPRESSION AND PLAN: Patient with acute respiratory failure which is likely multifactorial in this patient who did have a perforated sigmoid diverticulitis, status post laparotomy and diverting colostomy with Pseudomonas and Morganella bacteria which is currently covered with Zosyn. Will continue and monitor clinical course closely. Prognosis is extremely guarded. MMODL / IJN: [id number] /
--- NOTE | 2019-11-14 14:40 | P.PN ---
Progress Note - Text Progress Note Date: 11/14/19 Chief Complaint: Abdominal pain History of presenting complaint: This is a very pleasant [address] Sin. Chronic stable medical conditions include paroxysmal atrial fibrillation, asthma, hypertension, GERD, chronic kidney disease stage IV, bilateral lower extremity lymphedema. Patient normally uses a walker to get about. Currently at [facility] for rehab. Patient's had abdominal pain on and off for quite some time. On this occasion yesterday the pain became much worse cramping some nausea vomiting. Denies any fever and chills. Had to 3 loose stools yesterday. No blood. Computed tomography scan in the ER did show diverticulitis. Patient is made nothing by mouth. Daughter the bedside. At the [facility] patient was walking at least-20-30 steps with a walker. Admitted with acute sigmoid diverticulitis. Also patient noted to have some vaginal blood clots. Seen by Dr. Binh Abbasi-to be followed as an outpatient. Patient's started on IV antibiotics. Repeat Computed tomography scan-Found to have a contained bowel perforation. Leading up to left hemicolectomy. [id number]. Ventilator-peripheral 60% and PEEP of 14. Getting hemodialysis today. Closed 2 L removed. No urine output. Drips include IV vasopressin, IV norepinephrine, IV amiodarone, IV propofol, IV Cardizem. No bowel movements so cluster back. Telemetry shows atrial fibrillation with a heart rate about 100. Also getting PPN. Eyelid today family spoke to Dr. Escalante patient's been made DO NOT RESUSCITATE. Review of systems: Not done-patient intubated Active Medications Albuterol/Ipratropium (Duoneb 0.5 Mg-3 Mg/3 Ml Soln) 3 ml INHALATION RT-Q4H [facility] Last Admin: 11/14/19 12:24 Dose: 3 ml Documented by: Bisacodyl (Dulcolax) 10 mg RECTAL DAILY PRN PRN Reason: Constipation Chlorhexidine Gluconate (Peridex) 15 ml MUCOUS MEM BID [facility] Last Admin: 11/14/19 09:15 Dose: 15 ml Documented by: Enoxaparin Sodium (Lovenox) 30 mg SQ DAILY [facility] Last Admin: 11/14/19 09:16 Dose: 30 mg Documented by: Hydrocortisone Sodium Succinate (Solu-Cortef) 100 mg IV Q8HR [facility] Last Admin: 11/14/19 09:12 Dose: 100 mg Documented by: Hydromorphone HCl (Dilaudid) 0.5 mg IVP Q4HR PRN PRN Reason: Pain Scale 6 to 10 Last Admin: 11/13/19 01:08 Dose: 0.5 mg Documented by: Epinephrine HCl 4 mg/ Dextrose (/Water) 250 mls @ 4.746 mls/hr IV .Q24H [facility]; Protocol Last Admin: 11/14/19 04:08 Dose: Not Given Documented by: Metronidazole 500 mg/ IV (Solution) 100 mls @ 100 mls/hr IVPB Q8HR [facility] Last Admin: 11/14/19 09:14 Dose: 100 mls/hr Documented by: Propofol 1,000 mg/ IV Solution 100 mls @ 0 mls/hr IV .Q0M [facility]; Protocol Last Admin: 11/14/19 13:54 Dose: 60 mcg/kg/min, 57.312 mls/hr Documented by: Norepinephrine Bitartrate 32 (mg/ Sodium Chloride) 250 mls @ 2.966 mls/hr IV .Q24H [facility]; Protocol Last Titration: 11/14/19 09:55 Dose: 0.3 mcg/kg/min, 17.796 mls/hr Documented by: Vasopressin 20 unit/ Sodium (Chloride) 51 mls @ 4.59 mls/hr IVPB .Q11H7M [facility] Last Admin: 11/14/19 09:18 Dose: Not Given Documented by: Piperacillin Sod/Tazobactam (Sod 3.375 gm/ Sodium Chloride) 100 mls @ 25 mls/hr IVPB Q8HR [facility] Last Admin: 11/14/19 09:17 Dose: 25 mls/hr Documented by: Diltiazem HCl 125 mg/ Sodium (Chloride) 125 mls @ 2.5 mls/hr IV .Q24H [facility] Last Admin: 11/14/19 13:52 Dose: 5 mg/hr, 5 mls/hr Documented by: Sodium Acetate 60 meq/ Calcium Gluconate 1 gm/ Amino Ac/Electrol/Dextrose/Calcium 1,040 mls @ 90 mls/hr IV .BY DURATION [facility] Last Admin: 11/14/19 13:55 Dose: 90 mls/hr Documented by: Sodium Acetate 60 meq/ Calcium Gluconate 1 gm/ Parenteral Vitamin Supplement 10 ml/Chromium/Copper/Manganese/Seleni/Zn 1 ml/ Amino Ac/Electrol/Dextrose/Calcium 1,051 mls @ 90 mls/hr IV .BY DURATION [facility] Amiodarone HCl 300 mg/ (Dextrose/Water) 250 mls @ 25 mls/hr IV .Q10H [facility]; Protocol Stop: 11/15/19 01:44 Last Admin: 11/14/19 09:16 Dose: 0.5 mg/min, 25 mls/hr Documented by: Insulin Aspart (Novolog) 0 unit SQ Q4HR [facility]; Protocol Last Admin: 11/14/19 13:54 Dose: Not Given Documented by: Insulin Detemir (Levemir) 8 unit SQ DAILY@0700 [facility] Miscellaneous Information (Potassium Per Protocol) 1 each MISCELLANE DAILY PRN; Protocol PRN Reason: Per Protocol Miscellaneous Information (Magnesium Per Protocol) 1 each MISCELLANE DAILY PRN; Protocol PRN Reason: Per Protocol Multi-Ingred Cream/Lotion/Oil/Oint (Triad Cream) 1 applic TOPICAL BID [facility] Last Admin: 11/14/19 09:23 Dose: 1 applic Documented by: Naloxone HCl (Narcan) 0.2 mg IV Q2M PRN PRN Reason: Opioid Reversal Nystatin (Mycostatin Powder) 1 applic TOPICAL BID [facility] Last Admin: 11/14/19 09:23 Dose: 1 applic Documented by: Pantoprazole Sodium (Protonix) 40 mg IV DAILY [facility] Last Admin: 11/14/19 09:16 Dose: 40 mg Documented by: Physical examination: VITAL SIGNS: 98.1, 100, 22, 101/65, 94% GENERAL: Laying in bed, intubated EYES: Pupils equal. Conjunctiva normal. HEENT: External appearance of nose and ears normal, oral cavity dry mucous membrane. Endotracheal tube in place. NG tube NECK: JVD not raised; masses not palpable. HEART: irregular heart sounds; some edema. LUNGS: Respiratory rate increased; decreased breath sounds ABDOMEN: Soft, dressing over the incision site, no guarding rigidity, liver spleen not palpable, no masses palpable. Colostomy-no output. PSYCH: Sedated LYMPHATICS: lymphedema of the lower extremity INVESTIGATIONS, reviewed in the clinical context: White count 12.2 hemoglobin 8.5 platelets 40 sodium 125 bun 20 creatinine 2.06 Previous testing White count 4.5 hemoglobin 9.8 platelets 126 Creatinine 1.3 Computed tomography scan of the abdomen-possible colitis versus diverticulitis in the sigmoid area C. diff-negative Assessment: -Acute perforation of the large colon. Leading to left colectomy, partial omentectomy and a colostomy -Acute sigmoid diverticulitis, -Acute hypoxic respiratory failure requiring ventilator support. Intubated, slow to respond -Septic shock requiring pressor support, worsening -Intermittent vaginal blood clots-endometrial prominence. outpatient D&C -Acute kidney injury likely ATN , oliguric from cardiorenal syndrome. Worsened requiring renal replacement therapy -Bilateral lower extremity lymphedema -Persistent atrial fibrillation, with rapid ventricular rate, uncontrolled -Acute cellulitis of the right lower extremity -Chronic gait dysfunction uses a walker -Morbid obesity BMI 51 -Right bundle-branch block -Essential hypertension -GERD -Acute postprocedure blood loss anemia as expected from surgery-getting 2 units of blood -Hyponatremia likely hyperosmolar from volume contraction -DO NOT RESUSCITATE Plan: Patient's earlier today was made DO NOT RESUSCITATE. No urine output. Getting hemodialysis today and getting 2 L artery. Other medications to pass to continue. Prognosis remains guarded. And significant pressor support. No st ool out of the colostomy. Currently no family the bedside.
[2019-11-14] MEDS ORDERED: INSULIN DETEMIR (LEVEMIR) 100 UNIT/ML SYR SQ ONE ×2 (15:50→23:37)
[2019-11-14 16:13] LABS: Glucose,Whole Blood 174 mg/dL (75-99)
[2019-11-14] MEDS: MEROPENEM 1 GM in SODIUM CHLORIDE 0.9% 100 ML IVPB SCH (16:15)
--- NOTE | 2019-11-14 17:36 | PCN ---
PROCEDURE NOTE LEFT RADIAL ARTERIAL LINE PLACEMENT: PREOPERATIVE DIAGNOSIS: Septic shock. POSTOPERATIVE DIAGNOSIS: Septic shock. Indications: Hemodynamic monitoring. A time-out was completed verifying correct patient, procedure, site, positioning, and implant(s) or special equipment if applicable. Yeyo's test was performed to ensure adequate perfusion. The patient's left wrist was prepped and draped in sterile fashion. 1% Lidocaine was used to anesthetize the area. An 18G Arrow arterial line was introduced into the radial artery. The catheter was threaded over the guidewire and the needle was removed with appropriate pulsatile blood return. Blood loss was minimal. The catheter was then sutured in place to the skin and a sterile dressing applied. Perfusion to the extremity distal to the point of catheter insertion was checked and found to be adequate. The patient tolerated the procedure well. No immediate complications. Good waveform was noted. Line was flushed and sutured in place. Sterile dressing was applied by the nursing staff. MMODL / IJN: [id number] /
[2019-11-14 20:15] LABS: Glucose,Whole Blood 198 mg/dL (75-99)
[2019-11-14 23:21] LABS: Glucose,Whole Blood 210 mg/dL (75-99)
[2019-11-15] MEDS: CALCIUM GLUCONATE IV SCH ×15 (00:03→04:41)
[2019-11-15] MEDS: SODIUM ACETATE IV SCH ×15 (00:03→04:41)
[2019-11-15] MEDS: [UNRECOGNIZED DRUG - OTHER] IV SCH ×15 (00:03→04:41)
[2019-11-15] MEDS: PROPOFOL 1,000 MG in EMPTY BAG 1 BAG IV SCH ×9 (00:08→18:47)
[2019-11-15] MEDS: IPRATROPIUM-ALBUTEROL 3 ML NEB INHALATION SCH ×7 (00:58→23:10)
[2019-11-15] MEDS: SODIUM CHLORIDE 0.9% 50 ML with VASOPRESSIN 20 UNIT IVPB SCH ×6 (03:28→16:07)
[2019-11-15] MEDS: MEROPENEM 1 GM in SODIUM CHLORIDE 0.9% 100 ML IVPB SCH ×2 (03:50→16:49)
[2019-11-15 04:32] LABS: Glucose,Whole Blood 211 mg/dL (75-99)
[2019-11-15] MEDS: INSULIN ASPART (NovoLOG) 100 UNIT/ML VIAL SQ SCH ×6 (04:37→23:47)
[2019-11-15 04:46] LABS: Anisocytosis Slight; HCT 25.3 % (34.0-46.0); HGB 8.7 gm/dL (11.4-16.0); MCH 29.7 pg (25.0-35.0); MCHC 34.2 g/dL (31.0-37.0); MCV 86.9 fL (80.0-100.0); Mean Platelet Volume 9.3; Poikilocytosis Slight; RBC 2.91 m/uL (3.80-5.40); RDW 17.3 % (11.5-15.5)
[2019-11-15 04:48] LABS: Platelet Count 44 k/uL (150-450)
[2019-11-15 04:51] LABS: Calcium 7.3 mg/dL (8.4-10.2); Magnesium 1.9 mg/dL (1.6-2.3); Phosphorus 3.4 mg/dL (2.5-4.5); Potassium 3.9 mmol/L (3.5-5.1)
[2019-11-15 05:15] LABS: Band Neutrophils % 7 %; Eosinophils # (M) 0.14 k/uL (0-0.7); Lymphocytes # (M) 1.41 k/uL (1.0-4.8); Monocytes # (M) 0.14 k/uL (0-1.0); Neutrophils % (M) 82 %; Nucleated Red Blood Cells 1 /100 WBC (0-0); Total Cells Counted 200; Toxic Vacuolation Present; WBC 14.1 k/uL (3.8-10.6)
[2019-11-15 05:16] LABS: Basophilic Stippling Present
[2019-11-15 05:17] LABS: Polychromasia Present
[2019-11-15 05:18] LABS: Reactive Lymphocytes Present
[2019-11-15] MEDS: AMIODARONE 300 MG in DEXTROSE 5% IN WATER 250 ML IV SCH ×4 (05:18→15:25)
[2019-11-15] MEDS ORDERED: POTASSIUM CHLORIDE 20 MEQ in WATER FOR INJECTION 1 100ML.BAG IVPB STA (05:42)
[2019-11-15] MEDS: MAGNESIUM SULFATE-D5W PMX 1 GM in DEXTROSE/WATER 1 100ML.BAG IVPB SCH ×2 (06:01→07:14)
--- NOTE | 2019-11-15 07:09 | XR ---
EXAMINATION TYPE: XR chest 1V portable DATE OF EXAM: 11/15/2019 HISTORY: Tube placement. REFERENCE: Previous study dated 11/14/2019. FINDINGS: The patient's ET tube and NG tube remain in place, unchanged in appearance. A right interna l jugular catheter is in place. Its tip is in the right atrium. The heart is not enlarged. There are small, bilateral effusions. There is bibasilar airspace disease. Pulmonary vascular congestion has improved. IMPRESSION: IMPROVEMENT IN THE PATIENT'S VOLUME STATUS.
[2019-11-15 07:26] LABS: ABG Base Excess -2.6 mmol/L; ABG HCO3 23 mmol/L (21-25); ABG Oxygen Saturation 96.9 % (94-97); ABG PCO2 45 mmHg (35-45); ABG PH 7.32 (7.35-7.45); ABG PO2 94 mmHg (83-108); ABG TCO2 25 mmol/L (19-24)
[2019-11-15 07:27] LABS: Allen Test Performed? no
[2019-11-15] MEDS: HYDROCORTISONE SUCCINATE 100 MG/2 ML VIAL IV SCH ×3 (08:41→23:46)
[2019-11-15] MEDS: CHLORHEXIDINE GLUCONATE 15 ML CUP MUCOUS MEM SCH ×2 (08:41→20:12)
[2019-11-15] MEDS: metroNIDAZOLE-NS PMX 500 MG in SALINE 1 100ML.BAG IVPB SCH ×3 (08:41→23:46)
[2019-11-15] MEDS: NYSTATIN 100,000 UNIT/GM POWD 15 GM TOPICAL SCH ×2 (08:42→20:12)
[2019-11-15] MEDS: HYDROPHILIC CREAM 180 GM TUBE TOPICAL SCH ×2 (08:42→20:12)
[2019-11-15] MEDS: PANTOPRAZOLE 40 MG/10 ML VIAL IV SCH (08:42)
[2019-11-15] MEDS: ENOXAPARIN 30 MG/0.3 ML SYRINGE SQ SCH (08:43)
[2019-11-15 08:46] LABS: Glucose,Whole Blood 222 mg/dL (75-99)
--- NOTE | 2019-11-15 08:58 | P.PN ---
Progress Note - Text Progress Note Date: 11/15/19 The patient remains on the ventilator in the ICU. She is in critical condition. Her parents actually looks slightly better today. Her vital signs are stable. On exam her abdomen soft. Wound VAC is in place. Retention sutures are in place. The patient's colostomy is pink. Status post heart procedure for diverticulitis. Patient's condition is critical. She'll continue supportive care.
--- NOTE | 2019-11-15 09:42 | P.PN ---
Subjective This is Ashley Barney PA-C dictating a progress note on this patient The patient was interviewed and examined by me as well as by Dr. Lomas Case discussed with Dr. Lomas and he agrees with the plan of care HPI/interval history Patient is a 69-year-old female with a history of paroxysmal atrial fibrillation, CK D, chronic lymphedema who was brought in from her extended care facility for further evaluation of complaints of nausea, vomiting and abdominal pain. She was found to have diverticulitis and underwent exploratory laparotomy and partial colectomy. She became septic and has been in the ICU, intubated, and remains on 2 pressors. She was in atrial fibrillation with RVR but did convert to sinus rhythm. Bedside telemetry reveals sinus mechanism with rates in the 90s. She remains on amiodarone and Cardizem drip. Patient seen and examined in the ICU. EXAMINATION Patient is afebrile, pulse in the 90s, respirations in the 20s, blood pressure 141/45, oxygen saturation 96% on mechanical ventilation Patient seen and examined, sedated and intubated Breath sounds equal bilaterally Heart is regular, S1 and S2 heard, no audible murmurs Unable to assess JVD Diffuse lower extremity lymphedema REVIEW OF LABS, ECG WBC 14.1, hemoglobin 8.7, platelets 44, sodium 125, potassium 3.9, BUN 19, creatinine 1.9 Echocardiogram showed EF 50-55% IMPRESSION / ASSESSMENT: Abdominal discomfort secondary to perforated diverticulitis status post exploratory laparotomy and partial colectomy Sepsis secondary to above Atrial fibrillation with RVR, currently in sinus rhythm, anticoagulation on hold secondary to above Chronic lower extremity lymphedema CK D PLAN: Stop Cardizem Continue amiodarone If she goes back into atrial fibrillation with RVR may restart Cardizem drip Continue holding oral anticoagulation Objective - Vital Signs Vital signs: Vital Signs Temp 98.4 F 11/15/19 08:00 Pulse 90 11/15/19 09:00 Resp 24 11/15/19 09:00 BP 96/52 11/15/19 00:45 Pulse Ox 96 11/15/19 09:00 Intake & Output 11/14/19 11/15/19 11/15/19 18:59 06:59 18:59 Intake Total 2639.464 3232.125 722.281 Output Total 2500 165 500 Balance 542.255 1069.125 222.281 Weight 159.2 kg 158.1 kg Intake: IV 1704.5 1467 488 Diltiazem 125 mg In 2.5 Sodium Chloride 0.9% 100 ml @ 2.5 MG/HR 2.5 mls/hr IV .Q24H [facility] Rx#: [id number] Magnesium Sulfate-D5w Pmx 100 1 gm In Dextrose/Water 1 100ml.bag @ 100 mls/hr IVPB Q1H [facility] Rx#: [id number] Meropenem 1 gm In Sodium 100 200 100 Chloride 0.9% 100 ml @ 200 mls/hr IVPB Q12H [facility] Rx#:[id number] Piperacillin-Tazobactam 3 100 .375 gm In Sodium Chloride 0.9% 100 ml @ 25 mls/hr IVPB Q8HR [facility] Rx# :[id number] Pressure Bags 57 72 18 Sodium Acetate 30 meq 990 180 Calcium Gluconate 1 gm In Amino Acid 4.25%-D10w+ Lytes*E* 1,000 ml @ 90 mls/hr IV .BY DURATION [facility] Rx#:[id number] Sodium Acetate 30 meq 90 900 270 Calcium Gluconate 1 gm Mvi, Adult No.4 with Vit K 10 ml Trace (Conc-1Ml/ Dose) 1 ml In Amino Acid 4.25%-D10w+Lytes*E* 1,000 ml @ 90 mls/hr IV .BY DURATION [facility] Rx#: [id number] Sodium Chloride 0.9% 1, 165 15 000 ml @ 0 mls/hr IV .STK -[facility] Rx#:[id number] metroNIDAZOLE-NS PMX 500 200 100 mg In Saline 1 100ml.bag @ 100 mls/hr IVPB Q8HR [facility] Rx#:[id number] Intake, IV Titration 405.263 7669.125 234.281 Amount Amiodarone 300 mg In 237.5 Dextrose 5% in Water 250 ml @ 0.5 MG/MIN 25 mls/hr IV .Q10H [facility] Rx#: [id number] Diltiazem 125 mg In 37.583 Sodium Chloride 0.9% 100 ml @ 2.5 MG/HR 2.5 mls/hr IV .Q24H [facility] Rx#: [id number] Norepinephrine 32 mg In 183.165 153.010 34.94 Sodium Chloride 0.9% 218 ml @ 0.05 MCG/KG/MIN 2. 966 mls/hr IV .Q24H [facility] Rx#:[id number] Propofol 1,000 mg In 476.716 568.115 199.341 Empty Bag 1 bag @ Titrate IV .Q0M [facility] Rx#: [id number] Sodium Acetate 60 meq 1044 Calcium Gluconate 1 gm In Amino Acid 4.25%-D10w+ Lytes*E* 1,000 ml @ 90 mls/hr IV .BY DURATION [facility] Rx#:[id number] Output: Gastric Drainage 30 Drainage 500 120 500 Colostomy 500 120 Medial Abdomen 500 Urine 0 15 0 Hemodialysis 2000 Other: Voiding Method Indwelling Catheter Indwelling Catheter Indwelling Catheter # Voids 0 ABP, PAP, CO, CI - Last Documented Arterial Blood Pressure 141/45 - Labs CBC & Chem 7: 11/15/19 04:30 11/15/19 04:30 Labs: Abnormal Lab Results - Last 24 Hours (Table) 11/14/19 11/14/19 11/14/19 Range/Units 12:41 16:11 20:13 WBC (3.8-10.6) k/uL RBC (3.80-5.40) m/uL Hgb (11.4-16.0) gm/dL Hct (34.0-46.0) % RDW (11.5-15.5) % Plt Count (150-450) k/uL Neutrophils # (Manual) (1.3-7.7) k/uL Nucleated RBCs (0-0) /100 WBC ABG pH (7.35-7.45) ABG Total CO2 (19-24) mmol/L Sodium (137-145) mmol/L Chloride (98-107) mmol/L Carbon Dioxide (22-30) mmol/L BUN (7-17) mg/dL Creatinine (0.52-1.04) mg/dL Glucose (74-99) mg/dL POC Glucose (mg/dL) 123 H 174 H 198 H (75-99) mg/dL Calcium (8.4-10.2) mg/dL 11/14/19 11/15/19 11/15/19 Range/Units 23:19 04:30 04:30 WBC 14.1 H (3.8-10.6) k/uL RBC 2.91 L (3.80-5.40) m/uL Hgb 8.7 L (11.4-16.0) gm/dL Hct 25.3 L (34.0-46.0) % RDW 17.3 H (11.5-15.5) % Plt Count 44 L (150-450) k/uL Neutrophils # (Manual) 12.50 H (1.3-7.7) k/uL Nucleated RBCs 1 H (0-0) /100 WBC ABG pH (7.35-7.45) ABG Total CO2 (19-24) mmol/L Sodium 125 L (137-145) mmol/L Chloride 95 L (98-107) mmol/L Carbon Dioxide 21 L (22-30) mmol/L BUN 19 H (7-17) mg/dL Creatinine 1.90 H (0.52-1.04) mg/dL Glucose 186 H (74-99) mg/dL POC Glucose (mg/dL) 210 H (75-99) mg/dL Calcium 7.3 L (8.4-10.2) mg/dL 11/15/19 11/15/19 11/15/19 Range/Units 04:30 07:18 08:45 WBC (3.8-10.6) k/uL RBC (3.80-5.40) m/uL Hgb (11.4-16.0) gm/dL Hct (34.0-46.0) % RDW (11.5-15.5) % Plt Count (150-450) k/uL Neutrophils # (Manual) (1.3-7.7) k/uL Nucleated RBCs (0-0) /100 WBC ABG pH 7.32 L (7.35-7.45) ABG Total CO2 25 H (19-24) mmol/L Sodium (137-145) mmol/L Chloride (98-107) mmol/L Carbon Dioxide (22-30) mmol/L BUN (7-17) mg/dL Creatinine (0.52-1.04) mg/dL Glucose (74-99) mg/dL POC Glucose (mg/dL) 211 H 222 H (75-99) mg/dL Calcium (8.4-10.2) mg/dL Microbiology - Last 24 Hours (Table) 11/14/19 05:24 Blood Culture - Preliminary Blood No Growth after 24 hours 11/13/19 23:50 Gram Stain - Preliminary Sputum Sputum Culture - Preliminary 11/10/19 02:27 Blood Culture Gram Stain - Final Blood Blood Culture - Final Pseudomonas aeruginosa Morganella morganii 11/10/19 02:07 Blood Culture Gram Stain - Final Blood Blood Culture - Final Coagulase Negative Staph
[2019-11-15] MEDS ORDERED: FUROSEMIDE 10 MG/ML 10 ML VIAL IV STA (10:14)
--- NOTE | 2019-11-15 11:27 | P.PN ---
Subjective Progress Note Date: 11/15/19 Follow-up for acute kidney injury. Family at bedside. Still on a ventilator with FiO2 of 50% and PEEP of 14. Vasopressor requirement going down, currently on vasopressin and 25 mics of levo fed. No urine output. 2 L of UF yesterday. Objective - Vital Signs Vital signs: Vital Signs Temp 98.4 F 11/15/19 08:00 Pulse 90 11/15/19 11:00 Resp 25 H 11/15/19 11:00 BP 96/52 11/15/19 00:45 Pulse Ox 96 11/15/19 11:00 Intake & Output 11/14/19 11/15/19 11/15/19 18:59 06:59 18:59 Intake Total 2639.464 3232.125 845.038 Output Total 2500 165 500 Balance 903.536 7519.125 345.038 Weight 159.2 kg 158.1 kg Intake: IV 1704.5 1467 500 Diltiazem 125 mg In 2.5 Sodium Chloride 0.9% 100 ml @ 2.5 MG/HR 2.5 mls/hr IV .Q24H [facility] Rx#: [id number] Magnesium Sulfate-D5w Pmx 100 1 gm In Dextrose/Water 1 100ml.bag @ 100 mls/hr IVPB Q1H [facility] Rx#: [id number] Meropenem 1 gm In Sodium 100 200 100 Chloride 0.9% 100 ml @ 200 mls/hr IVPB Q12H [facility] Rx#:[id number] Piperacillin-Tazobactam 3 100 .375 gm In Sodium Chloride 0.9% 100 ml @ 25 mls/hr IVPB Q8HR [facility] Rx# :[id number] Pressure Bags 57 72 30 Sodium Acetate 30 meq 990 180 Calcium Gluconate 1 gm In Amino Acid 4.25%-D10w+ Lytes*E* 1,000 ml @ 90 mls/hr IV .BY DURATION [facility] Rx#:[id number] Sodium Acetate 30 meq 90 900 270 Calcium Gluconate 1 gm Mvi, Adult No.4 with Vit K 10 ml Trace (Conc-1Ml/ Dose) 1 ml In Amino Acid 4.25%-D10w+Lytes*E* 1,000 ml @ 90 mls/hr IV .BY DURATION [facility] Rx#: [id number] Sodium Chloride 0.9% 1, 165 15 000 ml @ 0 mls/hr IV .STK -[facility] Rx#:[id number] metroNIDAZOLE-NS PMX 500 200 100 mg In Saline 1 100ml.bag @ 100 mls/hr IVPB Q8HR [facility] Rx#:[id number] Intake, IV Titration 579.860 4451.125 345.038 Amount Amiodarone 300 mg In 237.5 Dextrose 5% in Water 250 ml @ 0.5 MG/MIN 25 mls/hr IV .Q10H [facility] Rx#: [id number] Diltiazem 125 mg In 37.583 Sodium Chloride 0.9% 100 ml @ 2.5 MG/HR 2.5 mls/hr IV .Q24H [facility] Rx#: [id number] Norepinephrine 32 mg In 183.165 153.010 47.991 Sodium Chloride 0.9% 218 ml @ 0.05 MCG/KG/MIN 2. 966 mls/hr IV .Q24H [facility] Rx#:[id number] Propofol 1,000 mg In 476.716 568.115 297.047 Empty Bag 1 bag @ Titrate IV .Q0M [facility] Rx#: [id number] Sodium Acetate 60 meq 1044 Calcium Gluconate 1 gm In Amino Acid 4.25%-D10w+ Lytes*E* 1,000 ml @ 90 mls/hr IV .BY DURATION [facility] Rx#:[id number] Output: Gastric Drainage 30 Drainage 500 120 500 Colostomy 500 120 Medial Abdomen 500 Urine 0 15 0 Hemodialysis 2000 Other: Voiding Method Indwelling Catheter Indwelling Catheter Indwelling Catheter # Voids 0 ABP, PAP, CO, CI - Last Documented Arterial Blood Pressure 143/44 - Exam No acute distress Intubated and sedated. S1-S2 heard Decreased breath sounds Oral intubation Right groin Saw Edema - Labs CBC & Chem 7: 11/15/19 04:30 11/15/19 04:30 Labs: Abnormal Lab Results - Last 24 Hours (Table) 11/14/19 11/14/19 11/14/19 Range/Units 12:41 16:11 20:13 WBC (3.8-10.6) k/uL RBC (3.80-5.40) m/uL Hgb (11.4-16.0) gm/dL Hct (34.0-46.0) % RDW (11.5-15.5) % Plt Count (150-450) k/uL Neutrophils # (Manual) (1.3-7.7) k/uL Nucleated RBCs (0-0) /100 WBC ABG pH (7.35-7.45) ABG Total CO2 (19-24) mmol/L Sodium (137-145) mmol/L Chloride (98-107) mmol/L Carbon Dioxide (22-30) mmol/L BUN (7-17) mg/dL Creatinine (0.52-1.04) mg/dL Glucose (74-99) mg/dL POC Glucose (mg/dL) 123 H 174 H 198 H (75-99) mg/dL Calcium (8.4-10.2) mg/dL 11/14/19 11/15/19 11/15/19 Range/Units 23:19 04:30 04:30 WBC 14.1 H (3.8-10.6) k/uL RBC 2.91 L (3.80-5.40) m/uL Hgb 8.7 L (11.4-16.0) gm/dL Hct 25.3 L (34.0-46.0) % RDW 17.3 H (11.5-15.5) % Plt Count 44 L (150-450) k/uL Neutrophils # (Manual) 12.50 H (1.3-7.7) k/uL Nucleated RBCs 1 H (0-0) /100 WBC ABG pH (7.35-7.45) ABG Total CO2 (19-24) mmol/L Sodium 125 L (137-145) mmol/L Chloride 95 L (98-107) mmol/L Carbon Dioxide 21 L (22-30) mmol/L BUN 19 H (7-17) mg/dL Creatinine 1.90 H (0.52-1.04) mg/dL Glucose 186 H (74-99) mg/dL POC Glucose (mg/dL) 210 H (75-99) mg/dL Calcium 7.3 L (8.4-10.2) mg/dL 11/15/19 11/15/19 11/15/19 Range/Units 04:30 07:18 08:45 WBC (3.8-10.6) k/uL RBC (3.80-5.40) m/uL Hgb (11.4-16.0) gm/dL Hct (34.0-46.0) % RDW (11.5-15.5) % Plt Count (150-450) k/uL Neutrophils # (Manual) (1.3-7.7) k/uL Nucleated RBCs (0-0) /100 WBC ABG pH 7.32 L (7.35-7.45) ABG Total CO2 25 H (19-24) mmol/L Sodium (137-145) mmol/L Chloride (98-107) mmol/L Carbon Dioxide (22-30) mmol/L BUN (7-17) mg/dL Creatinine (0.52-1.04) mg/dL Glucose (74-99) mg/dL POC Glucose (mg/dL) 211 H 222 H (75-99) mg/dL Calcium (8.4-10.2) mg/dL Microbiology - Last 24 Hours (Table) 11/14/19 05:24 Blood Culture - Preliminary Blood No Growth after 24 hours 11/13/19 23:50 Gram Stain - Preliminary Sputum Sputum Culture - Preliminary 11/10/19 02:27 Blood Culture Gram Stain - Final Blood Blood Culture - Final Pseudomonas aeruginosa Morganella morganii 11/10/19 02:07 Blood Culture Gram Stain - Final Blood Blood Culture - Final Coagulase Negative Staph Assessment and Plan Assessment: #1 oliguric acute kidney injury secondary to ischemic ATN. Currently dialysis dependent. #2 sepsis secondary to perforated bowel status post laparotomy #3 ventilator-dependent respiratory failure #4 shock on pressors #5 volume overload #6 A. fib with RVR #7 metabolic acidosis secondary to acute kidney injury/lactic acidosis improving with dialysis Plan: #1 hemodialysis today, plan tomorrow with 3-4 L UF. #2 wean off pressors and ventilator #3 supportive care, avoid nephrotoxic agents #4 discussed with the family, planning to rethink about a goal of care early next week.
--- NOTE | 2019-11-15 11:40 | P.PN ---
Subjective Progress Note Date: 11/15/19 Principal diagnosis: Abdominal sepsis, septic shock, acute hypoxic respiratory failure This is a 69-year-old female with history of multiple medical problems including asthma, paroxysmal atrial fibrillation, hypertension, chronic kidney disease stage IV, chronic lymphedema, patient was admitted on 11/05/2019, patient was brought in from [facility] and she was in rehab facility. And she was complaining of a chronic lower abdominal pain for quite some time. Patient has been seen previously in our infusion at least 3 times and she was also seen at [facility] 2 times recently for lower abdominal pain, and she was diagnosed as having diverticulitis, and the decision was to treat the patient conservatively and medically. Patient had a CT of the abdomen and pelvis upon evaluation in the ER on the , and she was found to have sigmoid diverticulitis. Admitted, started on antibiotics, however her pain increased, and the patient was showing more clinical signs of sepsis. Patient was seen by many consultants including gastroenterology, gynecology, and she was seen by Dr. leblanc on 11/10, and he felt that her diverticulitis is progressing to sepsis with portal vein gas despite antibiotic therapy. Patient underwent exploratory laparotomy early this morning, patient ended up with left colectomy with mobilization of splenic flexure partial omentectomy and colostomy. Patient was found to have significantly thickened sigmoid colon, there was evidence of perforation of the colon with a small amount of stool. It was felt that the patient may have had a perforation at that area. Patient was eventually sent back to the intensive care unit, on mechanical ventilation early this morning around 8 AM. And her ventilator settings are assist control rate of 16 tidal volume of 500 FiO2 of 100% and PEEP of 5. Patient was noted to be quite acidotic, lactic acid was elevated, she was on norepinephrine at 0.05 mcg/kg/m, she was also placed on bicarb after few amps of sodium bicarb were given, patient was also placed on propofol. And more fluid boluses were given in the ICU. CVP was noted to be around 10. Family was at bedside, and I discussed her condition with the family at bedside. Repeat ABG showed a pO2 of 104 pCO2 of 40 pH of 7.13, more sodium bicarb was given. Patient is also on antibiotics in the form of Flagyl and Zosyn Patient was reevaluated today on 11/11/19, patient remains in the ICU, remains intubated and mechanically ventilated. Her ventilator settings were adjusted today, she is now on tidal volume of 450 assist-control rate of 24 FiO2 is 50% and PEEP has been increased to 10. Earlier ABG this morning showed pH of 7.18 pO2 of 83 pCO2 of 29. Patient did receive more bicarb this morning, and her bicarb drip was increased to 1 25 mL per hour. Patient remains oliguric, and her renal functioning is getting worse. Nephrology is to evaluate the patient, and most likely the patient will need to be on hemodialysis. Her CBC showed WBC count of 17.4 hemoglobin is 9.2. Electrolytes are normal. Bicarb is low at 10. BUN is 22 creatinine 2.40. Lactic acid remains high between 9 and 11.5 in the last 24 hours. Patient received significant amount of fluids about 8 L in the last 24 hours at least. Chest x-ray is showing bilateral interstitial edema consistent with noncardiogenic or cardiogenic pulmonary edema. Patient dev eloped atrial fibrillation with RVR, and she had to be placed on amiodarone as per cardiology. Hemodynamics anderson remains hypotensive requiring norepinephrine at 0.27 mcg/kg/m, she is on vasopressin 0.03 units, propofol at 25 mcg/kg/m, she is also on sodium bicarb drip. Today I will start TPN on this patient. Patient was seen today on 11/12/19, patient remains in the ICU, intubated and mechanically ventilated. Her ventilator settings are assist control rate of 24 tidal volume of 450 FiO2 of 100% and PEEP was just increased to 14 from 8. Patient remains on TPN, norepinephrine at 0.18 mcg/kg/m, vasopressin at 0.03 units, amiodarone 0.5 mg per hour, propofol at 60 mcg/kg/m. Sodium bicarb drip was just discontinued this morning ABG showed a pO2 of 57 a CO2 of 40 pH of 7.37. Hence the PEEP was increased to 14. Her hemoglobin is 7 and the patient will be given a unit of packed RBCs today. Lactic acid is down to 8.4. Electrolytes showed low sodium and low potassium and low calcium and these are being corrected accordingly. Patient remains on TPN. She remains on daily hemodialysis, patient is having hemodialysis this morning, and I plan to decrease the FiO2 as more fluid is removed from the patient. Chest x-ray shows evidence of pulmonary edema this is mostly fluid overload related to all the fluids were given for her initial presentation of abdominal sepsis and septic shock. Not to mention the patient is basically anuric. Family is at bedside and updated on her condition. Reevaluated today on 11/13/19, remains intubated and mechanically ventilated. Ventilator settings are the same except her FiO2 is down to 60%. PEEP remains at 14. ABG showed a pO2 of 108 pCO2 41 pH of 7.33 patient had a temp of dialysis ultrafiltration, however she developed intermittent episodes of hypotension, and not much fluid could be removed. Her chest x-ray is showing evidence of cardiogenic and noncardiogenic pulmonary edema. Bilateral interstitial edema is noted. Patient remains on norepinephrine at 0.31 mcg/kg/m, vasopressin at 0.03 units per minutes amiodarone at 0.5 mg/m Cardizem was added. TPN remains the same. Off sodium bicarb. CBC showed WBC of 16.8 hemoglobin is 10.3. Sodium 127 BUN is 17 creatinine 1.79. Bicarb is 18. Patient remains on propofol at 60 mcg/kg/m. Sedated, and she is not in any condition to consider weaning, still on relatively high FiO2 and high PEEP Reevaluated today on 11/14/19, patient remains in the ICU, on mechanical ventilation. Her ventilator settings are basically the same, FiO2 is 60% PEEP is 14 tidal volume is 450 and assist control rate of 24. ABG this morning showed a pO2 of 88 pCO2 of 40 pH of 7.35. Chest x-ray is showing improvement, mild pulmonary vascular congestion persists. But definitely improved compared t o yesterday's chest x-ray. Patient remains on norepinephrine at 0.3 mcg/kg/m, vasopressin at 0.03 units per minute, amiodarone 0.5 mg per hour Cardizem 5 mg per hour propofol at 60 mcg/kg/m. Patient is having dialysis again today, so far seems to be working. And the goal is to remove 2 L of fluids hopefully today. WBC count is 12.2 hemoglobin is 8.5 sodium is 125 and it will be addressed by the hemodialysis nurse. BUN is 20 creatinine is 2.06. Bicarb is 18. Reevaluated today on , reevaluated in the ICU, family is at bedside. Patient remains on same ventilator settings, FiO2 is 50%, PEEP is 14 tidal volume is 450 assist-control rate is at 24. ABG today showed a pO2 of 94 pCO2 of 45 pH of 7.32. Chest x-ray significant improvement noted in her pulmonary edema which is likely a combination of cardiogenic/fluid overload and noncardiogenic type of pulmonary edema. Considering the patient is improved with dialysis and ultrafiltration, this is mostly a pulmonary edema of fluid o verload. Oxygenation is improving today. Hence the next step would be to start cutting down on PEEP hopefully in the next 24 hours. We'll keep the FiO2 at 50%. Patient is off Cardizem. Remains on norepinephrine, amiodarone, propofol, and on TPN. Also remains on antibiotics. Plan to have dialysis today again. Family updated on her condition, and I plan to awaken the patient today, and assess mental status. She is not ready for any weaning, but she is probably ready for mental status assessment off propofol or at least at a lower dose of propofol. Objective - Vital Signs Vital signs: Vital Signs Temp 98.4 F 11/15/19 08:00 Pulse 94 11/15/19 11:27 Resp 25 H 11/15/19 11:00 BP 96/52 11/15/19 00:45 Pulse Ox 96 11/15/19 11:00 Intake & Output 11/14/19 11/15/19 11/15/19 18:59 06:59 18:59 Intake Total 2639.464 3232.125 845.038 Output Total 2500 165 500 Balance 229.026 7628.125 345.038 Weight 159.2 kg 158.1 kg Intake: IV 1704.5 1467 500 Diltiazem 125 mg In 2.5 Sodium Chloride 0.9% 100 ml @ 2.5 MG/HR 2.5 mls/hr IV .Q24H [facility] Rx#: [id number] Magnesium Sulfate-D5w Pmx 100 1 gm In Dextrose/Water 1 100ml.bag @ 100 mls/hr IVPB Q1H [facility] Rx#: [id number] Meropenem 1 gm In Sodium 100 200 100 Chloride 0.9% 100 ml @ 200 mls/hr IVPB Q12H [facility] Rx#:[id number] Piperacillin-Tazobactam 3 100 .375 gm In Sodium Chloride 0.9% 100 ml @ 25 mls/hr IVPB Q8HR [facility] Rx# :[id number] Pressure Bags 57 72 30 Sodium Acetate 30 meq 990 180 Calcium Gluconate 1 gm In Amino Acid 4.25%-D10w+ Lytes*E* 1,000 ml @ 90 mls/hr IV .BY DURATION [facility] Rx#:[id number] Sodium Acetate 30 meq 90 900 270 Calcium Gluconate 1 gm Mvi, Adult No.4 with Vit K 10 ml Trace (Conc-1Ml/ Dose) 1 ml In Amino Acid 4.25%-D10w+Lytes*E* 1,000 ml @ 90 mls/hr IV .BY DURATION [facility] Rx#: [id number] Sodium Chloride 0.9% 1, 165 15 000 ml @ 0 mls/hr IV .ST [facility] Rx#:[id number] metroNIDAZOLE-NS PMX 500 200 100 mg In Saline 1 100ml.bag @ 100 mls/hr IVPB Q8HR [facility] Rx#:[id number] Intake, IV Titration 896.598 0253.125 345.038 Amount Amiodarone 300 mg In 237.5 Dextrose 5% in Water 250 ml @ 0.5 MG/MIN 25 mls/hr IV .Q10H [facility] Rx#: [id number] Diltiazem 125 mg In 37.583 Sodium Chloride 0.9% 100 ml @ 2.5 MG/HR 2.5 mls/hr IV .Q24H [facility] Rx#: [id number] Norepinephrine 32 mg In 183.165 153.010 47.991 Sodium Chloride 0.9% 218 ml @ 0.05 MCG/KG/MIN 2. 966 mls/hr IV .Q24H [facility] Rx#:[id number] Propofol 1,000 mg In 476.716 568.115 297.047 Empty Bag 1 bag @ Titrate IV .Q0M [facility] Rx#: [id number] Sodium Acetate 60 meq 1044 Calcium Gluconate 1 gm In Amino Acid 4.25%-D10w+ Lytes*E* 1,000 ml @ 90 mls/hr IV .BY DURATION [facility] Rx#:[id number] Output: Gastric Drainage 30 Drainage 500 120 500 Colostomy 500 120 Medial Abdomen 500 Urine 0 15 0 Hemodialysis 2000 Other: Voiding Method Indwelling Catheter Indwelling Catheter Indwelling Catheter # Voids 0 ABP, PAP, CO, CI - Last Documented Arterial Blood Pressure 143/44 - Exam Physical Exam: Revealed a 69-year-old female on mechanical ventilation. Sedated, on propofol. Head: Atraumatic, normocephalic. HEENT:[Neck is supple.] [No neck masses.] [No thyromegaly.] [No JVD.] PERRLA, EOMI, positive icterus, endotracheal tube and orogastric tube are intact. Right IJ central line is intact. Chest: [Symmetrical chest expansion, crackles and rhonchi noted bilaterally. Cardiac Exam: [Irregular irregular, Tachycardic, Normal S1 and S2, no S3 gallop, 2/6 systolic murmur thought the precordium. Abdomen: [Postsurgical, soft, nontender, colostomy is intact. Not functionally yet. Extremities: [No clubbing, 3+ bipedal lymphedema noted., no cyanosis.] Evidence of superficial cellulitis and sloughing of the skin noted on the medial aspect of distal thigh. Right groin dialysis catheter is noted. Neurological Exam: Sedated, on propofol, could not be assessed. Psychiatric: Could not be assessed. Lymphatics: No lymphadenopathy. - Labs CBC & Chem 7: 11/15/19 04:30 11/15/19 04:30 Labs: Abnormal Lab Results - Last 24 Hours (Table) 11/14/19 11/14/19 11/14/19 Range/Units 12:41 16:11 20:13 WBC (3.8-10.6) k/uL RBC (3.80-5.40) m/uL Hgb (11.4-16.0) gm/dL Hct (34.0-46.0) % RDW (11.5-15.5) % Plt Count (150-450) k/uL Neutrophils # (Manual) (1.3-7.7) k/uL Nucleated RBCs (0-0) /100 WBC ABG pH (7.35-7.45) ABG Total CO2 (19-24) mmol/L Sodium (137-145) mmol/L Chloride (98-107) mmol/L Carbon Dioxide (22-30) mmol/L BUN (7-17) mg/dL Creatinine (0.52-1.04) mg/dL Glucose (74-99) mg/dL POC Glucose (mg/dL) 123 H 174 H 198 H (75-99) mg/dL Calcium (8.4-10.2) mg/dL 11/14/19 11/15/19 11/15/19 Range/Units 23:19 04:30 04:30 WBC 14.1 H (3.8-10.6) k/uL RBC 2.91 L (3.80-5.40) m/uL Hgb 8.7 L (11.4-16.0) gm/dL Hct 25.3 L (34.0-46.0) % RDW 17.3 H (11.5-15.5) % Plt Count 44 L (150-450) k/uL Neutrophils # (Manual) 12.50 H (1.3-7.7) k/uL Nucleated RBCs 1 H (0-0) /100 WBC ABG pH (7.35-7.45) ABG Total CO2 (19-24) mmol/L Sodium 125 L (137-145) mmol/L Chloride 95 L (98-107) mmol/L Carbon Dioxide 21 L (22-30) mmol/L BUN 19 H (7-17) mg/dL Creatinine 1.90 H (0.52-1.04) mg/dL Glucose 186 H (74-99) mg/dL POC Glucose (mg/dL) 210 H (75-99) mg/dL Calcium 7.3 L (8.4-10.2) mg/dL 11/15/19 11/15/19 11/15/19 Range/Units 04:30 07:18 08:45 WBC (3.8-10.6) k/uL RBC (3.80-5.40) m/uL Hgb (11.4-16.0) gm/dL Hct (34.0-46.0) % RDW (11.5-15.5) % Plt Count (150-450) k/uL Neutrophils # (Manual) (1.3-7.7) k/uL Nucleated RBCs (0-0) /100 WBC ABG pH 7.32 L (7.35-7.45) ABG Total CO2 25 H (19-24) mmol/L Sodium (137-145) mmol/L Chloride (98-107) mmol/L Carbon Dioxide (22-30) mmol/L BUN (7-17) mg/dL Creatinine (0.52-1.04) mg/dL Glucose (74-99) mg/dL POC Glucose (mg/dL) 211 H 222 H (75-99) mg/dL Calcium (8.4-10.2) mg/dL Microbiology - Last 24 Hours (Table) 11/14/19 05:24 Blood Culture - Preliminary Blood No Growth after 24 hours 11/13/19 23:50 Gram Stain - Preliminary Sputum Sputum Culture - Preliminary 11/10/19 02:27 Blood Culture Gram Stain - Final Blood Blood Culture - Final Pseudomonas aeruginosa Morganella morganii 11/10/19 02:07 Blood Culture Gram Stain - Final Blood Blood Culture - Final Coagulase Negative Staph Assessment and Plan Assessment: Impression: Acute abdominal sepsis secondary to bowel perforation secondary to diverticulitis. Pseudomonas aeruginosa bacteremia. Status post left colectomy, partial omentectomy and colostomy. Postoperative day #5 Septic shock from abdominal sepsis. Chronic sigmoid diverticulitis, Benign essential hypertension Paroxysmal atrial fibrillation, presently in atrial fibrillation with RVR. On amiodarone drip, off Cardizem today Acute on chronic kidney injury most likely secondary to acute tubular necrosis, on hemodialysis and ultrafiltration today again. Chronic lower extremities lymphedema. Severe metabolic acidosis secondary to sepsis. Acute right lower extremity cellulitis. Recommendation: Continue ventilatory support, will likely cut down the PEEP in the next 24 hours from 14-12 or maybe 10. Keep FiO2 at 50%. Continue hemodynamic support, presently on norepinephrine. Vasopressin, Cut down Solu-Cortef to 50 mg IV push every 8 hours. Continue TPN/nutritional support. Continue amiodarone for atrial fibrillation with RVR, off Cardizem today. Continue GI and DVT prophylaxis. Continue antibiotics, as per Infectious disease on the case., Continue bronchodilators. Family was updated on her condition today, patient will have dialysis again today. Patient remains critically ill, plan to assess mental status today. Critical care time is 35 minutes. Time with Patient: Greater than 30
[2019-11-15 11:41] LABS: Glucose,Whole Blood 213 mg/dL (75-99)
[2019-11-15] MEDS: NOREPINEPHRINE 32 MG in SODIUM CHLORIDE 0.9% 218 ML IV SCH (12:10)
[2019-11-15] MEDS ORDERED: INSULIN DETEMIR (LEVEMIR) 100 UNIT/ML SYR SQ SCH ×2 (13:00→21:00)
[2019-11-15] MEDS: HYDROmorphone 0.5 MG/0.5 ML SYRINGE IVP PRN (15:51)
[2019-11-15 16:02] LABS: Glucose,Whole Blood 176 mg/dL (75-99)
--- NOTE | 2019-11-15 16:13 | PN ---
PROGRESS NOTE DATE OF SERVICE: 11/15/2019 REASON FOR FOLLOWUP: Perforated diverticulitis with significant peritonitis and gram-negative bacteremia. INTERVAL HISTORY: The patient is currently afebrile. The patient is requiring pressor support and the dose is usually increased for the patient is undergoing dialysis. The patient remains to be sedated, intubated on the vent. FiO2 is currently at 50%. No diarrhea has been reported. PHYSICAL EXAMINATION: Blood pressure is 128/47 with the pulse of 98, temperature 98. She is 95% on 50% FiO2. General description is an elderly female intubated on the vent. RESPIRATORY SYSTEM: Unlabored breathing, decreased breath sounds at the bases. No wheeze. HEART: S1, S2 regular rate and rhythm. ABDOMEN: Soft, no tenderness. Right medial thigh with open wound from a ruptured blister. No significant cellulitis. LABS: Hemoglobin 8.7, white count 14.1. BUN of 19, creatinine 1.90. Sputum showing gram- negative bacilli. DIAGNOSTIC IMPRESSION AND PLAN: 1. Patient with perforated sigmoid diverticulitis, status post diverting colostomy. This patient did have evidence of Morganella and Pseudomonas aeruginosa bacteremia. Patient is covered with meropenem. Follow up blood cultures have been negative so far. 2. Right medial thigh wound. Local care with dry Aquacel silver dressing followed by [facility] and [facility]. Monitor clinical course closely. MMODL / IJN: [id number] /
[2019-11-15 20:04] LABS: Glucose,Whole Blood 192 mg/dL (75-99)
--- NOTE | 2019-11-15 20:39 | P.PN ---
Subjective Progress Note Date: 11/15/19 Principal diagnosis: -Acute perforation of the large colon. Leading to left colectomy, partial omentectomy and a colostomy -Acute sigmoid diverticulitis, -Acute hypoxic respiratory failure requiring ventilator support. This is a very pleasant [address] Sin. Chronic stable medical conditions include paroxysmal atrial fibrillation, asthma, hypertension, GERD, chronic kidney disease stage IV, bilateral lower extremity lymphedema. Patient normally uses a walker to get about. Currently at [facility] for rehab. Patient's had abdominal pain on and off for quite some time. On this occasion yesterday the pain became much worse cramping some nausea vomiting. Denies any fever and chills. Had to 3 loose stools yesterday. No blood. Computed tomography scan in the ER did show diverticulitis. Patient is made nothing by mouth. Daughter the bedside. At the F patient was walking at least-20-30 steps with a walker. Admitted with acute sigmoid diverticulitis. Also patient noted to have some vaginal blood clots. Seen by Dr. Binh Abbasi-to be followed as an outpatient. Patient's started on IV antibiotics. Repeat Computed tomography scan-Found to have a contained bowel perforation. Leading up to left hemicolectomy. on 11/14/1916-PCP-iqmnhgyld. Ventilator-peripheral 60% and PEEP of 14. Getting hemodialysis today. Closed 2 L removed. No urine output. Drips include IV vasopressin, IV norepinephrine, IV amiodarone, IV propofol, IV Cardizem. No bowel movements so cluster back. Telemetry shows atrial fibrillation with a heart rate about 100. Also getting PPN. Eyelid today family spoke to Dr. Escalante patient's been made DO NOT RESUSCITATE. 11/15/2019 Patient is currently intubated and is on sedation holiday.FiO2 50%. chest x-ray showed improvement in patient's volume status. WBC 14.1, hemoglobin 8.7 and platelets 44. Patient remains on pressor support. Continued on TPN as well. Nephrology is planning for hemodialysis today. Sodium 125, BUN 19 and creatinine 1.9,.patient wasstarted on Levemir and continued on insulin sliding scale. Blood sugar is slightly elevated to 200. Patient has been afebrile.eart rate is controlled. Patient is on amiodarone drip for atrial fibrillation. Discussed with the family at bedside. CODE STATUS he is DNR/DNI Active Medications Albuterol/Ipratropium (Duoneb 0.5 Mg-3 Mg/3 Ml Soln) 3 ml INHALATION RT-Q4H [facility] Last Admin: 11/15/19 19:06 Dose: 3 ml Documented by: Bisacodyl (Dulcolax) 10 mg RECTAL DAILY PRN PRN Reason: Constipation Chlorhexidine Gluconate (Peridex) 15 ml MUCOUS MEM BID [facility] Last Admin: 11/15/19 20:12 Dose: 15 ml Documented by: Enoxaparin Sodium (Lovenox) 30 mg SQ DAILY [facility] Last Admin: 11/15/19 08:43 Dose: Not Given Documented by: Hydrocortisone Sodium Succinate (Solu-Cortef) 50 mg IV Q8HR [facility] Last Admin: 11/15/19 15:27 Dose: 50 mg Documented by: Hydromorphone HCl (Dilaudid) 0.5 mg IVP Q4HR PRN PRN Reason: Pain Scale 6 to 10 Last Admin: 11/15/19 15:51 Dose: 0.5 mg Documented by: Metronidazole 500 mg/ IV (Solution) 100 mls @ 100 mls/hr IVPB Q8HR [facility] Last Admin: 11/15/19 15:26 Dose: 100 mls/hr Documented by: Propofol 1,000 mg/ IV Solution 100 mls @ 0 mls/hr IV .Q0M [facility]; Protocol Last Admin: 11/15/19 18:47 Dose: 40 mcg/kg/min, 37.944 mls/hr Documented by: Norepinephrine Bitartrate 32 (mg/ Sodium Chloride) 250 mls @ 2.966 mls/hr IV .Q24H [facility]; Protocol Last Titration: 11/15/19 18:58 Dose: 0.18 mcg/kg/min, 10.678 mls/hr Documented by: Vasopressin 20 unit/ Sodium (Chloride) 51 mls @ 4.59 mls/hr IVPB .Q11H7M [facility] Last Admin: 11/15/19 16:07 Dose: 4.59 mls/hr Documented by: Meropenem 1 gm/ Sodium (Chloride) 100 mls @ 200 mls/hr IVPB Q12H [facility]; Protocol Last Admin: 11/15/19 16:49 Dose: 200 mls/hr Documented by: Amiodarone HCl 300 mg/ (Dextrose/Water) 250 mls @ 25 mls/hr IV .Q10H [facility]; Protocol Stop: 11/15/19 21:44 Last Admin: 11/15/19 15:25 Dose: 0.5 mg/min, 25 mls/hr Documented by: Sodium Acetate 80 meq/ Calcium Gluconate 1 gm/ Sodium Chloride 40 meq/ Amino Ac/Electrol/Dextrose/Calcium 1,066 mls @ 90 mls/hr IV .BY DURATION [facility] Last Admin: 11/15/19 13:52 Dose: 90 mls/hr Documented by: Sodium Acetate 80 meq/ Calcium Gluconate 1 gm/ Sodium Chloride 40 meq/ Parenteral Vitamin Supplement 10 ml/Chromium/Copper/Manganese/Seleni/Zn 1 ml/ Amino Ac/Electrol/Dextrose/Calcium 1,077 mls @ 90 mls/hr IV .BY DURATION [facility] Insulin Aspart (Novolog) 0 unit SQ Q4HR [facility]; Protocol Last Admin: 11/15/19 20:11 Dose: 5 unit Documented by: Insulin Detemir (Levemir) 8 unit SQ DAILY@2100 [facility] Last Admin: 11/15/19 20:12 Dose: 8 unit Documented by: Miscellaneous Information (Potassium Per Protocol) 1 each MISCELLANE DAILY PRN; Protocol PRN Reason: Per Protocol Miscellaneous Information (Magnesium Per Protocol) 1 each MISCELLANE DAILY PRN; Protocol PRN Reason: Per Protocol Multi-Ingred Cream/Lotion/Oil/Oint (Triad Cream) 1 applic TOPICAL BID [facility] Last Admin: 11/15/19 20:12 Dose: 1 applic Documented by: Naloxone HCl (Narcan) 0.2 mg IV Q2M PRN PRN Reason: Opioid Reversal Nystatin (Mycostatin Powder) 1 applic TOPICAL BID [facility] Last Admin: 11/15/19 20:12 Dose: 1 applic Documented by: Pantoprazole Sodium (Protonix) 40 mg IV DAILY [facility] Last Admin: 11/15/19 08:42 Dose: 40 mg Documented by: Objective - Vital Signs Vital signs: Vital Signs Temp 97.8 F 11/15/19 12:00 Pulse 115 H 11/15/19 13:45 Resp 32 H 11/15/19 13:45 BP 96/52 11/15/19 13:45 Pulse Ox 95 11/15/19 13:45 Intake & Output 11/14/19 11/15/19 11/15/19 18:59 06:59 18:59 Intake Total 2639.464 3232.125 932.046 Output Total 2500 165 500 Balance 627.248 2604.125 432.046 Weight 159.2 kg 158.1 kg Intake: IV 1704.5 1467 512 Diltiazem 125 mg In 2.5 Sodium Chloride 0.9% 100 ml @ 2.5 MG/HR 2.5 mls/hr IV .Q24H [facility] Rx#: [id number] Magnesium Sulfate-D5w Pmx 100 1 gm In Dextrose/Water 1 100ml.bag @ 100 mls/hr IVPB Q1H [facility] Rx#: [id number] Meropenem 1 gm In Sodium 100 200 100 Chloride 0.9% 100 ml @ 200 mls/hr IVPB Q12H [facility] Rx#:[id number] Piperacillin-Tazobactam 3 100 .375 gm In Sodium Chloride 0.9% 100 ml @ 25 mls/hr IVPB Q8HR [facility] Rx# :[id number] Pressure Bags 57 72 42 Sodium Acetate 30 meq 990 180 Calcium Gluconate 1 gm In Amino Acid 4.25%-D10w+ Lytes*E* 1,000 ml @ 90 mls/hr IV .BY DURATION [facility] Rx#:[id number] Sodium Acetate 30 meq 90 900 270 Calcium Gluconate 1 gm Mvi, Adult No.4 with Vit K 10 ml Trace (Conc-1Ml/ Dose) 1 ml In Amino Acid 4.25%-D10w+Lytes*E* 1,000 ml @ 90 mls/hr IV .BY DURATION [facility] Rx#: [id number] Sodium Chloride 0.9% 1, 165 15 000 ml @ 0 mls/hr IV .[facility] Rx#:[id number] metroNIDAZOLE-NS PMX 500 200 100 mg In Saline 1 100ml.bag @ 100 mls/hr IVPB Q8HR [facility] Rx#:[id number] Intake, IV Titration 791.991 5473.125 420.046 Amount Amiodarone 300 mg In 237.5 Dextrose 5% in Water 250 ml @ 0.5 MG/MIN 25 mls/hr IV .Q10H [facility] Rx#: [id number] Diltiazem 125 mg In 37.583 Sodium Chloride 0.9% 100 ml @ 2.5 MG/HR 2.5 mls/hr IV .Q24H [facility] Rx#: [id number] Norepinephrine 32 mg In 183.165 153.010 99.204 Sodium Chloride 0.9% 218 ml @ 0.05 MCG/KG/MIN 2. 966 mls/hr IV .Q24H [facility] Rx#:[id number] Propofol 1,000 mg In 476.716 568.115 320.842 Empty Bag 1 bag @ Titrate IV .Q0M [facility] Rx#: [id number] Sodium Acetate 60 meq 1044 Calcium Gluconate 1 gm In Amino Acid 4.25%-D10w+ Lytes*E* 1,000 ml @ 90 mls/hr IV .BY DURATION [facility] Rx#:[id number] Output: Gastric Drainage 30 Drainage 500 120 500 Colostomy 500 120 Medial Abdomen 500 Urine 0 15 0 Hemodialysis 2000 Other: Voiding Method Indwelling Catheter Indwelling Catheter Indwelling Catheter # Voids 0 ABP, PAP, CO, CI - Last Documented Arterial Blood Pressure 128/50 - Exam GENERAL: Laying in bed, intubated EYES: Pupils equal. Conjunctiva normal. HEENT: External appearance of nose and ears normal, oral cavity dry mucous membrane. Endotracheal tube in place. NG tube NECK: JVD not raised; masses not palpable. HEART: irregular heart sounds; some edema. LUNGS: Respiratory rate increased; decreased breath sounds ABDOMEN: Soft, dressing over the incision site, no guarding rigidity, liver spleen not palpable, no masses palpable. Colostomy-no output. PSYCH: Sedated LYMPHATICS: lymphedema of the lower extremity - Labs CBC & Chem 7: 11/15/19 04:30 11/15/19 04:30 Labs: Abnormal Lab Results - Last 24 Hours (Table) 11/14/19 11/14/19 11/14/19 Range/Units 16:11 20:13 23:19 WBC (3.8-10.6) k/uL RBC (3.80-5.40) m/uL Hgb (11.4-16.0) gm/dL Hct (34.0-46.0) % RDW (11.5-15.5) % Plt Count (150-450) k/uL Neutrophils # (Manual) (1.3-7.7) k/uL Nucleated RBCs (0-0) /100 WBC ABG pH (7.35-7.45) ABG Total CO2 (19-24) mmol/L Sodium (137-145) mmol/L Chloride (98-107) mmol/L Carbon Dioxide (22-30) mmol/L BUN (7-17) mg/dL Creatinine (0.52-1.04) mg/dL Glucose (74-99) mg/dL POC Glucose (mg/dL) 174 H 198 H 210 H (75-99) mg/dL Calcium (8.4-10.2) mg/dL 11/15/19 11/15/19 11/15/19 Range/Units 04:30 04:30 04:30 WBC 14.1 H (3.8-10.6) k/uL RBC 2.91 L (3.80-5.40) m/uL Hgb 8.7 L (11.4-16.0) gm/dL Hct 25.3 L (34.0-46.0) % RDW 17.3 H (11.5-15.5) % Plt Count 44 L (150-450) k/uL Neutrophils # (Manual) 12.50 H (1.3-7.7) k/uL Nucleated RBCs 1 H (0-0) /100 WBC ABG pH (7.35-7.45) ABG Total CO2 (19-24) mmol/L Sodium 125 L (137-145) mmol/L Chloride 95 L (98-107) mmol/L Carbon Dioxide 21 L (22-30) mmol/L BUN 19 H (7-17) mg/dL Creatinine 1.90 H (0.52-1.04) mg/dL Glucose 186 H (74-99) mg/dL POC Glucose (mg/dL) 211 H (75-99) mg/dL Calcium 7.3 L (8.4-10.2) mg/dL 11/15/19 11/15/19 11/15/19 Range/Units 07:18 08:45 11:39 WBC (3.8-10.6) k/uL RBC (3.80-5.40) m/uL Hgb (11.4-16.0) gm/dL Hct (34.0-46.0) % RDW (11.5-15.5) % Plt Count (150-450) k/uL Neutrophils # (Manual) (1.3-7.7) k/uL Nucleated RBCs (0-0) /100 WBC ABG pH 7.32 L (7.35-7.45) ABG Total CO2 25 H (19-24) mmol/L Sodium (137-145) mmol/L Chloride (98-107) mmol/L Carbon Dioxide (22-30) mmol/L BUN (7-17) mg/dL Creatinine (0.52-1.04) mg/dL Glucose (74-99) mg/dL POC Glucose (mg/dL) 222 H 213 H (75-99) mg/dL Calcium (8.4-10.2) mg/dL Microbiology - Last 24 Hours (Table) 11/13/19 23:50 Gram Stain - Preliminary Sputum Sputum Culture - Preliminary Gram Neg Bacilli 11/14/19 05:24 Blood Culture - Preliminary Blood No Growth after 24 hours 11/10/19 02:27 Blood Culture Gram Stain - Final Blood Blood Culture - Final Pseudomonas aeruginosa Morganella morganii - Imaging and Cardiology INVESTIGATIONS, reviewed in the clinical context: White count 12.2 hemoglobin 8.5 platelets 40 sodium 125 bun 20 creatinine 2.06 Previous testing White count 4.5 hemoglobin 9.8 platelets 126 Creatinine 1.3 Computed tomography scan of the abdomen-possible colitis versus diverticulitis in the sigmoid area C. diff-negative Assessment and Plan Assessment: Assessment: -Acute perforation of the large colon. Leading to left colectomy, partial omentectomy and a colostomy -Acute sigmoid diverticulitis, -Acute hypoxic respiratory failure requiring ventilator support. Intubated, slow to respond -Septic shock requiring pressor support, worsening -Intermittent vaginal blood clots-endometrial prominence. outpatient D&C -Acute kidney injury likely ATN , oliguric from cardiorenal syndrome. Worsened requiring renal replacement therapy -Bilateral lower extremity lymphedema -Persistent atrial fibrillation, with rapid ventricular rate, uncontrolled -Acute cellulitis of the right lower extremity -Chronic gait dysfunction uses a walker -Morbid obesity BMI 51 -Right bundle-branch block -Essential hypertension -GERD -Acute postprocedure blood loss anemia as expected from surgery-getting 2 units of blood -Hyponatremia likely hyperosmolar from volume contraction -DO NOT RESUSCITATE Plan: Patient remained on mechanical ventilator.continued on pressor support. No urine output. Getting hemodialysis today and getting 2 L artery. Other medications to pass to continue. Prognosis remains guarded. No stool out of the colostomy. Currently no family the bedside. Time with Patient: Greater than 30
[2019-11-15 23:41] LABS: Glucose,Whole Blood 198 mg/dL (75-99)
[2019-11-16] MEDS: PROPOFOL 1,000 MG in EMPTY BAG 1 BAG IV SCH ×3 (00:33→09:45)
[2019-11-16] MEDS: IPRATROPIUM-ALBUTEROL 3 ML NEB INHALATION SCH ×6 (03:04→23:40)
[2019-11-16] MEDS: AMIODARONE 300 MG in DEXTROSE 5% IN WATER 250 ML IV SCH ×6 (03:13→23:41)
[2019-11-16] MEDS: SODIUM CHLORIDE 0.9% 50 ML with VASOPRESSIN 20 UNIT IVPB SCH ×4 (03:14→17:07)
[2019-11-16] MEDS: MEROPENEM 1 GM in SODIUM CHLORIDE 0.9% 100 ML IVPB SCH ×2 (03:20→17:24)
[2019-11-16 04:45] LABS: Glucose,Whole Blood 182 mg/dL (75-99)
[2019-11-16] MEDS: INSULIN ASPART (NovoLOG) 100 UNIT/ML VIAL SQ SCH ×6 (04:48→23:57)
[2019-11-16] MEDS: NOREPINEPHRINE 32 MG in SODIUM CHLORIDE 0.9% 218 ML IV SCH (04:52)
[2019-11-16 04:56] LABS: Anisocytosis Slight; HCT 24.5 % (34.0-46.0); MCH 28.5 pg (25.0-35.0); MCHC 32.8 g/dL (31.0-37.0); Mean Platelet Volume 9.6; Poikilocytosis Slight; RBC 2.81 m/uL (3.80-5.40); RDW 17.8 % (11.5-15.5)
[2019-11-16 05:04] LABS: Platelet Count 52 k/uL (150-450)
[2019-11-16 05:05] LABS: Calcium 7.5 mg/dL (8.4-10.2); Magnesium 2.2 mg/dL (1.6-2.3); Phosphorus 3.5 mg/dL (2.5-4.5); Potassium 4.5 mmol/L (3.5-5.1)
[2019-11-16 05:24] LABS: Band Neutrophils % 12 %; Metamyelocytes % 5 %; Monocytes # (M) 0.45 k/uL (0-1.0); Myelocytes % 4 %; Neutrophils % (M) 71 %; Nucleated Red Blood Cells 2 /100 WBC (0-0); Total Cells Counted 200
[2019-11-16 05:25] LABS: Large Platelets Present; Lymphocytes # (M) 1.56 k/uL (1.0-4.8); Metamyelocytes # (M) 1.12 k/uL (0); Myelocytes # (M) 0.89 k/uL (0); WBC 22.3 k/uL (3.8-10.6)
[2019-11-16 05:26] LABS: Basophilic Stippling Present; Polychromasia Present
--- NOTE | 2019-11-16 06:12 | XR ---
EXAMINATION TYPE: XR chest 1V portable DATE OF EXAM: 11/16/2019 HISTORY: Tube placement. REFERENCE: Previous study dated 11/15/2019. FINDINGS: The patient is ET tube and NG tube remain in place, unchanged in appearance. A right staff internist office based only al jugular catheter is in place. Its tip is at the cavoatrial junction. Heart size upper limits of normal. There is vascular congestion and subtle interstitial change. There is blunting of the left CP angle. I could not exclude a small left effusion. IMPRESSION: MILD CHANGES OF CONGESTIVE HEART FAILURE.
[2019-11-16 07:09] LABS: ABG Base Excess 0.1 mmol/L; ABG HCO3 26 mmol/L (21-25); ABG Oxygen Saturation 98.3 % (94-97); ABG PCO2 45 mmHg (35-45); ABG PH 7.36 (7.35-7.45); ABG PO2 122 mmHg (83-108); ABG TCO2 27 mmol/L (19-24)
[2019-11-16 07:10] LABS: Allen Test Performed? no
--- NOTE | 2019-11-16 09:38 | P.PN ---
Subjective This is Ashley Barney PA-C dictating a progress note on this patient The patient was interviewed and examined by me as well as by Dr. Lomas Case discussed with Dr. Lomas and he agrees with the plan of care HPI/interval history Patient is a 69-year-old female with a history of paroxysmal atrial fibrillation, CK D, chronic lymphedema who was brought in from her extended care facility for further evaluation of complaints of nausea, vomiting and abdominal pain. She was found to have diverticulitis and underwent exploratory laparotomy and partial colectomy. She became septic and developed respiratory failure requiring intubation. She was in atrial fibrillation with RVR and has been maintaining sinus rhythm. She developed worsening renal failure and will be starting dialysis. Seen and examined in the ICU. Remains intubated. Bed side telemetry this morning shows sinus rhythm with PACs. She is still on amiodarone and to pressors. EXAMINATION Patient is afebrile, pulse in the 80s, respirations 16, blood pressure 136/49, oxygen saturation 99% on mechanical ventilation Patient seen and examined, sedated and intubated Breath sounds equal bilaterally Heart is slightly irregular, no audible murmurs Diffuse lower extremity lymphedema REVIEW OF LABS, ECG WBC 22.3, hemoglobin 8, platelets 52, potassium 4.5, BUN 23, creatinine 1.1, magnesium 2.2 Echocardiogram showed EF 50-55% IMPRESSION / ASSESSMENT: Abdominal discomfort secondary to perforated diverticulitis status post exploratory laparotomy and partial colectomy Sepsis secondary to above Hypoxic respiratory failure requiring mechanical ventilation Atrial fibrillation with RVR, currently in sinus rhythm, anticoagulation on hold secondary to above Chronic lower extremity lymphedema IVETH on CK D requiring hemodialysis Anemia PLAN: From a cardiology standpoint, continue amiodarone Management of multiple other medical problems per primary team and multiple c onsultants Objective - Vital Signs Vital signs: Vital Signs Temp 97.4 F L 11/16/19 08:00 Pulse 78 11/16/19 09:30 Resp 27 H 11/16/19 09:30 BP 96/52 11/16/19 09:15 Pulse Ox 99 11/16/19 09:30 Intake & Output 11/15/19 11/16/19 11/16/19 18:59 06:59 18:59 Intake Total 2692.022 4932.975 379.182 Output Total 5005 390 Balance -3342.004 1287.975 379.182 Weight 156.1 kg Intake: IV 742 1362 308 Magnesium Sulfate-D5w Pmx 100 1 gm In Dextrose/Water 1 100ml.bag @ 100 mls/hr IVPB Q1H [facility] Rx#: [id number] Meropenem 1 gm In Sodium 200 290 Chloride 0.9% 100 ml @ 200 mls/hr IVPB Q12H [facility] Rx#:[id number] Pressure Bags 72 72 18 Sodium Acetate 30 meq 270 Calcium Gluconate 1 gm Mvi, Adult No.4 with Vit K 10 ml Trace (Conc-1Ml/ Dose) 1 ml In Amino Acid 4.25%-D10w+Lytes*E* 1,000 ml @ 90 mls/hr IV .BY DURATION [facility] Rx#: [id number] Sodium Acetate 60 meq 900 270 Calcium Gluconate 1 gm Mvi, Adult No.4 with Vit K 10 ml Trace (Conc-1Ml/ Dose) 1 ml In Amino Acid 4.25%-D10w+Lytes*E* 1,000 ml @ 90 mls/hr IV .BY DURATION [facility] Rx#: [id number] Sodium Chloride 0.9% 1, 20 000 ml @ 0 mls/hr IV .STK [facility] Rx#:[id number] metroNIDAZOLE-NS PMX 500 100 100 mg In Saline 1 100ml.bag @ 100 mls/hr IVPB Q8HR [facility] Rx#:[id number] Intake, IV Titration 920.996 315.975 71.182 Amount Amiodarone 300 mg In 250 Dextrose 5% in Water 250 ml @ 0.5 MG/MIN 25 mls/hr IV .Q10H [facility] Rx#: [id number] Norepinephrine 32 mg In 192.605 115.975 Sodium Chloride 0.9% 218 ml @ 0.05 MCG/KG/MIN 2. 966 mls/hr IV .Q24H [facility] Rx#:[id number] Propofol 1,000 mg In 478.391 200 71.182 Empty Bag 1 bag @ Titrate IV .Q0M [facility] Rx#: [id number] Output: Drainage 1000 390 Colostomy 240 Medial Abdomen 1000 150 Urine 5 0 Hemodialysis 4000 Other: Voiding Method Indwelling Catheter Indwelling Catheter # Voids 0 0 ABP, PAP, CO, CI - Last Documented Arterial Blood Pressure 109/38 - Labs CBC & Chem 7: 11/16/19 04:40 11/16/19 04:40 Labs: Abnormal Lab Results - Last 24 Hours (Table) 11/15/19 11/15/19 11/15/19 Range/Units 11:39 16:00 20:02 WBC (3.8-10.6) k/uL RBC (3.80-5.40) m/uL Hgb (11.4-16.0) gm/dL Hct (34.0-46.0) % RDW (11.5-15.5) % Plt Count (150-450) k/uL Neutrophils # (Manual) (1.3-7.7) k/uL Metamyelocytes # (Man) (0) k/uL Myelocytes # (Manual) (0) k/uL Nucleated RBCs (0-0) /100 WBC ABG pO2 (83-108) mmHg ABG HCO3 (21-25) mmol/L ABG Total CO2 (19-24) mmol/L ABG O2 Saturation (94-97) % Sodium (137-145) mmol/L BUN (7-17) mg/dL Creatinine (0.52-1.04) mg/dL Glucose (74-99) mg/dL POC Glucose (mg/dL) 213 H 176 H 192 H (75-99) mg/dL Calcium (8.4-10.2) mg/dL 11/15/19 11/16/19 11/16/19 Range/Units 23:39 04:40 04:40 WBC 22.3 H (3.8-10.6) k/uL RBC 2.81 L (3.80-5.40) m/uL Hgb 8.0 L (11.4-16.0) gm/dL Hct 24.5 L (34.0-46.0) % RDW 17.8 H (11.5-15.5) % Plt Count 52 L (150-450) k/uL Neutrophils # (Manual) 18.50 H (1.3-7.7) k/uL Metamyelocytes # (Man) 1.12 H (0) k/uL Myelocytes # (Manual) 0.89 H (0) k/uL Nucleated RBCs 2 H (0-0) /100 WBC ABG pO2 (83-108) mmHg ABG HCO3 (21-25) mmol/L ABG Total CO2 (19-24) mmol/L ABG O2 Saturation (94-97) % Sodium 130 L (137-145) mmol/L BUN 23 H (7-17) mg/dL Creatinine 1.81 H (0.52-1.04) mg/dL Glucose 163 H (74-99) mg/dL POC Glucose (mg/dL) 198 H (75-99) mg/dL Calcium 7.5 L (8.4-10.2) mg/dL 11/16/19 11/16/19 Range/Units 04:43 07:07 WBC (3.8-10.6) k/uL RBC (3.80-5.40) m/uL Hgb (11.4-16.0) gm/dL Hct (34.0-46.0) % RDW (11.5-15.5) % Plt Count (150-450) k/uL Neutrophils # (Manual) (1.3-7.7) k/uL Metamyelocytes # (Man) (0) k/uL Myelocytes # (Manual) (0) k/uL Nucleated RBCs (0-0) /100 WBC ABG pO2 122 H (83-108) mmHg ABG HCO3 26 H (21-25) mmol/L ABG Total CO2 27 H (19-24) mmol/L ABG O2 Saturation 98.3 H (94-97) % Sodium (137-145) mmol/L BUN (7-17) mg/dL Creatinine (0.52-1.04) mg/dL Glucose (74-99) mg/dL POC Glucose (mg/dL) 182 H (75-99) mg/dL Calcium (8.4-10.2) mg/dL Microbiology - Last 24 Hours (Table) 11/14/19 05:24 Blood Culture - Preliminary Blood No Growth after 48 hours 11/13/19 23:50 Gram Stain - Preliminary Sputum Sputum Culture - Preliminary Gram Neg Bacilli
[2019-11-16 09:42] LABS: Glucose,Whole Blood 174 mg/dL (75-99)
--- NOTE | 2019-11-16 10:01 | P.PN ---
Progress Note - Text Progress Note Date: 11/16/19 Patient is currently being dialyzed. She remains clinically unchanged. On exam her vital signs are stable. Patient is on the ventilator. Abdomen soft. Colostomy is pink. Status post Sandra procedure with multisystem organ failure. Patient continue to received supportive care.
[2019-11-16] MEDS: HYDROCORTISONE SUCCINATE 100 MG/2 ML VIAL IV SCH ×3 (10:07→23:57)
[2019-11-16] MEDS: CHLORHEXIDINE GLUCONATE 15 ML CUP MUCOUS MEM SCH ×2 (10:08→20:53)
[2019-11-16] MEDS: ENOXAPARIN 30 MG/0.3 ML SYRINGE SQ SCH (10:08)
[2019-11-16] MEDS: metroNIDAZOLE-NS PMX 500 MG in SALINE 1 100ML.BAG IVPB SCH (10:08)
[2019-11-16] MEDS: NYSTATIN 100,000 UNIT/GM POWD 15 GM TOPICAL SCH ×2 (10:10→20:54)
[2019-11-16] MEDS: HYDROPHILIC CREAM 180 GM TUBE TOPICAL SCH ×2 (10:11→20:54)
--- NOTE | 2019-11-16 12:03 | P.PN ---
Subjective Progress Note Date: 11/16/19 Principal diagnosis: Abdominal sepsis, septic shock, acute hypoxic respiratory failure This is a 69-year-old female with history of multiple medical problems including asthma, paroxysmal atrial fibrillation, hypertension, chronic kidney disease stage IV, chronic lymphedema, patient was admitted on 11/05/2019, patient was brought in from [facility] and she was in rehab facility. And she was complaining of a chronic lower abdominal pain for quite some time. Patient has been seen previously in our infusion at least 3 times and she was also seen at [facility] 2 times recently for lower abdominal pain, and she was diagnosed as having diverticulitis, and the decision was to treat the patient conservatively and medically. Patient had a CT of the abdomen and pelvis upon evaluation in the ER on the , and she was found to have sigmoid diverticulitis. Admitted, started on antibiotics, however her pain increased, and the patient was showing more clinical signs of sepsis. Patient was seen by many consultants including gastroenterology, gynecology, and she was seen by Dr. leblanc on 11/10, and he felt that her diverticulitis is progressing to sepsis with portal vein gas despite antibiotic therapy. Patient underwent exploratory laparotomy early this morning, patient ended up with left colectomy with mobilization of splenic flexure partial omentectomy and colostomy. Patient was found to have significantly thickened sigmoid colon, there was evidence of perforation of the colon with a small amount of stool. It was felt that the patient may have had a perforation at that area. Patient was eventually sent back to the intensive care unit, on mechanical ventilation early this morning around 8 AM. And her ventilator settings are assist control rate of 16 tidal volume of 500 FiO2 of 100% and PEEP of 5. Patient was noted to be quite acidotic, lactic acid was elevated, she was on norepinephrine at 0.05 mcg/kg/m, she was also placed on bicarb after few amps of sodium bicarb were given, patient was also placed on propofol. And more fluid boluses were given in the ICU. CVP was noted to be around 10. Family was at bedside, and I discussed her condition with the family at bedside. Repeat ABG showed a pO2 of 104 pCO2 of 40 pH of 7.13, more sodium bicarb was given. Patient is also on antibiotics in the form of Flagyl and Zosyn Patient was reevaluated today on 11/11/19, patient remains in the ICU, remains intubated and mechanically ventilated. Her ventilator settings were adjusted today, she is now on tidal volume of 450 assist-control rate of 24 FiO2 is 50% and PEEP has been increased to 10. Earlier ABG this morning showed pH of 7.18 pO2 of 83 pCO2 of 29. Patient did receive more bicarb this morning, and her bicarb drip was increased to 1 25 mL per hour. Patient remains oliguric, and her renal functioning is getting worse. Nephrology is to evaluate the patient, and most likely the patient will need to be on hemodialysis. Her CBC showed WBC count of 17.4 hemoglobin is 9.2. Electrolytes are normal. Bicarb is low at 10. BUN is 22 creatinine 2.40. Lactic acid remains high between 9 and 11.5 in the last 24 hours. Patient received significant amount of fluids about 8 L in the last 24 hours at least. Chest x-ray is showing bilateral interstitial edema consistent with noncardiogenic or cardiogenic pulmonary edema. Patient dev eloped atrial fibrillation with RVR, and she had to be placed on amiodarone as per cardiology. Hemodynamics anderson remains hypotensive requiring norepinephrine at 0.27 mcg/kg/m, she is on vasopressin 0.03 units, propofol at 25 mcg/kg/m, she is also on sodium bicarb drip. Today I will start TPN on this patient. Patient was seen today on 11/12/19, patient remains in the ICU, intubated and mechanically ventilated. Her ventilator settings are assist control rate of 24 tidal volume of 450 FiO2 of 100% and PEEP was just increased to 14 from 8. Patient remains on TPN, norepinephrine at 0.18 mcg/kg/m, vasopressin at 0.03 units, amiodarone 0.5 mg per hour, propofol at 60 mcg/kg/m. Sodium bicarb drip was just discontinued this morning ABG showed a pO2 of 57 a CO2 of 40 pH of 7.37. Hence the PEEP was increased to 14. Her hemoglobin is 7 and the patient will be given a unit of packed RBCs today. Lactic acid is down to 8.4. Electrolytes showed low sodium and low potassium and low calcium and these are being corrected accordingly. Patient remains on TPN. She remains on daily hemodialysis, patient is having hemodialysis this morning, and I plan to decrease the FiO2 as more fluid is removed from the patient. Chest x-ray shows evidence of pulmonary edema this is mostly fluid overload related to all the fluids were given for her initial presentation of abdominal sepsis and septic shock. Not to mention the patient is basically anuric. Family is at bedside and updated on her condition. Reevaluated today on 11/13/19, remains intubated and mechanically ventilated. Ventilator settings are the same except her FiO2 is down to 60%. PEEP remains at 14. ABG showed a pO2 of 108 pCO2 41 pH of 7.33 patient had a temp of dialysis ultrafiltration, however she developed intermittent episodes of hypotension, and not much fluid could be removed. Her chest x-ray is showing evidence of cardiogenic and noncardiogenic pulmonary edema. Bilateral interstitial edema is noted. Patient remains on norepinephrine at 0.31 mcg/kg/m, vasopressin at 0.03 units per minutes amiodarone at 0.5 mg/m Cardizem was added. TPN remains the same. Off sodium bicarb. CBC showed WBC of 16.8 hemoglobin is 10.3. Sodium 127 BUN is 17 creatinine 1.79. Bicarb is 18. Patient remains on propofol at 60 mcg/kg/m. Sedated, and she is not in any condition to consider weaning, still on relatively high FiO2 and high PEEP Reevaluated today on 11/14/19, patient remains in the ICU, on mechanical ventilation. Her ventilator settings are basically the same, FiO2 is 60% PEEP is 14 tidal volume is 450 and assist control rate of 24. ABG this morning showed a pO2 of 88 pCO2 of 40 pH of 7.35. Chest x-ray is showing improvement, mild pulmonary vascular congestion persists. But definitely improved compared t o yesterday's chest x-ray. Patient remains on norepinephrine at 0.3 mcg/kg/m, vasopressin at 0.03 units per minute, amiodarone 0.5 mg per hour Cardizem 5 mg per hour propofol at 60 mcg/kg/m. Patient is having dialysis again today, so far seems to be working. And the goal is to remove 2 L of fluids hopefully today. WBC count is 12.2 hemoglobin is 8.5 sodium is 125 and it will be addressed by the hemodialysis nurse. BUN is 20 creatinine is 2.06. Bicarb is 18. Reevaluated today on , reevaluated in the ICU, family is at bedside. Patient remains on same ventilator settings, FiO2 is 50%, PEEP is 14 tidal volume is 450 assist-control rate is at 24. ABG today showed a pO2 of 94 pCO2 of 45 pH of 7.32. Chest x-ray significant improvement noted in her pulmonary edema which is likely a combination of cardiogenic/fluid overload and noncardiogenic type of pulmonary edema. Considering the patient is improved with dialysis and ultrafiltration, this is mostly a pulmonary edema of fluid o verload. Oxygenation is improving today. Hence the next step would be to start cutting down on PEEP hopefully in the next 24 hours. We'll keep the FiO2 at 50%. Patient is off Cardizem. Remains on norepinephrine, amiodarone, propofol, and on TPN. Also remains on antibiotics. Plan to have dialysis today again. Family updated on her condition, and I plan to awaken the patient today, and assess mental status. She is not ready for any weaning, but she is probably ready for mental status assessment off propofol or at least at a lower dose of propofol. Reevaluated today on 11/16/19, patient remains in the ICU, intubated and mechanically ventilated. Her ventilator settings were changed today, remains on 50% FiO2. Rate was increased to 26. Tidal volume is 450. And PEEP cut down to 12. ABG earlier today on PEEP of 14 showed a pO2 of 122 pCO2 of 45 and pH of 7.36, hence the PEEP was cut down to 12 and the rate was increased to 26. Chest x-ray is showing significant improvement in her pulmonary edema again this could be fluid overload related could also be noncardiogenic in nature but I believe is mostly fluid overload related. Propofol was discontinued yesterday for a computed of time, and the patient did not awaken enough to assess mental status. Because of tachypnea and tachycardia, went back on propofol last night, and I plan to hold it today again as long as it takes to assess mental status and see if the patient awakens and follows any instructions. Metabolically, her numbers seem to be improving. Chest x-ray is improving. ABG is improving. Remains on dialysis on a daily basis and significant amount of fluid has been removed with ultrafiltration. Labs were all reviewed today. Remains on norepinephrine at 0.12 mcg/kg/m, vasopressin at 0.03 units per minute, propofol which I placed on hold today, she is also on amiodarone and presently in sinus rhythm. Her Cardizem was discontinued yesterday. Family is at bedside, and updated on her condition today also. Objective - Vital Signs Vital signs: Vital Signs Temp 97.4 F L 11/16/19 08:00 Pulse 90 11/16/19 11:43 Resp 22 11/16/19 11:30 BP 96/52 11/16/19 11:15 Pulse Ox 97 11/16/19 11:30 Intake & Output 11/15/19 11/16/19 11/16/19 18:59 06:59 18:59 Intake Total 4739.986 3578.975 723.182 Output Total 5005 390 Balance -3342.004 1287.975 723.182 Weight 156.1 kg Intake: IV 742 1362 620 Magnesium Sulfate-D5w Pmx 100 1 gm In Dextrose/Water 1 100ml.bag @ 100 mls/hr IVPB Q1H [facility] Rx#: [id number] Meropenem 1 gm In Sodium 200 290 Chloride 0.9% 100 ml @ 200 mls/hr IVPB Q12H [facility] Rx#:[id number] Pressure Bags 72 72 30 Sodium Acetate 30 meq 270 Calcium Gluconate 1 gm Mvi, Adult No.4 with Vit K 10 ml Trace (Conc-1Ml/ Dose) 1 ml In Amino Acid 4.25%-D10w+Lytes*E* 1,000 ml @ 90 mls/hr IV .BY DURATION [facility] Rx#: [id number] Sodium Acetate 60 meq 900 450 Calcium Gluconate 1 gm Mvi, Adult No.4 with Vit K 10 ml Trace (Conc-1Ml/ Dose) 1 ml In Amino Acid 4.25%-D10w+Lytes*E* 1,000 ml @ 90 mls/hr IV .BY DURATION [facility] Rx#: [id number] Sodium Chloride 0.9% 1, 40 000 ml @ 0 mls/hr IV .STK -MED ONE Rx#:[id number] metroNIDAZOLE-NS PMX 500 100 100 100 mg In Saline 1 100ml.bag @ 100 mls/hr IVPB Q8HR [facility] Rx#:[id number] Intake, IV Titration 920.996 315.975 103.182 Amount Amiodarone 300 mg In 250 Dextrose 5% in Water 250 ml @ 0.5 MG/MIN 25 mls/hr IV .Q10H [facility] Rx#: [id number] Norepinephrine 32 mg In 192.605 115.975 Sodium Chloride 0.9% 218 ml @ 0.05 MCG/KG/MIN 2. 966 mls/hr IV .Q24H [facility] Rx#:[id number] Propofol 1,000 mg In 478.391 200 103.182 Empty Bag 1 bag @ Titrate IV .Q0M [facility] Rx#: [id number] Output: Drainage 1000 390 Colostomy 240 Medial Abdomen 1000 150 Urine 5 0 Hemodialysis 4000 Other: Voiding Method Indwelling Catheter Indwelling Catheter # Voids 0 0 ABP, PAP, CO, CI - Last Documented Arterial Blood Pressure 113/46 - Exam Physical Exam: Revealed a 69-year-old female on mechanical ventilation. Presently off propofol, awaiting to assess mental status off propofol. Head: Atraumatic, normocephalic. HEENT:[Neck is supple.] [No neck masses.] [No thyromegaly.] [No JVD.] PERRLA, EOMI, positive icterus, endotracheal tube and orogastric tube are intact. Right IJ central line is intact. Chest: [Symmetrical chest expansion, crackles and rhonchi noted bilaterally. Cardiac Exam: [Irregular irregular, Tachycardic, Normal S1 and S2, no S3 gallop, 2/6 systolic murmur thought the precordium. Abdomen: [Postsurgical, soft, nontender, colostomy is intact. Not functionally yet. Extremities: [No clubbing, 3+ bipedal lymphedema noted., no cyanosis.] Evidence of superficial cellulitis and sloughing of the skin noted on the medial aspect of distal thigh. Right groin dialysis catheter is noted. Neurological Exam: Sedated, on propofol, could not be assessed. Psychiatric: Could not be assessed. Lymphatics: No lymphadenopathy. - Labs CBC & Chem 7: 11/16/19 04:40 11/16/19 04:40 Labs: Abnormal Lab Results - Last 24 Hours (Table) 11/15/19 11/15/19 11/15/19 Range/Units 16:00 20:02 23:39 WBC (3.8-10.6) k/uL RBC (3.80-5.40) m/uL Hgb (11.4-16.0) gm/dL Hct (34.0-46.0) % RDW (11.5-15.5) % Plt Count (150-450) k/uL Neutrophils # (Manual) (1.3-7.7) k/uL Metamyelocytes # (Man) (0) k/uL Myelocytes # (Manual) (0) k/uL Nucleated RBCs (0-0) /100 WBC ABG pO2 (83-108) mmHg ABG HCO3 (21-25) mmol/L ABG Total CO2 (19-24) mmol/L ABG O2 Saturation (94-97) % Sodium (137-145) mmol/L BUN (7-17) mg/dL Creatinine (0.52-1.04) mg/dL Glucose (74-99) mg/dL POC Glucose (mg/dL) 176 H 192 H 198 H (75-99) mg/dL Calcium (8.4-10.2) mg/dL 11/16/19 11/16/19 11/16/19 Range/Units 04:40 04:40 04:43 WBC 22.3 H (3.8-10.6) k/uL RBC 2.81 L (3.80-5.40) m/uL Hgb 8.0 L (11.4-16.0) gm/dL Hct 24.5 L (34.0-46.0) % RDW 17.8 H (11.5-15.5) % Plt Count 52 L (150-450) k/uL Neutrophils # (Manual) 18.50 H (1.3-7.7) k/uL Metamyelocytes # (Man) 1.12 H (0) k/uL Myelocytes # (Manual) 0.89 H (0) k/uL Nucleated RBCs 2 H (0-0) /100 WBC ABG pO2 (83-108) mmHg ABG HCO3 (21-25) mmol/L ABG Total CO2 (19-24) mmol/L ABG O2 Saturation (94-97) % Sodium 130 L (137-145) mmol/L BUN 23 H (7-17) mg/dL Creatinine 1.81 H (0.52-1.04) mg/dL Glucose 163 H (74-99) mg/dL POC Glucose (mg/dL) 182 H (75-99) mg/dL Calcium 7.5 L (8.4-10.2) mg/dL 11/16/19 11/16/19 Range/Units 07:07 09:39 WBC (3.8-10.6) k/uL RBC (3.80-5.40) m/uL Hgb (11.4-16.0) gm/dL Hct (34.0-46.0) % RDW (11.5-15.5) % Plt Count (150-450) k/uL Neutrophils # (Manual) (1.3-7.7) k/uL Metamyelocytes # (Man) (0) k/uL Myelocytes # (Manual) (0) k/uL Nucleated RBCs (0-0) /100 WBC ABG pO2 122 H (83-108) mmHg ABG HCO3 26 H (21-25) mmol/L ABG Total CO2 27 H (19-24) mmol/L ABG O2 Saturation 98.3 H (94-97) % Sodium (137-145) mmol/L BUN (7-17) mg/dL Creatinine (0.52-1.04) mg/dL Glucose (74-99) mg/dL POC Glucose (mg/dL) 174 H (75-99) mg/dL Calcium (8.4-10.2) mg/dL Microbiology - Last 24 Hours (Table) 11/14/19 05:24 Blood Culture - Preliminary Blood No Growth after 48 hours 11/13/19 23:50 Gram Stain - Preliminary Sputum Sputum Culture - Preliminary Gram Neg Bacilli Assessment and Plan Assessment: Impression: Acute abdominal sepsis secondary to bowel perforation secondary to diverticulitis. Pseudomonas aeruginosa bacteremia. Status post left colectomy, partial omentectomy and colostomy. Postoperative day #6 Septic shock from abdominal sepsis. Chronic sigmoid diverticulitis, Benign essential hypertension Paroxysmal atrial fibrillation, presently in sinus rhythm, on amiodarone. Acute on chronic kidney injury most likely secondary to acute tubular necrosis, on hemodialysis and ultrafiltration today again. Chronic lower extremities lymphedema. Severe metabolic acidosis secondary to sepsis. Resolved. Acute right lower extremity cellulitis. Recommendation: Continue ventilatory support, continue FiO2 at 50%, increase rate to 26, cut down PEEP to 12.. Continue hemodynamic support, presently on norepinephrine. Vasopressin, plan to wean vasopressin before weaning norepinephrine. Continue Cortef at 50 mg IV push every 8 hours. And consider cutting down the dose further the next 24 hours. Continue TPN/nutritional support. Continue amiodarone for atrial fibrillation with RVR, presently in sinus rhythm. Continue GI and DVT prophylaxis. Continue antibiotics, as per Infectious disease on the case., Continue bronchodilators. Continue to hold propofol today as long as possible, and try to assess mental status. Discussed her condition with her 2 daughters at bedside, aware of the patient improving but she remains critically ill, CODE STATUS remains DO NOT RESUSCITATE. If her condition gets any worse, comfort care measures could be considered. However at this point it is best to proceed the way we are proceeding. Again family is aware of her overall status. Critical care time is 36 minutes. Time with Patient: Greater than 30
--- NOTE | 2019-11-16 12:28 | P.PN ---
Subjective Progress Note Date: 11/16/19 Follow-up for acute kidney injury. Family at bedside. Still on a ventilator with FiO2 of 50% and PEEP of 12. Vasopressor requirement going down, currently on vasopressin and 25 mics of levo fed. No urine output. 4 L of UF yesterday. Objective - Vital Signs Vital signs: Vital Signs Temp 97.4 F L 11/16/19 08:00 Pulse 89 11/16/19 12:00 Resp 38 H 11/16/19 12:00 BP 96/52 11/16/19 12:00 Pulse Ox 97 11/16/19 12:00 Intake & Output 11/15/19 11/16/19 11/16/19 18:59 06:59 18:59 Intake Total 5507.783 1248.975 829.182 Output Total 5005 390 55 Balance -3342.004 1287.975 774.182 Weight 156.1 kg Intake: IV 742 1362 726 Magnesium Sulfate-D5w Pmx 100 1 gm In Dextrose/Water 1 100ml.bag @ 100 mls/hr IVPB Q1H [facility] Rx#: [id number] Meropenem 1 gm In Sodium 200 290 Chloride 0.9% 100 ml @ 200 mls/hr IVPB Q12H [facility] Rx#:[id number] Pressure Bags 72 72 36 Sodium Acetate 30 meq 270 Calcium Gluconate 1 gm Mvi, Adult No.4 with Vit K 10 ml Trace (Conc-1Ml/ Dose) 1 ml In Amino Acid 4.25%-D10w+Lytes*E* 1,000 ml @ 90 mls/hr IV .BY DURATION [facility] Rx#: [id number] Sodium Acetate 60 meq 900 540 Calcium Gluconate 1 gm Mvi, Adult No.4 with Vit K 10 ml Trace (Conc-1Ml/ Dose) 1 ml In Amino Acid 4.25%-D10w+Lytes*E* 1,000 ml @ 90 mls/hr IV .BY DURATION [facility] Rx#: [id number] Sodium Chloride 0.9% 1, 50 000 ml @ 0 mls/hr IV .STK -[facility] Rx#:[id number] metroNIDAZOLE-NS PMX 500 100 100 100 mg In Saline 1 100ml.bag @ 100 mls/hr IVPB Q8HR [facility] Rx#:[id number] Intake, IV Titration 920.996 315.975 103.182 Amount Amiodarone 300 mg In 250 Dextrose 5% in Water 250 ml @ 0.5 MG/MIN 25 mls/hr IV .Q10H [facility] Rx#: [id number] Norepinephrine 32 mg In 192.605 115.975 Sodium Chloride 0.9% 218 ml @ 0.05 MCG/KG/MIN 2. 966 mls/hr IV .Q24H [facility] Rx#:[id number] Propofol 1,000 mg In 478.391 200 103.182 Empty Bag 1 bag @ Titrate IV .Q0M [facility] Rx#: [id number] Output: Drainage 1000 390 50 Colostomy 240 Medial Abdomen 1000 150 50 Urine 5 0 5 Hemodialysis 4000 Other: Voiding Method Indwelling Catheter Indwelling Catheter # Voids 0 0 ABP, PAP, CO, CI - Last Documented Arterial Blood Pressure 108/46 - Exam No acute distress Intubated and sedated. S1-S2 heard Decreased breath sounds Oral intubation Right groin Saw Edema - Labs CBC & Chem 7: 11/16/19 04:40 11/16/19 04:40 Labs: Abnormal Lab Results - Last 24 Hours (Table) 11/15/19 11/15/19 11/15/19 Range/Units 16:00 20:02 23:39 WBC (3.8-10.6) k/uL RBC (3.80-5.40) m/uL Hgb (11.4-16.0) gm/dL Hct (34.0-46.0) % RDW (11.5-15.5) % Plt Count (150-450) k/uL Neutrophils # (Manual) (1.3-7.7) k/uL Metamyelocytes # (Man) (0) k/uL Myelocytes # (Manual) (0) k/uL Nucleated RBCs (0-0) /100 WBC ABG pO2 (83-108) mmHg ABG HCO3 (21-25) mmol/L ABG Total CO2 (19-24) mmol/L ABG O2 Saturation (94-97) % Sodium (137-145) mmol/L BUN (7-17) mg/dL Creatinine (0.52-1.04) mg/dL Glucose (74-99) mg/dL POC Glucose (mg/dL) 176 H 192 H 198 H (75-99) mg/dL Calcium (8.4-10.2) mg/dL 11/16/19 11/16/19 11/16/19 Range/Units 04:40 04:40 04:43 WBC 22.3 H (3.8-10.6) k/uL RBC 2.81 L (3.80-5.40) m/uL Hgb 8.0 L (11.4-16.0) gm/dL Hct 24.5 L (34.0-46.0) % RDW 17.8 H (11.5-15.5) % Plt Count 52 L (150-450) k/uL Neutrophils # (Manual) 18.50 H (1.3-7.7) k/uL Metamyelocytes # (Man) 1.12 H (0) k/uL Myelocytes # (Manual) 0.89 H (0) k/uL Nucleated RBCs 2 H (0-0) /100 WBC ABG pO2 (83-108) mmHg ABG HCO3 (21-25) mmol/L ABG Total CO2 (19-24) mmol/L ABG O2 Saturation (94-97) % Sodium 130 L (137-145) mmol/L BUN 23 H (7-17) mg/dL Creatinine 1.81 H (0.52-1.04) mg/dL Glucose 163 H (74-99) mg/dL POC Glucose (mg/dL) 182 H (75-99) mg/dL Calcium 7.5 L (8.4-10.2) mg/dL 11/16/19 11/16/19 Range/Units 07:07 09:39 WBC (3.8-10.6) k/uL RBC (3.80-5.40) m/uL Hgb (11.4-16.0) gm/dL Hct (34.0-46.0) % RDW (11.5-15.5) % Plt Count (150-450) k/uL Neutrophils # (Manual) (1.3-7.7) k/uL Metamyelocytes # (Man) (0) k/uL Myelocytes # (Manual) (0) k/uL Nucleated RBCs (0-0) /100 WBC ABG pO2 122 H (83-108) mmHg ABG HCO3 26 H (21-25) mmol/L ABG Total CO2 27 H (19-24) mmol/L ABG O2 Saturation 98.3 H (94-97) % Sodium (137-145) mmol/L BUN (7-17) mg/dL Creatinine (0.52-1.04) mg/dL Glucose (74-99) mg/dL POC Glucose (mg/dL) 174 H (75-99) mg/dL Calcium (8.4-10.2) mg/dL Microbiology - Last 24 Hours (Table) 11/14/19 05:24 Blood Culture - Preliminary Blood No Growth after 48 hours 11/13/19 23:50 Gram Stain - Preliminary Sputum Sputum Culture - Preliminary Gram Neg Bacilli Assessment and Plan Assessment: #1 oliguric acute kidney injury secondary to ischemic ATN. Currently dialysis dependent. #2 sepsis secondary to perforated bowel status post laparotomy #3 ventilator-dependent respiratory failure #4 shock on pressors #5 volume overload #6 A. fib with RVR #7 metabolic acidosis secondary to acute kidney injury/lactic acidosis improving with dialysis Plan: #1 hemodialysis today with a goal UF of 4 L, plan tomorrow with 3-4 L UF. #2 wean off pressors and ventilator #3 supportive care, avoid nephrotoxic agents #4 discussed with the family, planning to rethink about a goal of care early next week.
[2019-11-16 12:37] LABS: Glucose,Whole Blood 174 mg/dL (75-99)
[2019-11-16] MEDS: HYDROmorphone 0.5 MG/0.5 ML SYRINGE IVP PRN ×2 (13:13→22:09)
[2019-11-16] MEDS ORDERED: LEVOFLOXACIN 750MG-D5W PMX 750 MG in DEXTROSE/WATER 1 150ML.BAG IVPB SCH (15:00)
[2019-11-16 17:19] LABS: Glucose,Whole Blood 146 mg/dL (75-99)
[2019-11-16] MEDS: PANTOPRAZOLE 40 MG/10 ML VIAL IV SCH (17:25)
--- NOTE | 2019-11-16 17:34 | PN ---
PROGRESS NOTE DATE OF SERVICE: 11/16/2019. REASON FOR FOLLOWUP: Ruptured sigmoid diverticulitis and gram-negative bacteremia. INTERVAL HISTORY: The patient is currently afebrile. The patient is hemodynamically slightly better with less pressor support to maintain her blood pressure. She is undergoing hemodialysis with a plan for removal of 3 L of fluid. Around 3 L removed yesterday. No diarrhea has been reported. Only other change in her clinical condition by the nursing staff. PHYSICAL EXAMINATION: Blood pressure 96/50 with a pulse of 89, temperature 98. She is 99% on 50% FIO2. General description is an elderly female lying in bed in no distress. Respiratory system: Unlabored breathing. Clear to auscultation anteriorly. Heart S1, S2. Regular rate and rhythm. ABDOMEN: Soft, no tenderness. LABS: Hemoglobin is 8, white count 2.3 with a BUN of 26, creatinine 1.81. Blood culture repeat has been negative so far. Sputum now showing Stenotrophomonas. DIAGNOSTIC IMPRESSION AND PLAN: Patient with ruptured sigmoid diverticulitis in this patient who did have a laparotomy and diverting colostomy was complicated by development of bacteremia with multi drug resistant pathogen. The patient is currently covered on meropenem. Sputum is now showing a Stenotrophomonas with overall kidney function. Levaquin may cover for the same and monitor clinical course closely. The patient seemed to have shown worsening of the white count could be more likely due to steroid effect. Continue to monitor closely. Continue supportive care. MMODL / IJN: [id number] /
[2019-11-16 20:31] LABS: Glucose,Whole Blood 184 mg/dL (75-99)
[2019-11-16] MEDS: INSULIN DETEMIR (LEVEMIR) 100 UNIT/ML SYR SQ SCH (20:54)
--- NOTE | 2019-11-16 21:03 | P.PN ---
Subjective Progress Note Date: 11/16/19 Principal diagnosis: -Acute perforation of the large colon. Leading to left colectomy, partial omentectomy and a colostomy -Acute sigmoid diverticulitis, -Acute hypoxic respiratory failure requiring ventilator support. This is a very pleasant [address] Sin. Chronic stable medical conditions include paroxysmal atrial fibrillation, asthma, hypertension, GERD, chronic kidney disease stage IV, bilateral lower extremity lymphedema. Patient normally uses a walker to get about. Currently at [facility] for rehab. Patient's had abdominal pain on and off for quite some time. On this occasion yesterday the pain became much worse cramping some nausea vomiting. Denies any fever and chills. Had to 3 loose stools yesterday. No blood. Computed tomography scan in the ER did show diverticulitis. Patient is made nothing by mouth. Daughter the bedside. At the F patient was walking at least-20-30 steps with a walker. Admitted with acute sigmoid diverticulitis. Also patient noted to have some vaginal blood clots. Seen by Dr. Binh Abbasi-to be followed as an outpatient. Patient's started on IV antibiotics. Repeat Computed tomography scan-Found to have a contained bowel perforation. Leading up to left hemicolectomy. on 11/14/1978-[id number]. Ventilator-peripheral 60% and PEEP of 14. Getting hemodialysis today. Closed 2 L removed. No urine output. Drips include IV vasopressin, IV norepinephrine, IV amiodarone, IV propofol, IV Cardizem. No bowel movements so cluster back. Telemetry shows atrial fibrillation with a heart rate about 100. Also getting PPN. Eyelid today family spoke to Dr. Escalante patient's been made DO NOT RESUSCITATE. 11/15/2019 Patient is currently intubated and is on sedation holiday.FiO2 50%. chest x-ray showed improvement in patient's volume status. WBC 14.1, hemoglobin 8.7 and platelets 44. Patient remains on pressor support. Continued on TPN as well. Nephrology is planning for hemodialysis today. Sodium 125, BUN 19 and creatinine 1.9,.patient wasstarted on Levemir and continued on insulin sliding scale. Blood sugar is slightly elevated to 200. Patient has been afebrile.eart rate is controlled. Patient is on amiodarone drip for atrial fibrillation. Discussed with the family at bedside. CODE STATUS he is DNR/DNI 11/16/19 patient is currentlyon mechanical ventilator. Patient was given sedation holiday yesterday but unable to wake up and follow commands. Patient remained on antibiotics in the form of Levaquin. Continue topressor support which is being tapered down. patient is being continued on stress dose steroids. Continued on amiodarone drip as well. Chest x-ray showed improvement in the pu lmonary edema. Patient is undergoing hemodialysis also. Creatinine level is around 1.8. Active Medications Albuterol/Ipratropium (Duoneb 0.5 Mg-3 Mg/3 Ml Soln) 3 ml INHALATION RT-Q4H [facility] Last Admin: 11/16/19 19:33 Dose: 3 ml Documented by: Bisacodyl (Dulcolax) 10 mg RECTAL DAILY PRN PRN Reason: Constipation Chlorhexidine Gluconate (Peridex) 15 ml MUCOUS MEM BID [facility] Last Admin: 11/16/19 10:08 Dose: 15 ml Documented by: Enoxaparin Sodium (Lovenox) 30 mg SQ DAILY [facility] Last Admin: 11/16/19 10:08 Dose: Not Given Documented by: Hydrocortisone Sodium Succinate (Solu-Cortef) 50 mg IV Q8HR [facility] Last Admin: 11/16/19 17:24 Dose: 50 mg Documented by: Hydromorphone HCl (Dilaudid) 0.5 mg IVP Q4HR PRN PRN Reason: Pain Scale 6 to 10 Last Admin: 11/16/19 13:13 Dose: 0.5 mg Documented by: Propofol 1,000 mg/ IV Solution 100 mls @ 0 mls/hr IV .Q0M [facility]; Protocol Last Titration: 11/16/19 11:15 Dose: 10 mcg/kg/min, 9.366 mls/hr Documented by: Norepinephrine Bitartrate 32 (mg/ Sodium Chloride) 250 mls @ 2.966 mls/hr IV .Q24H [facility]; Protocol Last Titration: 11/16/19 06:11 Dose: 0.14 mcg/kg/min, 8.305 mls/hr Documented by: Vasopressin 20 unit/ Sodium (Chloride) 51 mls @ 4.59 mls/hr IVPB .Q11H7M [facility] Last Admin: 11/16/19 17:07 Dose: Not Given Documented by: Meropenem 1 gm/ Sodium (Chloride) 100 mls @ 200 mls/hr IVPB Q12H [facility]; Protocol Last Admin: 11/16/19 17:24 Dose: 200 mls/hr Documented by: Sodium Acetate 80 meq/ Calcium Gluconate 1 gm/ Sodium Chloride 40 meq/ Amino Ac/Electrol/Dextrose/Calcium 1,066 mls @ 90 mls/hr IV .BY DURATION [facility] Last Admin: 11/16/19 17:58 Dose: 90 mls/hr Documented by: Sodium Acetate 80 meq/ Calcium Gluconate 1 gm/ Sodium Chloride 40 meq/ Parenteral Vitamin Supplement 10 ml/Chromium/Copper/Manganese/Seleni/Zn 1 ml/ Amino Ac/Electrol/Dextrose/Calcium 1,077 mls @ 90 mls/hr IV .BY DURATION [facility] Last Admin: 11/16/19 02:06 Dose: 90 mls/hr Documented by: Levofloxacin 750 mg/ IV (Solution) 150 mls @ 100 mls/hr IVPB Q48H [facility] Last Admin: 11/16/19 17:24 Dose: 100 mls/hr Documented by: Insulin Aspart (Novolog) 0 unit SQ Q4HR [facility]; Protocol Last Admin: 11/16/19 17:25 Dose: 2 unit Documented by: Insulin Detemir (Levemir) 10 unit SQ DAILY@2100 [facility] Miscellaneous Information (Potassium Per Protocol) 1 each MISCELLANE DAILY PRN; Protocol PRN Reason: Per Protocol Miscellaneous Information (Magnesium Per Protocol) 1 each MISCELLANE DAILY PRN; Protocol PRN Reason: Per Protocol Multi-Ingred Cream/Lotion/Oil/Oint (Triad Cream) 1 applic TOPICAL BID [facility] Last Admin: 11/16/19 10:11 Dose: 1 applic Documented by: Naloxone HCl (Narcan) 0.2 mg IV Q2M PRN PRN Reason: Opioid Reversal Nystatin (Mycostatin Powder) 1 applic TOPICAL BID [facility] Last Admin: 11/16/19 10:10 Dose: 1 applic Documented by: Pantoprazole Sodium (Protonix) 40 mg IV DAILY [facility] Last Admin: 11/16/19 17:25 Dose: 40 mg Documented by: Objective - Vital Signs Vital signs: Vital Signs Temp 97.4 F L 11/16/19 08:00 Pulse 89 11/16/19 13:00 Resp 40 H 11/16/19 13:00 BP 96/52 11/16/19 13:00 Pulse Ox 99 11/16/19 13:00 Intake & Output 11/15/19 11/16/19 11/16/19 18:59 06:59 18:59 Intake Total 6854.753 2524.975 1183.099 Output Total 5005 390 55 Balance -3342.004 3951.536 2216.099 Weight 156.1 kg Intake: IV 742 1362 832 Magnesium Sulfate-D5w Pmx 100 1 gm In Dextrose/Water 1 100ml.bag @ 100 mls/hr IVPB Q1H [facility] Rx#: [id number] Meropenem 1 gm In Sodium 200 290 Chloride 0.9% 100 ml @ 200 mls/hr IVPB Q12H [facility] Rx#:[id number] Pressure Bags 72 72 42 Sodium Acetate 30 meq 270 Calcium Gluconate 1 gm Mvi, Adult No.4 with Vit K 10 ml Trace (Conc-1Ml/ Dose) 1 ml In Amino Acid 4.25%-D10w+Lytes*E* 1,000 ml @ 90 mls/hr IV .BY DURATION [facility] Rx#: [id number] Sodium Acetate 60 meq 900 630 Calcium Gluconate 1 gm Mvi, Adult No.4 with Vit K 10 ml Trace (Conc-1Ml/ Dose) 1 ml In Amino Acid 4.25%-D10w+Lytes*E* 1,000 ml @ 90 mls/hr IV .BY DURATION [facility] Rx#: [id number] Sodium Chloride 0.9% 1, 60 000 ml @ 0 mls/hr IV .STK -[facility] Rx#:[id number] metroNIDAZOLE-NS PMX 500 100 100 100 mg In Saline 1 100ml.bag @ 100 mls/hr IVPB Q8HR [facility] Rx#:[id number] Intake, IV Titration 920.996 315.975 351.099 Amount Amiodarone 300 mg In 250 Dextrose 5% in Water 250 ml @ 0.5 MG/MIN 25 mls/hr IV .Q10H [facility] Rx#: [id number] Amiodarone 300 mg In 247.917 Dextrose 5% in Water 250 ml @ 0.5 MG/MIN 25 mls/hr IV .Q10H [facility] Rx#: [id number] Norepinephrine 32 mg In 192.605 115.975 Sodium Chloride 0.9% 218 ml @ 0.05 MCG/KG/MIN 2. 966 mls/hr IV .Q24H [facility] Rx#:[id number] Propofol 1,000 mg In 478.391 200 103.182 Empty Bag 1 bag @ Titrate IV .Q0M [facility] Rx#: [id number] Output: Drainage 1000 390 50 Colostomy 240 Medial Abdomen 1000 150 50 Urine 5 0 5 Hemodialysis 4000 Other: Voiding Method Indwelling Catheter Indwelling Catheter # Voids 0 0 ABP, PAP, CO, CI - Last Documented Arterial Blood Pressure 119/49 - Exam GENERAL: Laying in bed, intubated EYES: Pupils equal. Conjunctiva normal. HEENT: External appearance of nose and ears normal, oral cavity dry mucous membrane. Endotracheal tube in place. NG tube NECK: JVD not raised; masses not palpable. HEART: irregular heart sounds; some edema. LUNGS: Respiratory rate increased; decreased breath sounds ABDOMEN: Soft, dressing over the incision site, no guarding rigidity, liver spleen not palpable, no masses palpable. Colostomy-no output. PSYCH: Sedated LYMPHATICS: lymphedema of the lower extremity - Labs CBC & Chem 7: 11/16/19 04:40 11/16/19 04:40 Labs: Abnormal Lab Results - Last 24 Hours (Table) 11/15/19 11/15/19 11/15/19 Range/Units 16:00 20:02 23:39 WBC (3.8-10.6) k/uL RBC (3.80-5.40) m/uL Hgb (11.4-16.0) gm/dL Hct (34.0-46.0) % RDW (11.5-15.5) % Plt Count (150-450) k/uL Neutrophils # (Manual) (1.3-7.7) k/uL Metamyelocytes # (Man) (0) k/uL Myelocytes # (Manual) (0) k/uL Nucleated RBCs (0-0) /100 WBC ABG pO2 (83-108) mmHg ABG HCO3 (21-25) mmol/L ABG Total CO2 (19-24) mmol/L ABG O2 Saturation (94-97) % Sodium (137-145) mmol/L BUN (7-17) mg/dL Creatinine (0.52-1.04) mg/dL Glucose (74-99) mg/dL POC Glucose (mg/dL) 176 H 192 H 198 H (75-99) mg/dL Calcium (8.4-10.2) mg/dL 11/16/19 11/16/19 11/16/19 Range/Units 04:40 04:40 04:43 WBC 22.3 H (3.8-10.6) k/uL RBC 2.81 L (3.80-5.40) m/uL Hgb 8.0 L (11.4-16.0) gm/dL Hct 24.5 L (34.0-46.0) % RDW 17.8 H (11.5-15.5) % Plt Count 52 L (150-450) k/uL Neutrophils # (Manual) 18.50 H (1.3-7.7) k/uL Metamyelocytes # (Man) 1.12 H (0) k/uL Myelocytes # (Manual) 0.89 H (0) k/uL Nucleated RBCs 2 H (0-0) /100 WBC ABG pO2 (83-108) mmHg ABG HCO3 (21-25) mmol/L ABG Total CO2 (19-24) mmol/L ABG O2 Saturation (94-97) % Sodium 130 L (137-145) mmol/L BUN 23 H (7-17) mg/dL Creatinine 1.81 H (0.52-1.04) mg/dL Glucose 163 H (74-99) mg/dL POC Glucose (mg/dL) 182 H (75-99) mg/dL Calcium 7.5 L (8.4-10.2) mg/dL 11/16/19 11/16/19 11/16/19 Range/Units 07:07 09:39 12:35 WBC (3.8-10.6) k/uL RBC (3.80-5.40) m/uL Hgb (11.4-16.0) gm/dL Hct (34.0-46.0) % RDW (11.5-15.5) % Plt Count (150-450) k/uL Neutrophils # (Manual) (1.3-7.7) k/uL Metamyelocytes # (Man) (0) k/uL Myelocytes # (Manual) (0) k/uL Nucleated RBCs (0-0) /100 WBC ABG pO2 122 H (83-108) mmHg ABG HCO3 26 H (21-25) mmol/L ABG Total CO2 27 H (19-24) mmol/L ABG O2 Saturation 98.3 H (94-97) % Sodium (137-145) mmol/L BUN (7-17) mg/dL Creatinine (0.52-1.04) mg/dL Glucose (74-99) mg/dL POC Glucose (mg/dL) 174 H 174 H (75-99) mg/dL Calcium (8.4-10.2) mg/dL Microbiology - Last 24 Hours (Table) 11/13/19 23:50 Gram Stain - Preliminary Sputum Sputum Culture - Preliminary Stenotrophomonas maltophilia 11/14/19 05:24 Blood Culture - Preliminary Blood No Growth after 48 hours Assessment and Plan Assessment: Assessment: -Acute perforation of the large colon. Leading to left colectomy, partial omentectomy and a colostomy -Acute sigmoid diverticulitis, -Acute hypoxic respiratory failure requiring ventilator support. Intubated, slow to respond -Septic shock requiring pressor support, worsening -Intermittent vaginal blood clots-endometrial prominence. outpatient D&C -Acute kidney injury likely ATN , oliguric from cardiorenal syndrome. Worsened requiring renal replacement therapy -Bilateral lower extremity lymphedema -Persistent atrial fibrillation, with rapid ventricular rate, uncontrolled -Acute cellulitis of the right lower extremity -Chronic gait dysfunction uses a walker -Morbid obesity BMI 51 -Right bundle-branch block -Essential hypertension -GERD -Acute postprocedure blood loss anemia as expected from surgery-getting 2 units of blood -Hyponatremia likely hyperosmolar from volume contraction -DO NOT RESUSCITATE Plan: Patient remained on mechanical ventilator.continued on pressor support. No urine output. Getting hemodialysis today . Other medications to continue. Prognosis remains guarded. No stool out of the colostomy. wound VAC in place. Currently no family the bedside. Time with Patient: Greater than 30
[2019-11-16 23:49] LABS: Glucose,Whole Blood 176 mg/dL (75-99)
[2019-11-17] MEDS: SODIUM CHLORIDE 0.9% 50 ML with VASOPRESSIN 20 UNIT IVPB SCH ×2 (02:34)
[2019-11-17] MEDS: PROPOFOL 1,000 MG in EMPTY BAG 1 BAG IV SCH (02:48)
[2019-11-17] MEDS: IPRATROPIUM-ALBUTEROL 3 ML NEB INHALATION SCH ×6 (03:39→23:55)
[2019-11-17 04:28] LABS: Glucose,Whole Blood 143 mg/dL (75-99)
[2019-11-17] MEDS: INSULIN ASPART (NovoLOG) 100 UNIT/ML VIAL SQ SCH ×5 (04:29→20:19)
[2019-11-17] MEDS: MEROPENEM 1 GM in SODIUM CHLORIDE 0.9% 100 ML IVPB SCH ×2 (04:30→16:02)
[2019-11-17 05:19] LABS: ABG Base Excess 0.2 mmol/L; ABG HCO3 25 mmol/L (21-25); ABG Oxygen Saturation 98.6 % (94-97); ABG PCO2 37 mmHg (35-45); ABG PH 7.43 (7.35-7.45); ABG PO2 149 mmHg (83-108); ABG TCO2 26 mmol/L (19-24); Allen Test Performed? Yes
[2019-11-17 05:22] LABS: Anisocytosis Slight; HCT 23.3 % (34.0-46.0); HGB 7.5 gm/dL (11.4-16.0); MCH 28.3 pg (25.0-35.0); MCHC 32.2 g/dL (31.0-37.0); MCV 87.7 fL (80.0-100.0); Mean Platelet Volume 10.4; Poikilocytosis Slight; RBC 2.66 m/uL (3.80-5.40); RDW 18.7 % (11.5-15.5)
[2019-11-17 05:31] LABS: Calcium 7.9 mg/dL (8.4-10.2); Magnesium 2.3 mg/dL (1.6-2.3); Phosphorus 3.2 mg/dL (2.5-4.5); Potassium 4.9 mmol/L (3.5-5.1)
[2019-11-17 05:46] LABS: Platelet Count 80 k/uL (150-450)
[2019-11-17 06:13] LABS: Band Neutrophils % 30 %; Large Platelets Present; Lymphocytes # (M) 3.04 k/uL (1.0-4.8); Metamyelocytes # (M) 1.22 k/uL (0); Metamyelocytes % 4 %; Myelocytes # (M) 1.22 k/uL (0); Myelocytes % 4 %; Neutrophils % (M) 52 %; Nucleated Red Blood Cells 16 /100 WBC (0-0); Polychromasia Present; Total Cells Counted 200; WBC 30.4 k/uL (3.8-10.6)
--- NOTE | 2019-11-17 07:17 | XR ---
EXAMINATION TYPE: XR chest 1V DATE OF EXAM: 11/17/2019 COMPARISON: 11/16/2019 HISTORY: Shortness of breath. Ventilatory dependent respiratory failure. TECHNIQUE: Single frontal view of the chest is obtained. FINDINGS: Stable cardiomediastinal silhouette and slight elevation of the right hemidiaphragm with i mproving bibasilar airspace disease. Stable lines and tubes. No new pleural effusion or pneumothorax. Improved pulmonary vascular congestion. IMPRESSION: Improved, now minimal, pulmonary vascular congestion and improving bibasilar airspace di sease.
[2019-11-17] MEDS: AMIODARONE 300 MG in DEXTROSE 5% IN WATER 250 ML IV SCH ×4 (07:23→18:13)
[2019-11-17 07:58] LABS: Glucose,Whole Blood 132 mg/dL (75-99)
--- NOTE | 2019-11-17 08:04 | PN ---
PROGRESS NOTE Mrs. Morse is a 69-year-old female with known history of paroxysmal atrial fibrillation, hypertension, chronic kidney disease, who was admitted with abdominal discomfort with acute diverticulitis who had episode of paroxysmal atrial fibrillation. She remains intubated. She is off sedation. She is in sinus mechanism. Continue on norepinephrine as well as TPN. She is scheduled for dialysis today. Her blood pressure is under better control and her norepinephrine has been weaned down. There is no evidence of ventricular ectopic activity. She is predominantly in sinus mechanism. She continues to be on IV amiodarone. Continue otherwise to be on antibiotics, Protonix and her TPN. PHYSICAL EXAMINATION: Blood pressure 130 to 140 with the heart rate in the 90s to low 100s. LUNGS: Clear anteriorly. HEART: Regular rate and rhythm. S1, S2. No S3 with a systolic murmur at the base. No diastolic murmur. ABDOMEN: Soft. Hypoactive bowel sounds. EXTREMITIES: +1 to 2 edema with chronic skin changes. Neurologically, she is intubated, not following verbal commands. LAB DATA: Her lab data revealed a BUN and creatinine 29 and 1.84, potassium 4.9 hemoglobin of 7.5, white blood cells 30.4, which is higher than it was yesterday. Her hemoglobin is down as well. Her pH 7.43 with a pCO2 of 37 and pO2 of 149. IMPRESSION: 1. Respiratory failure, status post abdominal surgery with bowel perforation. 2. Status post left colectomy, partial omentectomy and colostomy. 3. Paroxysmal atrial fibrillation. 4. Chronic kidney disease, on hemodialysis. 5. Anemia. 6. Leukocytosis. RECOMMENDATION: From the cardiac standpoint, will continue present therapy with supportive care. Unfortunately the prognosis remains quite guarded. She will be re-evaluated by the Critical Care Service regarding her respiratory status. Depending on her progress, further recommendation will be made. MMODL / IJN: [id number] /
[2019-11-17] MEDS: ENOXAPARIN 30 MG/0.3 ML SYRINGE SQ SCH (08:19)
--- NOTE | 2019-11-17 08:21 | P.PN ---
Subjective Patient is seen in follow-up for acute kidney injury. She is currently hemodialysis dependent. Tolerated 4 L ultrafiltration on Sunday. Currently on 19 mics of Levophed. Vasopressin has been discontinued. She remains intubated. Sedation has been turned off. Remains oliguric. Vital signs are stable. Currently on vasopressors. General: The patient appeared well nourished and normally developed. HEENT: Head exam is unremarkable. Neck is without jugular venous distension. Intubated. LUNGS: Breath sounds decreased. HEART: Rate and Rhythm are regular. First and second heart sounds normal. No murmurs, rubs or gallops. ABDOMEN: Abdominal exam reveals normal bowel sounds. Obese. EXTREMITITES: Lower extremities wrapped. 2+ edema. Objective - Vital Signs Vital signs: Vital Signs Temp 97 F L 11/17/19 04:00 Pulse 106 H 11/17/19 07:34 Resp 27 H 11/17/19 07:30 BP 139/55 11/17/19 06:00 Pulse Ox 100 11/17/19 07:30 Intake & Output 11/16/19 11/17/19 11/17/19 18:59 06:59 18:59 Intake Total 9430.605 2702.334 288.5 Output Total 115 353 0 Balance 5123.421 0087.334 288.5 Weight 155.9 kg Intake: IV 1422 1262 96 Levaquin 150 Meropenem 1 gm In Sodium 100 Chloride 0.9% 100 ml @ 200 mls/hr IVPB Q12H [facility] Rx#:[id number] Pressure Bags 72 72 6 Sodium Acetate 60 meq 630 Calcium Gluconate 1 gm Mvi, Adult No.4 with Vit K 10 ml Trace (Conc-1Ml/ Dose) 1 ml In Amino Acid 4.25%-D10w+Lytes*E* 1,000 ml @ 90 mls/hr IV .BY DURATION [facility] Rx#: [id number] Sodium Chloride 0.9% 1, 110 10 000 ml @ 0 mls/hr IV .STK -[facility] Rx#:[id number] TPN 360 1080 90 metroNIDAZOLE-NS PMX 500 100 mg In Saline 1 100ml.bag @ 100 mls/hr IVPB Q8HR [facility] Rx#:[id number] Intake, IV Titration 759.806 8623.334 192.5 Amount Amiodarone 300 mg In 247.917 Dextrose 5% in Water 250 ml @ 0.5 MG/MIN 25 mls/hr IV .Q10H [facility] Rx#: [id number] Amiodarone 300 mg In 192.5 Dextrose 5% in Water 250 ml @ 0.5 MG/MIN 25 mls/hr IV .Q10H [facility] Rx#: [id number] Norepinephrine 32 mg In 222.061 Sodium Chloride 0.9% 218 ml @ 0.05 MCG/KG/MIN 2. 966 mls/hr IV .Q24H [facility] Rx#:[id number] Propofol 1,000 mg In 103.182 92.273 Empty Bag 1 bag @ Titrate IV .Q0M [facility] Rx#: [id number] Sodium Acetate 80 meq 1066 Calcium Gluconate 1 gm Sodium Chloride 2.5MEQ/ml Vial 40 meq In Amino Acid 4.25%-D10w+Lytes*E* 1,000 ml @ 90 mls/hr IV . BY DURATION [facility] Rx#: [id number] Output: Drainage 100 350 Colostomy 250 Medial Abdomen 100 100 Urine 15 3 0 Other: Voiding Method Indwelling Catheter Indwelling Catheter # Voids 0 ABP, PAP, CO, CI - Last Documented Arterial Blood Pressure 149/47 - Labs CBC & Chem 7: 11/17/19 05:00 11/17/19 05:00 Labs: Abnormal Lab Results - Last 24 Hours (Table) 11/16/19 11/16/19 11/16/19 Range/Units 09:39 12:35 17:17 WBC (3.8-10.6) k/uL RBC (3.80-5.40) m/uL Hgb (11.4-16.0) gm/dL Hct (34.0-46.0) % RDW (11.5-15.5) % Plt Count (150-450) k/uL Neutrophils # (Manual) (1.3-7.7) k/uL Metamyelocytes # (Man) (0) k/uL Myelocytes # (Manual) (0) k/uL Nucleated RBCs (0-0) /100 WBC ABG pO2 (83-108) mmHg ABG Total CO2 (19-24) mmol/L ABG O2 Saturation (94-97) % Sodium (137-145) mmol/L BUN (7-17) mg/dL Creatinine (0.52-1.04) mg/dL Glucose (74-99) mg/dL POC Glucose (mg/dL) 174 H 174 H 146 H (75-99) mg/dL Calcium (8.4-10.2) mg/dL 11/16/19 11/16/19 11/17/19 Range/Units 20:30 23:48 04:26 WBC (3.8-10.6) k/uL RBC (3.80-5.40) m/uL Hgb (11.4-16.0) gm/dL Hct (34.0-46.0) % RDW (11.5-15.5) % Plt Count (150-450) k/uL Neutrophils # (Manual) (1.3-7.7) k/uL Metamyelocytes # (Man) (0) k/uL Myelocytes # (Manual) (0) k/uL Nucleated RBCs (0-0) /100 WBC ABG pO2 (83-108) mmHg ABG Total CO2 (19-24) mmol/L ABG O2 Saturation (94-97) % Sodium (137-145) mmol/L BUN (7-17) mg/dL Creatinine (0.52-1.04) mg/dL Glucose (74-99) mg/dL POC Glucose (mg/dL) 184 H 176 H 143 H (75-99) mg/dL Calcium (8.4-10.2) mg/dL 11/17/19 11/17/19 11/17/19 Range/Units 05:00 05:00 05:18 WBC 30.4 H (3.8-10.6) k/uL RBC 2.66 L (3.80-5.40) m/uL Hgb 7.5 L (11.4-16.0) gm/dL Hct 23.3 L (34.0-46.0) % RDW 18.7 H (11.5-15.5) % Plt Count 80 L D (150-450) k/uL Neutrophils # (Manual) 24.90 H (1.3-7.7) k/uL Metamyelocytes # (Man) 1.22 H (0) k/uL Myelocytes # (Manual) 1.22 H (0) k/uL Nucleated RBCs 16 H (0-0) /100 WBC ABG pO2 149 H (83-108) mmHg ABG Total CO2 26 H (19-24) mmol/L ABG O2 Saturation 98.6 H (94-97) % Sodium 135 L (137-145) mmol/L BUN 29 H (7-17) mg/dL Creatinine 1.84 H (0.52-1.04) mg/dL Glucose 125 H (74-99) mg/dL POC Glucose (mg/dL) (75-99) mg/dL Calcium 7.9 L (8.4-10.2) mg/dL 11/17/19 Range/Units 07:57 WBC (3.8-10.6) k/uL RBC (3.80-5.40) m/uL Hgb (11.4-16.0) gm/dL Hct (34.0-46.0) % RDW (11.5-15.5) % Plt Count (150-450) k/uL Neutrophils # (Manual) (1.3-7.7) k/uL Metamyelocytes # (Man) (0) k/uL Myelocytes # (Manual) (0) k/uL Nucleated RBCs (0-0) /100 WBC ABG pO2 (83-108) mmHg ABG Total CO2 (19-24) mmol/L ABG O2 Saturation (94-97) % Sodium (137-145) mmol/L BUN (7-17) mg/dL Creatinine (0.52-1.04) mg/dL Glucose (74-99) mg/dL POC Glucose (mg/dL) 132 H (75-99) mg/dL Calcium (8.4-10.2) mg/dL Microbiology - Last 24 Hours (Table) 11/14/19 05:24 Blood Culture - Preliminary Blood No Growth after 72 hours 11/13/19 23:50 Gram Stain - Preliminary Sputum Sputum Culture - Preliminary Stenotrophomonas maltophilia Assessment and Plan Plan: Assessment: 1. Acute kidney injury secondary to ischemic ATN. Currently hemodialysis dependent. Oliguric. 2. Septic shock secondary to perforated bowel status post laparotomy. Maintain on IV antibiotics. Currently on vasopressors. 3. Volume overload. 4. A. fib with RVR maintained on amiodarone. 5. Metabolic acidosis secondary to acute kidney injury. Improved postdialysis. Plan: Hemodialysis today with goal 3-4 L ultrafiltration. Another treatment tomorrow. Continue to monitor renal function and urine output. Wean vasopressors. Avoid nephrotoxins.
[2019-11-17] MEDS: HYDROCORTISONE SUCCINATE 100 MG/2 ML VIAL IV SCH ×2 (08:24→16:02)
[2019-11-17] MEDS: CHLORHEXIDINE GLUCONATE 15 ML CUP MUCOUS MEM SCH ×2 (08:25→20:24)
[2019-11-17] MEDS: NYSTATIN 100,000 UNIT/GM POWD 15 GM TOPICAL SCH ×2 (08:25→20:19)
[2019-11-17] MEDS: PANTOPRAZOLE 40 MG/10 ML VIAL IV SCH (08:25)
[2019-11-17] MEDS: HYDROPHILIC CREAM 180 GM TUBE TOPICAL SCH ×2 (08:28→20:19)
[2019-11-17] MEDS ORDERED: ANIDULAFUNGIN 200 MG in SODIUM CHLORIDE 0.9% 200 ML IVPB ONE (10:00)
--- NOTE | 2019-11-17 10:20 | CT ---
EXAMINATION TYPE: CT brain wo con DATE OF EXAM: 11/17/2019 HISTORY: Altered mental status CT DLP: 1082.4 mGycm. Automated Exposure Control for Dose Reduction was Utilized. TECHNIQUE: CT scan of the head is performed without contrast. COMPARISON: CT brain May 21, 2019. FINDINGS: Endotracheal and nasogastric tubes partially imaged noted also on localizer is suboptimal due to motion artifact degradation. There is no obvious acute intracranial hemorrhage or midline yunier ft identified. There is mild diffuse ventricular and sulcal prominence consistent with diffuse cerebr al atrophy. There is low-attenuation in the periventricular white matter consistent with mild chroni c small vessel ischemic change. The globes are intact and the visualized sinuses are clear. IMPRESSION: No acute intracranial hemorrhage or midline shift. There is mild diffuse age-related ce rebral atrophy and chronic small vessel ischemic change redemonstrated. No significant change from p rior.
--- NOTE | 2019-11-17 10:22 | P.PN ---
<Gissell Sarmiento Michell - Last Filed: 11/17/19 10:16> Subjective Progress Note Date: 11/17/19 CHIEF COMPLAINT: Diverticulitis HISTORY OF PRESENT ILLNESS: Patient is status post left colectomy with mobilization of splenic flexure, partial omentectomy, and colostomy creation. POD #7. She remains critically ill. Patient remains on mechanical ventilation in the ICU. Fio2 40% Patient remains on vasopressor support however her requirements have decreased over the past 48 hours. She was able to tolerate HD on Sunday with 4L ultrafiltration. TPN infusing. WBC 30.4. Hemoglobin 7.5. Pat ient has been on low dose propofol. She is not awake during examination. EEG and CT brain have been ordered. PHYSICAL EXAM: VITAL SIGNS: Reviewed. GENERAL: Well-developed in no acute distress-remains on mechanical ventilation. HEENT: ET tube noted. OG to LIS with bilious drainage. No sclera icterus. Extraocular movements grossly intact. Moist buccal mucosa. Head is atraumatic, normocephalic. ABDOMEN: Soft. Nondistended. Wound vac to abdomen noted. Ostomy pink with some duskiness around the superior edges. NEUROLOGIC: Sedated on mechanical ventilation ASSESSMENT: 1. Diverticulitis with suspected contained perforation PLAN: -Continue ICU/ventilator management per Dr. Melgar -Continue antibiotics. Monitor WBC -EEG and CT brain ordered per Dr. Melgar. Await results -HD per nephrology -Wean vasopressors as tolerated -Continue TPN. Await bowel function from ostomy before transitioning to tube feeds -Continue wound vac to abdominal wound Nurse practitioner note has been reviewed by physician. Signing provider agrees with the documented findings, assessment, and plan of care. Objective - Vital Signs Vital signs: Vital Signs Temp 97.9 F 11/17/19 08:00 Pulse 109 H 11/17/19 09:15 Resp 30 H 11/17/19 09:15 BP 139/55 11/17/19 06:00 Pulse Ox 99 11/17/19 09:15 Intake & Output 11/16/19 11/17/19 11/17/19 18:59 06:59 18:59 Intake Total 3486.539 0634.334 500.5 Output Total 115 353 0 Balance 4931.624 4431.334 500.5 Weight 155.9 kg Intake: IV 1422 1262 308 0.9 carrier 20 Levaquin 150 Meropenem 1 gm In Sodium 100 Chloride 0.9% 100 ml @ 200 mls/hr IVPB Q12H [facility] Rx#:[id number] Pressure Bags 72 72 18 Sodium Acetate 60 meq 630 Calcium Gluconate 1 gm Mvi, Adult No.4 with Vit K 10 ml Trace (Conc-1Ml/ Dose) 1 ml In Amino Acid 4.25%-D10w+Lytes*E* 1,000 ml @ 90 mls/hr IV .BY DURATION [facility] Rx#: [id number] Sodium Chloride 0.9% 1, 110 10 000 ml @ 0 mls/hr IV .STK -MED ONE Rx#:[id number] TPN 360 1080 270 metroNIDAZOLE-NS PMX 500 100 mg In Saline 1 100ml.bag @ 100 mls/hr IVPB Q8HR [facility] Rx#:[id number] Intake, IV Titration 034.942 8192.334 192.5 Amount Amiodarone 300 mg In 247.917 Dextrose 5% in Water 250 ml @ 0.5 MG/MIN 25 mls/hr IV .Q10H [facility] Rx#: [id number] Amiodarone 300 mg In 192.5 Dextrose 5% in Water 250 ml @ 0.5 MG/MIN 25 mls/hr IV .Q10H [facility] Rx#: [id number] Norepinephrine 32 mg In 222.061 Sodium Chloride 0.9% 218 ml @ 0.05 MCG/KG/MIN 2. 966 mls/hr IV .Q24H [facility] Rx#:[id number] Propofol 1,000 mg In 103.182 92.273 Empty Bag 1 bag @ Titrate IV .Q0M [facility] Rx#: [id number] Sodium Acetate 80 meq 1066 Calcium Gluconate 1 gm Sodium Chloride 2.5MEQ/ml Vial 40 meq In Amino Acid 4.25%-D10w+Lytes*E* 1,000 ml @ 90 mls/hr IV . BY DURATION [facility] Rx#: [id number] Output: Drainage 100 350 Colostomy 250 Medial Abdomen 100 100 Urine 15 3 0 Other: Voiding Method Indwelling Catheter Indwelling Catheter # Voids 0 ABP, PAP, CO, CI - Last Documented Arterial Blood Pressure 147/48 - Labs CBC & Chem 7: 11/17/19 05:00 11/17/19 05:00 Labs: Abnormal Lab Results - Last 24 Hours (Table) 11/16/19 11/16/19 11/16/19 Range/Units 12:35 17:17 20:30 WBC (3.8-10.6) k/uL RBC (3.80-5.40) m/uL Hgb (11.4-16.0) gm/dL Hct (34.0-46.0) % RDW (11.5-15.5) % Plt Count (150-450) k/uL Neutrophils # (Manual) (1.3-7.7) k/uL Metamyelocytes # (Man) (0) k/uL Myelocytes # (Manual) (0) k/uL Nucleated RBCs (0-0) /100 WBC ABG pO2 (83-108) mmHg ABG Total CO2 (19-24) mmol/L ABG O2 Saturation (94-97) % Sodium (137-145) mmol/L BUN (7-17) mg/dL Creatinine (0.52-1.04) mg/dL Glucose (74-99) mg/dL POC Glucose (mg/dL) 174 H 146 H 184 H (75-99) mg/dL Calcium (8.4-10.2) mg/dL 11/16/19 11/17/19 11/17/19 Range/Units 23:48 04:26 05:00 WBC (3.8-10.6) k/uL RBC (3.80-5.40) m/uL Hgb (11.4-16.0) gm/dL Hct (34.0-46.0) % RDW (11.5-15.5) % Plt Count (150-450) k/uL Neutrophils # (Manual) (1.3-7.7) k/uL Metamyelocytes # (Man) (0) k/uL Myelocytes # (Manual) (0) k/uL Nucleated RBCs (0-0) /100 WBC ABG pO2 (83-108) mmHg ABG Total CO2 (19-24) mmol/L ABG O2 Saturation (94-97) % Sodium 135 L (137-145) mmol/L BUN 29 H (7-17) mg/dL Creatinine 1.84 H (0.52-1.04) mg/dL Glucose 125 H (74-99) mg/dL POC Glucose (mg/dL) 176 H 143 H (75-99) mg/dL Calcium 7.9 L (8.4-10.2) mg/dL 11/17/19 11/17/19 11/17/19 Range/Units 05:00 05:18 07:57 WBC 30.4 H (3.8-10.6) k/uL RBC 2.66 L (3.80-5.40) m/uL Hgb 7.5 L (11.4-16.0) gm/dL Hct 23.3 L (34.0-46.0) % RDW 18.7 H (11.5-15.5) % Plt Count 80 L D (150-450) k/uL Neutrophils # (Manual) 24.90 H (1.3-7.7) k/uL Metamyelocytes # (Man) 1.22 H (0) k/uL Myelocytes # (Manual) 1.22 H (0) k/uL Nucleated RBCs 16 H (0-0) /100 WBC ABG pO2 149 H (83-108) mmHg ABG Total CO2 26 H (19-24) mmol/L ABG O2 Saturation 98.6 H (94-97) % Sodium (137-145) mmol/L BUN (7-17) mg/dL Creatinine (0.52-1.04) mg/dL Glucose (74-99) mg/dL POC Glucose (mg/dL) 132 H (75-99) mg/dL Calcium (8.4-10.2) mg/dL Microbiology - Last 24 Hours (Table) 11/14/19 05:24 Blood Culture - Preliminary Blood No Growth after 72 hours 11/13/19 23:50 Gram Stain - Preliminary Sputum Sputum Culture - Preliminary Stenotrophomonas maltophilia <Demetri Davidson - Last Filed: 11/17/19 14:56> Subjective As above. Patient remains critically ill. Pressor requirements slightly improved. Remains on dialysis. CAT scan brain performed today. Family try to decide whether they want to pursue further aggressive care which would unfortunately likely require tracheostomy and dialysis catheter placement. Await their decisions. Objective - Vital Signs Vital signs: Vital Signs Temp 97.9 F 11/17/19 08:00 Pulse 84 11/17/19 12:01 Resp 35 H 11/17/19 11:15 BP 139/55 11/17/19 06:00 Pulse Ox 98 11/17/19 11:15 Intake & Output 11/16/19 11/17/19 11/17/19 18:59 06:59 18:59 Intake Total 9292.277 7681.334 912.5 Output Total 115 353 0 Balance 0478.399 4133.334 912.5 Weight 155.9 kg 155.9 kg Intake: IV 1422 1262 720 0.9 carrier 40 Anidulafungin 200 mg In 200 Sodium Chloride 0.9% 200 ml @ 84 mls/hr IVPB ONCE [facility] Rx#:[id number] Levaquin 150 Meropenem 1 gm In Sodium 100 Chloride 0.9% 100 ml @ 200 mls/hr IVPB Q12H [facility] Rx#:[id number] Pressure Bags 72 72 30 Sodium Acetate 60 meq 630 Calcium Gluconate 1 gm Mvi, Adult No.4 with Vit K 10 ml Trace (Conc-1Ml/ Dose) 1 ml In Amino Acid 4.25%-D10w+Lytes*E* 1,000 ml @ 90 mls/hr IV .BY DURATION [facility] Rx#: [id number] Sodium Chloride 0.9% 1, 110 10 000 ml @ 0 mls/hr IV .STK -MED ONE Rx#:[id number] TPN 360 1080 450 metroNIDAZOLE-NS PMX 500 100 mg In Saline 1 100ml.bag @ 100 mls/hr IVPB Q8HR [facility] Rx#:[id number] Intake, IV Titration 611.570 2488.334 192.5 Amount Amiodarone 300 mg In 247.917 Dextrose 5% in Water 250 ml @ 0.5 MG/MIN 25 mls/hr IV .Q10H [facility] Rx#: [id number] Amiodarone 300 mg In 192.5 Dextrose 5% in Water 250 ml @ 0.5 MG/MIN 25 mls/hr IV .Q10H [facility] Rx#: [id number] Norepinephrine 32 mg In 222.061 Sodium Chloride 0.9% 218 ml @ 0.05 MCG/KG/MIN 2. 966 mls/hr IV .Q24H [facility] Rx#:[id number] Propofol 1,000 mg In 103.182 92.273 Empty Bag 1 bag @ Titrate IV .Q0M [facility] Rx#: [id number] Sodium Acetate 80 meq 1066 Calcium Gluconate 1 gm Sodium Chloride 2.5MEQ/ml Vial 40 meq In Amino Acid 4.25%-D10w+Lytes*E* 1,000 ml @ 90 mls/hr IV . BY DURATION [facility] Rx#: [id number] Output: Drainage 100 350 Colostomy 250 Medial Abdomen 100 100 Urine 15 3 0 Other: Voiding Method Indwelling Catheter Indwelling Catheter Indwelling Catheter # Voids 0 ABP, PAP, CO, CI - Last Documented Arterial Blood Pressure 146/50 - Labs CBC & Chem 7: 11/17/19 05:00 11/17/19 05:00 Labs: Abnormal Lab Results - Last 24 Hours (Table) 11/16/19 11/16/19 11/16/19 Range/Units 17:17 20:30 23:48 WBC (3.8-10.6) k/uL RBC (3.80-5.40) m/uL Hgb (11.4-16.0) gm/dL Hct (34.0-46.0) % RDW (11.5-15.5) % Plt Count (150-450) k/uL Neutrophils # (Manual) (1.3-7.7) k/uL Metamyelocytes # (Man) (0) k/uL Myelocytes # (Manual) (0) k/uL Nucleated RBCs (0-0) /100 WBC ABG pO2 (83-108) mmHg ABG Total CO2 (19-24) mmol/L ABG O2 Saturation (94-97) % Sodium (137-145) mmol/L BUN (7-17) mg/dL Creatinine (0.52-1.04) mg/dL Glucose (74-99) mg/dL POC Glucose (mg/dL) 146 H 184 H 176 H (75-99) mg/dL Calcium (8.4-10.2) mg/dL 11/17/19 11/17/19 11/17/19 Range/Units 04:26 05:00 05:00 WBC 30.4 H (3.8-10.6) k/uL RBC 2.66 L (3.80-5.40) m/uL Hgb 7.5 L (11.4-16.0) gm/dL Hct 23.3 L (34.0-46.0) % RDW 18.7 H (11.5-15.5) % Plt Count 80 L D (150-450) k/uL Neutrophils # (Manual) 24.90 H (1.3-7.7) k/uL Metamyelocytes # (Man) 1.22 H (0) k/uL Myelocytes # (Manual) 1.22 H (0) k/uL Nucleated RBCs 16 H (0-0) /100 WBC ABG pO2 (83-108) mmHg ABG Total CO2 (19-24) mmol/L ABG O2 Saturation (94-97) % Sodium 135 L (137-145) mmol/L BUN 29 H (7-17) mg/dL Creatinine 1.84 H (0.52-1.04) mg/dL Glucose 125 H (74-99) mg/dL POC Glucose (mg/dL) 143 H (75-99) mg/dL Calcium 7.9 L (8.4-10.2) mg/dL 11/17/19 11/17/19 11/17/19 Range/Units 05:18 07:57 11:42 WBC (3.8-10.6) k/uL RBC (3.80-5.40) m/uL Hgb (11.4-16.0) gm/dL Hct (34.0-46.0) % RDW (11.5-15.5) % Plt Count (150-450) k/uL Neutrophils # (Manual) (1.3-7.7) k/uL Metamyelocytes # (Man) (0) k/uL Myelocytes # (Manual) (0) k/uL Nucleated RBCs (0-0) /100 WBC ABG pO2 149 H (83-108) mmHg ABG Total CO2 26 H (19-24) mmol/L ABG O2 Saturation 98.6 H (94-97) % Sodium (137-145) mmol/L BUN (7-17) mg/dL Creatinine (0.52-1.04) mg/dL Glucose (74-99) mg/dL POC Glucose (mg/dL) 132 H 156 H (75-99) mg/dL Calcium (8.4-10.2) mg/dL Microbiology - Last 24 Hours (Table) 11/13/19 23:50 Gram Stain - Final Sputum Sputum Culture - Final Stenotrophomonas maltophilia Enterobacter cloacae 11/14/19 05:24 Blood Culture - Preliminary Blood No Growth after 72 hours Assessment and Plan (1) Diverticulitis Current Visit: Yes Status: Acute Code(s): K57.92 - DVTRCLI OF INTEST, PART UNSP, W/O PERF OR ABSCESS W/O BLEED SNOMED Code(s): 869433540
[2019-11-17 10:39] VITALS: BMI 62.8
--- NOTE | 2019-11-17 10:45 | PN ---
PROGRESS NOTE DATE OF SERVICE: November 17, 2019 This is a 69-year-old female who was admitted back on November 05. She admitted with a diagnosis of diverticulitis and was found to have a perforated bowel. She is status post exploratory laparotomy, partial colectomy and colostomy. This was done on November 10October at which time she was intubated and she has remained intubated since. She has been vented now for 8 days. She does have a history of underlying asthma, atrial fibrillation, hypertension, stage 4 chronic kidney disease, and chronic lymphedema. The patient was previously at an [facility] care facility. The patient has been undergoing hemodialysis for the last 7 days, daily. She remains on the ventilator. Her daughter is in the room. She is a DNR. Currently, she is on the volume assist-control mode rate of 26, tidal volume 450, FiO2 50% to be dropped to 40%, and PEEP of 12. Blood gases show pO2 of 149, pCO2 of 37, and pH 7.43. Blood gases consistent with mild hyperoxia and normal acid-base status. The patient is on amiodarone at 0.5 mg/minute, norepinephrine at 19 mcg/minute, TPN at 90 mL an hour and 0.9 IV at 10 mL an hour. She has been off of sedation since last night. Unfortunately, her mental status is poor. We are going to go ahead and get a CT of the brain and EEG. We had a long talk with the daughter in the room. She apparently is a nurse at [employer]. I talked about tracheostomy and possible PEG tube placement. She has not really excited about that and does not think the mom would want that. What she would like to do is extubate her mother with the idea that she would not be reintubated. I told her that at this point, likely given the fact that she is on amiodarone and norepinephrine at 90 mcg/minute, her mother probably would not do well. I do not mind doing this, but I want to make sure that if we do extubate her, we are not going to reintubate her as per the family's wishes. I just want them to talk about it some more and make sure that is what they really want. PHYSICAL EXAMINATION: VITAL SIGNS: Vital signs are reviewed. Temperature is 97.9, heart rate 109, respiratory rate is 30, blood pressure 147/48, CVP is 10, and saturations are 99% on the 40% FiO2. GENERAL: Currently appears in no distress. She is mildly tachypneic. She is synchronous with the ventilator. She does not respond to verbal stimuli. HEENT: Examination is grossly unremarkable. Orally placed endotracheal tube. NECK: Supple. Full range of motion. No adenopathy. Neck veins are flat. CARDIOVASCULAR: Examination reveals regular rhythm and rate. Heart rate about 105 beats per minute. She is in sinus rhythm. S1, S2 normal. Heart sounds are distant. LUNGS: Reveal diffuse coarse rhonchi. Breath sounds are coarse. Breath sounds are equal bilaterally but diminished throughout. No crackles. ABDOMEN: Obese. Bowel sounds are not heard. EXTREMITIES: Are intact. There is edema. SKIN: Without rash. NEUROLOGIC: Examination is difficult to assess. She does trigger the ventilator. She does not respond to verbal or painful stimuli. She does have a weak gag reflex. The patient has been off of sedation since 2:00 last night. Current microbiologic studies show Stenotrophomonas maltophilia in the sputum, Pseudomonas and Morganella morgagnii in the blood and coag-negative staph in the blood. There is also Arleen in the urine. LABS: Labs are reviewed. White count 30.4, hemoglobin 7.5, hematocrit 23.3, platelet count is 80,000. Sodium 135, potassium 4.9, chloride 105, CO2 of 23. Anion gap is 7. BUN and creatinine were 29 and 1.84. Chest x-ray shows some diffuse pulmonary vascular congestion and vascular overload. MEDICATIONS: Medications are reviewed. Currently, she is on amiodarone, Eraxis, Dulcolax, chlorhexidine, Lovenox, hydrocortisone, Dilaudid, Triad cream, insulin, DuoNeb, Levaquin, magnesium replacement, meropenem, Narcan, norepinephrine, nystatin, Protonix, potassium replacement, and propofol is currently on hold as mentioned above. She also was on vasopressin at one time, but that has been subsequently discontinued. ASSESSMENT: 1. Acute hypoxemic respiratory failure requiring intubation and mechanical ventilation on day of surgery, November 10, 2019, status post exploratory laparotomy, partial colectomy and colostomy for diverticulitis and perforated bowel. 2. Acute abdominal sepsis with septic shock. 3. Pseudomonas aeruginosa bacteremia. 4. Postoperative day #7, status post colectomy and colostomy and partial omentectomy. 5. Chronic sigmoid diverticulitis. 6. Benign essential hypertension. 7. Paroxysmal atrial fibrillation. 8. Acute on chronic kidney injury secondary to acute tubular necrosis, currently undergoing hemodialysis daily x7 days. 9. Chronic lower extremity lymphedema. 10.History of severe metabolic acidosis, resolved. 11.Right lower extremity cellulitis. 12.Morbid obesity. 13.Failure to wean from mechanical ventilation. PLAN: We had a long talk with the daughter who was in the room and apparently is a nurse at [employer]. She was not really excited about tracheostomy and PEG tube placement. She would prefer her mother to be extubated with the idea not to be reintubated. She seems to have a poor understanding of critical care. I tried to explain to her that if her mother was extubated at this time, she would most certainly fail and do very poorly. She would like to try to take her mother home, but I doubt that she would be able to get home. She is against the tracheostomy and PEG tube placement. For the time being, she will talk to the family members and thus decide about other issues. She is a NO CODE. Overall prognosis is poor. No additional recommendations are made. We will continue to follow. Unnecessary medications are discontinued. CRITICAL CARE TIME: 35 minutes. NEW / SUZETTEN: [id number] /
[2019-11-17 11:44] LABS: Glucose,Whole Blood 156 mg/dL (75-99)
--- NOTE | 2019-11-17 12:46 | EEG ---
ELECTROENCEPHALOGRAM REPORT DATE OF PROCEDURE: 11/17/2019 ELECTROENCEPHALOGRAM (EEG) REPORT: TECHNIQUE: A routine 18 channel EEG was performed with video using the 10/20 international electrode placement system. HISTORY: Diverticulitis, patient admitted to the hospital and underwent surgery. The patient was septic and transferred to the ICU where the patient has been on a ventilator. CURRENT MEDICATIONS: Vasopressin, manganese, gluconate, propofol. Propofol was taken off yesterday. Protonix, norepinephrine. STUDY DURATION: 25 minutes. FINDINGS: Please note that this recording was of low amplitude and interpretation was performed at 5-microvolt sensitivity. BACKGROUND: The background activity consisted of poorly modulated 2 to 4 Hz waveforms. ACTIVATION: Hyperventilation: Not performed. Photic stimulation: No driving seen. Sleep: Drowsy. ABNORMALITIES: 1. Diffuse synchronous and asynchronous 3 to 5 Hz slow wave activity was seen. 2. Intermixed with the above were occasional triphasic waves. IMPRESSION: Abnormal EEG. The triphasic waves mentioned above are not epileptiform in nature. Triphasic waves can be seen in the setting of the metabolic encephalopathy. The diffuse synchronous and asynchronous theta delta range slowing mentioned above is not epileptiform in nature. In combination with the slow background, these findings indicate severe diffuse cerebral dysfunction as may be seen in toxometabolic encephalopathy. No seizures were recorded. No epileptiform activity was present. These findings were called to the patient's nurse at 12:15 p.m. on 11/17/2019. NEW / ANGELITO: [id number] /
[2019-11-17] MEDS: HYDROmorphone 0.5 MG/0.5 ML SYRINGE IVP PRN ×2 (15:52→21:45)
[2019-11-17 16:08] LABS: Glucose,Whole Blood 178 mg/dL (75-99)
[2019-11-17 20:01] LABS: Glucose,Whole Blood 168 mg/dL (75-99)
[2019-11-17] MEDS: INSULIN DETEMIR (LEVEMIR) 100 UNIT/ML SYR SQ SCH (20:19)
--- NOTE | 2019-11-17 20:19 | PN ---
PROGRESS NOTE DATE OF SERVICE: 11/17/2019. I am covering for Dr. Cabrera. HISTORY OF PRESENT ILLNESS: This 69-year-old woman was admitted with significant diverticulitis and abdominal perforation, had surgery. Subsequently, patient had acute hypoxic respiratory failure and as well as septic shock and multiple other complications with also history of atrial fibrillation. The patient is currently mechanically intubated. The patient needed pressor support. Dr. Melgar is following the patient closely and had some discussion with the family regarding the code status. The patient's white count is elevated to 30.4, hemoglobin 7.5. Multiple consultants are following the patient closely. PAST MEDICAL HISTORY: Reviewed. REVIEW OF SYMPTOMS: Could not be taken. The patient is mechanically ventilated and sedated. MEDICATIONS: Current medications are: 1. DuoNeb q.i.d. and p.r.n. 3. Dulcolax p.r.n. 4. Peridex. 5. Lanoxin 30 subcu daily. 6. Solu-Cortef 50 mg IV q.8h. 7. Dilaudid p.r.n. 8. Levemir. 9. Levaquin 750 mg q.48 hours. 10.Replacement protocols. 11.Propofol. PHYSICAL EXAM: Patient is mechanically sedated. Vent settings are noted. Pulse 107. Blood pressure 124/51, respirations 26, temperature 97.8. Pulse ox 100 percent on mechanical ventilation, 40% FiO2. HEENT: Conjunctivae normal. NECK is no JVD. CARDIOVASCULAR: S1, S2 muffled. RESPIRATIONS: Breath sounds diminished in the bases. A few scattered rhonchi and crackles. ABDOMEN: Soft, nontender. LEGS: Minimal leg edema. NERVOUS SYSTEM: The patient mechanically ventilated and sedated. LAB STUDIES: WBC 13.2, hemoglobin 11.5, sodium 132, potassium 4.9, creatinine is 1.84. ASSESSMENT: 1. Acute diverticulitis and perforation status post omentectomy and colectomy and as well as colostomy. 2. Acute hypoxic respiratory failure on mechanical ventilation with slow response. 3. Pseudomonas aeruginosa sepsis. 4. Acute sigmoid diverticulitis, present on admission. 5. Septic shock. 6. Intermittent vaginal bleeding history. 7. Acute kidney injury with acute tubular necrosis, prerenal acute tubular necrosis. 8. Bilateral lower extremity lymphedema. 9. Persistent atrial fibrillation. 10.Acute cellulitis of the right lower extremity. 11.Gait dysfunction. 12.Morbid obesity. 13.Right bundle block. 14.Hypertension. 15.Gastroesophageal reflux disease. 16.Postoperative blood-loss anemia. 17.Hyponatremia. 18.NO CODE, NO CPR, NO VENT. RECOMMENDATIONS AND DISCUSSION: This 69-year-old woman who presented with multiple complex medical issues, we will monitor the patient closely, continue the current management, continue with symptomatic treatment. Continue with broad-spectrum IV antibiotics. The patient is on Merrem at this time. Continue DVT prophylaxis. The sputum cultures showed Stenotrophomonas maltophilia and blood culture also showed Pseudomonas aeruginosa. Multiple organisms grown including Arleen albicans. We will continue to monitor. Otherwise, prognosis guarded because of multiple complex medical problems. Further recommendations to follow. See orders for details. MMODL / IJN: [id number] / MTDD
--- NOTE | 2019-11-17 23:09 | PN ---
PROGRESS NOTE DATE OF SERVICE: 11/17/2019. REASON FOR FOLLOWUP: 1. Acute sigmoid diverticulitis with perforation. 2. Bacteremia. 3. Worsening white count. INTERVAL HISTORY: The patient is currently afebrile. The patient is hemodynamically slightly better. has decreased in amount of pressor support to maintain blood pressure. FiO2 is currently 40%. Remains to be on the vent. PHYSICAL EXAMINATION: Blood pressure 125/51 with a pulse of 107. Temperature 97.8. She is 100% on 40% FiO2. General description is an elderly female lying in bed in no distress. Respiratory system: Unlabored breathing. Clear to auscultation anteriorly. Heart S1, S2. Regular rate and rhythm. Abdomen soft, no tenderness. LABS: White count up to 30,000 today. BUN of 29, creatinine 1.84. DIAGNOSTIC IMPRESSION/PLAN: Patient with sigmoid diverticulitis with perforation in this patient who did have bacteremia with Morganella and pseudomonas, sputum showing 2 different gram-negatives. The patient now with significant worsening of the white count, possible in the patient who has been on antibiotics and TPN. We will add Eraxis. Keep the patient on meropenem and Levaquin and monitor clinical course and cultures closely. Continue supportive care. MMODL / IJN: [id number] /
[2019-11-17 23:45] LABS: Glucose,Whole Blood 174 mg/dL (75-99)
[2019-11-18] MEDS: HYDROCORTISONE SUCCINATE 100 MG/2 ML VIAL IV SCH ×2 (00:46→09:01)
[2019-11-18] MEDS: INSULIN ASPART (NovoLOG) 100 UNIT/ML VIAL SQ SCH ×3 (00:47→09:02)
[2019-11-18] MEDS: NOREPINEPHRINE 32 MG in SODIUM CHLORIDE 0.9% 218 ML IV SCH (00:53)
[2019-11-18] MEDS: IPRATROPIUM-ALBUTEROL 3 ML NEB INHALATION SCH ×2 (03:05→07:27)
[2019-11-18 04:20] LABS: Glucose,Whole Blood 153 mg/dL (75-99)
[2019-11-18] MEDS: MEROPENEM 1 GM in SODIUM CHLORIDE 0.9% 100 ML IVPB SCH (04:32)
[2019-11-18] MEDS: AMIODARONE 300 MG in DEXTROSE 5% IN WATER 250 ML IV SCH ×2 (04:43)
[2019-11-18 05:16] LABS: ABG Base Excess 1.1 mmol/L; ABG HCO3 25 mmol/L (21-25); ABG Oxygen Saturation 98.7 % (94-97); ABG PCO2 38 mmHg (35-45); ABG PH 7.44 (7.35-7.45); ABG PO2 140 mmHg (83-108); ABG TCO2 27 mmol/L (19-24); Allen Test Performed? Yes
[2019-11-18 05:45] LABS: Albumin 1.7 g/dL (3.5-5.0); Calcium 8.1 mg/dL (8.4-10.2); Magnesium 2.4 mg/dL (1.6-2.3); Phosphorus 4.1 mg/dL (2.5-4.5); Potassium 5.1 mmol/L (3.5-5.1)
--- NOTE | 2019-11-18 07:45 | PN ---
PROGRESS NOTE PULMONARY/CRITICAL CARE PROGRESS NOTE: DATE OF SERVICE: November 18, 2019 CRITICAL CARE TIME: 36 minutes A 69-year-old female who was seen yesterday. She was admitted back on November 05 with a diagnosis of diverticulitis and was found to have a perforated bowel. She is status post exploratory laparotomy with partial colectomy and colostomy. This was done on November 10. She has remained on the ventilator since that time. This is day 9. She does have a history of underlying asthma for which I see her in the office, atrial fibrillation, hypertension, stage 4 chronic kidney disease, and chronic lymphedema. She is a DNR. I did have a long conversation with the daughter yesterday about moving forward. The daughter was going to make a decision about tracheostomy and possible PEG tube placement versus terminal extubation. Currently, she remains on the volume assist- control mode rate of 26, tidal volume 450, FiO2 of 40%, PEEP of 12 to be dropped to 8. Most recent blood gases this morning show pO2 of 140, pCO2 of 38 and a pH 7.44. This is consistent with mild hyperoxia. She is on amiodarone at 0.5 mg/minute, TPN at 90 mL an hours, norepinephrine at 22 mcg/minute and 0.9 at 20 mL an hour. She had hemodialysis yesterday and 4 L was removed. She has been having hemodialysis daily. In addition, because of her poor mental status, we did a brain CT yesterday. The brain CT showed nothing acute. Also, we did an EEG which revealed diffuse synchronous and asynchronous 3-5 Hz slow wave activity. The EEG was interpreted as being abnormal and consistent with metabolic encephalopathy. There was no seizure activity noted. PHYSICAL EXAMINATION: VITAL SIGNS: Current vital signs are reviewed. I do not see a recent temperature as yet. Her heart rate is 92, respiratory rate 28, blood pressure 133/35, CVP is 8, saturations are 100%. GENERAL: Currently not receiving any sedation. Does not respond to verbal or even painful stimuli. HEENT: Examination is grossly unremarkable. There is an orally placed endotracheal tube and NG tube. NECK: Supple. CARDIOVASCULAR: Examination reveals regular rhythm and rate. Heart rate about 90 beats per minute. S1, S2 normal. Heart sounds are distant. LUNGS: Reveal diffuse coarse rhonchi. Breath sounds equal. ABDOMEN: Obese. No bowel sounds. EXTREMITIES: Reveal significant edema and weeping. SKIN: Reveals some chronic venous stasis changes particularly to the lower extremities. NEUROLOGIC: Examination could not be adequately assessed. Microbiology shows Coag-Negative staph in the blood from the , Pseudomonas aeruginosa and Morganella morganii in the blood from November 10 and Stenotrophomonas and Enterobacter cloacae in the sputum from the . LABS: Labs are reviewed. Current labs include a sodium 136, potassium 5.1, chloride 106, CO2 is 25. BUN and creatinine were 35 and 1.84. Her albumin is 1.7. Chest x-ray shows diffuse bilateral infiltrates consistent with mild fluid overload. There are small pleural effusions. I do not see any dense consolidations or masses. Tubes and lines look okay. MEDICATIONS: Medications are reviewed. She is on amiodarone as mentioned above, Eraxis, Dulcolax, Peridex, Lovenox, Solu-Cortef, Dilaudid p.r.n., Triad cream, insulin, DuoNeb, Levaquin, magnesium replacement, meropenem, Narcan p.r.n., norepinephrine, nystatin powder, Protonix, potassium protocol, and propofol. ASSESSMENT: 1. Acute hypoxemic respiratory failure requiring intubation and mechanical ventilation following surgery on November 10, which included an exploratory laparotomy, partial colectomy, colostomy for diverticulitis and perforated bowel. 2. Acute abdominal sepsis with septic shock. 3. Pseudomonas aeruginosa bacteremia along with bacteremia secondary to Morganella morganii. 4. Postoperative day #8, status post colectomy, colostomy and partial omentectomy. 5. Stenotrophomonas maltophilia and Enterobacter cloacae pneumonia. 6. Chronic sigmoid diverticulitis. 7. Benign essential hypertension. 8. Paroxysmal atrial fibrillation. 9. Acute on chronic kidney injury secondary to acute tubular necrosis, currently going daily hemodialysis. 10.Chronic lower extremity lymphedema. 11.Severe metabolic acidosis, resolved. 12.Right lower extremity cellulitis. 13.Morbid obesity. 14.Failure to wean from mechanical ventilation. 15.Profound metabolic/toxic encephalopathy. PLAN: We did a CT scan of the brain yesterday and EEG. Other than the severe metabolic/toxic encephalopathy, the studies were negative. There was no seizure activity. I did have a long conversation with the daughter, who is apparently a nurse at [employer]. We have given her some options as to how to move forward. The patient is not close to weaning from mechanical ventilation. She is a NO CODE. She remains on amiodarone at 0.5 mg/minute, TPN, and norepinephrine at 22 mcg/minute. She continues on daily hemodialysis. PEEP levels dropped from 12 to 8. No additional recommendations are made. Prognosis is poor. CRITICAL CARE TIME: 36 minutes. NEW / ANGELITO: [id number] /
[2019-11-18 08:25] VITALS: BP 103/43
--- NOTE | 2019-11-18 08:33 | XR ---
EXAMINATION TYPE: XR chest 1V DATE OF EXAM: 11/18/2019 COMPARISON: 11/17/2019 INDICATION: Intubated difficulty breathing TECHNIQUE: Single frontal view of the chest is obtained. FINDINGS: The heart size is normal. The pulmonary vasculature is normal. Mild infiltrate is at the right base. Endotracheal tube tip is above the kitty. Nasogastric tube transverses the thorax the tip in left up per quadrant of the abdomen. Right central venous catheter is present with the tip in the proximal ri ght atrium. No pneumothorax is evident. IMPRESSION: 1. Small right lower lobe infiltrate. Correlate for pneumonia. Consolidation may be worsening. 2. Multiple lines and catheters discussed above.
[2019-11-18 08:42] LABS: Glucose,Whole Blood 146 mg/dL (75-99)
[2019-11-18] MEDS ORDERED: ARTIFICIAL TEARS-HYPROMELLOSE DROPS 15 ML BTL BOTH EYES PRN (08:55)
--- NOTE | 2019-11-18 08:57 | PN ---
PROGRESS NOTE Mrs. Morse is a 69-year-old female who presented with perforated bowel following diverticulitis and underwent surgical intervention. She has a history of paroxysmal atrial fibrillation, hypertension, chronic kidney disease. She remains intubated. Neurologically not responsive. She is in sinus mechanism. She continues to be on norepinephrine because of her blood pressure. She has received dialysis yesterday. There is no evidence of ventricular ectopic activity. Neurologically, she has not shown significant recovery. Discussion was made yesterday by Dr. Melgar with the family regarding tracheostomy and PEG placement versus comfort care and awaiting the decision in that regard. She continues at this point to be on Lovenox 30 mg subcu daily, norepinephrine, levofloxacin, insulin, Solu-Cortef, and IV amiodarone. PHYSICAL EXAMINATION: Blood pressure 133/50 with the heart rate in 90s. LUNGS: Clear to auscultation anteriorly. HEART: Regular rate and rhythm. S1, S2. No S3 with systolic murmur. No diastolic murmur. No rub. ABDOMEN: Soft. Hypoactive bowel sounds. EXTREMITIES: With chronic skin changes and 2+ edema. LAB DATA: Lab data revealed BUN and creatinine 35 and 1.84. Potassium 5.1. Her chest x-ray shows no significant infiltrate. IMPRESSION: 1. Respiratory failure, status post abdominal surgery for diverticulitis. 2. Abdominal abscess. 3. Paroxysmal atrial fibrillation. 4. Prior history of hypertension. 5. Chronic kidney disease, on hemodialysis. 6. Lymphedema. RECOMMENDATION: From the cardiac standpoint, will continue supportive care at this time. Awaiting the decision from the family regarding further plans. The prognosis remains guarded. MMODL / IJN: [id number] /
[2019-11-18] MEDS ORDERED: ANIDULAFUNGIN 100 MG in SODIUM CHLORIDE 0.9% 100 ML IVPB SCH (09:00)
[2019-11-18] MEDS: ENOXAPARIN 30 MG/0.3 ML SYRINGE SQ SCH (09:01)
[2019-11-18] MEDS: PANTOPRAZOLE 40 MG/10 ML VIAL IV SCH (09:01)
[2019-11-18] MEDS: CHLORHEXIDINE GLUCONATE 15 ML CUP MUCOUS MEM SCH (09:01)
[2019-11-18] MEDS: HYDROPHILIC CREAM 180 GM TUBE TOPICAL SCH (09:03)
[2019-11-18 09:22] VITALS: TEMP 97.6
--- NOTE | 2019-11-18 10:54 | P.PN ---
Subjective Patient is seen in follow-up for acute kidney injury. She is currently hemodialysis dependent. Tolerated 4 L ultrafiltration yesterday. Currently on 20 mics of Levophed. Vasopressin has been discontinued. She remains intubated. Remains oliguric. Receiving TPN. Vital signs are stable. Currently on vasopressors. General: The patient appeared well nourished and normally developed. HEENT: Head exam is unremarkable. Neck is without jugular venous distension. Intubated. LUNGS: Breath sounds decreased. HEART: Rate and Rhythm are regular. First and second heart sounds normal. No murmurs, rubs or gallops. ABDOMEN: Abdominal exam reveals normal bowel sounds. Obese. EXTREMITITES: Lower extremities wrapped. 2+ edema. Objective - Vital Signs Vital signs: Vital Signs Temp 97.6 F 11/18/19 08:30 Pulse 81 11/18/19 09:15 Resp 28 H 11/18/19 09:15 BP 103/43 11/18/19 08:15 Pulse Ox 99 11/18/19 09:15 Intake & Output 11/17/19 11/18/19 11/18/19 18:59 06:59 18:59 Intake Total 2623.794 1656.329 564.486 Output Total 0 4012 0 Balance 2623.794 -2355.671 564.486 Weight 155.9 kg 150.9 kg Intake: IV 1350 1366 524 0.9 carrier 90 110 40 Anidulafungin 200 mg In 200 100 Sodium Chloride 0.9% 200 ml @ 84 mls/hr IVPB ONCE ONE Rx#:[id number] Meropenem 1 gm In Sodium 100 200 Chloride 0.9% 100 ml @ 200 mls/hr IVPB Q12H [facility] Rx#:[id number] Pressure Bags 60 66 24 TPN 900 990 360 Intake, IV Titration 1273.794 290.329 40.486 Amount Amiodarone 300 mg In 192.5 Dextrose 5% in Water 250 ml @ 0.5 MG/MIN 25 mls/hr IV .Q10H [facility] Rx#: [id number] Amiodarone 300 mg In 250 Dextrose 5% in Water 250 ml @ 0.5 MG/MIN 25 mls/hr IV .Q10H [facility] Rx#: [id number] Norepinephrine 32 mg In 15.294 40.329 40.486 Sodium Chloride 0.9% 218 ml @ 0.05 MCG/KG/MIN 2. 966 mls/hr IV .Q24H [facility] Rx#:[id number] Sodium Acetate 80 meq 1066 Calcium Gluconate 1 gm Sodium Chloride 2.5MEQ/ml Vial 40 meq In Amino Acid 4.25%-D10w+Lytes*E* 1,000 ml @ 90 mls/hr IV . BY DURATION [facility] Rx#: [id number] Output: Drainage 0 Colostomy 0 Urine 0 12 0 Hemodialysis 4000 Other: Voiding Method Indwelling Catheter Indwelling Catheter ABP, PAP, CO, CI - Last Documented Arterial Blood Pressure 125/40 - Labs CBC & Chem 7: 11/17/19 05:00 11/18/19 04:30 Labs: Abnormal Lab Results - Last 24 Hours (Table) 11/17/19 11/17/19 11/17/19 Range/Units 11:42 16:07 20:00 ABG pO2 (83-108) mmHg ABG Total CO2 (19-24) mmol/L ABG O2 Saturation (94-97) % Sodium (137-145) mmol/L BUN (7-17) mg/dL Creatinine (0.52-1.04) mg/dL Glucose (74-99) mg/dL POC Glucose (mg/dL) 156 H 178 H 168 H (75-99) mg/dL Calcium (8.4-10.2) mg/dL Magnesium (1.6-2.3) mg/dL Albumin (3.5-5.0) g/dL 11/17/19 11/18/19 11/18/19 Range/Units 23:43 04:19 04:30 ABG pO2 (83-108) mmHg ABG Total CO2 (19-24) mmol/L ABG O2 Saturation (94-97) % Sodium 136 L (137-145) mmol/L BUN 35 H (7-17) mg/dL Creatinine 1.84 H (0.52-1.04) mg/dL Glucose 137 H (74-99) mg/dL POC Glucose (mg/dL) 174 H 153 H (75-99) mg/dL Calcium 8.1 L (8.4-10.2) mg/dL Magnesium 2.4 H (1.6-2.3) mg/dL Albumin 1.7 L (3.5-5.0) g/dL 11/18/19 11/18/19 Range/Units 05:11 08:41 ABG pO2 140 H (83-108) mmHg ABG Total CO2 27 H (19-24) mmol/L ABG O2 Saturation 98.7 H (94-97) % Sodium (137-145) mmol/L BUN (7-17) mg/dL Creatinine (0.52-1.04) mg/dL Glucose (74-99) mg/dL POC Glucose (mg/dL) 146 H (75-99) mg/dL Calcium (8.4-10.2) mg/dL Magnesium (1.6-2.3) mg/dL Albumin (3.5-5.0) g/dL Microbiology - Last 24 Hours (Table) 11/14/19 05:24 Blood Culture - Preliminary Blood No Growth after 96 hours 11/13/19 23:50 Gram Stain - Final Sputum Sputum Culture - Final Stenotrophomonas maltophilia Enterobacter cloacae Assessment and Plan Plan: Assessment: 1. Acute kidney injury secondary to ischemic ATN. Currently hemodialysis dependent. Oliguric. 2. Septic shock secondary to perforated bowel status post laparotomy. Maintain on IV antibiotics. Currently on vasopressors. 3. Volume overload. 4. A. fib with RVR maintained on amiodarone. 5. Metabolic acidosis secondary to acute kidney injury. Improved postdialysis. Plan: Continue with daily dialysis with goal 3-4 L ultrafiltration. Continue to monitor renal function and urine output. Wean vasopressors. Avoid nephrotoxins.
--- NOTE | 2019-11-18 10:54 | P.PN ---
<Gissell Sarmiento - Last Filed: 11/18/19 10:50> Subjective Progress Note Date: 11/18/19 CHIEF COMPLAINT: Diverticulitis HISTORY OF PRESENT ILLNESS: Patient is status post left colectomy with mobilization of splenic flexure, partial omentectomy, and colostomy creation. POD #8. She remains critically ill. Patient remains on mechanical ventilation in the ICU. Fio2 40% Patient remains on vasopressor support. Patient received dialysis yesterday. No family at the bedside during my examination. However, nursing reports that the daughter does not wish to pursue trach and peg at this time. PHYSICAL EXAM: VITAL SIGNS: Reviewed. GENERAL: Well-developed in no acute distress-remains on mechanical ventilation. HEENT: ET tube noted. OG to LIS with bilious drainage. No sclera icterus. Extraocular movements grossly intact. Moist buccal mucosa. Head is atraumatic, normocephalic. ABDOMEN: Soft. Nondistended. Wound vac to abdomen noted. Ostomy pink with some duskiness around the superior edges. NEUROLOGIC: Unable to assess secondary to mechanical ventilation ASSESSMENT: 1. Diverticulitis with suspected contained perforation PLAN: -Continue ICU/ventilator management per Dr. Melgar -Continue antibiotics. Monitor WBC -HD per nephrology -Wean vasopressors as tolerated -Continue TPN -Continue wound vac to abdominal wound. Change wound vac today -Per nursing, family does not wish to pursue trach and peg. Will discuss further with family when available. Possible hospice per case management documentation. Nurse practitioner note has been reviewed by physician. Signing provider agrees with the documented findings, assessment, and plan of care. Objective - Vital Signs Vital signs: Vital Signs Temp 97.6 F 11/18/19 08:30 Pulse 81 11/18/19 09:15 Resp 28 H 11/18/19 09:15 BP 103/43 11/18/19 08:15 Pulse Ox 99 11/18/19 09:15 Intake & Output 11/17/19 11/18/19 11/18/19 18:59 06:59 18:59 Intake Total 2623.794 1656.329 564.486 Output Total 0 4012 0 Balance 2623.794 -2355.671 564.486 Weight 155.9 kg 150.9 kg Intake: IV 1350 1366 524 0.9 carrier 90 110 40 Anidulafungin 200 mg In 200 100 Sodium Chloride 0.9% 200 ml @ 84 mls/hr IVPB ONCE ONE Rx#:[id number] Meropenem 1 gm In Sodium 100 200 Chloride 0.9% 100 ml @ 200 mls/hr IVPB Q12H [facility] Rx#:[id number] Pressure Bags 60 66 24 TPN 900 990 360 Intake, IV Titration 1273.794 290.329 40.486 Amount Amiodarone 300 mg In 192.5 Dextrose 5% in Water 250 ml @ 0.5 MG/MIN 25 mls/hr IV .Q10H [facility] Rx#: [id number] Amiodarone 300 mg In 250 Dextrose 5% in Water 250 ml @ 0.5 MG/MIN 25 mls/hr IV .Q10H [facility] Rx#: [id number] Norepinephrine 32 mg In 15.294 40.329 40.486 Sodium Chloride 0.9% 218 ml @ 0.05 MCG/KG/MIN 2. 966 mls/hr IV .Q24H [facility] Rx#:[id number] Sodium Acetate 80 meq 1066 Calcium Gluconate 1 gm Sodium Chloride 2.5MEQ/ml Vial 40 meq In Amino Acid 4.25%-D10w+Lytes*E* 1,000 ml @ 90 mls/hr IV . BY DURATION [facility] Rx#: [id number] Output: Drainage 0 Colostomy 0 Urine 0 12 0 Hemodialysis 4000 Other: Voiding Method Indwelling Catheter Indwelling Catheter ABP, PAP, CO, CI - Last Documented Arterial Blood Pressure 125/40 - Labs CBC & Chem 7: 11/17/19 05:00 11/18/19 04:30 Labs: Abnormal Lab Results - Last 24 Hours (Table) 11/17/19 11/17/19 11/17/19 Range/Units 11:42 16:07 20:00 ABG pO2 (83-108) mmHg ABG Total CO2 (19-24) mmol/L ABG O2 Saturation (94-97) % Sodium (137-145) mmol/L BUN (7-17) mg/dL Creatinine (0.52-1.04) mg/dL Glucose (74-99) mg/dL POC Glucose (mg/dL) 156 H 178 H 168 H (75-99) mg/dL Calcium (8.4-10.2) mg/dL Magnesium (1.6-2.3) mg/dL Albumin (3.5-5.0) g/dL 11/17/19 11/18/19 11/18/19 Range/Units 23:43 04:19 04:30 ABG pO2 (83-108) mmHg ABG Total CO2 (19-24) mmol/L ABG O2 Saturation (94-97) % Sodium 136 L (137-145) mmol/L BUN 35 H (7-17) mg/dL Creatinine 1.84 H (0.52-1.04) mg/dL Glucose 137 H (74-99) mg/dL POC Glucose (mg/dL) 174 H 153 H (75-99) mg/dL Calcium 8.1 L (8.4-10.2) mg/dL Magnesium 2.4 H (1.6-2.3) mg/dL Albumin 1.7 L (3.5-5.0) g/dL 11/18/19 11/18/19 Range/Units 05:11 08:41 ABG pO2 140 H (83-108) mmHg ABG Total CO2 27 H (19-24) mmol/L ABG O2 Saturation 98.7 H (94-97) % Sodium (137-145) mmol/L BUN (7-17) mg/dL Creatinine (0.52-1.04) mg/dL Glucose (74-99) mg/dL POC Glucose (mg/dL) 146 H (75-99) mg/dL Calcium (8.4-10.2) mg/dL Magnesium (1.6-2.3) mg/dL Albumin (3.5-5.0) g/dL Microbiology - Last 24 Hours (Table) 11/14/19 05:24 Blood Culture - Preliminary Blood No Growth after 96 hours 11/13/19 23:50 Gram Stain - Final Sputum Sputum Culture - Final Stenotrophomonas maltophilia Enterobacter cloacae <Demetri Davidson - Last Filed: 11/18/19 16:01> Subjective As above. Patient was made comfort care by the family earlier today. Subsequent to that the patient . Objective - Vital Signs Vital signs: Vital Signs Temp 97.6 F 11/18/19 08:30 Pulse 100 11/18/19 11:45 Resp 26 H 11/18/19 11:45 BP 103/43 11/18/19 08:15 Pulse Ox 97 03/03/20 11:45 Intake & Output 11/17/19 11/18/19 11/18/19 18:59 06:59 18:59 Intake Total 2623.794 1656.329 776.486 Output Total 0 4012 0 Balance 2623.794 -2355.671 776.486 Weight 155.9 kg 150.9 kg Intake: IV 1350 1366 736 0.9 carrier 90 110 60 Anidulafungin 200 mg In 200 100 Sodium Chloride 0.9% 200 ml @ 84 mls/hr IVPB ONCE ONE Rx#:[id number] Meropenem 1 gm In Sodium 100 200 Chloride 0.9% 100 ml @ 200 mls/hr IVPB Q12H [facility] Rx#:[id number] Pressure Bags 60 66 36 TPN 900 990 540 Intake, IV Titration 1273.794 290.329 40.486 Amount Amiodarone 300 mg In 192.5 Dextrose 5% in Water 250 ml @ 0.5 MG/MIN 25 mls/hr IV .Q10H [facility] Rx#: [id number] Amiodarone 300 mg In 250 Dextrose 5% in Water 250 ml @ 0.5 MG/MIN 25 mls/hr IV .Q10H [facility] Rx#: [id number] Norepinephrine 32 mg In 15.294 40.329 40.486 Sodium Chloride 0.9% 218 ml @ 0.05 MCG/KG/MIN 2. 966 mls/hr IV .Q24H [facility] Rx#:[id number] Sodium Acetate 80 meq 1066 Calcium Gluconate 1 gm Sodium Chloride 2.5MEQ/ml Vial 40 meq In Amino Acid 4.25%-D10w+Lytes*E* 1,000 ml @ 90 mls/hr IV . BY DURATION [facility] Rx#: [id number] Output: Drainage 0 Colostomy 0 Urine 0 12 0 Hemodialysis 4000 Other: Voiding Method Indwelling Catheter Indwelling Catheter Indwelling Catheter ABP, PAP, CO, CI - Last Documented Arterial Blood Pressure 116/45 - Labs CBC & Chem 7: 11/17/19 05:00 11/18/19 04:30 Labs: Abnormal Lab Results - Last 24 Hours (Table) 11/17/19 11/17/19 11/17/19 Range/Units 16:07 20:00 23:43 ABG pO2 (83-108) mmHg ABG Total CO2 (19-24) mmol/L ABG O2 Saturation (94-97) % Sodium (137-145) mmol/L BUN (7-17) mg/dL Creatinine (0.52-1.04) mg/dL Glucose (74-99) mg/dL POC Glucose (mg/dL) 178 H 168 H 174 H (75-99) mg/dL Calcium (8.4-10.2) mg/dL Magnesium (1.6-2.3) mg/dL Albumin (3.5-5.0) g/dL 11/18/19 11/18/19 11/18/19 Range/Units 04:19 04:30 05:11 ABG pO2 140 H (83-108) mmHg ABG Total CO2 27 H (19-24) mmol/L ABG O2 Saturation 98.7 H (94-97) % Sodium 136 L (137-145) mmol/L BUN 35 H (7-17) mg/dL Creatinine 1.84 H (0.52-1.04) mg/dL Glucose 137 H (74-99) mg/dL POC Glucose (mg/dL) 153 H (75-99) mg/dL Calcium 8.1 L (8.4-10.2) mg/dL Magnesium 2.4 H (1.6-2.3) mg/dL Albumin 1.7 L (3.5-5.0) g/dL 11/18/19 Range/Units 08:41 ABG pO2 (83-108) mmHg ABG Total CO2 (19-24) mmol/L ABG O2 Saturation (94-97) % Sodium (137-145) mmol/L BUN (7-17) mg/dL Creatinine (0.52-1.04) mg/dL Glucose (74-99) mg/dL POC Glucose (mg/dL) 146 H (75-99) mg/dL Calcium (8.4-10.2) mg/dL Magnesium (1.6-2.3) mg/dL Albumin (3.5-5.0) g/dL Microbiology - Last 24 Hours (Table) 11/17/19 10:30 Blood Culture - Preliminary Blood No Growth after 24 hours 11/14/19 05:24 Blood Culture - Preliminary Blood No Growth after 96 hours 11/13/19 23:50 Gram Stain - Final Sputum Sputum Culture - Final Stenotrophomonas maltophilia Enterobacter cloacae Assessment and Plan (1) Diverticulitis Status: Acute Code(s): K57.92 - DVTRCLI OF INTEST, PART UNSP, W/O PERF OR ABSCESS W/O BLEED SNOMED Code(s): 963235777
[2019-11-18] MEDS ORDERED: ATROPINE OPHTH SOLN 1% 5ML BTL SUBLINGUAL PRN (11:28)
[2019-11-18] MEDS ORDERED: MORPHINE SULFATE 4 MG/ML SYRINGE IV PRN (11:28)
[2019-11-18] MEDS ORDERED: SODIUM CHLORIDE 0.9% 1,000 ML IV SCH (11:30)
[2019-11-18] MEDS ORDERED: MORPHINE SULFATE (100 MG/2 ML) 100 MG in SODIUM CHLORIDE 0.9% 100 ML IV SCH (11:45)
[2019-11-18 11:55] VITALS: PULSE 100; RESP 26
[2019-11-18] MEDS: NYSTATIN 100,000 UNIT/GM POWD 15 GM TOPICAL SCH (11:57)
[2019-11-18] MEDS ORDERED: SCOPOLAMINE 1.5MG/72HR PATCH TRANSDERM SCH (12:00)
--- NOTE | 2019-11-18 22:23 | P.DS ---
Providers Date of admission: 11/05/19 21:06 Expected date of discharge: 11/18/19 Attending physician: Jamshid Cabrera Consults: 11/07/19 09:59 Consult Physician Routine Consulting Provider: Binh Abbasi Consult Reason/Comments: abnormal vaginal bleeding Do you want consulting provider notified?: Yes 11/09/19 15:33 Consult Physician Routine Consulting Provider: Demetri Davidson Consult Reason/Comments: acute diverticulitis Do you want consulting provider notified?: Yes 11/10/19 01:33 Consult Physician Routine Consulting Provider: Mac Godfrey Consult Reason/Comments: Sepsis Do you want consulting provider notified?: Yes, Notify in am 11/10/19 11:11 Consult Physician Routine Consulting Provider: Sabiha Cesar Consult Reason/Comments: sepsis Do you want consulting provider notified?: Yes 11/11/19 05:26 Consult Physician Routine Consulting Provider: Edmund Kraus Consult Reason/Comments: afib Do you want consulting provider notified?: Yes, Notify in am 11/11/19 08:00 Consult Physician Routine Consulting Provider: Paz Scott Consult Reason/Comments: Acute on Chronic renal failure Do you want consulting provider notified?: Already Contacted 11/11/19 11:14 Consult Physician Stat Consulting Provider: Paul Romero Consult Reason/Comments: placement of hemodialysis catheter Do you want consulting provider notified?: Yes Primary care physician: [facility] Course: Chief Complaint: Abdominal pain History of presenting complaint: This is a very pleasant [address] Sin. Chronic stable medical conditions include paroxysmal atrial fibrillation, asthma, hypertension, GERD, chronic kidney disease stage IV, bilateral lower extremity lymphedema. Patient normally uses a walker to get about. Currently at [facility] for rehab. Patient's had abdominal pain on and off for quite some time. On this occasion yesterday the pain became much worse cramping some nausea vomiting. Denies any fever and chills. Had to 3 loose stools yesterday. No blood. Computed tomography scan in the ER did show diverticulitis. Patient is made nothing by mouth. Daughter the bedside. At the [facility] patient was walking at least-20-30 steps with a walker. Admitted with acute sigmoid diverticulitis. Also patient noted to have some vaginal blood clots. Seen by Dr. Binh Abbasi-to be followed as an outpatient. Patient's started on IV antibiotics. Repeat Computed tomography scan-Found to have a contained bowel perforation. Leading up to left hemicolectomy. Patient remained in the ICU. Continued to remain on the ventilator.. Received blood transfusion. Received pressure support. Multiple drips. Continued to go downhill. Patient also started hemodialysis. Today-care was discussed with the 2 daughters at the bedside. Patient's been made comfort care with consultation to hospice. Discussion discharge plannin minutes Consultation: Dr. Tamiko Sung from vascular -GERD Binh Abbasi from [employer] -Dr. Joel Monae from general surgery -Dr. Godfrey from critical care -Dr. Ramirez from infectious disease -Dr. Kraus from cardiology Physical examination: VITAL SIGNS: 97.6, 83, 30, 101/35, 98% on the ventilator GENERAL: Laying in bed, intubated EYES: Pupils equal. Conjunctiva normal. HEENT: External appearance of nose and ears normal, oral cavity dry mucous membrane. Endotracheal tube in place. NG tube NECK: JVD not raised; masses not palpable. HEART: irregular heart sounds; some edema. LUNGS: Respiratory rate increased; decreased breath sounds ABDOMEN: Soft, dressing over the incision site, no guarding rigidity, liver spleen not palpable, no masses palpable. Colostomy-no output. PSYCH: Sedated LYMPHATICS: lymphedema of the lower extremity INVESTIGATIONS, reviewed in the clinical context: white count 14 hemoglobin 7potassium 3.9 creatinine 1.57 potassium 6.1albumin 1.5 Previous testing White count 4.5 hemoglobin 9.8 platelets 126 Creatinine 1.3 Computed tomography scan of the abdomen-possible colitis versus diverticulitis in the sigmoid area C. diff-negative Assessment: -Acute perforation of the large colon. Leading to left colectomy, partial omentectomy and a colostomy -Acute sigmoid diverticulitis, -Acute hypoxic respiratory failure requiring ventilator support. Intubated, slow to respond -Septic shock requiring pressor support, slow to respond -Intermittent vaginal blood clots-endometrial prominence. outpatient D&C -Acute kidney injury likely ATN , oliguricfrom cardiorenal syndrome. -Bilateral lower extremity lymphedema -Persistent atrial fibrillation, with rapid ventricular rate, uncontrolled -Acute cellulitis of the right lower extremity -Chronic gait dysfunction uses a walker -Morbid obesity BMI 51 -Right bundle-branch block -Essential hypertension -GERD -Acute postprocedure blood loss anemia as expected from surgery-getting 2 units of blood -Advanced to end-stage kidney disease-on hemodialysis Plan: Hospice was consulted. Patient will be extubated. Her morphine and comfort measures. Care was discussed with the 2 daughters at the bedside. Patient Condition at Discharge: Poor Plan - Discharge Summary Discharge Rx Participant: No New Discharge Prescriptions: No Action Torsemide [Demadex] 20 mg PO MOTH@0800 Potassium Chloride 10 meq PO DAILY@0800 Montelukast [Singulair] 10 mg PO HS@2100 Acetaminophen [Tylenol 8 Hour] 650 mg PO Q6H PRN PRN Reason: Pain Omeprazole [PriLOSEC] 20 mg PO BID@0800,1700 Lactobacillus Acidophilus [Acidophilus] 1 tab PO BID@0800,1700 Fluticasone Propion/Salmeterol [Wixela 500-50 Inhub] 1 puff INHALATION RT- DAILY@1700 Ferrous Sulfate [Iron (65 MG Elemental)] 325 mg PO DAILY@1700 Dicyclomine [Bentyl] 10 mg PO BID PRN PRN Reason: IBS Na Phos,M-B/Na Phos,Di-Ba [Fleet Adult] 133 ml RECTAL ONCE PRN PRN Reason: Constipation Bisacodyl [Dulcolax] 10 mg RECTAL DAILY PRN PRN Reason: Constipation traMADol HCL [Ultram] 100 mg PO TID@0600,1400,2200 Metoprolol Tartrate [Lopressor] 12.5 mg PO TID@0600,1400,2200 Hydrophilic Cream [Triad Cream] 1 applic TOPICAL BID Miconazole Nitrate [Desenex] 1 applic TOPICAL BID Heparin Sodium,Porcine [Heparin Sodium] 5,000 unit SQ Q12H Lactose-Reduced Food [Ensure Plus] 120 ml PO BID@0800,1200 Liquical 30 ml PO DAILY@1700 Magnesium Hydroxide [Milk of Magnesia Concentrate] 7,200 mg PO DAILY PRN PRN Reason: Constipation Discharge Medication List Montelukast [Singulair] 10 mg PO HS@2100 05/21/19 [History] Potassium Chloride 10 meq PO DAILY@0800 05/21/19 [History] Torsemide [Demadex] 20 mg PO MOTH@0800 05/21/19 [History] Acetaminophen [Tylenol 8 Hour] 650 mg PO Q6H PRN 10/24/19 [History] Dicyclomine [Bentyl] 10 mg PO BID PRN 10/24/19 [History] Ferrous Sulfate [Iron (65 MG Elemental)] 325 mg PO DAILY@169910/24/19 [History] Fluticasone Propion/Salmeterol [Wixela 500-50 Inhub] 1 puff INHALATION RT- DAILY@169910/24/19 [History] Lactobacillus Acidophilus [Acidophilus] 1 tab PO BID@0800,169910/24/19 [History] Omeprazole [PriLOSEC] 20 mg PO BID@0800,0 10/24/19 [History] Bisacodyl [Dulcolax] 10 mg RECTAL DAILY PRN 11/05/19 [History] Heparin Sodium,Porcine [Heparin Sodium] 5,000 unit SQ Q12H 11/05/19 [History] Hydrophilic Cream [Triad Cream] 1 applic TOPICAL BID 11/05/19 [History] Lactose-Reduced Food [Ensure Plus] 120 ml PO BID@0800,1200 11/05/19 [History] Liquical 30 ml PO DAILY@169911/05/19 [History] Magnesium Hydroxide [Milk of Magnesia Concentrate] 7,200 mg PO DAILY PRN 11/05/19 [History] Metoprolol Tartrate [Lopressor] 12.5 mg PO TID@0600,1400,219911/05/19 [History] Miconazole Nitrate [Desenex] 1 applic TOPICAL BID 11/05/19 [History] Na Phos,M-B/Na Phos,Di-Ba [Fleet Adult] 133 ml RECTAL ONCE PRN 11/05/19 [History] traMADol HCL [Ultram] 100 mg PO TID@0600,1400,0 11/05/19 [History] Follow up Appointment(s)/Referral(s): Demetri Davidson MD [Medical Doctor] - 1 Week Ivan Sin MD [Primary Care Provider] - 1-2 days Discharge Disposition: DISCH TO [facility]
--- NOTE | 2019-11-19 12:19 | CDI ---
Documentation Clarification Form Date: 11/19/19 From: Anitra Fletcher CCS Phone: If you have a question about this query, please contact Mona Owens, Water Restoration Technician at [phone] between 8am and 5pm. Admit Date: 11/05/19 Discharge Date: 11/18/19 Patient Name: Amy Morse Visit Number: [id number] ATTENTION: The Clinical Documentation Specialists (CDI) and [facility] Coding Staff appreciate your assistance in clarifying documentation. Please respond to the clarification below the line at the bottom and electronically sign. The CDI & [facility] Coding staff will review the response and follow-up if needed. Please note: Queries are made part of the Legal Health Record. If you have any questions, please contact the author of this message via ITS. Dear Dr. Cabrera Pressure injury stage II to the sacrum POA is documented in the wound care notes on 11/06. History/Risk Factors: Sepsis, Vent dependent, Dialysis dependent, DNR, D/C to hospice Treatment: Zinc applied Consults: Wound care In your professional opinion, can you please clarify if stage II pressure injury to sacrum is a valid diagnosis for this patient? Stage II pressure injury to the sacrum Other, please specify Unable to determine Stage II decub ulcer on the sacrum, POA MTDD
--- NOTE | 2019-11-19 12:34 | CDI ---
Documentation Clarification Form Date: 11/19/19 From: Anitra Fletcher CCS Phone: If you have a question about this query, please contact Mona Owens, Baseball Player at [phone] between 8am and 5pm. Admit Date: 11/05/19 Discharge Date: 11/18/19 Patient Name: Amy Morse Visit Number: [id number] ATTENTION: The Clinical Documentation Specialists (CDI) and [facility] Coding Staff appreciate your assistance in clarifying documentation. Please respond to the clarification below the line at the bottom and electronically sign. The CDI & [facility] Coding staff will review the response and follow-up if needed. Please note: Queries are made part of the Legal Health Record. If you have any questions, please contact the author of this message via ITS. Dear Dr. Cabrera Bilateral buttock pressure injury, deep tissue injury, hospital acquired is documented in the wound care notes. History/Risk Factors: Septic shock, vent dependent, dialysis dependent, D/C to hospice Other Clinical Indicators: Treatment: Wound care Consults: Wound care In your professional opinion, can you please clarify if hospital acquired pressure injury, deep tissue injury to bilateral buttocks is a valid diagnosis? Pressure injury, bilateral buttocks, hospital acquired deep tissue injury Other, please specify Unable to determine Pressure injury, bilateral buttocks, deep tissue injury, hospital acquired MTDD
== END 2019-11-18 12:21 | disposition hospice, inpatient (51) | DRG 329 ==
LOC: EC 18:02 → 5NMEDONC 21:06 → 2SICU 11-10 00:05
PROVIDERS: ADMIT Hospitalist; ATTEND Hospitalist
PROC: 30243K1 Transfusion of Nonautologous Frozen Plasma into Central Vein, Percutaneous Approach (ICD-10-PCS; 2019-11-10)
PROC: 5A1955Z Respiratory Ventilation, Greater than 96 Consecutive Hours (ICD-10-PCS; 2019-11-10)
PROC: 02HV33Z Insertion of Infusion Device into Superior Vena Cava, Percutaneous Approach (ICD-10-PCS; 2019-11-10)
PROC: 0D9670Z Drainage of Stomach with Drainage Device, Via Natural or Artificial Opening (ICD-10-PCS; 2019-11-10)
PROC: 0DBU0ZZ Excision of Omentum, Open Approach (ICD-10-PCS; principal; 2019-11-10 04:34)
PROC: 0DTG0ZZ Resection of Left Large Intestine, Open Approach (ICD-10-PCS; principal; 2019-11-10 04:34)
PROC: 0D1L0Z4 Bypass Transverse Colon to Cutaneous, Open Approach (ICD-10-PCS; principal; 2019-11-10 04:34)
PROC: 5A1D70Z Performance of Urinary Filtration, Intermittent, Less than 6 Hours Per Day (ICD-10-PCS; 2019-11-11)
PROC: 06HM33Z Insertion of Infusion Device into Right Femoral Vein, Percutaneous Approach (ICD-10-PCS; 2019-11-11)
PROC: 3E0436Z Introduction of Nutritional Substance into Central Vein, Percutaneous Approach (ICD-10-PCS; 2019-11-11)
PROC: 30243N1 Transfusion of Nonautologous Red Blood Cells into Central Vein, Percutaneous Approach (ICD-10-PCS; 2019-11-12)
PROC: 03HY32Z Insertion of Monitoring Device into Upper Artery, Percutaneous Approach (ICD-10-PCS; 2019-11-14)
DX: K57.20 Diverticulitis of large intestine with perforation and abscess without bleeding (principal); R65.21 Severe sepsis with septic shock; A41.52 Sepsis due to Pseudomonas; N17.0 Acute kidney failure with tubular necrosis; J96.01 Acute respiratory failure with hypoxia; J15.6 Pneumonia due to other Gram-negative bacteria; G93.41 Metabolic encephalopathy; N18.6 End stage renal disease; I48.19 Other persistent atrial fibrillation; Z68.43 Body mass index [BMI] 50.0-59.9, adult; L03.115 Cellulitis of right lower limb; E87.2 Acidosis; I48.92 Unspecified atrial flutter; D62 Acute posthemorrhagic anemia; E87.1 Hypo-osmolality and hyponatremia; Z99.11 Dependence on respirator [ventilator] status; I13.11 Hypertensive heart and chronic kidney disease without heart failure, with stage 5 chronic kidney disease, or end stage renal disease; L89.152 Pressure ulcer of sacral region, stage 2; L89.326 Pressure-induced deep tissue damage of left buttock; L89.316 Pressure-induced deep tissue damage of right buttock; Z66 Do not resuscitate; Z51.5 Encounter for palliative care; J45.909 Unspecified asthma, uncomplicated; E66.01 Morbid (severe) obesity due to excess calories; K21.9 Gastro-esophageal reflux disease without esophagitis; I89.0 Lymphedema, not elsewhere classified; R26.9 Unspecified abnormalities of gait and mobility; E87.6 Hypokalemia; K59.00 Constipation, unspecified; I45.10 Unspecified right bundle-branch block; N95.0 Postmenopausal bleeding; I25.10 Atherosclerotic heart disease of native coronary artery without angina pectoris; E78.5 Hyperlipidemia, unspecified; Z71.3 Dietary counseling and surveillance; Z79.899 Other long term (current) drug therapy; Z79.01 Long term (current) use of anticoagulants; Z86.73 Personal history of transient ischemic attack (TIA), and cerebral infarction without residual deficits; Z99.2 Dependence on renal dialysis; Z90.49 Acquired absence of other specified parts of digestive tract; Z86.19 Personal history of other infectious and parasitic diseases; Z82.49 Family history of ischemic heart disease and other diseases of the circulatory system; Z88.5 Allergy status to narcotic agent
CPT/HCPCS: 36415; 70450; 71045; 74176; 74177; 76856; 80048; 80053; 81001; 82040; 82150; 82330; 82533; 82805; 83605; 83690; 83735; 84100; 84484; 85025; 85027; 85610; 85730; 86704; 86706; 86850; 86900; 86901; 86920; 87040; 87070; 87077; 87086; 87186; 87205; 87324; 87340; 88307; 90935; 93308; 94002; 94003; 94640; 95816; 96361; 96365; 96366; 96372; 96375; 96376; 99285

== ENCOUNTER 2019-11-18 12:06 | Inpatient (IN) | payer MEDICAID ==
[2019-11-18] MEDS ORDERED: ATROPINE OPHTH SOLN 1% 5ML BTL SUBLINGUAL PRN (12:12)
[2019-11-18] MEDS ORDERED: LORazepam 2 MG/ML INJ IV PRN (12:12)
[2019-11-18] MEDS ORDERED: ONDANSETRON 4 MG/2 ML VIAL IVP PRN (12:12)
[2019-11-18] MEDS ORDERED: MORPHINE SULFATE (100 MG/2 ML) 100 MG in SODIUM CHLORIDE 0.9% 100 ML IV SCH (12:15)
[2019-11-18] MEDS ORDERED: ARTIFICIAL TEARS-HYPROMELLOSE DROPS 15 ML BTL BOTH EYES PRN (12:17)
[2019-11-18] MEDS ORDERED: MORPHINE SULFATE 4 MG/ML SYRINGE IVP PRN (12:18)
[2019-11-18] MEDS ORDERED: SCOPOLAMINE 1.5MG/72HR PATCH TRANSDERM SCH (12:30)
--- NOTE | 2019-11-19 11:36 | DS ---
DISCHARGE SUMMARY EXPIRATION SUMMARY: DATE OF ADMISSION: 11/18/2019 DATE PATIENT : 11/18/2019 CAUSE OF : Acute sigmoid diverticulitis. OTHER MEDICAL CONDITIONS: 1. Advanced end-stage kidney disease. 2. Essential hypertension. HOSPITAL COURSE: The patient was admitted to inpatient hospice care and comfort measures were done including morphine. The patient's family was at the bedside. The patient succumbed to underlying condition. MMODL / IJN: [id number] /
== END 2019-11-19 00:11 | disposition expired | DRG 951 ==
LOC: 2SICU 12:24 → 6NMEDSUR 11-19 00:04
PROVIDERS: ADMIT Hospitalist; ATTEND Hospitalist
DX: Z51.5 Encounter for palliative care (principal); N18.6 End stage renal disease; I12.0 Hypertensive chronic kidney disease with stage 5 chronic kidney disease or end stage renal disease; L03.115 Cellulitis of right lower limb; Z68.43 Body mass index [BMI] 50.0-59.9, adult; K57.32 Diverticulitis of large intestine without perforation or abscess without bleeding; E66.01 Morbid (severe) obesity due to excess calories; Z66 Do not resuscitate; I48.0 Paroxysmal atrial fibrillation; I45.10 Unspecified right bundle-branch block; J45.909 Unspecified asthma, uncomplicated; K21.9 Gastro-esophageal reflux disease without esophagitis; I89.0 Lymphedema, not elsewhere classified; R26.9 Unspecified abnormalities of gait and mobility; Z79.51 Long term (current) use of inhaled steroids; Z79.899 Other long term (current) drug therapy; Z90.49 Acquired absence of other specified parts of digestive tract; Z98.890 Other specified postprocedural states; Z86.73 Personal history of transient ischemic attack (TIA), and cerebral infarction without residual deficits